=== PATIENT | female | born 1980 | race Caucasian/White ===

== ENCOUNTER 2018-09-04 21:30 | Emergency (ER) | payer OTHER ==
[~2018-09-04] VITALS: Ht 180.3 cm; Wt 60.3 kg
[~2018-09-04 21:30] MED LIST: AMOX-97 PO; IBP800T PO; NAPR-243 PO
--- NOTE | 2018-09-04 21:53 | ED Abdominal Pain ---
General Chief Complaint: Abdominal/GI Problems Stated Complaint: 17 WEEKS ,HAVING A LOT OF BOWEL MOVEMENTS Source of Information: Patient Exam Limitations: No Limitations History of Present Illness Date Seen by Provider: Sep 04, 2018 Time Seen by Provider: 21:50 Initial Comments To ER with diarrhea too many episodes to count since this morning, lower abdominal cramping. She is 17 weeks' gestation. Stools are nonbloody. No fevers no vomiting. She denies any vaginal bleeding. She is . She follows with Dr. Anderson. Timing/Duration: 12 Hours Severity/Quality: Moderate, Cramping Location: Generalized Abdomen Activities at Onset: None Associated Symptoms: No Fever/Chills (medical), No Nausea/Vomiting, No Swelling /Mass in Abdomen Allergies and Home Medications Allergies Coded Allergies: No Known Drug Allergies (Unverified , 08/19/11) Home Medications Cephalexin 500 Mg Capsule, 500 MG PO TID Prescribed by: JM HILTON on 09/04/18 9072 Patient Home Medication List Home Medication List Reviewed: Yes Review of Systems Review of Systems Constitutional: see HPI EENTM: No Symptoms Reported Respiratory: No Symptoms Reported Cardiovascular: No Symptoms Reported Gastrointestinal: See HPI, Abdominal Pain (suprapubic cramping especially with bowel movements. ); Denies Constipated; Diarrhea; Denies Nausea, Denies Vomiting Genitourinary: No Symptoms Reported Musculoskeletal: no symptoms reported Skin: no symptoms reported Psychiatric/Neurological: No Symptoms Reported Endocrine: No Symptoms Reported Hematologic/Lymphatic: No Symptoms Reported Past Hplyizg-Rlxbrv-Fastcu Hx Patient Social History Recent Foreign Travel: No Contact w/Someone Who Travel: No Seasonal Allergies Seasonal Allergies: No Physical Exam Vital Signs Vital Signs - First Documented 09/04/18 21:42 Temp 99.5 Pulse 98 Resp 18 B/P (MAP) 112/68 (83) Capillary Refill : Height/Weight/BMI Height: 5'11" Weight: 120lbs. oz. 54.689212fu; BMI Method:Stated General Appearance: WD/WN, no apparent distress HEENT: PERRL/EOMI, normal ENT inspection Neck: non-tender, full range of motion Respiratory: no respiratory distress, no accessory muscle use Cardiovascular: regular rate, rhythm, no murmur Gastrointestinal: normal bowel sounds, soft, tenderness (suprapubic ) Extremities: normal range of motion, non-tender Neurologic/Psychiatric: alert, normal mood/affect, oriented x 3 Skin: normal color, warm/dry Exam Comments heart tones obtained by me at 169 just about 3-4cm inferior to umbilicus. Progress/Results/Core Measures Results/Orders Lab Results Laboratory Tests Test 09/04/18 21:45 09/04/18 21:53 Range/Units White Blood Count 9.3 4.3-11.0 10^3/uL Red Blood Count 3.84 L 4.35-5.85 10^6/uL Hemoglobin 12.5 11.5-16.0 G/DL Hematocrit 36 35-52 % Mean Corpuscular Volume 94 80-99 FL Mean Corpuscular Hemoglobin 33 25-34 PG Mean Corpuscular Hemoglobin Concent 35 32-36 G/DL Red Cell Distribution Width 12.2 10.0-14.5 % Platelet Count 250 130-400 10^3/uL Mean Platelet Volume 9.8 7.4-10.4 FL Neutrophils (%) (Auto) 64 42-75 % Lymphocytes (%) (Auto) 24 12-44 % Monocytes (%) (Auto) 9 0-12 % Eosinophils (%) (Auto) 3 0-10 % Basophils (%) (Auto) 0 0-10 % Neutrophils # (Auto) 5.9 1.8-7.8 X 10^3 Lymphocytes # (Auto) 2.3 1.0-4.0 X 10^3 Monocytes # (Auto) 0.8 0.0-1.0 X 10^3 Eosinophils # (Auto) 0.3 0.0-0.3 10^3/uL Basophils # (Auto) 0.0 0.0-0.1 10^3/uL Sodium Level 139 135-145 MMOL/L Potassium Level 3.5 L 3.6-5.0 MMOL/L Chloride Level 108 H 98-107 MMOL/L Carbon Dioxide Level 22 21-32 MMOL/L Anion Gap 9 5-14 MMOL/L Blood Urea Nitrogen 6 L 7-18 MG/DL Creatinine 0.56 L 0.60-1.30 MG/DL Estimat Glomerular Filtration Rate > 60 BUN/Creatinine Ratio 11 Glucose Level 94 70-105 MG/DL Calcium Level 9.7 8.5-10.1 MG/DL Corrected Calcium 9.8 8.5-10.1 MG/DL Total Bilirubin 0.3 0.1-1.0 MG/DL Aspartate Amino Transf (AST/SGOT) 43 H 5-34 U/L Alanine Aminotransferase (ALT/SGPT) 45 0-55 U/L Alkaline Phosphatase 50 40-136 U/L Total Protein 6.6 6.4-8.2 GM/DL Albumin 3.9 3.2-4.5 GM/DL Urine Color YELLOW Urine Clarity SLIGHTLY CLOUDY Urine pH 6 5-9 Urine Specific Moffett 1.025 H 1.016-1.022 Urine Protein 2+ H NEGATIVE Urine Glucose (UA) NEGATIVE NEGATIVE Urine Ketones 1+ H NEGATIVE Urine Nitrite NEGATIVE NEGATIVE Urine Bilirubin NEGATIVE NEGATIVE Urine Urobilinogen 1 NORMAL MG/DL Urine Leukocyte Esterase 2+ H NEGATIVE Urine RBC (Auto) 2+ H NEGATIVE Urine RBC RARE /HPF Urine WBC 5-10 H /HPF Urine Squamous Epithelial Cells 25-50 H /HPF Urine Crystals PRESENT H /LPF Urine Calcium Oxalate Crystals LARGE H /LPF Urine Bacteria MODERATE H /HPF Urine Casts NONE /LPF Urine Mucus LARGE H /LPF Urine Culture Indicated YES My Orders Orders - JM HILTON APRN Cbc With Automated Diff (09/04/18 21:48) Comprehensive Metabolic Panel (09/04/18 21:48) Ua Culture If Indicated (09/04/18 21:48) Iv Heplock-Insert (Order) (09/04/18 21:48) Ns Iv 1000 Ml (Sodium Chloride 0.9%) (09/04/18 22:00) Diphenhydramine Injection (Benadryl Inje (09/04/18 22:00) Urine Culture (09/04/18 21:53) Medications Given in ED Current Medications Medications Dose Ordered Sig/Leda Route Start Time Stop Time Status Last Admin Dose Admin Diphenhydramine HCl 12.5 mg ONCE ONCE IVP 09/04/18 22:00 09/04/18 22:01 DC 09/04/18 21:55 12.5 MG Vital Signs/I&O 09/04/18 21:42 Temp 99.5 Pulse 98 Resp 18 B/P (MAP) 112/68 (83) Departure Impression Primary Impression: Diarrhea during Additional Impression: Asymptomatic bacteriuria during Disposition: 01 HOME, SELF-CARE Condition: Stable Departure-Patient Inst. Decision time for Depature: 22:10 Referrals: RUBANO ANDERSON DO (PCP/Family) Primary Care Physician Patient Instructions: Diarrhea in Adolescents and Adults Add. Discharge Instructions: 1. Drink plenty of fluids. Pedialyte is a great choice to help stay hydrated or water. Call Dr. Anderson tomorrow and return to ER for any concerns such as fevers or uncontrollable vomiting. Scripts Cephalexin (Keflex) 500 Mg Capsule 500 MG PO TID, #10 CAP . Prov: JM HILTON APRN 09/04/18 Work/School Note: Work Release Form Date Seen in the Emergency Department: Sep 04, 2018 Return to Work: Sep 06, 2018 MJ HILTON APRN Sep 04, 2018 21:53
[2018-09-04 21:54] LABS: BASOPHILS % (AUTO) 0 % (0-10); EOSINOPHILS # (AUTO) 0.3 10^3/uL (0.0-0.3); EOSINOPHILS % (AUTO) 3 % (0-10); HEMATOCRIT 36 % (35-52); HEMOGLOBIN 12.5 G/DL (11.5-16.0); LYMPHOCYTES # (AUTO) 2.3 X 10^3 (1.0-4.0); LYMPHOCYTES % (AUTO) 24 % (12-44); MEAN CORPUSCULAR HEMOGLOBIN 33 PG (25-34); MEAN CORPUSCULAR HGB CONC 35 G/DL (32-36); MEAN CORPUSCULAR VOLUME 94 FL (80-99); MEAN PLATELET VOLUME 9.8 FL (7.4-10.4); MONOCYTES # (AUTO) 0.8 X 10^3 (0.0-1.0); MONOCYTES % (AUTO) 9 % (0-12); NEUTROPHILS # (AUTO) 5.9 X 10^3 (1.8-7.8); NEUTROPHILS % (AUTO) 64 % (42-75); PLATELET COUNT 250 10^3/uL (130-400); RED CELL DISTRIBUTION WIDTH 12.2 % (10.0-14.5); WHITE BLOOD COUNT 9.3 10^3/uL (4.3-11.0)
[2018-09-04] MEDS ORDERED: diphenhydrAMINE 50 MG/ML INJ (BENADRYL) IVP ONE (22:00)
[2018-09-04] MEDS ORDERED: NS IV 1000 ML 1,000 ML IV SCH (22:00)
[2018-09-04 22:03] LABS: BILIRUBIN,URINE NEGATIVE (NEGATIVE); CLARITY,URINE SLIGHTLY CLOUDY; COLOR,URINE YELLOW; GLUCOSE, URINE (UA) NEGATIVE (NEGATIVE); KETONES,URINE 1+ (NEGATIVE); LEUKOCYTE ESTERASE ,URINE 2+ (NEGATIVE); NITRITE,URINE NEGATIVE (NEGATIVE); PH,URINE 6 (5-9); PROTEIN,URINE 2+ (NEGATIVE); UROBILINOGEN,URINE 1 MG/DL (NORMAL)
[2018-09-04 22:12] LABS: BACTERIA,URINE MODERATE /HPF; CALCIUM OXALATE CRYSTALS,UR LARGE /LPF; RBC,URINE RARE /HPF; SQUAMOUS EPITHELIAL CELL,UR 25-50 /HPF
[2018-09-04 22:20] LABS: ALANINE AMINOTRANSFERASE 45 U/L (0-55); ALBUMIN 3.9 GM/DL (3.2-4.5); ALKALINE PHOSPHATASE 50 U/L (40-136); BILIRUBIN,TOTAL 0.3 MG/DL (0.1-1.0); BUN/CREATININE RATIO 11; CALCIUM 9.7 MG/DL (8.5-10.1); CARBON DIOXIDE 22 MMOL/L (21-32); CHLORIDE 108 MMOL/L (98-107); CREATININE SERUM 0.56 MG/DL (0.60-1.30); GFR ESTIMATED > 60; GLUCOSE 94 MG/DL (70-105); POTASSIUM 3.5 MMOL/L (3.6-5.0); SODIUM 139 MMOL/L (135-145); TOTAL PROTEIN 6.6 GM/DL (6.4-8.2)
[2018-09-04] MEDS ORDERED: CEPH-507 PO ×2 (22:39→22:52)
[2018-09-04 22:53] VITALS: BP 110/68
== END 2018-09-04 22:53 | disposition home or self-care (01) ==
LOC: EDUNIT# 21:30 → ER 21:32
DX: O99.89 Other specified diseases and conditions complicating pregnancy, childbirth and the puerperium (principal); R82.71 Bacteriuria; O26.892 Other specified pregnancy related conditions, second trimester; R19.7 Diarrhea, unspecified; Z3A.17 17 weeks gestation of pregnancy
CPT/HCPCS: 36415; 80053; 81000; 85025; 87088

== ENCOUNTER → 2018-10-03 | Outpatient (CLI) | payer MEDICAID ==
[~2018-10-03] MED LIST changes: +CEPH-507 PO
--- NOTE | 2018-10-03 15:56 | Diagnostic Imaging Report ---
INDICATION: survey. TECHNIQUE: Multiple real-time grayscale images were obtained over the gravid uterus. COMPARISON: None. FINDINGS: There is a single live fetus in a cephalic presentation. heart rate was recorded at 133 beats per minute. Placenta is fundal. Amniotic fluid volume is normal. Cervical length is 5 cm. survey demonstrates kidneys, bladder and stomach to be unremarkable. brain is unremarkable. There is a four-chamber heart. There is a three-vessel cord with normal insertion. spine is unremarkable. Biometrical measurements are as follows: Biparietal 5.14 cm, age 21 weeks 5 days. Head circumference 19.16 cm, age 21 weeks 3 days. Abdominal circumference 15.92 cm, age 21 weeks 1 days. Femur length 3.50 cm, age 21 weeks 1 days. Sonographic estimate age: 21 weeks 3 days. Sonographic estimated date of delivery: 02/10/2019. Estimated Weight: 399 gm (+/- 58 gm). LMP percentile: 17%. heart rate: 133 beats per minute. number: 1 of 1. IMPRESSION: Single live IUP approximately 21 weeks 3 days gestational age with an estimated date of confinement sonographically of 02/10/2019. Dictated by: Dictated on workstation # [id number]
== END ==
LOC: RAD 14:27
PROVIDERS: ATTEND Obstetrics & Gynecology
DX: Z36.89 Encounter for other specified antenatal screening (principal); Z3A.21 21 weeks gestation of pregnancy
CPT/HCPCS: 76805

== ENCOUNTER 2018-10-11 11:23 | Emergency (ER) | payer MEDICAID ==
[~2018-10-11] VITALS: Ht 177.8 cm; Wt 63.5 kg
--- OUTSIDE RECORDS SUMMARY | 2018-10-11 11:29 | XMS REPORT ---
Author Author Migration, Doctor Organization [facility] Address Unknown Phone Unavailable Care Team Providers Care Fire Marshal Name Role Phone Migration, Doctor Unavailable Unavailable PROBLEMS Type Condition ICD9-CM Code EWO62-NZ Code Onset Dates Condition Status SNOMED Code Problem Screening for malignant neoplasm of the cervix V76.2 Active 854097691 Problem Screening examination for venereal disease V74.5 Active 246205537 Problem Unspecified breast screening V76.10 Active 447434032 Problem Routine gynecological examination V72.31 Active 510829208774266 Problem Special screening examination, human papillomavirus [HPV] V73.81 Active 284769348 Problem Loss of weight 783.21 Active 444934957 Problem Headache 784.0 Active 17627584 Problem Postcoital bleeding 626.7 Active 72455024 Problem Irregular menstrual cycle 626.4 Active 54026227 Problem Lump or mass in breast 611.72 Active 06181650 Problem 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 Active 026408507 Problem Dizziness and giddiness 780.4 Active 971038925 Problem Streptococcal sore throat 034.0 Active 34832832 Problem Fever, unspecified 780.60 Active 850107625 Problem Acute sinusitis, unspecified 461.9 Active 16143912 Problem Other specified visual disturbances 368.8 Active 18240118 Problem Unspecified subjective visual disturbance 368.10 Active 58671544 Problem Candidiasis of vulva and vagina 112.1 Active 06788240 ALLERGIES No Information ENCOUNTERS Encounter Location Date Diagnosis [facility] [address] [facility] [id number] [address] May, [facility] [address] [id number] [address] Apr, [facility] [address] [id number] [address] Apr, Palpitations R00.2 [facility] [address] [id number] [address] Nov, Gastroenteritis and colitis, viral A08.4 [facility] [address] [id number] Jan, Dental examination Z01.20 [facility] [id number] [place] [id number] Dec, Dental examination Z01.20 [facility] [id number] [place] [address] Aug, Unspecified lump in breast N63 [facility] [id number] [place] [address] Jan, Lump or mass in breast 611.72 [facility] [id number] [place] [address] Oct, [facility] [id number] [place] [address]- [address] Oct, Vision disturbance 368.9 and Sinusitis 473.9 [facility] [id number] [place] [address] September, [facility] [id number] [place] [address] [phone]- [address] Aug, [facility] [id number] [place] [address] 315720- 49[address] Aug, [facility] [id number] [place] [address]358- 0[address] Jul, [facility] [id number] [place] [address]- [address]856 Jul, [facility] [id number] [place] [address]151- 7826 Jul, [facility] [id number] [place] [address]269- 3636 Jul, [facility] [id number] [place] [address]48- 8670 Apr, [facility] [place] [facility] [address] [id number] [place] [address] Apr, [facility] [place] [facility] [address] [id number] [place] [address] 17 Mar, 2014 [facility] [place] [facility] [address] [id number] [place] [address] Mar, [facility] [place] [facility] [address] [id number] [place] [address] Mar, [facility] [place] [facility] [address] [id number] [place] [address] Mar, [facility] [place] [facility] [address] [id number] [place] [address] 17[address] Mar, [facility] [place] [facility] [address] [id number] [place] [address] Mar, [facility] [place] [facility] [address] [id number], [place] [address] Mar, [facility] [place] [facility] [address] [id number] [place] [address] Mar, [facility] [place] [facility] [address] [id number] [place] [address] Mar, [facility] [place] [facility] [address] [id number], [place] [address] Mar, [facility] [place] [facility] [address] [id number], [place] [address] 10 Mar, 2014 [facility] [place] [facility] [address] [id number] [place] [address] Mar, [facility] [place] [facility] [address] [id number], [place] [address] 07 Mar, 2014 [facility] [place] [facility] [address] [id number], [place] [address] Feb, [facility] [place] [facility] [address] [id number] [place] [address] Feb, [facility] [place] [facility] [address] [id number] [place] [address]258 Feb, [facility] [place] [facility] [address] [id number] [place] [address] Feb, [facility] [place] [facility] [address] [id number] [place] [address] Feb, [facility] [place] [facility] [address] [id number] [place] [address] Feb, [facility] [place] [facility] [address] [id number] [place] [address] Feb, [facility] [place] [facility] [address] [id number] [place] [address] Feb, [facility] [place] [facility] [address] [id number] [place] [address] 16[address] Feb, [facility] [place] [facility] [address] [id number] [place] [address] Feb, [facility] [place] [facility] [address] [id number] [place] [address] 18[address] Dec, [facility] [place] [facility] [address] [id number] [place] [address] Dec, [facility] [place] [facility] [address] [id number] [place] [address] 8873 Oct, [facility] [place] [facility] [address] [id number] [place] [address]93 Oct, [facility] [place] [facility] [address] [id number] [place] [address] 8547 Oct, [facility] [place] [facility] [address] [id number] [place] [address] 9481 Oct, [facility] [place] [facility] [address] [id number] [place] [address] 91[address] Oct, [facility] [place] [facility] [address] [id number] [place] [address] 7[address] Oct, [facility] [place] [facility] [address] [id number] [place] [address] September, [facility] [place] [facility] [address] [id number] [place] [address] 67[address] September, [facility] [place] [facility] [address] [id number] [place] [address] Aug, [facility] [place] [facility] [address] [id number] [place] [address] 4245 Aug, [facility] [place] [facility] [address] [id number] [place] [address] 0867 Jul, [facility] [place] [facility] [address] [id number] [place] [address]- 7178 Jul, [facility] [place] [facility] [address] [id number] [place] [address]- 2354 Jul, [facility] [place] [facility] [address] [id number] [place] [address]- 45[address] Jul, [facility] [place] [facility] [address] [id number] [place] [address]- 9154 Apr, [facility] [place] [facility] [address] [id number] [place] [address]- 8537 Apr, [facility] [place] [facility] [address] [id number], [place] [address] Apr, [facility] [place] [facility] [address] [id number] [place] [address]- [address]45 Mar, [facility] [place] [facility] [address] [id number] [place] [address]- 5229 Mar, [facility] [place] [facility] [address] [id number] [place] [address]- 4044 Mar, [facility] [place] [facility] [address] [id number] [place] [address]- 6118 Mar, [facility] [address] [id number] [place] [address] 8931 Mar, [facility] [place] [facility] [address] [id number] [place] [address]- 6193 Jan, [facility] [place] [facility] [address] [id number] [place] [address]- 7910 Dec, [facility] [place] [facility] [address] [id number] [place] [address]- 1358 Dec, [facility] [address] [id number] [place] [address] Dec, [facility] [place] [facility] [address] [id number] [place] [address]- 6746 Aug, [facility] [address] [id number] [place] [address]- [address]201 Jul, [facility] [place] [facility] [address] [id number] [place] [address] May, [facility] [address] [id number] [place] [address]- [address]305 May, [facility] [address] [facility] [id number] [place] [address]- 6[address] Apr, [facility] [place] [facility] [address] [id number] [place] [address]- 3808 Apr, [facility] [place] [facility] [address] [id number] [place] [address]- 0306 Mar, [facility] [place] [facility] [address] [id number] [place] [address]- 7763 Mar, [facility] [place] [facility] [address] [id number] [place] [address]- 8510 Mar, [facility] [place] [facility] [address] [facility] [id number] [place] [address]- [address] 16 Mar, 2012 [facility] [place] [facility] [address] [id number] [place] [address]- 0910 16 Mar, 2012 [facility] [address] [id number] [place] [address]- 5883 Jul, [facility] [place] [facility] [address] [id number] [place] [address] 2546 Jul, [facility] [place] [facility] [address] [id number] [place] [address] 2546 Jul, [facility] [place] [facility] [address] [id number] [place] [address]- 7888 May, [facility] [place] [facility] [address] [id number] [place] [address]- 0419 May, [facility] [place] [facility] [address] [id number] [place] [address]- 6618 May, [facility] [place] [facility] [address] [id number] [place] [address]- 3621 Apr, [facility] [place] [facility] [address] [id number] [place] [address]- 1758 Apr, [facility] [place] [facility] [address] [id number] [place] [address]- 4637 Apr, [facility] [place] [facility] [address] [id number] [place] [address]- 4153 Apr, [facility] [place] [facility] [address] [id number] [place] [address]- 3146 Apr, [facility] [place] [facility] [address] [id number] [place] [address]- 7878 Apr, [facility] [place] [facility] [address] [id number] [place] [address]- 3416 Mar, [facility] [place] [facility] [address] [id number] [place] [address]- 2546 17 Mar, 2011 [facility] [place] [facility] [address] [id number] [place] [address]- 9489 Mar, [facility] [address] [facility] [id number] [place] [address]- [address] Dec, [facility] [address] [facility] [id number] [place] [address]- [address] Jul, IMMUNIZATIONS No Known Immunizations SOCIAL HISTORY Never Assessed REASON FOR VISIT EMR-[facility] [place] PLAN OF CARE VITAL SIGNS MEDICATIONS Unknown Medications RESULTS No Results PROCEDURES No Known procedures INSTRUCTIONS MEDICATIONS ADMINISTERED No Known Medications MEDICAL (GENERAL) HISTORY Type Description Date Surgical History No Surgical history information
--- OUTSIDE RECORDS SUMMARY | 2018-10-11 11:30 | XMS REPORT ---
Author Author Migration, Doctor Organization [facility] Address Unknown Phone Unavailable Care Team Providers Care Rn Urology Name Role Phone Migration, Doctor Unavailable Unavailable PROBLEMS Type Condition ICD9-CM Code FNO30-ZG Code Onset Dates Condition Status SNOMED Code Problem Screening for malignant neoplasm of the cervix V76.2 Active 109739538 Problem Screening examination for venereal disease V74.5 Active 876547524 Problem Unspecified breast screening V76.10 Active 883454384 Problem Routine gynecological examination V72.31 Active 342458868247512 Problem Special screening examination, human papillomavirus [HPV] V73.81 Active 300199730 Problem Loss of weight 783.21 Active 331635626 Problem Headache 784.0 Active 06809388 Problem Postcoital bleeding 626.7 Active 58390953 Problem Irregular menstrual cycle 626.4 Active 32886803 Problem Lump or mass in breast 611.72 Active 76079346 Problem 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 Active 651305938 Problem Dizziness and giddiness 780.4 Active 043939349 Problem Streptococcal sore throat 034.0 Active 30940257 Problem Fever, unspecified 780.60 Active 013883568 Problem Acute sinusitis, unspecified 461.9 Active 41174159 Problem Other specified visual disturbances 368.8 Active 31891688 Problem Unspecified subjective visual disturbance 368.10 Active 40083459 Problem Candidiasis of vulva and vagina 112.1 Active 03157059 ALLERGIES No Information ENCOUNTERS Encounter Location Date Diagnosis [facility] [place] [address] [facility] [id number] [address] May, [facility] [place] [address] [id number] [address] Apr, [facility] [place] [address] [id number] [address] 9[address] Apr, Palpitations R00.2 [facility] [address] [id number] [address] Nov, Gastroenteritis and colitis, viral A08.4 [facility] [address] [id number] Jan, Dental examination Z01.20 [facility] [id number] [place] [id number] Dec, Dental examination Z01.20 [facility] [place] [id number] [place] [address]- 1046 Aug, Unspecified lump in breast N63 [facility] [place] [id number] [place] [address]45- 5676 Jan, Lump or mass in breast 611.72 [facility] [place] [id number] [place] [address]33- 6336 Oct, [facility] [place] [id number] [place] [address]20- 7886 Oct, Vision disturbance 368.9 and Sinusitis 473.9 [facility] [place] [id number] [place] [address] 40936- 0976 September, [facility] [place] [id number] [place] [address] 120979- 7706 Aug, [facility] [place] [id number] [place] [address] 497321- 3576 Aug, [facility] [place] [id number] [place] [address] 28105- 2266 Jul, [facility] [place] [id number] [place] [address] 68063- 9956 Jul, [facility] [place] [id number] [place] [address] 02431- 6656 Jul, [facility] [place] [id number] [place] [address] 82272- 1696 Jul, [facility] [place] [id number] [place] [address] 98707- 6158 Apr, [facility] [place] [facility] [address] [id number] [place] [address]- 8871 Apr, [facility] [place] [facility] [address] [id number] [place] [address]- 7237 17 Mar, 2014 [facility] [place] [facility] [address] [id number] [place] [address]- 0909 Mar, [facility] [place] [facility] [address] [id number] [place] [address]- 0549 Mar, [facility] [place] [facility] [address] [id number] [place] [address]- 2816 Mar, [facility] [place] [facility] [address] [id number] [place] [address]- 9514 Mar, [facility] [place] [facility] [address] [id number] [place] [address]- 7549 Mar, [facility] [place] [facility] [address] [id number] [address] 72[address] Mar, [facility] [place] [facility] [address] [id number] [place] [address]- 9824 Mar, [facility] [place] [facility] [address] [id number] [place] [address]- 9723 Mar, [facility] [place] [facility] [address] [id number] [address] 1045 Mar, [facility] [place] [facility] [address] [id number], [place] [address]- 2922 10 Mar, 2014 [facility] [place] [facility] [address] [id number] [place] [address]- 0843 Mar, [facility] [place] [facility] [address] [id number] [address]- 1336 07 Mar, 2014 [facility] [place] [facility] [address] [id number] [address]- 5892 Feb, [facility] [place] [facility] [address] [id number] [place] [address]- 6347 Feb, [facility] [place] [facility] [address] [id number] [place] [address]- 6050 Feb, [facility] [place] [facility] [address] [id number] [place] [address]- 4953 Feb, [facility] [place] [facility] [address] [id number] [place] [address]- 6498 Feb, [facility] [place] [facility] [address] [id number] [place] [address]- 2060 Feb, [facility] [place] [facility] [address] [id number] [place] [address]- 7463 Feb, [facility] [place] [facility] [address] [id number] [place] [address]- 7638 Feb, [facility] [place] [facility] [address] [id number] [place] [address]- 9540 Feb, [facility] [place] [facility] [address] [id number] [place] [address]- 7581 Feb, [facility] [place] [facility] [address] [id number] [place] [address]- 2504 Dec, [facility] [place] [facility] [address] [id number] [place] [address]- 2138 Dec, [facility] [place] [facility] [address] [id number] [place] [address]- 9428 Oct, [facility] [place] [facility] [address] [id number] [place] [address]- 8784 Oct, [facility] [place] [facility] [address] [id number] [place] [address]- 7991 Oct, [facility] [place] [facility] [address] [id number] [place] [address]- 9242 Oct, [facility] [place] [facility] [address] [id number] [place] [address]- 9925 Oct, [facility] [place] [facility] [address] [id number] [place] [address]- 2098 Oct, [facility] [place] [facility] [address] [id number] [place] [address]- 2384 September, [facility] [place] [facility] [address] [id number] [place] [address]- 6344 September, [facility] [place] [facility] [address] [id number] [place] [address]- 2429 Aug, [facility] [place] [facility] [address] [id number] [place] [address]- 9981 Aug, [facility] [place] [facility] [address] [id number] [place] [address]- 4704 Jul, [facility] [place] [facility] [address] [id number] [place] [address]- 8931 Jul, [facility] [place] [facility] [address] [id number] [place] [address]- 8470 Jul, [facility] [place] [facility] [address] [id number] [place] [address]- 6940 Jul, [facility] [place] [facility] [address] [id number] [place] [address]- 2121 Apr, [facility] [place] [facility] [address] [id number] [place] [address]- 3767 Apr, [facility] [place] [facility] [address] [id number], [place] [address]- 5827 Apr, [facility] [place] [facility] [address] [id number] [place] [address]- 8809 Mar, [facility] [place] [facility] [address] [id number] [place] [address]- 7761 Mar, [facility] [place] [facility] [address] [id number] [place] [address]- 1999 Mar, [facility] [place] [facility] [address] [id number] [place] [address]- 3492 Mar, [facility] [address] [id number] [place] [address]- 2144 Mar, [facility] [place] [facility] [address] [id number] [place] [address]- 9976 Jan, [facility] [place] [facility] [address] [id number] [place] [address]- 4564 Dec, [facility] [place] [facility] [address] [id number] [place] [address]- 4575 Dec, [facility] [address] [id number] [place] [address]- 5505 Dec, [facility] [place] [facility] [address] [id number] [place] [address]- 4001 Aug, [facility] [address] [id number] [place] [address]- 3517 Jul, [facility] [place] [facility] [address] [id number] [place] [address]- 6417 May, [facility] [address] [id number] [place] [address]- 6019 May, [facility] [address] [facility] [id number] [place] [address]- 0618 Apr, [facility] [place] [facility] [address] [id number] [place] [address]- 3204 Apr, [facility] [place] [facility] [address] [id number] [place] [address]- 5086 Mar, [facility] [place] [facility] [address] [id number] [place] [address]- 7060 Mar, [facility] [place] [facility] [address] [id number] [place] [address]- 0864 Mar, [facility] [place] [facility] [address] [facility] [id number] [place] [address]- 6375 16 Mar, 2012 [facility] [place] [facility] [address] [id number] [place] [address]- 1817 16 Mar, 2012 [facility] [address] [id number] [place] [address]- 8068 Jul, [facility] [place] [facility] [address] [id number] [place] [address] 2546 Jul, [facility] [place] [facility] [address] [id number] [place] [address] 2546 Jul, [facility] [place] [facility] [address] [id number] [place] [address]- 9982 May, [facility] [place] [facility] [address] [id number] [place] [address]- 5359 May, [facility] [place] [facility] [address] [id number] [place] [address]- 3537 May, [facility] [place] [facility] [address] [id number] [place] [address]- 6211 Apr, [facility] [place] [facility] [address] [id number] [place] [address]- 6712 Apr, [facility] [place] [facility] [address] [id number] [place] [address]- 6661 Apr, [facility] [place] [facility] [address] [id number] [place] [address]- 8942 Apr, [facility] [place] [facility] [address] [id number] [place] [address]- 4116 Apr, [facility] [place] [facility] [address] [id number] [place] [address]- 8224 Apr, [facility] [place] [facility] [address] [id number] [place] [address]- 1846 Mar, [facility] [place] [facility] [address] [id number] [place] [address]- 2546 17 Mar, 2011 [facility] [place] [facility] [address] [id number] [place] [address]- 0869 Mar, [facility] [place] [address] [facility] [id number] [place] [address]- 1299 Dec, [facility] [place] [address] [facility] [id number] [place] [address]- 8011 Jul, IMMUNIZATIONS No Known Immunizations SOCIAL HISTORY Never Assessed REASON FOR VISIT EMR[place] [place] VITAL SIGNS MEDICATIONS Unknown Medications RESULTS No Results PROCEDURES No Known procedures INSTRUCTIONS MEDICATIONS ADMINISTERED No Known Medications MEDICAL (GENERAL) HISTORY Type Description Date Surgical History No Surgical history information
--- OUTSIDE RECORDS SUMMARY | 2018-10-11 11:30 | XMS REPORT ---
Author Author Migration, Doctor Organization [facility] Address Unknown Phone Unavailable Care Team Providers Care Water/Wastewater Project Manager Name Role Phone Migration, Doctor Unavailable Unavailable PROBLEMS Type Condition ICD9-CM Code TVC12-ZM Code Onset Dates Condition Status SNOMED Code Problem Screening for malignant neoplasm of the cervix V76.2 Active 338770717 Problem Screening examination for venereal disease V74.5 Active 976426330 Problem Unspecified breast screening V76.10 Active 101056883 Problem Routine gynecological examination V72.31 Active 611438507405649 Problem Special screening examination, human papillomavirus [HPV] V73.81 Active 753843070 Problem Loss of weight 783.21 Active 608924491 Problem Headache 784.0 Active 17713562 Problem Postcoital bleeding 626.7 Active 43366582 Problem Irregular menstrual cycle 626.4 Active 36444542 Problem Lump or mass in breast 611.72 Active 20713035 Problem 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 Active 827669826 Problem Dizziness and giddiness 780.4 Active 376771543 Problem Streptococcal sore throat 034.0 Active 08285936 Problem Fever, unspecified 780.60 Active 021874279 Problem Acute sinusitis, unspecified 461.9 Active 89431582 Problem Other specified visual disturbances 368.8 Active 28755323 Problem Unspecified subjective visual disturbance 368.10 Active 54482376 Problem Candidiasis of vulva and vagina 112.1 Active 95033213 ALLERGIES No Information ENCOUNTERS Encounter Location Date Diagnosis [facility] [address] [facility] [id number] [address]342 May, [facility] [address] [id number] [address]- 0635 Apr, [facility] [address] [id number] [address]- 0666 Apr, Palpitations R00.2 [facility] [address] [id number] [address] Nov, Gastroenteritis and colitis, viral A08.4 [facility] [id number] [id number] Jan, Dental examination Z01.20 [facility] [id number] [place] [address] [id number] Dec, Dental examination Z01.20 [facility] [id number] [place] [address] 46269- 0066 Aug, Unspecified lump in breast N63 [facility] [id number] [place] [address] 43517- 0356 Jan, Lump or mass in breast 611.72 [facility] [id number] [place] [address] 82833- 9676 Oct, [facility] [id number] [place] [address] 28074- 2236 Oct, Vision disturbance 368.9 and Sinusitis 473.9 [facility] [id number] [place] [address] 89655- 1376 September, [facility] [id number] [place] [address] 913267- 0996 Aug, [facility] [id number] [place] [address] 759393- 1426 Aug, [facility] [id number] [place] [address] 35044- 3556 Jul, [facility] [id number] [place] [address] 92029- 1526 Jul, [facility] [id number] [place] [address] 07988- 9516 Jul, [facility] [id number] [place] [address] 20448- 4786 Jul, [facility] [id number] [place] [address] 65313- 4242 Apr, [facility] [place] [facility] [address] [id number] [place] [address]- 8790 Apr, [facility] [place] [facility] [address] [id number] [place] [address]- 9171 17 Mar, 2014 [facility] [place] [facility] [address] [id number] [place] [address]- 7367 Mar, [facility] [place] [facility] [address] [id number] [place] [address]- 7497 Mar, [facility] [place] [facility] [address] [id number] [place] [address]- 5921 Mar, [facility] [place] [facility] [address] [id number] [place] [address]- 1701 Mar, [facility] [place] [facility] [address] [id number] [place] [address]- 8993 Mar, [facility] [place] [facility] [address] [id number] [address]- 1712 Mar, [facility] [place] [facility] [address] [id number] [place] [address]- 8086 Mar, [facility] [place] [facility] [address] [id number] [place] [address]- 1887 Mar, [facility] [place] [facility] [address] [id number] [address]- 0005 Mar, [facility] [place] [facility] [address] [id number], [place] [address]- 5087 10 Mar, 2014 [facility] [place] [facility] [address] [id number] [place] [address]- 3924 Mar, [facility] [place] [facility] [address] [id number] [address]- 0999 07 Mar, 2014 [facility] [place] [facility] [address] [id number] [address]- 5212 Feb, [facility] [place] [facility] [address] [id number] [place] [address]- 6686 Feb, [facility] [place] [facility] [address] [id number] [place] [address]- 0388 Feb, [facility] [place] [facility] [address] [id number] [place] [address]- 3306 Feb, [facility] [place] [facility] [address] [id number] [place] [address]- 1554 Feb, [facility] [place] [facility] [address] [id number] [place] [address]- 5727 Feb, [facility] [place] [facility] [address] [id number] [place] [address]- 4641 Feb, [facility] [place] [facility] [address] [id number] [place] [address]- 3118 Feb, [facility] [place] [facility] [address] [id number] [place] [address]- 5602 Feb, [facility] [place] [facility] [address] [id number] [place] [address]- 0448 Feb, [facility] [place] [facility] [address] [id number] [place] [address]- 3538 Dec, [facility] [place] [facility] [address] [id number] [place] [address]- 2060 Dec, [facility] [place] [facility] [address] [id number] [place] [address]- 9958 Oct, [facility] [place] [facility] [address] [id number] [place] [address]- 3617 Oct, [facility] [place] [facility] [address] [id number] [place] [address]- 2001 Oct, [facility] [place] [facility] [address] [id number] [place] [address]- 2063 Oct, [facility] [place] [facility] [address] [id number] [place] [address]- 3901 Oct, [facility] [place] [facility] [address] [id number] [place] [address]- 9747 Oct, [facility] [place] [facility] [address] [id number] [place] [address]- 5267 September, [facility] [place] [facility] [address] [id number] [place] [address]- 9415 September, [facility] [place] [facility] [address] [id number] [place] [address]- 7891 Aug, [facility] [place] [facility] [address] [id number] [place] [address]- 1196 Aug, [facility] [place] [facility] [address] [id number] [place] [address]- 9802 Jul, [facility] [place] [facility] [address] [id number] [place] [address]- 3405 Jul, [facility] [place] [facility] [address] [id number] [place] [address]- 0843 Jul, [facility] [place] [facility] [address] [id number] [place] [address]- 0025 Jul, [facility] [place] [facility] [address] [id number] [place] [address]- 3245 Apr, [facility] [place] [facility] [address] [id number] [place] [address]- 2513 Apr, [facility] [place] [facility] [address] [id number] [address]- 1417 Apr, [facility] [place] [facility] [address] [id number] [place] [address] Mar, [facility] [place] [facility] [address] [id number] [place] [address] Mar, [facility] [place] [facility] [address] [id number] [place] [address] Mar, [facility] [place] [facility] [address] [id number] [place] [address] Mar, [facility] [address] [id number] [place] [address] Mar, [facility] [place] [facility] [address] [id number] [place] [address] Jan, [facility] [place] [facility] [address] [id number] [place] [address] Dec, [facility] [place] [facility] [address] [id number] [place] [address] Dec, [facility] [address] [id number] [place] [address] Dec, [facility] [place] [facility] [address] [id number] [place] [address] Aug, [facility] [address] [id number] [place] [address] Jul, [facility] [place] [facility] [address] [id number] [place] [address] May, [facility] [address] [id number] [place] [address] May, [facility] [address] [facility] [id number] [place] [address] Apr, [facility] [place] [facility] [address] [id number] [place] [address] Apr, [facility] [place] [facility] [address] [id number] [place] [address] Mar, [facility] [place] [facility] [address] [id number] [place] [address] Mar, [facility] [place] [facility] [address] [id number] [place] [address] Mar, [facility] [place] [facility] [address] [facility] [id number] [place] [address] 16 Mar, 2012 [facility] [place] [facility] [address] [id number] [place] [address] 16 Mar, 2012 [facility] [address] [id number] [place] [address] Jul, [facility] [place] [facility] [address] [id number] [place] [address] Jul, [facility] [place] [facility] [address] [id number] [place] [address] Jul, [facility] [place] [facility] [address] [id number] [place] [address] May, [facility] [place] [facility] [address] [id number] [place] [address] May, [facility] [place] [facility] [address] [id number] [place] [address] May, [facility] [place] [facility] [address] [id number] [place] [address] Apr, [facility] [place] [facility] [address] [id number] [place] [address] Apr, [facility] [place] [facility] [address] [id number] [place] [address] Apr, [facility] [place] [facility] [address] [id number] [place] [address] Apr, [facility] [place] [facility] [address] [id number] [place] [address] Apr, [facility] [place] [facility] [address] [id number] [place] [address] Apr, [facility] [place] [facility] [address] [id number] [place] [address] Mar, [facility] [place] [facility] [address] [id number] [place] [address] 17 Mar, 2011 [facility] [place] [facility] [address] [id number] [place] [address] Mar, [facility] [address] [facility] [id number] [place] [address] Dec, [facility] [address] [facility] [id number] [place] [address] Jul, IMMUNIZATIONS No Known Immunizations SOCIAL HISTORY Never Assessed REASON FOR VISIT EMR-[facility] [place] PLAN OF CARE VITAL SIGNS MEDICATIONS Unknown Medications RESULTS No Results PROCEDURES No Known procedures INSTRUCTIONS MEDICATIONS ADMINISTERED No Known Medications MEDICAL (GENERAL) HISTORY Type Description Date Surgical History No Surgical history information
--- OUTSIDE RECORDS SUMMARY | 2018-10-11 11:30 | XMS REPORT ---
Author Author Migration, Doctor Organization [facility] Address Unknown Phone Unavailable Care Team Providers Care Lead Database Developer Name Role Phone Migration, Doctor Unavailable Unavailable PROBLEMS Type Condition ICD9-CM Code AHH68-OJ Code Onset Dates Condition Status SNOMED Code Problem Screening for malignant neoplasm of the cervix V76.2 Active 662902473 Problem Screening examination for venereal disease V74.5 Active 690907229 Problem Unspecified breast screening V76.10 Active 942637997 Problem Routine gynecological examination V72.31 Active 762670707513535 Problem Special screening examination, human papillomavirus [HPV] V73.81 Active 967039401 Problem Loss of weight 783.21 Active 285006062 Problem Headache 784.0 Active 45041095 Problem Postcoital bleeding 626.7 Active 97280215 Problem Irregular menstrual cycle 626.4 Active 81509073 Problem Lump or mass in breast 611.72 Active 05942305 Problem 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 Active 681000577 Problem Dizziness and giddiness 780.4 Active 642263977 Problem Streptococcal sore throat 034.0 Active 18304482 Problem Fever, unspecified 780.60 Active 039633051 Problem Acute sinusitis, unspecified 461.9 Active 37961118 Problem Other specified visual disturbances 368.8 Active 55858668 Problem Unspecified subjective visual disturbance 368.10 Active 16444897 Problem Candidiasis of vulva and vagina 112.1 Active 33271623 ALLERGIES No Information ENCOUNTERS Encounter Location Date Diagnosis [facility] [address] [facility] [id number] [address] May, [facility] [address] [id number] [address] 1370 Apr, [facility] [address] [id number] [address] 0[address] Apr, Palpitations R00.2 [facility] [address] [id number] [address] Nov, Gastroenteritis and colitis, viral A08.4 [facility] [address] [id number] Jan, Dental examination Z01.20 [facility] [id number] [place] [id number] Dec, Dental examination Z01.20 [facility] [id number] [place] [address]19- 3136 Aug, Unspecified lump in breast N63 [facility] [id number] [place] [address]- 1316 Jan, Lump or mass in breast 611.72 [facility] [id number] [place] [address] 83146- 5756 Oct, [facility] [id number] [place] [address] 21179- 0566 Oct, Vision disturbance 368.9 and Sinusitis 473.9 [facility] [id number] [place] [address] 59280- 4166 September, [facility] [id number] [place] [address] 918906- 0286 Aug, [facility] [id number] [place] [address] 917660- 2876 Aug, [facility] [id number] [place] [address] 74836- 3456 Jul, [facility] [id number] [place] [address] 36818- 5076 Jul, [facility] [id number] [place] [address] 35220- 8316 Jul, [facility] [id number] [place] [address] 73578- 0416 Jul, [facility] [id number] [place] [address] 03041- 2212 Apr, [facility] [place] [facility] [address] [id number] [place] [address]- 7339 Apr, [facility] [place] [facility] [address] [id number] [place] [address]- 6593 17 Mar, 2014 [facility] [place] [facility] [address] [id number] [place] [address]- 9238 Mar, [facility] [place] [facility] [address] [id number] [place] [address]- 5507 Mar, [facility] [place] [facility] [address] [id number] [place] [address]- 3594 Mar, [facility] [place] [facility] [address] [id number] [place] [address]- 3390 Mar, [facility] [place] [facility] [address] [id number] [place] [address]- 3608 Mar, [facility] [place] [facility] [address] [id number] [place] [address]- 3625 Mar, [facility] [place] [facility] [address] [id number] [place] [address]- 8785 Mar, [facility] [place] [facility] [address] [id number] [place] [address]- 2035 Mar, [facility] [place] [facility] [address] [id number] [place] [address]- 4288 Mar, [facility] [place] [facility] [address] [id number] [place] [address]- 8207 10 Mar, 2014 [facility] [place] [facility] [address] [id number] [place] [address]- 0075 Mar, [facility] [place] [facility] [address] [id number] [place] [address]- 7596 07 Mar, 2014 [facility] [place] [facility] [address] [id number] [place] [address]- 7447 Feb, [facility] [place] [facility] [address] [id number] [place] [address]- 2239 Feb, [facility] [place] [facility] [address] [id number] [place] [address]- 9950 Feb, [facility] [place] [facility] [address] [id number] [place] [address]- 2682 Feb, [facility] [place] [facility] [address] [id number] [place] [address]- 3530 Feb, [facility] [place] [facility] [address] [id number] [place] [address]- 1359 Feb, [facility] [place] [facility] [address] [id number] [place] [address]- 3584 Feb, [facility] [place] [facility] [address] [id number] [place] [address]- 0366 Feb, [facility] [place] [facility] [address] [id number] [place] [address]- 4256 Feb, [facility] [place] [facility] [address] [id number] [place] [address]- 9039 Feb, [facility] [place] [facility] [address] [id number] [place] [address]- 5620 Dec, [facility] [place] [facility] [address] [id number] [place] [address]- 6847 Dec, [facility] [place] [facility] [address] [id number] [place] [address]- 2511 Oct, [facility] [place] [facility] [address] [id number] [place] [address]- 7632 Oct, [facility] [place] [facility] [address] [id number] [place] [address]- 1087 Oct, [facility] [place] [facility] [address] [id number] [place] [address]- 8427 Oct, [facility] [place] [facility] [address] [id number] [place] [address]- 0195 Oct, [facility] [place] [facility] [address] [id number] [place] [address]- 0948 Oct, [facility] [place] [facility] [address] [id number] [place] [address]- 2627 September, [facility] [place] [facility] [address] [id number] [place] [address]- 5297 September, [facility] [place] [facility] [address] [id number] [place] [address]- 3996 Aug, [facility] [place] [facility] [address] [id number] [place] [address]- 3708 Aug, [facility] [place] [facility] [address] [id number] [place] [address]- 8665 Jul, [facility] [place] [facility] [address] [id number] [place] [address]- 1963 Jul, [facility] [place] [facility] [address] [id number] [place] [address]- 5541 Jul, [facility] [place] [facility] [address] [id number] [place] [address]- 2754 Jul, [facility] [place] [facility] [address] [id number] [place] [address]- 7804 Apr, [facility] [place] [facility] [address] [id number] [place] [address]- 4362 Apr, [facility] [place] [facility] [address] [id number] [place] [address]- 0266 Apr, [facility] [place] [facility] [address] [id number] [place] [address]- 3458 Mar, [facility] [place] [facility] [address] [id number] [place] [address]- 0821 Mar, [facility] [place] [facility] [address] [id number] [place] [address]- 9113 Mar, [facility] [place] [facility] [address] [id number] [place] [address]- 8694 Mar, [facility] [address] [id number] [place] [address]- 1527 Mar, [facility] [place] [facility] [address] [id number] [place] [address]- 6436 Jan, [facility] [place] [facility] [address] [id number] [place] [address]- 3796 Dec, [facility] [place] [facility] [address] [id number] [place] [address]- 7928 Dec, [facility] [address] [id number] [place] [address]- 0492 Dec, [facility] [place] [facility] [address] [id number] [place] [address]- 0430 Aug, [facility] [address] [id number] [place] [address]- 0219 Jul, [facility] [place] [facility] [address] [id number] [place] [address]- 8260 May, [facility] [address] [id number] [place] [address]- 7403 May, [facility] [address] [facility] [id number] [place] [address]- 8995 Apr, [facility] [place] [facility] [address] [id number] [place] [address]- 6386 Apr, [facility] [place] [facility] [address] [id number] [place] [address]- 4301 Mar, [facility] [place] [facility] [address] [id number] [place] [address]- 5595 Mar, [facility] [place] [facility] [address] [id number] [place] [address]- 1158 Mar, [facility] [place] [facility] [address] [facility] [id number] [place] [address]- 5817 16 Mar, 2012 [facility] [place] [facility] [address] [id number] [place] [address]- 9490 16 Mar, 2012 [facility] [address] [id number] [place] [address]- 8216 Jul, [facility] [place] [facility] [address] [id number] [place] [address] 2546 Jul, [facility] [place] [facility] [address] [id number] [place] [address] 2546 Jul, [facility] [place] [facility] [address] [id number] [place] [address]- 2464 May, [facility] [place] [facility] [address] [id number] [place] [address]- 2368 May, [facility] [place] [facility] [address] [id number] [place] [address]- 0169 May, [facility] [place] [facility] [address] [id number] [place] [address]- 0713 Apr, [facility] [place] [facility] [address] [id number] [place] [address]- 0276 Apr, [facility] [place] [facility] [address] [id number] [place] [address]- 2336 Apr, [facility] [place] [facility] [address] [id number] [place] [address]- 8705 Apr, [facility] [place] [facility] [address] [id number] [place] [address]- 1936 Apr, [facility] [place] [facility] [address] [id number] [place] [address]- 5240 Apr, [facility] [place] [facility] [address] [id number] [place] [address]- 1746 Mar, [facility] [place] [facility] [address] [id number] [place] [address]- 2546 17 Mar, 2011 [facility] [place] [facility] [address] [id number] [place] [address]- 4440 Mar, [facility] [address] [facility] [id number] [place] [address]- 1759 Dec, [facility] [address] [facility] [id number] [place] [address]- 4103 Jul, IMMUNIZATIONS No Known Immunizations SOCIAL HISTORY Never Assessed REASON FOR VISIT EMR-[facility] PLAN OF CARE VITAL SIGNS MEDICATIONS Unknown Medications RESULTS No Results PROCEDURES No Known procedures INSTRUCTIONS MEDICATIONS ADMINISTERED No Known Medications MEDICAL (GENERAL) HISTORY Type Description Date Surgical History No Surgical history information
--- OUTSIDE RECORDS SUMMARY | 2018-10-11 11:30 | XMS REPORT ---
Author Author Migration, Doctor Organization [facility] Address Unknown Phone Unavailable Care Team Providers Care Director Of Digital Platforms Name Role Phone Migration, Doctor Unavailable Unavailable PROBLEMS Type Condition ICD9-CM Code CEY65-KB Code Onset Dates Condition Status SNOMED Code Problem Screening for malignant neoplasm of the cervix V76.2 Active 486770856 Problem Screening examination for venereal disease V74.5 Active 152916817 Problem Unspecified breast screening V76.10 Active 537248407 Problem Routine gynecological examination V72.31 Active 450682026701630 Problem Special screening examination, human papillomavirus [HPV] V73.81 Active 441838195 Problem Loss of weight 783.21 Active 263520747 Problem Headache 784.0 Active 72613824 Problem Postcoital bleeding 626.7 Active 38804592 Problem Irregular menstrual cycle 626.4 Active 74031999 Problem Lump or mass in breast 611.72 Active 10600632 Problem 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 Active 751457024 Problem Dizziness and giddiness 780.4 Active 303486294 Problem Streptococcal sore throat 034.0 Active 33960416 Problem Fever, unspecified 780.60 Active 063179368 Problem Acute sinusitis, unspecified 461.9 Active 06020441 Problem Other specified visual disturbances 368.8 Active 68902193 Problem Unspecified subjective visual disturbance 368.10 Active 62791321 Problem Candidiasis of vulva and vagina 112.1 Active 51789115 ALLERGIES No Information ENCOUNTERS Encounter Location Date Diagnosis [facility] [address] [facility] [id number] [address]- 8676 May, [facility] [address] [id number], [place] [address]- 3127 Apr, [facility] [address] [id number], [place] [address]- 1050 Apr, Palpitations R00.2 [facility] [address] [id number], [place] [address] Nov, Gastroenteritis and colitis, viral A08.4 [facility] [address] [id number] Jan, Dental examination Z01.20 [facility] [id number] [place] [address] [id number] Dec, Dental examination Z01.20 [facility] [id number] [place] [address] 21147- 5746 Aug, Unspecified lump in breast N63 [facility] [id number] [place] [address] 38851- 9056 Jan, Lump or mass in breast 611.72 [facility] [id number] [place] [address] 88299- 3496 Oct, [facility] [id number] [place] [address] 02751- 0116 Oct, Vision disturbance 368.9 and Sinusitis 473.9 [facility] [id number] [place] [address] 55482- 5816 September, [facility] [id number] [place] [address] 210883- 3736 Aug, [facility] [address] [place] [address] 484303- 6366 Aug, [facility] [id number] [place] [address] 14527- 7646 Jul, [facility] [id number] [place] [address] 96405- 9496 Jul, [facility] [id number] [place] [address] 44258- 0276 Jul, [facility] [id number] [place] [address] 89867- 8736 Jul, [facility] [id number] [place] [address] 35751- 5944 Apr, [facility] [place] [facility] [address] [id number] [place] [address]- 6537 Apr, [facility] [place] [facility] [address] [id number] [place] [address]- 8342 17 Mar, 2014 [facility] [place] [facility] [address] [id number] [place] [address]- 4948 Mar, [facility] [place] [facility] [address] [id number] [place] [address]- 6513 Mar, [facility] [place] [facility] [address] [id number] [place] [address]- 7106 Mar, [facility] [place] [facility] [address] [id number] [place] [address]- 3819 Mar, [facility] [place] [facility] [address] [id number] [place] [address]- 0893 Mar, [facility] [place] [facility] [address] [id number], [place] [address]- 8482 Mar, [facility] [place] [facility] [address] [id number] [place] [address]- 0104 Mar, [facility] [place] [facility] [address] [id number] [place] [address]- 6753 Mar, [facility] [place] [facility] [address] [id number], [place] [address]- 5238 Mar, [facility] [place] [facility] [address] [id number], [place] [address]- 6120 10 Mar, 2014 [facility] [place] [facility] [address] [id number] [place] [address]- 8375 Mar, [facility] [place] [facility] [address] [id number], [place] [address]- 2836 07 Mar, 2014 [facility] [place] [facility] [address] [id number], [place] [address]- 8204 Feb, [facility] [place] [facility] [address] [id number] [place] [address]- 1040 Feb, [facility] [place] [facility] [address] [id number] [place] [address]- 6135 Feb, [facility] [place] [facility] [address] [id number] [place] [address]- 2458 Feb, [facility] [place] [facility] [address] [id number] [place] [address]- 0617 Feb, [facility] [place] [facility] [address] [id number] [place] [address]- 1380 Feb, [facility] [place] [facility] [address] [id number] [place] [address]- 3736 Feb, [facility] [place] [facility] [address] [id number] [place] [address]- 1165 Feb, [facility] [place] [facility] [address] [id number] [place] [address]- 9308 Feb, [facility] [place] [facility] [address] [id number] [place] [address]- 9418 Feb, [facility] [place] [facility] [address] [id number] [place] [address]- 5345 Dec, [facility] [place] [facility] [address] [id number] [place] [address]- 1765 Dec, [facility] [place] [facility] [address] [id number] [place] [address]- 8412 Oct, [facility] [place] [facility] [address] [id number] [place] [address]- 3350 Oct, [facility] [place] [facility] [address] [id number] [place] [address]- 7629 Oct, [facility] [place] [facility] [address] [id number] [place] [address]- 3497 Oct, [facility] [place] [facility] [address] [id number] [place] [address]- 7530 Oct, [facility] [place] [facility] [address] [id number] [place] [address]- 0124 Oct, [facility] [place] [facility] [address] [id number] [place] [address]- 2403 September, [facility] [place] [facility] [address] [id number] [place] [address]- 3061 September, [facility] [place] [facility] [address] [id number] [place] [address]- 0948 Aug, [facility] [place] [facility] [address] [id number] [place] [address]- 3765 Aug, [facility] [place] [facility] [address] [id number] [place] [address]- 8507 Jul, [facility] [place] [facility] [address] [id number] [place] [address]- 4126 Jul, [facility] [place] [facility] [address] [id number] [place] [address]- 2524 Jul, [facility] [place] [facility] [address] [id number] [place] [address]- 2938 Jul, [facility] [place] [facility] [address] [id number] [place] [address]- 1644 Apr, [facility] [place] [facility] [address] [id number] [place] [address]- 2224 Apr, [facility] [place] [facility] [address] [id number], [place] [address]- 1140 Apr, [facility] [place] [facility] [address] [id number] [place] [address]- 5042 Mar, [facility] [place] [facility] [address] [id number] [place] [address]- 0748 Mar, [facility] [place] [facility] [address] [id number] [place] [address]- 5770 Mar, [facility] [place] [facility] [address] [id number] [place] [address]- 6499 Mar, [facility] [address] [id number] [place] [address]- 7793 Mar, [facility] [place] [facility] [address] [id number] [place] [address] Jan, [facility] [place] [facility] [address] [id number] [place] [address] Dec, [facility] [place] [facility] [address] [id number] [place] [address] Dec, [facility] [address] [id number] [place] [address] Dec, [facility] [place] [facility] [address] [id number] [place] [address] Aug, [facility] [address] [id number] [place] [address] Jul, [facility] [place] [facility] [address] [id number] [place] [address] May, [facility] [address] [id number] [place] [address] May, [facility] [address] [facility] [id number] [place] [address] Apr, [facility] [place] [facility] [address] [id number] [place] [address] Apr, [facility] [place] [facility] [address] [id number] [place] [address] Mar, [facility] [place] [facility] [address] [id number] [place] [address] Mar, [facility] [place] [facility] [address] [id number] [place] [address] Mar, [facility] [place] [facility] [address] [facility] [id number] [place] [address] 16 Mar, 2012 [facility] [place] [facility] [address] [id number] [place] [address] 16 Mar, 2012 [facility] [address] [id number] [place] [address] Jul, [facility] [place] [facility] [address] [id number] [place] [address] Jul, [facility] [place] [facility] [address] [id number] [place] [address] Jul, [facility] [place] [facility] [address] [id number] [place] [address] May, [facility] [place] [facility] [address] [id number] [place] [address] May, [facility] [place] [facility] [address] [id number] [place] [address] May, [facility] [place] [facility] [address] [id number] [place] [address] Apr, [facility] [facility] [address] [id number] [place] [address] Apr, [facility] [facility] [address] [id number] [place] [address] Apr, [facility] [address] [id number] [place] [address] Apr, [facility] [place] [facility] [address] [id number] [place] [address] Apr, [facility] [place] [facility] [address] [id number] [place] [address] Apr, [facility] [place] [facility] [address] [id number] [place] [address] Mar, [facility] [place] [facility] [address] [id number] [place] [address] 17 Mar, 2011 [facility] [place] [facility] [address] [id number] [place] [address] Mar, [facility] [address] [facility] [id number] [place] [address] Dec, [facility] [address] [facility] [id number] [place] [address] Jul, IMMUNIZATIONS No Known Immunizations SOCIAL HISTORY Never Assessed REASON FOR VISIT EMR-[facility] PLAN OF CARE VITAL SIGNS MEDICATIONS Medication Instructions Dosage Frequency Start Date End Date Duration Status Amoxicillin 500 mg 2 capsule by Oral route 2 times per day for 10 day(s) Jul, Active Augmentin 875-125 mg 1 tablet by Oral route 2 times per day for 10 day(s) May, Active RESULTS No Results PROCEDURES No Known procedures INSTRUCTIONS MEDICATIONS ADMINISTERED No Known Medications MEDICAL (GENERAL) HISTORY Type Description Date Surgical History No Surgical history information
--- OUTSIDE RECORDS SUMMARY | 2018-10-11 11:31 | XMS REPORT ---
Author Author ESPINOZA MERCEDES Organization [employer] Address Unknown Phone Unavailable Care Team Providers Care Tool Engineer Name Role Phone ESPINOZA MERCEDES CP Unavailable Allergies No Known Allergies Problems Problem Type Condition ICD-9 Code Onset Dates Condition Status Problem Acute sinusitis, unspecified 461.9 Active Problem Dizziness and giddiness 780.4 Active Problem Irregular menstrual cycle 626.4 Active Problem Screening examination for venereal disease V74.5 Active Problem Routine gynecological examination V72.31 Active Problem Special screening examination, human papillomavirus [HPV] V73.81 Active Problem Headache 784.0 Active Problem Other specified visual disturbances 368.8 Active Problem Unspecified breast screening V76.10 Active Problem Postcoital bleeding 626.7 Active Problem Lump or mass in breast 611.72 Active Problem Unspecified subjective visual disturbance 368.10 Active Assessment Lump or mass in breast 611.72 Active Problem Candidiasis of vulva and vagina 112.1 Active Problem Screening for malignant neoplasm of the cervix V76.2 Active Problem Fever, unspecified 780.60 Active Problem Loss of weight 783.21 Active Problem Streptococcal sore throat 034.0 Active Problem 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
--- OUTSIDE RECORDS SUMMARY | 2018-10-11 11:31 | XMS REPORT ---
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 Active 515623201 Problem Other specified visual disturbances 368.8 Active 80557814 Problem Acute sinusitis, unspecified 461.9 Active 08248003 Problem Candidiasis of vulva and vagina 112.1 Active 96198492 Problem Unspecified subjective visual disturbance 368.10 Active 28168946 Problem Unspecified breast screening V76.10 Active 926946104 Problem Screening examination for venereal disease V74.5 Active 610571061 Problem Screening for malignant neoplasm of the cervix V76.2 Active 008661135 Problem Headache 784.0 Active 47470723 Problem Loss of weight 783.21 Active 246317667 Problem Special screening examination, human papillomavirus [HPV] V73.81 Active 120346537 Problem Fever, unspecified 780.60 Active 062451248 Problem Routine gynecological examination V72.31 Active 352460635766298 Problem Dizziness and giddiness 780.4 Active 491797105 ALLERGIES No Known Allergies ENCOUNTERS Encounter Location Date Diagnosis [facility] [address] [facility] [id number], [place] [address] Apr, [facility] [address] [id number], [place] [address] 06 Apr, 2018 Palpitations R00.2 [facility] [address] [facility] [id number], [place] [address] Nov, Gastroenteritis and colitis, viral A08.4 [facility] [id number] [place] [id number] Jan, Dental examination Z01.20 [facility] [id number] [place] [address] [id number] Dec, Dental examination Z01.20 [facility] [id number] [place] [address]01- 9246 Aug, Unspecified lump in breast N63 [facility] [id number] [place] [address]- [address]676 Jan, Lump or mass in breast 611.72 [facility] [id number] [place] [address] 6[address]- 3976 Oct, [facility] [id number] [place] [address]- 9106 Oct, Vision disturbance 368.9 and Sinusitis 473.9 [facility] [id number] [place] [address]- 45[address] September, [facility] [id number] [place] [address] 486941- 1796 Aug, [facility] [id number] [place] [address] [id number]- 8106 Aug, [facility] [id number] [place] [address] 16767- 4716 Jul, [facility] [id number] [place] [address] 785[address]- 3206 Jul, [facility] [id number] [place] [address]91- 3146 Jul, [facility] [id number] [place] [address] 25697- 2246 Jul, [facility] [id number] [place] [address] 691969- 9310 Apr, [facility] [place] [facility] [address] [id number] [place] [address] Apr, [facility] [place] [facility] [address] [id number] [place] [address] 17 Mar, 2014 [facility] [place] [facility] [address] [id number] [place] [address] 14 Mar, 2014 [facility] [place] [facility] [address] [id number] [place] [address] Mar, [facility] [place] [facility] [address] [id number] [place] [address] 8399 Mar, [facility] [place] [facility] [address] [id number] [place] [address] 9187 Mar, [facility] [place] [facility] [address] [id number] [place] [address] 2932 Mar, [facility] [place] [facility] [address] [id number] [place] [address] 3836 Mar, [facility] [place] [facility] [address] [id number] [place] [address] 8895 Mar, [facility] [place] [facility] [address] [id number], [place] [address] Mar, [facility] [place] [facility] [address] [id number], [place] [address] Mar, [facility] [place] [facility] [address] [id number], [place] [address] 10 Mar, 2014 [facility] [place] [facility] [address] [id number] [place] [address] 7666 Mar, [facility] [place] [facility] [address] [id number], [place] [address] 07 Mar, 2014 [facility] [place] [facility] [address] [id number], [place] [address] 20 Feb, 2014 [facility] [place] [facility] [address] [id number], [place] [address] Feb, [facility] [place] [facility] [address] [id number] [place] [address] 8991 Feb, [facility] [place] [facility] [address] [id number] [place] [address]- 2413 Feb, [facility] [place] [facility] [address] [facility] [id number] [place] [address] 3854 Feb, [facility] [place] [facility] [address] [id number] [place] [address]- 3652 Feb, [facility] [place] [facility] [address] [id number] [place] [address] 1604 Feb, [facility] [place] [facility] [address] [id number] [place] [address]- 9521 Feb, [facility] [place] [facility] [address] [facility] [id number] [place] [address]- 4187 Feb, [facility] [place] [facility] [address] [id number] [place] [address]- 9624 Feb, [facility] [place] [facility] [address] [facility] [id number] [place] [address]- 3[address] Dec, [facility] [place] [facility] [address] [facility] [id number] [place] [address]- 2084 Dec, [facility] [place] [facility] [address] [id number] [place] [address]- 7018 Oct, [facility] [place] [facility] [address] [id number], [place] [address]345 Oct, [facility] [place] [facility] [address] [id number] [place] [address]- 3502 Oct, [facility] [place] [facility] [address] [facility] [id number] [place] [address]- 1144 Oct, [facility] [place] [facility] [address] [facility] [id number] [place] [address]- 3782 Oct, [facility] [place] [facility] [address] [id number] [place] [address]- 0993 Oct, [facility] [place] [facility] [address] [id number] [place] [address]- 9556 September, [facility] [place] [facility] [address] [id number] [place] [address]- 8160 September, [facility] [place] [facility] [address] [id number] [place] [address]- 4454 Aug, [facility] [place] [facility] [address] [id number] [place] [address]- 8868 Aug, [facility] [place] [facility] [address] [id number] [place] [address]- 7537 Jul, [facility] [place] [facility] [address] [id number] [place] [address]- 1197 Jul, [facility] [place] [facility] [address] [id number] [place] [address]- 8675 Jul, [facility] [place] [facility] [address] [id number] [place] [address]- 1774 Jul, [facility] [place] [facility] [address] [id number] [place] [address]- 0887 Apr, [facility] [place] [facility] [address] [id number] [place] [address]- 2241 Apr, [facility] [place] [facility] [address] [id number] [place] [address]- 3192 Apr, [facility] [place] [facility] [address] [id number] [place] [address]- 4387 Mar, [facility] [place] [facility] [address] [id number] [place] [address]- 5408 Mar, [facility] [place] [facility] [address] [id number] [place] [address]- 0070 Mar, [facility] [place] [facility] [address] [id number] [place] [address]- 6032 Mar, [facility] [place] [facility] [address] [id number] [place] [address]- 5396 Mar, [facility] [place] [facility] [address] [id number] [place] [address]- 4550 Jan, [facility] [place] [facility] [address] [id number] [place] [address]- 9326 Dec, [facility] [place] [facility] [address] [id number] [place] [address]- 2510 Dec, [facility] [place] [facility] [address] [id number] [place] [address]- 1224 Dec, [facility] [place] [facility] [address] [id number] [place] [address]- 2228 Aug, [facility] [place] [facility] [address] [id number] [place] [address]- 1618 Jul, [facility] [place] [facility] [address] [id number] [place] [address]- 4725 May, [facility] [place] [facility] [address] [id number] [place] [address]- 6873 May, [facility] [place] [facility] [address] [id number] [place] [address]- 4731 Apr, [facility] [place] [facility] [address] [id number], [place] [address]- 6901 Apr, [facility] [place] [facility] [address] [id number], [place] [address]- 7735 Mar, [facility] [place] [facility] [address] [id number] [place] [address]- 6625 Mar, [facility] [place] [facility] [address] [id number] [place] [address]- 6453 Mar, [facility] [place] [facility] [address] [id number] [place] [address]- 5018 16 Mar, 2012 [facility] [place] [facility] [address] [id number] [place] [address]- 4347 16 Mar, 2012 [facility] [address] [id number] [place] [address]- 4879 Jul, [facility] [address] [id number] [place] [address] 2546 Jul, [facility] [address] [id number] [place] [address]- 9516 Jul, [facility] [address] [id number] [place] [address]- 1344 May, [facility] [address] [id number] [place] [address]- 1187 May, [facility] [address] [id number] [place] [address]- 3129 May, [facility] [address] [id number] [place] [address]- 3619 Apr, [facility] [address] [id number] [place] [address]- 9344 Apr, [facility] [address] [id number] [place] [address]- 9642 Apr, [facility] [address] [id number] [place] [address]- 5873 Apr, [facility] [address] [id number] [place] [address] 2548 Apr, [facility] [address] [id number] [place] [address]- 7470 Apr, [facility] [place] [facility] [address] [id number] [place] [address]- 3754 Mar, [facility] [place] [facility] [address] [id number] [place] [address]- 2546 Mar, [facility] [address] [id number] [place] [address]- 4766 Mar, [facility] [address] [facility] [id number] [place] [address]- 3954 Dec, [facility] [address] [facility] [id number] [place] [address]- 4006 Jul, IMMUNIZATIONS No Known Immunizations SOCIAL HISTORY Never Assessed REASON FOR VISIT New provider visit - kpaedmundo ma, feels like something is wrong with heart- feels like it beats strangely kPage ma , gets dizzy/ lightheadedness / feels it is skipping a beat / - kpage ma , has shortness of breath/ mild chest pains at time KPage ma PLAN OF CARE Activity Details Follow Up Will call after lab Reason: Pending Test CMP VITAL SIGNS Height 70 in 2018-05-05 Weight 121.4 lbs 2018-05-05 Temperature 98.0 degrees Fahrenheit 2018-05-05 Heart Rate 85 bpm 2018-05-05 Respiratory Rate 16 2018-05-05 BMI 17.42 kg/m2 2018-05-05 Blood pressure systolic 98 mmHg 2018-05-05 Blood pressure diastolic 70 mmHg 2018-05-05 MEDICATIONS Medication Instructions Dosage Frequency Start Date End Date Duration Status Tylenol Not-Taking [place] Not-Taking Ibuprofen Not-Taking RESULTS No Results PROCEDURES Procedure Date Ordered Result Body Site ASSAY THYROID STIM HORMONE May 05, 2018 COMPREHEN METABOLIC PANEL May 05, 2018 VENIPUNCT, ROUTINE* May 05, 2018 INSTRUCTIONS MEDICATIONS ADMINISTERED No Known Medications MEDICAL (GENERAL) HISTORY Type Description Date Surgical History No Surgical history information
--- OUTSIDE RECORDS SUMMARY | 2018-10-11 11:31 | XMS REPORT ---
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 Active 766189925 Problem Other specified visual disturbances 368.8 Active 49390304 Problem Acute sinusitis, unspecified 461.9 Active 34336130 Problem Candidiasis of vulva and vagina 112.1 Active 11968290 Problem Unspecified subjective visual disturbance 368.10 Active 56539688 Problem Unspecified breast screening V76.10 Active 661050553 Problem Screening examination for venereal disease V74.5 Active 424320149 Problem Screening for malignant neoplasm of the cervix V76.2 Active 657157377 Problem Headache 784.0 Active 12353886 Problem Loss of weight 783.21 Active 034555218 Problem Special screening examination, human papillomavirus [HPV] V73.81 Active 246334206 Problem Fever, unspecified 780.60 Active 303854392 Problem Routine gynecological examination V72.31 Active 192393045930944 Problem Dizziness and giddiness 780.4 Active 094090286 ALLERGIES No Information ENCOUNTERS Encounter Location Date Diagnosis [facility] [address] [facility] [id number] [address] Apr, [facility] [address] [id number] [address] Apr, Palpitations R00.2 [facility] [address] [facility] [id number] [address] Nov, Gastroenteritis and colitis, viral A08.4 [facility] [id number] [id number] Jan, Dental examination Z01.20 [facility] [id number] [place] [id number] Dec, Dental examination Z01.20 [facility] [id number] [place] [address] 08169- 6896 Aug, Unspecified lump in breast N63 [facility] [id number] [place] [address] 08267- 6166 Jan, Lump or mass in breast 611.72 [facility] [id number] [place] [address] 28151- 5876 Oct, [facility] [id number] [place] [address] 88306- 7386 Oct, Vision disturbance 368.9 and Sinusitis 473.9 [facility] [id number] [place] [address] 32610- 5786 September, [facility] [id number] [place] [address] 07419- 9794 Aug, [facility] [id number] [place] [address] 766682- 1196 Aug, [facility] [id number] [place] [address] 52743- 0266 Jul, [facility] [id number] [place] [address] 63401- 9146 Jul, [facility] [id number] [place] [address] 73887- 8866 Jul, [facility] [id number] [place] [address] 78973- 2406 Jul, [facility] [id number] [place] [address] 94013- 2676 Apr, [facility] [place] [facility] [address] [id number] [place] [address]- 2838 Apr, [facility] [place] [facility] [address] [id number] [place] [address]- 6989 17 Mar, 2014 [facility] [place] [facility] [address] [id number] [place] [address]- 8207 14 Mar, 2014 [facility] [place] [facility] [address] [id number] [place] [address]- 7808 Mar, [facility] [place] [facility] [address] [id number] [place] [address]- 9181 Mar, [facility] [place] [facility] [address] [id number] [place] [address]- 7276 Mar, [facility] [place] [facility] [address] [id number] [place] [address]- 0538 Mar, [facility] [place] [facility] [address] [id number] [place] [address]- 0399 Mar, [facility] [place] [facility] [address] [id number] [place] [address]- 8515 Mar, [facility] [place] [facility] [address] [id number] [place] [address]- 5214 Mar, [facility] [place] [facility] [address] [id number] [place] [address]- 2584 Mar, [facility] [place] [facility] [address] [id number] [place] [address]- 8226 10 Mar, 2014 [facility] [place] [facility] [address] [id number] [place] [address]- 6085 10 Mar, 2014 [facility] [place] [facility] [address] [id number] [place] [address]- 8588 07 Mar, 2014 [facility] [place] [facility] [address] [id number] [place] [address]- 6916 20 Feb, 2014 [facility] [place] [facility] [address] [id number] [address] 0[address] Feb, [facility] [place] [facility] [address] [id number] [place] [address]- 0795 Feb, [facility] [place] [facility] [address] [id number] [place] [address] Feb, [facility] [place] [facility] [address] [id number] [place] [address]- 3287 Feb, [facility] [place] [facility] [address] [id number] [place] [address]- 7000 Feb, [facility] [place] [facility] [address] [id number] [place] [address]- 9871 Feb, [facility] [place] [facility] [address] [id number] [place] [address]- 3176 Feb, [facility] [place] [facility] [address] [id number] [place] [address]- 2307 Feb, [facility] [place] [facility] [address] [id number] [place] [address]- 2961 Feb, [facility] [place] [facility] [address] [id number] [place] [address]- 1805 Dec, [facility] [place] [facility] [address] [id number] [place] [address]- 9202 Dec, [facility] [place] [facility] [address] [id number] [place] [address] 0373 Oct, [facility] [place] [facility] [address] [id number] [place] [address]- 2388 Oct, [facility] [place] [facility] [address] [id number] [place] [address]- 3012 Oct, [facility] [place] [facility] [address] [id number] [place] [address]- 0208 Oct, [facility] [place] [facility] [address] [id number] [place] [address]- 8191 Oct, [facility] [place] [facility] [address] [id number] [place] [address]- 0723 Oct, [facility] [address] [id number] [place] [address]- 9287 September, [facility] [place] [facility] [address] [id number] [place] [address] September, [facility] [address] [id number] [place] [address]- 6324 Aug, [facility] [place] [facility] [address] [id number] [place] [address]- 2505 Aug, [facility] [address] [id number] [place] [address]- 1028 Jul, [facility] [place] [facility] [address] [id number] [place] [address]- 0087 Jul, [facility] [address] [id number] [place] [address]- 8725 Jul, [facility] [address] [id number] [place] [address]- 4287 Jul, [facility] [address] [id number] [place] [address]- 1458 Apr, [facility] [address] [id number] [place] [address]- 7793 Apr, [facility] [place] [facility] [address] [id number] [place] [address]- 8094 Apr, [facility] [place] [facility] [address] [id number] [place] [address]- 1258 Mar, [facility] [place] [facility] [address] [id number] [place] [address]- 2513 Mar, [facility] [place] [facility] [address] [id number] [place] [address]- 5116 Mar, [facility] [place] [facility] [address] [id number] [place] [address]- 2123 Mar, [facility] [place] [facility] [address] [id number] [place] [address]- 3184 Mar, [facility] [place] [facility] [address] [id number] [place] [address]- 6161 Jan, [facility] [place] [facility] [address] [id number] [place] [address]- 9834 Dec, [facility] [place] [facility] [address] [id number] [place] [address]- 1032 Dec, [facility] [place] [facility] [address] [id number] [place] [address]- 5133 Dec, [facility] [place] [facility] [address] [id number] [place] [address]- 8248 Aug, [facility] [place] [facility] [address] [id number] [place] [address]- 5804 Jul, [facility] [place] [facility] [address] [id number] [place] [address]- 6269 May, [facility] [place] [facility] [address] [id number] [place] [address]- 9262 May, [facility] [place] [facility] [address] [id number] [place] [address]- 6574 Apr, [facility] [place] [facility] [address] [id number] [place] [address]- 1125 Apr, [facility] [place] [facility] [address] [id number] [place] [address]- 3621 Mar, [facility] [place] [facility] [address] [id number] [place] [address]- 3848 Mar, [facility] [place] [facility] [address] [id number] [place] [address]- 5759 Mar, [facility] [place] [facility] [address] [id number] [place] [address]- 1785 16 Mar, 2012 [facility] [place] [facility] [address] [id number] [place] [address]- 3017 16 Mar, 2012 [facility] [address] [id number] [place] [address]- 9606 Jul, [facility] [place] [facility] [address] [id number] [place] [address]- 8316 Jul, [facility] [place] [facility] [address] [id number] [place] [address]- 1996 Jul, [facility] [place] [facility] [address] [id number] [place] [address]- 7606 May, [facility] [address] [id number] [place] [address]- 0916 May, [facility] [place] [facility] [address] [id number] [place] [address]- 6646 May, [facility] [address] [id number] [place] [address]- 3666 Apr, [facility] [place] [facility] [address] [id number] [place] [address]- 5356 Apr, [facility] [place] [facility] [address] [id number] [place] [address]- 8399 Apr, [facility] [place] [facility] [address] [id number] [place] [address]- 0604 Apr, [facility] [place] [facility] [address] [id number] [place] [address]- 6643 Apr, [facility] [place] [facility] [address] [id number] [place] [address]- 0052 Apr, [facility] [place] [facility] [address] [id number] [place] [address]- 2543 Mar, [facility] [place] [facility] [address] [id number] [place] [address]- 3651 Mar, [facility] [place] [facility] [address] [id number] [place] [address]- 8750 Mar, [facility] [address] [facility] [id number] [place] [id number] Dec, [facility] [address] [facility] [id number] [place] [address] [address]390 Jul, IMMUNIZATIONS No Known Immunizations SOCIAL HISTORY Never Assessed REASON FOR VISIT Lab results PLAN OF CARE VITAL SIGNS MEDICATIONS Unknown Medications RESULTS No Results PROCEDURES No Known procedures INSTRUCTIONS MEDICATIONS ADMINISTERED No Known Medications MEDICAL (GENERAL) HISTORY Type Description Date Surgical History No Surgical history information
--- OUTSIDE RECORDS SUMMARY | 2018-10-11 11:31 | XMS REPORT ---
Author Author Migration, Doctor Organization [facility] Address Unknown Phone Unavailable Care Team Providers Care Nursing Associate Name Role Phone Migration, Doctor Unavailable Unavailable PROBLEMS Type Condition ICD9-CM Code [id number] Code Onset Dates Condition Status SNOMED Code Problem Screening for malignant neoplasm of the cervix V76.2 Active 386860833 Problem Screening examination for venereal disease V74.5 Active 926083367 Problem Unspecified breast screening V76.10 Active 401470276 Problem Routine gynecological examination V72.31 Active 474212971122933 Problem Special screening examination, human papillomavirus [HPV] V73.81 Active 421587569 Problem Loss of weight 783.21 Active 633862984 Problem Headache 784.0 Active 87154299 Problem Postcoital bleeding 626.7 Active 15916885 Problem Irregular menstrual cycle 626.4 Active 21779912 Problem Lump or mass in breast 611.72 Active 39062657 Problem 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 Active 514301688 Problem Dizziness and giddiness 780.4 Active 940400547 Problem Streptococcal sore throat 034.0 Active 64266647 Problem Fever, unspecified 780.60 Active 755968007 Problem Acute sinusitis, unspecified 461.9 Active 04416821 Problem Other specified visual disturbances 368.8 Active 23429513 Problem Unspecified subjective visual disturbance 368.10 Active 87711984 Problem Candidiasis of vulva and vagina 112.1 Active 46132460 ALLERGIES No Information ENCOUNTERS Encounter Location Date Diagnosis [facility] [address] [facility] [id number], [place] [address] May, [facility] [address] [id number], [place] [address] Apr, [facility] [address] [id number], [place] [address]- 7063 Apr, Palpitations R00.2 [facility] [address] [id number] [address] Nov, Gastroenteritis and colitis, viral A08.4 [facility] [id number] [id number] Jan, Dental examination Z01.20 [facility] [id number] [place] [address] [id number] Dec, Dental examination Z01.20 [facility] [id number] [place] [address] 76781- 2616 Aug, Unspecified lump in breast N63 [facility] [id number] [place] [address] 11145- 8226 Jan, Lump or mass in breast 611.72 [facility] [id number] [place] [address] 48711- 2536 Oct, [facility] [id number] [place] [address] 049396 Oct, Vision disturbance 368.9 and Sinusitis 473.9 [facility] [id number] [place] [address] 16706- 7496 September, [facility] [id number] [place] [address] 528666- 5536 Aug, [facility] [address] [place] [address] 809604- 0546 Aug, [facility] [id number] [place] [address] 68428- 3496 Jul, [facility] [id number] [place] [address] 38635- 2466 Jul, [facility] [id number] [place] [address] 01165- 0846 Jul, [facility] [id number] [place] [address] 97251- 1496 Jul, [facility] [id number] [place] [address] 36110- 9113 Apr, [facility] [place] [facility] [address] [id number] [place] [address]- 6203 Apr, [facility] [place] [facility] [address] [id number] [place] [address]- 1631 17 Mar, 2014 [facility] [place] [facility] [address] [id number] [place] [address]- 9776 Mar, [facility] [place] [facility] [address] [id number] [place] [address]- 7706 Mar, [facility] [place] [facility] [address] [id number] [place] [address]- 0010 Mar, [facility] [place] [facility] [address] [id number] [place] [address]- 1416 Mar, [facility] [place] [facility] [address] [id number] [place] [address]- 2980 Mar, [facility] [place] [facility] [address] [id number], [place] [address]- 8285 Mar, [facility] [place] [facility] [address] [id number] [place] [address]- 9857 Mar, [facility] [place] [facility] [address] [id number] [place] [address]- 6864 Mar, [facility] [place] [facility] [address] [id number], [place] [address]- 0035 Mar, [facility] [place] [facility] [address] [id number], [place] [address]- 7311 10 Mar, 2014 [facility] [place] [facility] [address] [id number] [place] [address]- 0100 Mar, [facility] [place] [facility] [address] [id number], [place] [address]- 5406 07 Mar, 2014 [facility] [place] [facility] [address] [id number], [place] [address]- 4000 Feb, [facility] [place] [facility] [address] [id number] [place] [address]- 0699 Feb, [facility] [place] [facility] [address] [id number] [place] [address]- 2793 Feb, [facility] [place] [facility] [address] [id number] [place] [address]- 2805 Feb, [facility] [place] [facility] [address] [id number] [place] [address]- 7110 Feb, [facility] [place] [facility] [address] [id number] [place] [address]- 3426 Feb, [facility] [place] [facility] [address] [id number] [place] [address]- 6842 Feb, [facility] [place] [facility] [address] [id number] [place] [address]- 8870 Feb, [facility] [place] [facility] [address] [id number] [place] [address]- 5104 Feb, [facility] [place] [facility] [address] [id number] [place] [address]- 2906 Feb, [facility] [place] [facility] [address] [id number] [place] [address]- 9478 Dec, [facility] [place] [facility] [address] [id number] [place] [address]- 1299 Dec, [facility] [place] [facility] [address] [id number] [place] [address]- 6698 Oct, [facility] [place] [facility] [address] [id number] [place] [address]- 4529 Oct, [facility] [place] [facility] [address] [id number] [place] [address]- 9761 Oct, [facility] [place] [facility] [address] [id number] [place] [address]- 5956 Oct, [facility] [place] [facility] [address] [id number] [place] [address]- 2606 Oct, [facility] [place] [facility] [address] [id number] [place] [address]- 8522 Oct, [facility] [place] [facility] [address] [id number] [place] [address]- 7818 September, [facility] [place] [facility] [address] [id number] [place] [address]- 5179 September, [facility] [place] [facility] [address] [id number] [place] [address]- 8676 Aug, [facility] [place] [facility] [address] [id number] [place] [address]- 8996 Aug, [facility] [place] [facility] [address] [id number] [place] [address]- 3722 Jul, [facility] [place] [facility] [address] [id number] [place] [address]- 2571 Jul, [facility] [place] [facility] [address] [id number] [place] [address]- 2149 Jul, [facility] [place] [facility] [address] [id number] [place] [address]- 4282 Jul, [facility] [place] [facility] [address] [id number] [place] [address]- 8776 Apr, [facility] [place] [facility] [address] [id number] [place] [address]- 9018 Apr, [facility] [place] [facility] [address] [id number], [place] [address]- 6190 Apr, [facility] [place] [facility] [address] [id number] [place] [address]- 2357 Mar, [facility] [place] [facility] [address] [id number] [place] [address]- 2884 Mar, [facility] [place] [facility] [address] [id number] [place] [address] Mar, [facility] [place] [facility] [address] [id number] [place] [address] Mar, [facility] [address] [id number] [place] [address] Mar, [facility] [place] [facility] [address] [id number] [place] [address] Jan, [facility] [place] [facility] [address] [id number] [place] [address] Dec, [facility] [place] [facility] [address] [id number] [place] [address] Dec, [facility] [address] [id number] [place] [address] Dec, [facility] [place] [facility] [address] [id number] [place] [address] Aug, [facility] [address] [id number] [place] [address] Jul, [facility] [place] [facility] [address] [id number] [place] [address] May, [facility] [address] [id number] [place] [address] May, [facility] [address] [facility] [place] [id number] [place] [address] Apr, [facility] [place] [facility] [address] [id number] [place] [address] Apr, [facility] [place] [facility] [address] [id number] [place] [address] Mar, [facility] [place] [facility] [address] [id number] [place] [address] Mar, [facility] [place] [facility] [address] [id number] [place] [address] Mar, [facility] [place] [facility] [address] [facility] [place] [id number] [place] [address] 16 Mar, 2012 [facility] [place] [facility] [address] [id number] [place] [address] 16 Mar, 2012 [facility] [address] [id number] [place] [address] Jul, [facility] [place] [facility] [address] [id number] [place] [address] Jul, [facility] [place] [facility] [address] [id number] [place] [address] Jul, [facility] [place] [facility] [address] [id number] [place] [address] May, [facility] [place] [facility] [address] [id number] [place] [address] May, [facility] [place] [facility] [address] [id number] [place] [address] May, [facility] [place] [facility] [address] [id number] [place] [address] Apr, [facility] [place] [facility] [address] [id number] [place] [address] Apr, [facility] [place] [facility] [address] [id number] [place] [address] Apr, [facility] [place] [facility] [address] [id number] [place] [address] Apr, [facility] [place] [facility] [address] [id number] [place] [address] Apr, [facility] [place] [facility] [address] [id number] [place] [address] Apr, [facility] [place] [facility] [address] [id number] [place] [address] Mar, [facility] [place] [facility] [address] [id number] [place] [address] 17 Mar, 2011 [facility] [place] [facility] [address] [id number] [place] [address] Mar, [facility] [address] [facility] [place] [id number] [place] [address] Dec, [facility] [address] [facility] [place] [id number] [place] [address] Jul, IMMUNIZATIONS No Known Immunizations SOCIAL HISTORY Never Assessed REASON FOR VISIT EMR-[facility] PLAN OF CARE VITAL SIGNS MEDICATIONS Unknown Medications RESULTS No Results PROCEDURES No Known procedures INSTRUCTIONS MEDICATIONS ADMINISTERED No Known Medications MEDICAL (GENERAL) HISTORY Type Description Date Surgical History No Surgical history information
--- OUTSIDE RECORDS SUMMARY | 2018-10-11 11:31 | XMS REPORT ---
Author Author Migration, Doctor Organization [facility] Address Unknown Phone Unavailable Care Team Providers Care All Around Patternmaker Name Role Phone Migration, Doctor Unavailable Unavailable PROBLEMS Type Condition ICD9-CM Code SQA44-FY Code Onset Dates Condition Status SNOMED Code Problem Screening for malignant neoplasm of the cervix V76.2 Active 029448967 Problem Screening examination for venereal disease V74.5 Active 004265277 Problem Unspecified breast screening V76.10 Active 362319217 Problem Routine gynecological examination V72.31 Active 864804124683891 Problem Special screening examination, human papillomavirus [HPV] V73.81 Active 358238034 Problem Loss of weight 783.21 Active 448910369 Problem Headache 784.0 Active 14696272 Problem Postcoital bleeding 626.7 Active 82036249 Problem Irregular menstrual cycle 626.4 Active 68489798 Problem Lump or mass in breast 611.72 Active 73645310 Problem 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 Active 719226250 Problem Dizziness and giddiness 780.4 Active 547642649 Problem Streptococcal sore throat 034.0 Active 89645809 Problem Fever, unspecified 780.60 Active 891874252 Problem Acute sinusitis, unspecified 461.9 Active 60350399 Problem Other specified visual disturbances 368.8 Active 45580525 Problem Unspecified subjective visual disturbance 368.10 Active 10752992 Problem Candidiasis of vulva and vagina 112.1 Active 52783882 ALLERGIES No Information ENCOUNTERS Encounter Location Date Diagnosis [facility] [address] [facility] [id number] [address] May, [facility] [address] [id number] [address] Apr, [facility] [address] [id number] [address] Apr, Palpitations R00.2 [facility] [address] [id number] [address] Nov, Gastroenteritis and colitis, viral A08.4 [facility] [id number] [id number] Jan, Dental examination Z01.20 [facility] [id number] [place] [id number] Dec, Dental examination Z01.20 [facility] [id number] [place] [address] Aug, Unspecified lump in breast N63 [facility] [id number] [place] [address]- [address] Jan, Lump or mass in breast 611.72 [facility] [id number] [place] [address] Oct, [facility] [id number] [place] [address] Oct, Vision disturbance 368.9 and Sinusitis 473.9 [facility] [id number] [place] [address]- [address]166 September, [facility] [id number] [place] [address] 631247- 6816 Aug, [facility] [id number] [place] [address] 588789- 1166 Aug, [facility] [id number] [place] [address] 84773- 1196 Jul, [facility] [id number] [place] [address]87- 5276 Jul, [facility] [id number] [place] [address] 19948- 2666 Jul, [facility] [id number] [place] [address] 11137- 8696 Jul, [facility] [id number] [place] [address] 13255- 6493 Apr, [facility] [place] [facility] [address] [id number] [place] [address] Apr, [facility] [place] [facility] [address] [id number] [place] [address] 17 Mar, 2014 [facility] [place] [facility] [address] [id number] [place] [address] Mar, [facility] [place] [facility] [address] [id number] [place] [address] 7217 Mar, [facility] [place] [facility] [address] [id number] [place] [address] 9383 Mar, [facility] [place] [facility] [address] [id number] [place] [address]- 0351 Mar, [facility] [place] [facility] [address] [id number] [place] [address] 8552 Mar, [facility] [place] [facility] [address] [id number], [place] [address] Mar, [facility] [place] [facility] [address] [id number] [place] [address] 6862 Mar, [facility] [place] [facility] [address] [id number] [place] [address] 7598 Mar, [facility] [place] [facility] [address] [id number], [place] [address] Mar, [facility] [place] [facility] [address] [id number], [place] [address] 10 Mar, 2014 [facility] [place] [facility] [address] [id number] [place] [address] 0886 Mar, [facility] [place] [facility] [address] [id number], [place] [address] 07 Mar, 2014 [facility] [place] [facility] [address] [id number], [place] [address] Feb, [facility] [place] [facility] [address] [id number] [place] [address] 8568 Feb, [facility] [place] [facility] [address] [id number] [place] [address] 6947 Feb, [facility] [place] [facility] [address] [id number] [place] [address]- 6616 Feb, [facility] [place] [facility] [address] [id number] [place] [address]- 1187 Feb, [facility] [place] [facility] [address] [id number] [place] [address] 4[address] Feb, [facility] [place] [facility] [address] [id number] [place] [address] 6372 Feb, [facility] [place] [facility] [address] [id number] [place] [address] 2293 Feb, [facility] [place] [facility] [address] [id number] [place] [address]- 5718 Feb, [facility] [place] [facility] [address] [id number] [place] [address]- 3345 Feb, [facility] [place] [facility] [address] [id number] [place] [address]- 6814 Dec, [facility] [place] [facility] [address] [id number] [place] [address] 3563 Dec, [facility] [place] [facility] [address] [id number] [place] [address]- 4630 Oct, [facility] [place] [facility] [address] [id number] [place] [address]- 0309 Oct, [facility] [place] [facility] [address] [id number] [place] [address]- 7181 Oct, [facility] [place] [facility] [address] [id number] [place] [address]- 5021 Oct, [facility] [place] [facility] [address] [id number] [place] [address]- 0350 Oct, [facility] [place] [facility] [address] [id number] [place] [address]- 5437 Oct, [facility] [place] [facility] [address] [id number] [place] [address]- 3250 September, [facility] [place] [facility] [address] [id number] [place] [address]- 8541 September, [facility] [place] [facility] [address] [id number] [place] [address]- 8063 Aug, [facility] [place] [facility] [address] [id number] [place] [address]- 9993 Aug, [facility] [place] [facility] [address] [id number] [place] [address]- 5322 Jul, [facility] [place] [facility] [address] [id number] [place] [address]- 7947 Jul, [facility] [place] [facility] [address] [id number] [place] [address]- 6257 Jul, [facility] [place] [facility] [address] [id number] [place] [address]- 3707 Jul, [facility] [place] [facility] [address] [id number] [place] [address]- 1228 Apr, [facility] [place] [facility] [address] [id number] [place] [address]- 2535 Apr, [facility] [place] [facility] [address] [id number], [place] [address]- 3017 Apr, [facility] [place] [facility] [address] [id number] [place] [address]- 1265 Mar, [facility] [place] [facility] [address] [id number] [place] [address]- 8231 Mar, [facility] [place] [facility] [address] [id number] [place] [address]- 6815 Mar, [facility] [place] [facility] [address] [id number] [place] [address]- 8229 Mar, [facility] [address] [id number] [place] [address]- 2140 Mar, [facility] [place] [facility] [address] [id number] [place] [address]- 3838 Jan, [facility] [place] [facility] [address] [id number] [place] [address]- 0702 Dec, [facility] [place] [facility] [address] [id number] [place] [address]- 5213 Dec, [facility] [address] [id number] [place] [address]- 0694 Dec, [facility] [place] [facility] [address] [id number] [place] [address]- 7735 Aug, [facility] [address] [id number] [place] [address]- 4083 Jul, [facility] [place] [facility] [address] [id number] [place] [address]- 2465 May, [facility] [address] [id number] [place] [address]- 3623 May, [facility] [address] [facility] [id number] [place] [address]- 2732 Apr, [facility] [place] [facility] [address] [id number] [place] [address]- 2033 Apr, [facility] [place] [facility] [address] [id number] [place] [address]- 0447 Mar, [facility] [place] [facility] [address] [id number] [place] [address]- 9654 Mar, [facility] [place] [facility] [address] [id number] [place] [address]- 3486 Mar, [facility] [place] [facility] [address] [facility] [id number] [place] [address]- 7786 16 Mar, 2012 [facility] [place] [facility] [address] [id number] [place] [address]- 5679 16 Mar, 2012 [facility] [address] [id number] [place] [address]- 4732 Jul, [facility] [place] [facility] [address] [id number] [place] [address] 2546 Jul, [facility] [place] [facility] [address] [id number] [place] [address] 2546 Jul, [facility] [place] [facility] [address] [id number] [place] [address]- 2563 May, [facility] [place] [facility] [address] [id number] [place] [address]- 6169 May, [facility] [place] [facility] [address] [id number] [place] [address]- 9182 May, [facility] [place] [facility] [address] [id number] [place] [address]- 0299 Apr, [facility] [place] [facility] [address] [id number] [place] [address]- 1658 Apr, [facility] [place] [facility] [address] [id number] [place] [address]- 2332 Apr, [facility] [place] [facility] [address] [id number] [place] [address]- 6849 Apr, [facility] [place] [facility] [address] [id number] [place] [address]- 6596 Apr, [facility] [place] [facility] [address] [id number] [place] [address]- 2232 Apr, [facility] [place] [facility] [address] [id number] [place] [address]- 3686 Mar, [facility] [place] [facility] [address] [id number] [place] [address]- 2546 17 Mar, 2011 [facility] [place] [facility] [address] [id number] [place] [address]- 8463 Mar, [facility] [address] [facility] [id number] [place] [address]- 8271 Dec, [facility] [address] [facility] [id number] [place] [address] Jul, IMMUNIZATIONS No Known Immunizations SOCIAL HISTORY Never Assessed REASON FOR VISIT EMR-[facility] PLAN OF CARE VITAL SIGNS MEDICATIONS Unknown Medications RESULTS Name Result Date Reference Range PAP SMEAR (result) 2011-06-23 [facility] REPORT FOOTNOTE PROCEDURES No Known procedures INSTRUCTIONS MEDICATIONS ADMINISTERED No Known Medications MEDICAL (GENERAL) HISTORY Type Description Date Surgical History No Surgical history information
--- OUTSIDE RECORDS SUMMARY | 2018-10-11 11:32 | XMS REPORT ---
Author Author JHONNY PATEL [employer] Address Unknown Phone Unavailable Care Team Providers Care Wiener Packer Name Role Phone JHONNY PATEL CP Unavailable Allergies, Adverse Reactions, Alerts Substance Reaction Event Type N.K.D.A. 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
--- OUTSIDE RECORDS SUMMARY | 2018-10-11 11:32 | XMS REPORT ---
Author Author MARCIA LO [facility] [employer] Address Unknown Phone Unavailable Care Team Providers Care Boom Man Name Role Phone MARCIA LO Unavailable Allergies, Adverse Reactions, Alerts Substance Reaction [...] Instructions Start Date End Date Status Dosage [place] [facility] [address]-58 5-325 MG Orally every 6 hrs Dec 30, 2015 Jan 03, 2016 1 tablet as needed Amoxicillin [facility] [address]-04 500 MG Orally 4 times a day Dec 30, 2015 Jan 06, 2016 1 capsule Procedures Procedure Coding System Code Date INTRAORL-PERIAPICAL 1 FILM 09273 CPT-4 D0220 Dec 30, 2015 PANORAMIC FILM SEE ALSO CODE 94762 CPT-4 D0330 Dec 30, 2015 LTD ORAL EVALUATION - PROBLEM FOCUS CPT-4 D0140 Dec 30, 2015 Vital Signs Date/Time: Dec 30, 2015 Blood Pressure Diastolic 76 mmHg Blood Pressure Systolic 110 mmHg Height 70 in Results No Known Results Summary Purpose eClinicalWorks Submission
--- OUTSIDE RECORDS SUMMARY | 2018-10-11 11:32 | XMS REPORT ---
Author Author ESPINOZA MERCEDES Organization [employer] Address Unknown Phone Unavailable Care Team Providers Care Duco Polisher Name Role Phone ESPINOZA MERCEDES CP Unavailable Allergies No Known Allergies Problems Problem Type Condition Code Onset Dates [...] Unspecified subjective visual disturbance 368.10 Active Assessment Unspecified lump in breast N63 Active Problem Candidiasis of vulva and vagina [...]
--- OUTSIDE RECORDS SUMMARY | 2018-10-11 11:32 | XMS REPORT ---
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 Active 907522511 Problem Other specified visual disturbances 368.8 Active 68946723 Problem Acute sinusitis, unspecified 461.9 Active 50551826 Problem Candidiasis of vulva and vagina 112.1 Active 73032452 Problem Unspecified subjective visual disturbance 368.10 Active 76152187 Problem Unspecified breast screening V76.10 Active 864069780 Problem Screening examination for venereal disease V74.5 Active 991786283 Problem Screening for malignant neoplasm of the cervix V76.2 Active 822717099 Problem Headache 784.0 Active 80395006 Problem Loss of weight 783.21 Active 940883703 Problem Special screening examination, human papillomavirus [HPV] V73.81 Active 342632631 Problem Fever, unspecified 780.60 Active 534097111 Problem Routine gynecological examination V72.31 Active [id number] Problem Dizziness and giddiness 780.4 Active 282315704 ALLERGIES No Known Allergies ENCOUNTERS Encounter Location Date Diagnosis [facility] [id number] [place] [id number] Nov, Gastroenteritis and colitis, viral A08.4 [facility] [address] [facility] [id number] [id number] Jan, Dental examination Z01.20 [facility] [id number] [id number] Dec, Dental examination Z01.20 [facility] [id number] [place] [address] Aug, Unspecified lump in breast N63 [facility] [id number], [place] [address] Jan, Lump or mass in breast 611.72 [facility] [id number] [place] [address] Oct, [facility] [id number] [place] [address] Oct, Vision disturbance 368.9 and Sinusitis 473.9 [facility] [id number] [place] [address] September, [facility] [id number] [place] [address] Aug, [facility] [id number] [address] Aug, [facility] [id number] [place] [address] Jul, [facility] [id number] [address] [address] Jul, [facility] [id number] [place] [address] Jul, [facility] [id number], [place] [address] Jul, [facility] [id number] [place] [address] Apr, [facility] [id number] [address] Apr, [facility] [id number] [place] [id number] Mar, [facility] [place] [facility] [address] [id number] [place] [address] 14 Mar, 2014 [facility] [place] [facility] [address] [id number] [place] [address] 14 Mar, 2014 [facility] [place] [facility] [address] [id number] [place] [address] 37[address] 14 Mar, 2014 [facility] [place] [facility] [address] [id number] [place] [address] 14 Mar, 2014 [facility] [place] [facility] [address] [id number] [place] [address] 64[address] Mar, [facility] [place] [facility] [address] [id number] [place] [address] Mar, [facility] [place] [facility] [address] [id number] [place] [address] 7026 Mar, [facility] [place] [facility] [address] [id number] [place] [address] 10 Mar, 2014 [facility] [place] [facility] [address] [id number] [place] [address] 74[address] 10 Mar, 2014 [facility] [place] [facility] [address] [id number] [place] [address]59 10 Mar, 2014 [facility] [place] [facility] [address] [id number] [place] [address] 79[address] Mar, [facility] [place] [facility] [address] [id number] [place] [address] 1819 07 Mar, 2014 [facility] [place] [facility] [address] [id number] [place] [address] 20 Feb, 2014 [facility] [place] [facility] [address] [id number] [place] [address] 20 Feb, 2014 [facility] [place] [facility] [address] [id number] [place] [address] 1515 15 Feb, 2014 [facility] [place] [facility] [address] [id number] [place] [address]- 5175 Feb, [facility] [place] [facility] [address] [id number] [place] [address] Feb, [facility] [place] [facility] [address] [id number] [place] [address] 2963 Feb, [facility] [place] [facility] [address] [id number] [place] [address] 0862 Feb, [facility] [place] [facility] [address] [id number] [place] [address] 4180 Feb, [facility] [place] [facility] [address] [id number] [place] [address]- 245[address] Feb, [facility] [place] [facility] [address] [id number] [place] [address]- 8542 Feb, [facility] [place] [facility] [address] [id number] [place] [address]68 Dec, [facility] [place] [facility] [address] [id number] [place] [address]- 1847 Dec, [facility] [place] [facility] [address] [id number] [place] [address] 3336 Oct, [facility] [place] [facility] [address] [id number] [place] [address] 6533 Oct, [facility] [place] [facility] [address] [id number] [place] [address] 9323 Oct, [facility] [place] [facility] [address] [id number], [place] [address] 9186 Oct, [facility] [place] [facility] [address] [id number] [place] [address]- 8032 Oct, [facility] [place] [facility] [address] [id number] [place] [address]- 1669 Oct, [facility] [place] [facility] [address] [id number] [place] [address]- 1138 September, [facility] [place] [facility] [address] [id number] [place] [address]- [address] September, [facility] [place] [facility] [address] [id number] [place] [address]- 8[address] Aug, [facility] [place] [facility] [address] [id number] [place] [address] Aug, [facility] [place] [facility] [address] [id number] [place] [address]- 5630 Jul, [facility] [place] [facility] [address] [id number] [place] [address]- 5629 Jul, [facility] [place] [facility] [address] [id number] [place] [address]- 7470 Jul, [facility] [place] [facility] [address] [id number] [place] [address]- 2309 Jul, [facility] [place] [facility] [address] [id number] [place] [address]- 0033 Apr, [facility] [place] [facility] [address] [id number] [place] [address]- 8842 Apr, [facility] [place] [facility] [address] [id number] [place] [address]- 7432 Apr, [facility] [place] [facility] [address] [id number] [place] [address]- 3112 Mar, [facility] [place] [facility] [address] [id number] [place] [address]- 1604 Mar, [facility] [place] [facility] [address] [id number] [place] [address]- 1376 Mar, [facility] [place] [facility] [address] [id number] [place] [address]- 9810 Mar, [facility] [place] [facility] [address] [id number] [place] [address]- 4770 Mar, [facility] [place] [facility] [address] [id number] [place] [address]- 3086 Jan, [facility] [place] [facility] [address] [id number] [place] [address]- 2092 Dec, [facility] [place] [facility] [address] [id number] [place] [address]- 0807 Dec, [facility] [place] [facility] [address] [id number] [place] [address]- 0922 Dec, [facility] [place] [facility] [address] [id number] [place] [address]- 0473 Aug, [facility] [place] [facility] [address] [id number] [place] [address]- 0302 Jul, [facility] [place] [facility] [address] [id number] [place] [address]- 5[address] May, [facility] [place] [facility] [address] [id number] [place] [address]- 4145 May, [facility] [place] [facility] [address] [id number] [place] [address]- 2192 Apr, [facility] [place] [facility] [address] [id number] [place] [address]- 2622 Apr, [facility] [place] [facility] [address] [id number] [place] [address]- 0979 Mar, [facility] [place] [facility] [address] [id number] [place] [address]- 5235 30 Mar, 2012 [facility] [place] [facility] [address] [id number] [place] [address]- 5910 Mar, [facility] [place] [facility] [address] [id number] [place] [address] Mar, [facility] [place] [facility] [address] [id number] [place] [address] Mar, [facility] [place] [facility] [address] [id number] [place] [address]- 0535 Jul, [facility] [place] [facility] [address] [id number] [place] [address]- 2546 Jul, [facility] [address] [id number] [place] [address]- 4106 Jul, [facility] [address] [id number] [place] [address] 2546 May, [facility] [address] [id number] [place] [address]- 1626 May, [facility] [address] [id number] [place] [address]- 7376 May, [facility] [address] [id number] [place] [address]- 9756 Apr, [facility] [address] [id number] [place] [address]- 0636 Apr, [facility] [address] [id number] [place] [address]- 5208 Apr, [facility] [address] [id number] [place] [address]- 7945 Apr, [facility] [address] [id number] [place] [address]- 0803 Apr, [facility] [address] [id number] [place] [address]- 0167 Apr, [facility] [address] [id number] [place] [address]- 2546 Mar, [facility] [address] [id number] [place] [address]- 8066 Mar, [facility] [place] [facility] [address] [id number] [place] [address]- 2546 Mar, [facility] [address] [id number] [place] [address]- 2546 Dec, [facility] [address] [id number] [place] [address]- 2866 Jul, IMMUNIZATIONS No Known Immunizations SOCIAL HISTORY Never Assessed REASON FOR VISIT Diarrhea off and on for 4 days. reports everything she eats...comes right back out. albertina PLAN OF CARE Activity Details Follow Up prn Reason: VITAL SIGNS Height 70 in 2016-12-06 Weight 121.6 lbs 2016-12-06 Temperature 98.4 degrees Fahrenheit 2016-12-06 Heart Rate 68 bpm 2016-12-06 Respiratory Rate 20 2016-12-06 BMI 17.45 kg/m2 2016-12-06 Blood pressure systolic 104 mmHg 2016-12-06 Blood pressure diastolic 62 mmHg 2016-12-06 MEDICATIONS No Known Medications RESULTS No Results PROCEDURES No Known procedures INSTRUCTIONS MEDICATIONS ADMINISTERED No Known Medications
--- OUTSIDE RECORDS SUMMARY | 2018-10-11 11:33 | XMS REPORT | Continuity of Care Document ---
Author Organization Unknown Address Unknown Allergies Active Description Code Type Severity Reaction Onset Reported/Identified Relationship to Patient Clinical Status Yes No Known Drug Allergies [id number] Drug Allergy Unknown N/A 08/19/2011 Medications There is no data. Problems Date Dx Coded Attending Type Code Diagnosis Diagnosed By 05/15/2008 CARMELA TO DO 780.79 Malaise And Fatigue 05/15/2008 CARMELA TO DO K 780.79 Malaise And Fatigue 05/15/2008 780.79 Malaise And Fatigue 05/15/2008 ERMIAS GRIFFIN APRN 780.79 Malaise And Fatigue 05/15/2008 780.79 Malaise And Fatigue 05/15/2008 SANDIP JOLLY, AMY 780.79 Malaise And Fatigue 05/15/2008 RHONA TO DOA K 780.79 Malaise And Fatigue 05/15/2008 TO RHONA FELDMANA K 780.79 Malaise And Fatigue 05/15/2008 TO RHONA FELDMANA K 780.79 Malaise And Fatigue 05/15/2008 TO RHONA FELDMANA K 780.79 Malaise And Fatigue 05/15/2008 ERMIAS GRIFFIN APRN A 780.79 Malaise And Fatigue 05/15/2008 RHONA TO DOA K 780.79 Malaise And Fatigue 05/18/2008 CARMELA TO DO K 305.1 TOBACCO ABUSE 05/18/2008 RHONA TO DOA K 461.9 Sinusitis Acute 05/18/2008 RHONA TO DOA K 462 Pharyngitis Acute 05/18/2008 RHONA TO DOA K 305.1 TOBACCO ABUSE 05/18/2008 RHONA TO DOA K 461.9 Sinusitis Acute 05/18/2008 RHONA TO DOA K 462 Pharyngitis Acute 05/18/2008 305.1 TOBACCO ABUSE 05/18/2008 461.9 Sinusitis Acute 05/18/2008 462 Pharyngitis Acute 05/18/2008 GABY LEADITE WORKER, ERMIAS A 305.1 TOBACCO ABUSE 05/18/2008 GABY SALINAS, ERMIAS A 461.9 Sinusitis Acute 05/18/2008 GABY SALINAS, ERMIAS A 462 Pharyngitis Acute 05/18/2008 305.1 TOBACCO ABUSE 05/18/2008 461.9 Sinusitis Acute 05/18/2008 462 Pharyngitis Acute 05/18/2008 AMY OROPEZA MD 305.1 TOBACCO ABUSE 05/18/2008 AMY OROPEZA MD 461.9 Sinusitis Acute 05/18/2008 AMY OROPEZA MD 462 Pharyngitis Acute 05/18/2008 TO DO, CARMELA K 305.1 TOBACCO ABUSE 05/18/2008 TO DO, CARMELA K 461.9 Sinusitis Acute 05/18/2008 TO DO, CARMELA K 462 Pharyngitis Acute 05/18/2008 TO DO, CARMELA K 305.1 TOBACCO ABUSE 05/18/2008 TO DO, CARMELA K 461.9 Sinusitis Acute 05/18/2008 TO DO, CARMELA K 462 Pharyngitis Acute 05/18/2008 TO DO, CARMELA K 305.1 TOBACCO ABUSE 05/18/2008 TO DO, CARMELA K 461.9 Sinusitis Acute 05/18/2008 TO DO, CARMELA K 462 Pharyngitis Acute 05/18/2008 TO DO, CARMELA K 305.1 TOBACCO ABUSE 05/18/2008 TO DO, CARMELA K 461.9 Sinusitis Acute 05/18/2008 TO DO, CARMELA K 462 Pharyngitis Acute 05/18/2008 GABY SALINAS, ERMIAS A 305.1 TOBACCO ABUSE 05/18/2008 GABY SALINAS, ERMIAS A 461.9 Sinusitis Acute 05/18/2008 GABY LEADITE WORKER, ERMIAS A 462 Pharyngitis Acute 05/18/2008 TO DO, CARMELA K 305.1 TOBACCO ABUSE 05/18/2008 TO DO, CARMELA K 461.9 Sinusitis Acute 05/18/2008 TO DO, CARMELA K 462 Pharyngitis Acute 07/16/2008 TO DO, CARMELA K 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 07/16/2008 TO DO, CARMELA K 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 07/16/2008 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 07/16/2008 GABY SALINAS ERMIAS A 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 07/16/2008 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 07/16/2008 AMY OROPEZA MD 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 07/16/2008 TO DO CARMELA K 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 07/16/2008 TO DO CARMELA K 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 07/16/2008 TO DO CARMELA K 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 07/16/2008 TO DO, CARMELA K 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 07/16/2008 KATT GRIFFIN APRNIDI A 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 07/16/2008 TO DO CARMELA K 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 12/04/2008 TO DO CARMELA K V69.2 HIGH-RISK SEXUAL BEHAVIOR 12/04/2008 TO DO CARMELA K V72.31 Industrial Garage Servicer Exam, Routine 12/04/2008 TO DO CARMELA K V69.2 HIGH-RISK SEXUAL BEHAVIOR 12/04/2008 TO DO CARMELA K V72.31 Industrial Garage Servicer Exam, Routine 12/04/2008 V69.2 HIGH-RISK SEXUAL BEHAVIOR 12/04/2008 V72.31 Industrial Garage Servicer Exam, Routine 12/04/2008 ERMIAS GRIFFIN APRN A V69.2 HIGH-RISK SEXUAL BEHAVIOR 12/04/2008 ERMIAS GRIFFIN APRN A V72.31 Industrial Garage Servicer Exam, Routine 12/04/2008 V69.2 HIGH-RISK SEXUAL BEHAVIOR 12/04/2008 V72.31 Industrial Garage Servicer Exam, Routine 12/04/2008 AMY OROPEZA MD V69.2 HIGH-RISK SEXUAL BEHAVIOR 12/04/2008 AMY OROPEZA MD V72.31 Industrial Garage Servicer Exam, Routine 12/04/2008 TO DO CARMELA K V69.2 HIGH-RISK SEXUAL BEHAVIOR 12/04/2008 TO DO CARMELA K V72.31 Industrial Garage Servicer Exam, Routine 12/04/2008 TO DO CARMELA K V69.2 HIGH-RISK SEXUAL BEHAVIOR 12/04/2008 TO DO CARMELA K V72.31 Industrial Garage Servicer Exam, Routine 12/04/2008 TO DO CARMELA K V69.2 HIGH-RISK SEXUAL BEHAVIOR 12/04/2008 TO DO, CARMELA K V72.31 Industrial Garage Servicer Exam, Routine 12/04/2008 TO DO, CARMELA K V69.2 HIGH-RISK SEXUAL BEHAVIOR 12/04/2008 TO DO, CARMELA K V72.31 Industrial Garage Servicer Exam, Routine 12/04/2008 ERMIAS GRIFFIN APRN A V69.2 HIGH-RISK SEXUAL BEHAVIOR 12/04/2008 KATT GRIFFIN APRNIDI A V72.31 Industrial Garage Servicer Exam, Routine 12/04/2008 TO DO CARMELA K V69.2 HIGH-RISK SEXUAL BEHAVIOR 12/04/2008 TO DO, CARMELA K V72.31 Industrial Garage Servicer Exam, Routine 01/01/2009 TO DO, CARMELA K 535.00 Acute Gastritis (without Hemorrhage) 01/01/2009 TO DO, CARMELA K 535.00 Acute Gastritis (without Hemorrhage) 01/01/2009 535.00 Acute Gastritis (without Hemorrhage) 01/01/2009 ERMIAS GRIFFIN APRN A 535.00 Acute Gastritis (without Hemorrhage) 01/01/2009 535.00 Acute Gastritis (without Hemorrhage) 01/01/2009 AMY OROPEZA MD 535.00 Acute Gastritis (without Hemorrhage) 01/01/2009 TO DO CARMELA K 535.00 Acute Gastritis (without Hemorrhage) 01/01/2009 TO DO, CARMELA K 535.00 Acute Gastritis (without Hemorrhage) 01/01/2009 TO DO, CARMELA K 535.00 Acute Gastritis (without Hemorrhage) 01/01/2009 TO DO, CARMELA K 535.00 Acute Gastritis (without Hemorrhage) 01/01/2009 ERMIAS GRIFFIN APRN A 535.00 Acute Gastritis (without Hemorrhage) 01/01/2009 YOUSUF FELDMAN CARMELA K 535.00 Acute Gastritis (without Hemorrhage) 01/01/2010 TO DO CARMELA K 610.1 DIFFUSE CYSTIC MASTOPATHY 01/01/2010 TO DO CARMELA K 610.1 DIFFUSE CYSTIC MASTOPATHY 01/01/2010 610.1 DIFFUSE CYSTIC MASTOPATHY 01/01/2010 ERMIAS GRIFFIN APRN A 610.1 DIFFUSE CYSTIC MASTOPATHY 01/01/2010 610.1 DIFFUSE CYSTIC MASTOPATHY 01/01/2010 AMY OROPEZA MD 610.1 DIFFUSE CYSTIC MASTOPATHY 01/01/2010 YOUSUF FELDMAN CARMELA K 610.1 DIFFUSE CYSTIC MASTOPATHY 01/01/2010 YOUSUF FELDMAN CARMELA K 610.1 DIFFUSE CYSTIC MASTOPATHY 01/01/2010 TO DO, CARMELA K 610.1 DIFFUSE CYSTIC MASTOPATHY 01/01/2010 TO DO, CARMELA K 610.1 DIFFUSE CYSTIC MASTOPATHY 01/01/2010 ERMIAS GRIFFIN APRN 610.1 DIFFUSE CYSTIC MASTOPATHY 01/01/2010 TO DO, CARMELA K 610.1 DIFFUSE CYSTIC MASTOPATHY 01/13/2010 TO DO, CARMELA K 550.90 Inguinal Hernia, Without Mention Of Obstruction Or Gangrene, Unilateral Or Unspecified (not Specified As Recurrent) 01/13/2010 TO DO, CARMELA K 564.00 Constipation, Unspecified 01/13/2010 TO DO, CARMELA K 709.8 Fissures Skin 01/13/2010 TO DO, CARMELA K 550.90 Inguinal Hernia, Without Mention Of Obstruction Or Gangrene, Unilateral Or Unspecified (not Specified As Recurrent) 01/13/2010 TO DO, CARMELA K 564.00 Constipation, Unspecified 01/13/2010 TO DO, CARMELA K 709.8 Fissures Skin 01/13/2010 550.90 Inguinal Hernia, Without Mention Of Obstruction Or Gangrene, Unilateral Or Unspecified ( not Specified As Recurrent) 01/13/2010 564.00 Constipation , Unspecified 01/13/2010 709.8 Fissures Skin 01/13/2010 ERMIAS GRIFFIN APRN 550.90 Inguinal Hernia, Without Mention Of Obstruction Or Gangrene, Unilateral Or Unspecified (not Specified As Recurrent) 01/13/2010 ERMIAS GRIFFIN APRN A 564.00 Constipation, Unspecified 01/13/2010 ERMIAS GRIFFIN APRN A 709.8 Fissures Skin 01/13/2010 550.90 Inguinal Hernia, Without Mention Of Obstruction Or Gangrene, Unilateral Or Unspecified ( not Specified As Recurrent) 01/13/2010 564.00 Constipation , Unspecified 01/13/2010 709.8 Fissures Skin 01/13/2010 AMY OROPEZA MD 550.90 Inguinal Hernia, Without Mention Of Obstruction Or Gangrene, Unilateral Or Unspecified (not Specified As Recurrent) 01/13/2010 AMY OROPEZA MD 564.00 Constipation, Unspecified 01/13/2010 AMY OROPEZA MD 709.8 Fissures Skin 01/13/2010 TO DO, CARMELA K 550.90 Inguinal Hernia, Without Mention Of Obstruction Or Gangrene, Unilateral Or Unspecified (not Specified As Recurrent) 01/13/2010 TO DO, CARMELA K 564.00 Constipation, Unspecified 01/13/2010 TO DO, CARMELA K 709.8 Fissures Skin 01/13/2010 TO DO, CARMELA K 550.90 Inguinal Hernia, Without Mention Of Obstruction Or Gangrene, Unilateral Or Unspecified (not Specified As Recurrent) 01/13/2010 TO DO, CARMELA K 564.00 Constipation, Unspecified 01/13/2010 TO DO, CARMELA K 709.8 Fissures Skin 01/13/2010 TO DO, CARMELA K 550.90 Inguinal Hernia, Without Mention Of Obstruction Or Gangrene, Unilateral Or Unspecified (not Specified As Recurrent) 01/13/2010 TO DO, CARMELA K 564.00 Constipation, Unspecified 01/13/2010 TO DO, CARMELA K 709.8 Fissures Skin 01/13/2010 TO DO, CARMELA K 550.90 Inguinal Hernia, Without Mention Of Obstruction Or Gangrene, Unilateral Or Unspecified (not Specified As Recurrent) 01/13/2010 TO DO, CARMELA K 564.00 Constipation, Unspecified 01/13/2010 TO DO, CARMELA K 709.8 Fissures Skin 01/13/2010 GABY LEADITE WORKER, ERMIAS A 550.90 Inguinal Hernia, Without Mention Of Obstruction Or Gangrene, Unilateral Or Unspecified (not Specified As Recurrent) 01/13/2010 GABY LEADITE WORKER, ERMIAS A 564.00 Constipation, Unspecified 01/13/2010 GABY LEADITE WORKER, ERMIAS A 709.8 Fissures Skin 01/13/2010 TO DO, CARMELA K 550.90 Inguinal Hernia, Without Mention Of Obstruction Or Gangrene, Unilateral Or Unspecified (not Specified As Recurrent) 01/13/2010 TO DO, CARMELA K 564.00 Constipation, Unspecified 01/13/2010 TO DO, CARMELA K 709.8 Fissures Skin 07/03/2010 TO DO, CARMELA K 465.9 Acute Upper Respiratory Infections Of Unspecified Site 07/03/2010 TO DO, CARMELA K 465.9 Acute Upper Respiratory Infections Of Unspecified Site 07/03/2010 465.9 Acute Upper Respiratory Infections Of Unspecified Site 07/03/2010 ERMIAS GRIFFIN APRN A 465.9 Acute Upper Respiratory Infections Of Unspecified Site 07/03/2010 465.9 Acute Upper Respiratory Infections Of Unspecified Site 07/03/2010 AMY OROPEZA MD 465.9 Acute Upper Respiratory Infections Of Unspecified Site 07/03/2010 TO DO, CARMELA K 465.9 Acute Upper Respiratory Infections Of Unspecified Site 07/03/2010 TO DO, CARMELA K 465.9 Acute Upper Respiratory Infections Of Unspecified Site 07/03/2010 TO DO, CARMELA K 465.9 Acute Upper Respiratory Infections Of Unspecified Site 07/03/2010 TO DO, CARMELA K 465.9 Acute Upper Respiratory Infections Of Unspecified Site 07/03/2010 ERMIAS GRIFFIN APRN A 465.9 Acute Upper Respiratory Infections Of Unspecified Site 07/03/2010 TO DO, CARMELA K 465.9 Acute Upper Respiratory Infections Of Unspecified Site 07/04/2010 TO DO, CARMELA K 786.52 Painful Respiration 07/04/2010 TO DO, CARMELA K 786.52 Painful Respiration 07/04/2010 786.52 Painful Respiration 07/04/2010 ERMIAS GRIFFIN APRN A 786.52 Painful Respiration 07/04/2010 786.52 Painful Respiration 07/04/2010 AMY OROPEZA MD 786.52 Painful Respiration 07/04/2010 TO DO, CARMELA K 786.52 Painful Respiration 07/04/2010 TO DO, CARMELA K 786.52 Painful Respiration 07/04/2010 TO DO, CARMELA K 786.52 Painful Respiration 07/04/2010 TO DO, CARMELA K 786.52 Painful Respiration 07/04/2010 KATT GRIFFIN APRNIDI A 786.52 Painful Respiration 07/04/2010 TO DO, CARMELA K 786.52 Painful Respiration 07/29/2010 TO DO, CARMELA K 622.10 Dysplasia Of Cervix Unspecified 07/29/2010 TO DO, CARMELA K 626.0 Absence Of Menstruation 07/29/2010 TO DO, CARMELA K 622.10 Dysplasia Of Cervix Unspecified 07/29/2010 TO DO, CARMELA K 626.0 Absence Of Menstruation 07/29/2010 622.10 Dysplasia Of Cervix Unspecified 07/29/2010 626.0 Absence Of Menstruation 07/29/2010 GABYKATT Saucedo APRNIDI A 622.10 Dysplasia Of Cervix Unspecified 07/29/2010 GABY LEADITE WORKER ERMIAS A 626.0 Absence Of Menstruation 07/29/2010 622.10 Dysplasia Of Cervix Unspecified 07/29/2010 626.0 Absence Of Menstruation 07/29/2010 AMY OROPEZA MD 622.10 Dysplasia Of Cervix Unspecified 07/29/2010 AMY OROPEZA MD 626.0 Absence Of Menstruation 07/29/2010 TO DO, CARMELA K 622.10 Dysplasia Of Cervix Unspecified 07/29/2010 TO DO, CARMELA K 626.0 Absence Of Menstruation 07/29/2010 TO DO, CARMELA K 622.10 Dysplasia Of Cervix Unspecified 07/29/2010 TO DO, CARMELA K 626.0 Absence Of Menstruation 07/29/2010 TO DO, CARMELA K 622.10 Dysplasia Of Cervix Unspecified 07/29/2010 TO DO, CARMELA K 626.0 Absence Of Menstruation 07/29/2010 TO DO, CARMELA K 622.10 Dysplasia Of Cervix Unspecified 07/29/2010 OT DO, CARMELA K 626.0 Absence Of Menstruation 07/29/2010 GABYSheryl SALINAS ERMIAS A 622.10 Dysplasia Of Cervix Unspecified 07/29/2010 GABYKATT Saucedo APRNIDI A 626.0 Absence Of Menstruation 07/29/2010 TO DO, CARMELA K 622.10 Dysplasia Of Cervix Unspecified 07/29/2010 TO DO, CARMELA K 626.0 Absence Of Menstruation 04/16/2011 TO DO, CARMELA K 789.09 Abdominal Pain Other Specified Site 04/16/2011 TO DO, CARMELA K 789.09 Abdominal Pain Other Specified Site 04/16/2011 789.09 Abdominal Pain Other Specified Site 04/16/2011 GABY SALINAS ERMIAS A 789.09 Abdominal Pain Other Specified Site 04/16/2011 789.09 Abdominal Pain Other Specified Site 04/16/2011 AMY OROPEZA MD 789.09 Abdominal Pain Other Specified Site 04/16/2011 TO DO, CARMELA K 789.09 Abdominal Pain Other Specified Site 04/16/2011 TO DO, CARMELA K 789.09 Abdominal Pain Other Specified Site 04/16/2011 TO DO, CARMELA K 789.09 Abdominal Pain Other Specified Site 04/16/2011 TO DO, CARMELA K 789.09 Abdominal Pain Other Specified Site 04/16/2011 KATT GRIFFIN APRNIDI A 789.09 Abdominal Pain Other Specified Site 04/16/2011 TO DO, CARMELA K 789.09 Abdominal Pain Other Specified Site 05/18/2011 TO DO, CARMELA K 216.9 BENIGN NEOPLASM OF SKIN SITE UNSPECIFIED 05/18/2011 TO DO, CARMELA K 616.10 Vaginitis And Vulvovaginitis Unspecified 05/18/2011 TO DO, CARMELA K 216.9 BENIGN NEOPLASM OF SKIN SITE UNSPECIFIED 05/18/2011 TO DO, CARMELA K 616.10 Vaginitis And Vulvovaginitis Unspecified 05/18/2011 216.9 BENIGN NEOPLASM OF SKIN SITE UNSPECIFIED 05/18/2011 616.10 Vaginitis And Vulvovaginitis Unspecified 05/18/2011 KATT GRIFFIN APRNIDI A 216.9 BENIGN NEOPLASM OF SKIN SITE UNSPECIFIED 05/18/2011 KATT GRIFFIN APRNIDI A 616.10 Vaginitis And Vulvovaginitis Unspecified 05/18/2011 216.9 BENIGN NEOPLASM OF SKIN SITE UNSPECIFIED 05/18/2011 616.10 Vaginitis And Vulvovaginitis Unspecified 05/18/2011 AMY OROPEZA MD 216.9 BENIGN NEOPLASM OF SKIN SITE UNSPECIFIED 05/18/2011 AMY OROPEZA MD 616.10 Vaginitis And Vulvovaginitis Unspecified 05/18/2011 TO DO CARMELA K 216.9 BENIGN NEOPLASM OF SKIN SITE UNSPECIFIED 05/18/2011 TO DO, CARMELA K 616.10 Vaginitis And Vulvovaginitis Unspecified 05/18/2011 TO DO, CARMELA K 216.9 BENIGN NEOPLASM OF SKIN SITE UNSPECIFIED 05/18/2011 TO DO, CARMELA K 616.10 Vaginitis And Vulvovaginitis Unspecified 05/18/2011 TO DO, CARMELA K 216.9 BENIGN NEOPLASM OF SKIN SITE UNSPECIFIED 05/18/2011 TO DO, CARMELA K 616.10 Vaginitis And Vulvovaginitis Unspecified 05/18/2011 TO DO, CARMELA K 216.9 BENIGN NEOPLASM OF SKIN SITE UNSPECIFIED 05/18/2011 RHONA TO DOA K 616.10 Vaginitis And Vulvovaginitis Unspecified 05/18/2011 GABY LEADITE WORKER ERMIAS A 216.9 BENIGN NEOPLASM OF SKIN SITE UNSPECIFIED 05/18/2011 GABY LEADITE WORKER, ERMIAS A 616.10 Vaginitis And Vulvovaginitis Unspecified 05/18/2011 TO RHONA FELDMANA K 216.9 BENIGN NEOPLASM OF SKIN SITE UNSPECIFIED 05/18/2011 YOUSUF FELDMAN CARMELA K 616.10 Vaginitis And Vulvovaginitis Unspecified 06/18/2011 YOUSUF FELDMAN CARMELA K 112.1 Candidiasis Vaginal 06/18/2011 RHONA TO DOA K V76.2 CERVICAL CANCER SCREENING (PAP SMEAR) 06/18/2011 RHONA TO DOA K 112.1 Candidiasis Vaginal 06/18/2011 RHONA TO DOA K V76.2 CERVICAL CANCER SCREENING (PAP SMEAR) 06/18/2011 112.1 Candidiasis Vaginal 06/18/2011 V76.2 CERVICAL CANCER SCREENING (PAP SMEAR) 06/18/2011 GABY LEADITE WORKER, ERMIAS A 112.1 Candidiasis Vaginal 06/18/2011 GABYSheryl SALINAS ERMIAS A V76.2 CERVICAL CANCER SCREENING (PAP SMEAR) 06/18/2011 112.1 Candidiasis Vaginal 06/18/2011 V76.2 CERVICAL CANCER SCREENING (PAP SMEAR) 06/18/2011 AMY OROPEZA MD 112.1 Candidiasis Vaginal 06/18/2011 AMY OROPEZA MD V76.2 CERVICAL CANCER SCREENING (PAP SMEAR) 06/18/2011 CARMELA TO DO K 112.1 Candidiasis Vaginal 06/18/2011 YOUSUF FELDMAN CARMELA K V76.2 CERVICAL CANCER SCREENING (PAP SMEAR) 06/18/2011 RHONA TO DOA K 112.1 Candidiasis Vaginal 06/18/2011 RHONA TO DOA K V76.2 CERVICAL CANCER SCREENING (PAP SMEAR) 06/18/2011 RHONA TO DOA K 112.1 Candidiasis Vaginal 06/18/2011 YOUSUF FELDMAN CARMELA K V76.2 CERVICAL CANCER SCREENING (PAP SMEAR) 06/18/2011 RHONA OT DOA K 112.1 Candidiasis Vaginal 06/18/2011 RHONA TO DOA K V76.2 CERVICAL CANCER SCREENING (PAP SMEAR) 06/18/2011 ERMIAS GRIFFIN APRN A 112.1 Candidiasis Vaginal 06/18/2011 ERMIAS GRIFFIN APRN A V76.2 CERVICAL CANCER SCREENING (PAP SMEAR) 06/18/2011 TO RHONA FELDMANA K 112.1 Candidiasis Vaginal 06/18/2011 TO DO, CARMELA K V76.2 CERVICAL CANCER SCREENING (PAP SMEAR) 08/18/2011 TO DO, CARMELA K 034.0 Strep Throat 08/18/2011 TO DO, CARMELA K 034.0 Strep Throat 08/18/2011 034.0 Strep Throat 08/18/2011 ERMIAS GRIFFIN APRN A 034.0 Strep Throat 08/18/2011 034.0 Strep Throat 08/18/2011 AMY OROPEZA MD 034.0 Strep Throat 08/18/2011 TO DO, CARMELA K 034.0 Strep Throat 08/18/2011 TO DO, CARMELA K 034.0 Strep Throat 08/18/2011 TO DO, CARMELA K 034.0 Strep Throat 08/18/2011 TO DO, CARMELA K 034.0 Strep Throat 08/18/2011 ERMIAS GRIFFIN APRN A 034.0 Strep Throat 08/18/2011 TO DO, CARMELA K 034.0 Strep Throat 08/19/2011 Ot 462 ACUTE PHARYNGITIS 06/20/2012 780.60 FEVER, UNSPECIFIED 06/20/2012 ERMIAS GRIFFIN APRN A 780.60 FEVER, UNSPECIFIED 06/20/2012 780.60 FEVER, UNSPECIFIED 06/20/2012 AMY OROPEZA MD 780.60 FEVER, UNSPECIFIED 06/20/2012 TO DO CARMELA K 780.60 FEVER, UNSPECIFIED 06/20/2012 TO DO, CARMELA K 780.60 FEVER, UNSPECIFIED 06/20/2012 TO DO, CARMELA K 780.60 FEVER, UNSPECIFIED 06/20/2012 TO DO, CARMELA K 780.60 FEVER, UNSPECIFIED 06/20/2012 ERMIAS GRIFFIN APRN A 780.60 FEVER, UNSPECIFIED 06/20/2012 TO DO, CARMELA K 780.60 FEVER, UNSPECIFIED 08/24/2012 ERMIAS GRIFFIN APRN A 611.72 LUMP OR MASS IN BREAST 08/24/2012 611.72 LUMP OR MASS IN BREAST 08/24/2012 AMY OROPEZA MD 611.72 LUMP OR MASS IN BREAST 08/24/2012 TO DO, CARMELA K 611.72 LUMP OR MASS IN BREAST 08/24/2012 TO DO, CARMELA K 611.72 LUMP OR MASS IN BREAST 08/24/2012 TO DO, CARMELA K 611.72 LUMP OR MASS IN BREAST 08/24/2012 TO DO, CARMELA K 611.72 LUMP OR MASS IN BREAST 08/24/2012 ERMIAS GRIFFIN APRN A 611.72 LUMP OR MASS IN BREAST 08/24/2012 TO DO, CARMELA K 611.72 LUMP OR MASS IN BREAST 04/04/2013 TO DO, CARMELA K 368.8 OTHER SPECIFIED VISUAL DISTURBANCES 04/04/2013 TO DO, CARMELA K 780.4 DIZZINESS AND GIDDINESS 04/04/2013 TO DO, CARMELA K 368.8 OTHER SPECIFIED VISUAL DISTURBANCES 04/04/2013 TO DO, CARMELA K 780.4 DIZZINESS AND GIDDINESS 04/04/2013 TO DO, CARMELA K 368.8 OTHER SPECIFIED VISUAL DISTURBANCES 04/04/2013 TO DO, CARMELA K 780.4 DIZZINESS AND GIDDINESS 04/04/2013 TO DO, CARMELA K 368.8 OTHER SPECIFIED VISUAL DISTURBANCES 04/04/2013 TO DO, CARMELA K 780.4 DIZZINESS AND GIDDINESS 04/04/2013 ERMIAS GRIFFIN APRN A 368.8 OTHER SPECIFIED VISUAL DISTURBANCES 04/04/2013 ERMIAS GRIFFIN APRN A 780.4 DIZZINESS AND GIDDINESS 04/04/2013 TO DO, CARMELA K 368.8 OTHER SPECIFIED VISUAL DISTURBANCES 04/04/2013 TO DO, CARMELA K 780.4 DIZZINESS AND GIDDINESS 04/26/2013 SHLOMO JOLLY, JARED [place] Ot 346.00 MIGRAINE W AURA W/O INTRACT MGRN W/O STA 04/26/2013 JARED KEENAN MD Ot 784.0 HEADACHE 05/03/2013 TO DO, CARMELA K 784.0 HEADACHE 05/03/2013 TO DO, CARMELA K 784.0 HEADACHE 05/03/2013 TO DO, CARMELA K 784.0 HEADACHE 05/03/2013 KATT GRIFFIN APRNIDI A 784.0 HEADACHE 05/03/2013 TO DO, CARMELA K 784.0 HEADACHE 10/18/2013 TO DO CARMELA K 368.10 SUBJECTIVE VISUAL DISTURBANCE UNSPECIFIED 10/18/2013 TO DO CARMELA K 368.10 SUBJECTIVE VISUAL DISTURBANCE UNSPECIFIED 10/18/2013 GABYKATT Saucedo APRNIDI A 368.10 SUBJECTIVE VISUAL DISTURBANCE UNSPECIFIED 10/18/2013 TO DO CARMELA K 368.10 SUBJECTIVE VISUAL DISTURBANCE UNSPECIFIED 02/28/2014 RHONA TO DOA K 626.7 POSTCOITAL BLEEDING 02/28/2014 YOUSUF FELDMAN CARMELA K V72.31 INTERVENTION SPECIALIST EXAM, ROUTINE 02/28/2014 TO DO CARMELA K V73.81 HPV SCREENING 02/28/2014 TO DO CARMELA K V74.5 STD SCREEN 02/28/2014 YOUSUF FELDMAN CARMELA K V76.10 BREAST CANCER SCREENING 02/28/2014 GABY SALINAS ERMIAS A 626.7 POSTCOITAL BLEEDING 02/28/2014 GABY SALINAS ERMIAS A V72.31 INTERVENTION SPECIALIST EXAM, ROUTINE 02/28/2014 GABYSheryl SALINAS ERMIAS A V73.81 HPV SCREENING 02/28/2014 GABYSheryl SALINAS ERMIAS A V74.5 STD SCREEN 02/28/2014 GABYSheryl SALINAS ERMIAS A V76.10 BREAST CANCER SCREENING 02/28/2014 TO RHONA FELDMANA K 626.7 POSTCOITAL BLEEDING 02/28/2014 YOUSUF FELDMAN CARMELA K V72.31 INTERVENTION SPECIALIST EXAM, ROUTINE 02/28/2014 YOUSUF FELDMAN CARMELA K V73.81 HPV SCREENING 02/28/2014 RHONA TO DOA K V74.5 STD SCREEN 02/28/2014 RHONA TO DOA K V76.10 BREAST CANCER SCREENING 03/14/2014 GABYSheryl SALINAS ERMIAS A 783.21 LOSS OF WEIGHT 03/14/2014 RHONA TO DOA K 783.21 LOSS OF WEIGHT 04/09/2014 RHONA TO DOA K 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 04/09/2014 RHONA TO DOA K 461.9 SINUSITIS ACUTE 04/09/2014 YOUSUF FELDMAN CARMELA K 626.4 IRREGULAR MENSTRUAL CYCLE 05/12/2014 JM HILTON APRN Ot 786.2 COUGH 05/12/2014 JM HILTON APRN Ot 786.52 PAINFUL RESPIRATION 06/08/2014 Ot 610.1 06/08/2014 Ot V16.3 06/08/2014 Ot 785.6 06/08/2014 Ot 789.09 06/08/2014 Ot 625.9 06/08/2014 Ot 610.1 06/08/2014 Ot 785.6 06/08/2014 Ot 610.0 06/08/2014 ERMIAS GRIFFIN LEADITE WORKER Ot 610.0 06/08/2014 ERMIAS GRIFFIN LEADITE WORKER Ot 789.03 06/08/2014 KOMAL TELLEZ LEADITE WORKER Ot 784.0 06/08/2014 ERMIAS GRIFFIN LEADITE WORKER Ot 610.0 06/08/2014 MADL, ESPINOZA L [employer] ADMINISTRATOR Ot 368.10 06/08/2014 MADL, ESPINOZA L [employer] ADMINISTRATOR Ot 473.9 06/08/2014 MADL, ESPINOZA L [employer] ADMINISTRATOR Ot 368.10 06/08/2014 MADL, ESPINOZA L [employer] ADMINISTRATOR Ot 478.19 06/08/2014 MADL, ESPINOZA L [employer] ADMINISTRATOR Ot 253.9 06/08/2014 MADL, ESPINOZA L [employer] ADMINISTRATOR Ot 368.10 06/08/2014 MADL, ESPINOZA L [employer] ADMINISTRATOR Ot 784.0 06/18/2014 MADL, ESPINOZA L [employer] ADMINISTRATOR Ot 253.9 06/18/2014 MADL, ESPINOZA L [employer] ADMINISTRATOR Ot 368.10 06/18/2014 MADL, ESPINOZA L [employer] ADMINISTRATOR Ot 784.0 08/24/2014 Ot 610.0 08/28/2014 Ot 610.0 10/30/2014 Ot 610.1 10/30/2014 Ot V16.3 10/30/2014 Ot 785.6 10/30/2014 Ot 789.09 10/30/2014 Ot 625.9 10/30/2014 Ot 610.1 10/30/2014 Ot 785.6 10/30/2014 Ot 610.0 10/30/2014 ERMIAS GRIFFIN LEADITE WORKER Ot 610.0 10/30/2014 ERMIAS GRIFFIN LEADITE WORKER Ot 789.03 10/30/2014 KOMAL TELLEZ LEADITE WORKER Ot 784.0 10/30/2014 ERMIAS GRIFFIN LEADITE WORKER Ot 610.0 10/30/2014 MADL, ESPINOZA L [employer] ADMINISTRATOR Ot 368.10 10/30/2014 MADL, ESPINOZA L [employer] ADMINISTRATOR Ot 473.9 10/30/2014 MADL, ESPINOZA L [employer] ADMINISTRATOR Ot 368.10 10/30/2014 MADL, ESPINOZA L [employer] ADMINISTRATOR Ot 478.19 10/30/2014 MADL, ESPINOZA L [employer] ADMINISTRATOR Ot 253.9 10/30/2014 MADL, ESPINOZA L [employer] ADMINISTRATOR Ot 368.10 10/30/2014 MADL, ESPINOZA L [employer] ADMINISTRATOR Ot 784.0 10/30/2014 Ot 610.0 12/06/2014 MADL, ESPINOZA L [employer] ADMINISTRATOR Ot 368.9 12/06/2014 MADL, ESPINOZA L [employer] ADMINISTRATOR Ot 473.9 12/20/2014 MADL, ESPINOZA L [employer] ADMINISTRATOR Ot 253.9 12/20/2014 MADL, ESPINOZA L [employer] ADMINISTRATOR Ot 368.10 12/20/2014 MADL, ESPINOZA L [employer] ADMINISTRATOR Ot 784.0 12/20/2014 MADL, ESPINOZA L [employer] ADMINISTRATOR Ot 368.9 12/20/2014 MADL, ESPINOZA L [employer] ADMINISTRATOR Ot 473.9 03/18/2015 MADL, ESPINOZA L [employer] ADMINISTRATOR Ot N63 05/09/2015 Ot 610.1 05/09/2015 Ot V16.3 05/09/2015 Ot 785.6 05/09/2015 Ot 789.09 05/09/2015 Ot 625.9 05/09/2015 Ot 610.1 05/09/2015 Ot 785.6 05/09/2015 Ot 610.0 05/09/2015 ERMIAS GRIFFIN LEADITE WORKER Ot 610.0 05/09/2015 ERMIAS GRIFFIN LEADITE WORKER Ot 789.03 05/09/2015 KOMAL TELLEZ LEADITE WORKER Ot 784.0 05/09/2015 ERMIAS GRIFFIN LEADITE WORKER Ot 610.0 05/09/2015 MADL, ESPINOZA L [employer] ADMINISTRATOR Ot 368.10 05/09/2015 MADL, ESPINOZA L [employer] ADMINISTRATOR Ot 473.9 05/09/2015 MADL, ESPINOZA L [employer] ADMINISTRATOR Ot 368.10 05/09/2015 MADL, ESPINOZA L [employer] ADMINISTRATOR Ot 478.19 05/09/2015 MADL, ESPINOZA L [employer] ADMINISTRATOR Ot 253.9 05/09/2015 MADL, ESPINOZA L [employer] ADMINISTRATOR Ot 368.10 05/09/2015 MADL, ESPINOZA L [employer] ADMINISTRATOR Ot 784.0 05/09/2015 Ot 610.0 05/09/2015 MADL, ESPINOZA L [employer] ADMINISTRATOR Ot 368.9 05/09/2015 MADL, ESPINOZA L [employer] ADMINISTRATOR Ot 473.9 05/09/2015 MADL, ESPINOZA L [employer] ADMINISTRATOR Ot N63 05/20/2015 MADL, ESPINOZA L [employer] ADMINISTRATOR Ot N63 05/29/2015 MADL, ESPINOZA L [employer] ADMINISTRATOR Ot N63 09/23/2015 MADL, ESPINOZA L [employer] ADMINISTRATOR Ot N63 UNSPECIFIED LUMP IN BREAST 12/20/2015 Ot 785.6 ENLARGEMENT LYMPH NODES 12/20/2015 Ot 789.09 ABDOMINAL PAIN, OTHER SPECIFIED SITE 12/20/2015 Ot 625.9 FEM GENITAL SYMPTOMS NOS 12/20/2015 Ot 610.1 DIFFUS CYSTIC MASTOPATHY 12/20/2015 Ot 785.6 ENLARGEMENT LYMPH NODES 12/20/2015 Ot 610.0 SOLITARY CYST OF BREAST 12/20/2015 ERMIAS GRIFFIN LEADITE WORKER Ot 610.0 SOLITARY CYST OF BREAST 12/20/2015 ERMIAS GRIFFIN LEADITE WORKER Ot 789.03 ABDOMINAL PAIN, RIGHT LOWER QUADRANT 12/20/2015 KOMAL TELLEZ LEADITE WORKER Ot 784.0 HEADACHE 12/20/2015 ERMIAS GRIFFIN LEADITE WORKER Ot 610.0 SOLITARY CYST OF BREAST 12/20/2015 NIIL, ESPINOZA L [employer] ADMINISTRATOR Ot 368.10 SUBJ VISUAL DISTURB NOS 12/20/2015 MADL, ESPINOZA L [employer] ADMINISTRATOR Ot 473.9 CHRONIC SINUSITIS NOS 12/20/2015 MADL, ESPINOZA L [employer] ADMINISTRATOR Ot 368.10 SUBJ VISUAL DISTURB NOS 12/20/2015 MADL, ESPINOZA L [employer] ADMINISTRATOR Ot 478.19 OTHER DISEASE OF NASAL CAVITY AND SINUSE 12/20/2015 MADL, ESPINOZA L [employer] ADMINISTRATOR Ot 253.9 PITUITARY DISORDER NOS 12/20/2015 MADESPINOZA Liu [employer] ADMINISTRATOR Ot 368.10 SUBJ VISUAL DISTURB NOS 12/20/2015 ESPINOZA MERCEDES [employer] ADMINISTRATOR Ot 784.0 HEADACHE 12/20/2015 Ot 610.0 SOLITARY CYST OF BREAST 12/20/2015 ESPINOZA MERCEDES [employer] ADMINISTRATOR Ot 368.9 VISUAL DISTURBANCE NOS 12/20/2015 ESPINOZA MERCEDES [employer] ADMINISTRATOR Ot 473.9 CHRONIC SINUSITIS NOS 12/20/2015 MADESPINOZA Liu [employer] ADMINISTRATOR Ot N63 UNSPECIFIED LUMP IN BREAST 12/20/2015 ESPINOZA MERCEDES [employer] ADMINISTRATOR Ot N63 UNSPECIFIED LUMP IN BREAST 01/01/2016 MADESPINOZA Liu [employer] ADMINISTRATOR Ot N63 UNSPECIFIED LUMP IN BREAST 09/04/2018 JM HILTON APRN Ot O26.892 OTH RELATED CONDITIONS, SECOND 09/04/2018 JM HILTON APRN Ot O99.89 OTH DISEASES AND CONDITIONS COMPL PREG/C 09/04/2018 JM HILTON LEADITE WORKER Ot R19.7 DIARRHEA, UNSPECIFIED 09/04/2018 JM HILTON LEADITE WORKER Ot R82.71 BACTERIURIA 09/04/2018 JM HILTON LEADITE WORKER Ot Z3A.17 17 WEEKS GESTATION OF 09/06/2018 JM HILTON APRN Ot O26.892 OTH RELATED CONDITIONS, SECOND 09/06/2018 JM HILTON LEADITE WORKER Ot O99.89 OTH DISEASES AND CONDITIONS COMPL PREG/C 09/06/2018 JM HILTON APRN Ot R19.7 DIARRHEA, UNSPECIFIED 09/06/2018 JM HILTON LEADITE WORKER Ot R82.71 BACTERIURIA 09/06/2018 JM HILTON LEADITE WORKER Ot Z3A.17 17 WEEKS GESTATION OF 09/06/2018 KOMAL TELLEZ LEADITE WORKER Ot 784.0 HEADACHE 09/06/2018 ERMIAS GRIFFIN LEADITE WORKER Ot 610.0 SOLITARY CYST OF BREAST 09/06/2018 ESPINOZA MERCEDES [employer] ADMINISTRATOR Ot 368.10 SUBJ VISUAL DISTURB NOS 09/06/2018 NIIESPINOZA Liu [employer] ADMINISTRATOR Ot 473.9 CHRONIC SINUSITIS NOS 09/06/2018 MADL, ESPINOZA L [employer] ADMINISTRATOR Ot 368.10 SUBJ VISUAL DISTURB NOS 09/06/2018 MADL, ESPINOZA L [employer] ADMINISTRATOR Ot 478.19 OTHER DISEASE OF NASAL CAVITY AND SINUSE 09/06/2018 MADL, ESPINOZA L [employer] ADMINISTRATOR Ot 253.9 PITUITARY DISORDER NOS 09/06/2018 MADL, ESPINOZA L [employer] ADMINISTRATOR Ot 368.10 SUBJ VISUAL DISTURB NOS 09/06/2018 MADL, ESPINOZA L [employer] ADMINISTRATOR Ot 784.0 HEADACHE 09/06/2018 Ot 610.0 SOLITARY CYST OF BREAST 09/06/2018 MADL, ESPINOZA L [employer] ADMINISTRATOR Ot 368.9 VISUAL DISTURBANCE NOS 09/06/2018 MADL, ESPINOZA L [employer] ADMINISTRATOR Ot 473.9 CHRONIC SINUSITIS NOS 09/06/2018 MADL, ESPINOZA L [employer] ADMINISTRATOR Ot N63 UNSPECIFIED LUMP IN BREAST 09/06/2018 MADL, ESPINOZA L [employer] ADMINISTRATOR Ot N63 UNSPECIFIED LUMP IN BREAST 09/08/2018 KOMAL TELLEZ LEADITE WORKER Ot 784.0 HEADACHE 09/08/2018 ERMIAS GRIFFIN LEADITE WORKER Ot 610.0 SOLITARY CYST OF BREAST 09/08/2018 MADL, ESPINOZA L [employer] ADMINISTRATOR Ot 368.10 SUBJ VISUAL DISTURB NOS 09/08/2018 MADL, ESPINOZA L [employer] ADMINISTRATOR Ot 473.9 CHRONIC SINUSITIS NOS 09/08/2018 MADL, ESPINOZA L [employer] ADMINISTRATOR Ot 368.10 SUBJ VISUAL DISTURB NOS 09/08/2018 MADL, ESPINOZA L [employer] ADMINISTRATOR Ot 478.19 OTHER DISEASE OF NASAL CAVITY AND SINUSE 09/08/2018 MADL, ESPINOZA L [employer] ADMINISTRATOR Ot 253.9 PITUITARY DISORDER NOS 09/08/2018 MADL, ESPINOZA L [employer] ADMINISTRATOR Ot 368.10 SUBJ VISUAL DISTURB NOS 09/08/2018 MADL, ESPINOZA L [employer] ADMINISTRATOR Ot 784.0 HEADACHE 09/08/2018 Ot 610.0 SOLITARY CYST OF BREAST 09/08/2018 MADL, ESPINOZA L [employer] ADMINISTRATOR Ot 368.9 VISUAL DISTURBANCE NOS 09/08/2018 MADL, ESPINOZA L [employer] ADMINISTRATOR Ot 473.9 CHRONIC SINUSITIS NOS 09/08/2018 MADL, ESPINOZA L [employer] ADMINISTRATOR Ot N63 UNSPECIFIED LUMP IN BREAST 09/08/2018 MADL, ESPINOZA L [employer] ADMINISTRATOR Ot N63 UNSPECIFIED LUMP IN BREAST 09/29/2018 KOMAL TELLEZ LEADITE WORKER Ot 784.0 HEADACHE 09/29/2018 ERMIAS GRIFFIN LEADITE WORKER Ot 610.0 SOLITARY CYST OF BREAST 09/29/2018 MADL, ESPINOZA L [employer] ADMINISTRATOR Ot 368.10 SUBJ VISUAL DISTURB NOS 09/29/2018 MADL, ESPINOZA L [employer] ADMINISTRATOR Ot 473.9 CHRONIC SINUSITIS NOS 09/29/2018 MADL, ESPINOZA L [employer] ADMINISTRATOR Ot 368.10 SUBJ VISUAL DISTURB NOS 09/29/2018 MADL, ESPINOZA L [employer] ADMINISTRATOR Ot 478.19 OTHER DISEASE OF NASAL CAVITY AND SINUSE 09/29/2018 MADL, ESPINOZA L [employer] ADMINISTRATOR Ot 253.9 PITUITARY DISORDER NOS 09/29/2018 MADL, ESPINOZA L [employer] ADMINISTRATOR Ot 368.10 SUBJ VISUAL DISTURB NOS 09/29/2018 MADL, ESPINOZA L [employer] ADMINISTRATOR Ot 784.0 HEADACHE 09/29/2018 Ot 610.0 SOLITARY CYST OF BREAST 09/29/2018 MADL, ESPINOZA L [employer] ADMINISTRATOR Ot 368.9 VISUAL DISTURBANCE NOS 09/29/2018 MADL, ESPINOZA L [employer] ADMINISTRATOR Ot 473.9 CHRONIC SINUSITIS NOS 09/29/2018 MADL, ESPINOZA L [employer] ADMINISTRATOR Ot N63 UNSPECIFIED LUMP IN BREAST 09/29/2018 MADL, ESPINOZA L [employer] ADMINISTRATOR Ot N63 UNSPECIFIED LUMP IN BREAST 10/04/2018 URBANO ANDERSON DO Ot Z36.89 ENCOUNTER FOR OTHER SPECIFIED 10/04/2018 URBANO ANDERSON DO Ot Z3A.21 21 WEEKS GESTATION OF Procedures Code [place] [address] US PELVIC COMPL (REFLEX CPT - 63347) 04/15/2012 90575 INFLUENZA A & B (IN-HOUSE) 06/20/2012 31635 US BREAST(S) ULTRASOUND, BOTH 08/25/[address] ABDOMEN & PELVIS W/O CONTRAST 01/12/2013 89601 US BREAST(S) ULTRASOUND, BOTH 01/12/2013 55501 ROUTINE VENIPUNCTURE 04/04/2013 68123 CBC 04/05/2013 8022114 GFR CALC (RESULT ONLY) 04/05/2013 56010 CMP 04/05/2013 71259 LIPID PANEL 04/05/2013 00315 TSH 04/05/[address] ABDOMEN & PELVIS W/O CONTRAST 05/04/2013 36477 US BREAST ULTRASOUND, RIGHT 05/04/[address] HEAD/BRAIN W/O DYE 05/09/2013 49468 MRI BRAIN W/O & W/DYE 10/18/2013 56943 GLUCOSE KISHOR 3 HOUR 10/18/2013 10260 GLUCOSE FINGER STICK 10/18/2013 92303 A1C (IN-HOUSE) 10/18/2013 09776 TRICHOMONAS (IN-HOUSE) 02/28/2014 41791 GC/CHLAM PROBE ([facility]) 03/02/2014 Q0091 PAP SMEAR OBTAIN SMEAR 03/02/2014 95969 CULTURE UROGENITAL 03/04/2014 19266 PAP SMEAR 03/05/2014 40659 ROUTINE VENIPUNCTURE 03/14/2014 55650 TSH 03/14/2014 81186 HIV ANTIBODIES ([facility]) 03/14/2014 48589 ROUTINE VENIPUNCTURE 04/09/2014 70624 TEST, URINE (IN- HOUSE) 04/09/2014 98600 CMP 04/09/2014 [id number] GFR CALC (RESULT ONLY) 04/09/2014 32297 MRI BRAIN W/O & W/DYE 04/09/2014 01723 PTH (intact) (ORDER ONLY) 04/09/2014 THYANA THYROID ANALYZER 04/09/2014 Results Test Result Range [facility] - 05/05/18 16:55 GLUCOSE 75 mg/dL 65-99 UREA NITROGEN (BUN) 12 mg/dL 7-25 CREATININE 0.57 mg/dL 0.50-1.10 eGFR NON-AFR. [place] 120 mL/min/1.73m2 > OR=60 eGFR 139 mL/min/1.73m2 > OR=60 BUN/CREATININE RATIO NOT APPLICABLE (calc) 6-22 SODIUM 140 mmol/L 135-146 POTASSIUM 4.0 mmol/L 3.5-5.3 CHLORIDE 108 mmol/L 98-110 CARBON DIOXIDE 27 mmol/L 20-32 CALCIUM 9.3 mg/dL 8.6-10.2 PROTEIN, TOTAL 6.7 g/dL 6.1-8.1 ALBUMIN 4.3 g/dL 3.6-5.1 GLOBULIN 2.4 g/dL (calc) 1.9-3.7 ALBUMIN/GLOBULIN RATIO 1.8 (calc) 1.0-2.5 BILIRUBIN, TOTAL 0.3 mg/dL 0.2-1.2 ALKALINE PHOSPHATASE 37 U/L 33-115 AST 14 U/L 10-30 ALT 11 U/L 6-29 Complete blood count (CBC) with automated white blood cell (WBC) differential - 09/04/18 21:45 Blood leukocytes automated count (number/volume) 9.3 10*3/uL 4.3-11.0 Blood erythrocytes automated count (number/volume) 3.84 10*6/uL 4.35-5.85 Venous blood hemoglobin measurement (mass/volume) 12.5 g/dL 11.5-16.0 Blood hematocrit (volume fraction) 36 % 35-52 Automated erythrocyte mean corpuscular volume 94 [foz_us] 80-99 Automated erythrocyte mean corpuscular hemoglobin (mass per erythrocyte) 33 pg 25-34 Automated erythrocyte mean corpuscular hemoglobin concentration measurement ( mass/volume) 35 g/dL 32-36 Automated erythrocyte distribution width ratio 12.2 % 10.0-14.5 Automated blood platelet count (count/volume) 250 10*3/uL 130-400 Automated blood platelet mean volume measurement 9.8 [foz_us] 7.4-10.4 Automated blood neutrophils/100 leukocytes 64 % 42-75 Automated blood lymphocytes/100 leukocytes 24 % 12-44 Blood monocytes/100 leukocytes 9 % 0-12 Automated blood eosinophils/100 leukocytes 3 % 0-10 Automated blood basophils/100 leukocytes 0 % 0-10 Blood neutrophils automated count (number/volume) 5.9 10*3 1.8-7.8 Blood lymphocytes automated count (number/volume) 2.3 10*3 1.0-4.0 Blood monocytes automated count (number/volume) 0.8 10*3 0.0-1.0 Automated eosinophil count 0.3 10*3/uL 0.0-0.3 Automated blood basophil count (count/volume) 0.0 10*3/uL 0.0-0.1 Comprehensive metabolic panel - 09/04/18 21:45 Serum or plasma sodium measurement (moles/volume) 139 mmol/L 135-145 Serum or plasma potassium measurement (moles/volume) 3.5 mmol/L 3.6-5.0 Serum or plasma chloride measurement (moles/volume) 108 mmol/L 98-107 Carbon dioxide 22 mmol/L 21-32 Serum or plasma anion gap determination (moles/volume) 9 mmol/L 5-14 Serum or plasma urea nitrogen measurement (mass/volume) 6 mg/dL 7-18 Serum or plasma creatinine measurement (mass/volume) 0.56 mg/dL 0.60-1.30 Serum or plasma urea nitrogen/creatinine mass ratio 11 NRG Serum or plasma creatinine measurement with calculation of estimated glomerular filtration rate > NRG Serum or plasma glucose measurement (mass/volume) 94 mg/dL 70-105 Serum or plasma calcium measurement (mass/volume) 9.7 mg/dL 8.5-10.1 Serum or plasma total bilirubin measurement (mass/volume) 0.3 mg/dL 0.1-1.0 Serum or plasma alkaline phosphatase measurement (enzymatic activity/volume) 50 U/L 40-136 Serum or plasma aspartate aminotransferase measurement (enzymatic activity/ volume) 43 U/L 5-34 Serum or plasma alanine aminotransferase measurement (enzymatic activity/volume ) 45 U/L 0-55 Serum or plasma protein measurement (mass/volume) 6.6 g/dL 6.4-8.2 Serum or plasma albumin measurement (mass/volume) 3.9 g/dL 3.2-4.5 CALCIUM CORRECTED 9.8 mg/dL 8.5-10.1 Complete urinalysis with reflex to culture - 09/04/18 21:53 Urine color determination YELLOW NRG Urine clarity determination SLIGHTLY CLOUDY NRG Urine pH measurement by test strip 6 5-9 Specific gravity of urine by test strip 1.025 1.016- 1.022 Urine protein assay by test strip, semi-quantitative 2+ NEGATIVE Urine glucose detection by automated test strip NEGATIVE NEGATIVE Erythrocytes detection in urine sediment by light microscopy 2+ NEGATIVE Urine ketones detection by automated test strip 1+ NEGATIVE Urine nitrite detection by test strip NEGATIVE NEGATIVE Urine total bilirubin detection by test strip NEGATIVE NEGATIVE Urine urobilinogen measurement by automated test strip (mass/volume) 1 mg/dL NORMAL Urine leukocyte esterase detection by dipstick 2+ NEGATIVE Automated urine sediment erythrocyte count by microscopy (number/high power field) RARE NRG Automated urine sediment leukocyte count by microscopy (number/high power field ) [HPF] NRG Bacteria detection in urine sediment by light microscopy MODERATE NRG Squamous epithelial cells detection in urine sediment by light microscopy 25-50 NRG Crystals detection in urine sediment by light microscopy PRESENT NRG Casts detection in urine sediment by light microscopy NONE NRG Mucus detection in urine sediment by light microscopy LARGE NRG Complete urinalysis with reflex to culture YES NRG Calcium oxalate crystals detection in urine sediment by light microscopy LARGE NRG Bacterial urine culture - 09/04/18 21:53 Bacterial urine culture NG NRG Encounters ACCT No. Visit Date/Time Discharge Status Pt. Type Provider Facility Loc./Unit Complaint [id number] 04/09/2014 13:44:00 04/09/2014 23:59:59 CLS Outpatient CARMELA TO DO [id number] 03/14/2014 15:53:00 03/14/2014 23:59:59 CLS Outpatient ERMIAS GRIFFIN APRN [id number] 02/28/2014 16:51:00 02/28/2014 23:59:59 CLS Outpatient CARMELA TO DO [id number] 10/18/2013 09:08:00 10/18/2013 23:59:59 CLS Outpatient CARMELA TO DO [id number] 05/03/2013 16:01:00 05/03/2013 23:59:59 CLS Outpatient CARMELA TO DO [id number] 04/04/2013 16:05:00 04/04/2013 23:59:59 CLS Outpatient CARMELA TO DO [id number] 02/09/2013 17:11:00 02/09/2013 23:59:59 CLS Outpatient AMY OROPEZA MD [id number] 08/24/2012 16:27:00 08/24/2012 23:59:59 CLS Outpatient ERMIAS GRIFFIN APRN [id number] 06/20/2012 18:04:00 06/20/2012 23:59:59 CLS Outpatient [id number] 04/15/2012 16:03:00 04/15/2012 23:59:59 CLS Outpatient CARMELA TO DO [id number] 04/15/2012 16:03:00 04/15/2012 23:59:59 CLS Outpatient CARMELA TO DO [id number] 01/10/2013 16:01:00 Document Registration [id number] 02/28/2015 12:56:54 ACT Document Registration [id number] 06/22/2018 14:00:00 06/22/2018 23:59:59 CLS Outpatient ALISA LEADITE WORKERKEZIA Saucedo [facility] [id number] 05/05/2018 16:20:00 Document Registration [id number] 10/03/2018 14:27:00 10/03/2018 23:59:59 CLS Outpatient URBANO ANDERSON DO [facility] RAD FETUS PRESENT, SECOND TRIMESTER [id number] 09/04/2018 21:32:00 09/04/2018 22:53:00 DIS Emergency JM HILTON APRN [facility] ER 17 WEEKS ,HAVING A LOT OF BOWEL MOVEMENTS [id number] 09/19/2015 14:12:00 09/19/2015 23:59:59 CLS Outpatient MADL, ESPINOZA L [employer] ADMINISTRATOR [facility] RAD UNSCPECIFIED LUMP IN BREAST [id number] 02/28/2015 08:53:00 02/28/2015 23:59:59 CLS Outpatient MADL, ESPINOZA L [employer] ADMINISTRATOR [facility] RAD LEFT BREAST LUMP FOLLOW UP [id number] 11/05/2014 16:13:00 11/05/2014 23:59:59 CLS Outpatient MADL, ESPINOZA L [employer] ADMINISTRATOR [facility] RAD VISUAL DISTURBANCE SINUSITIS [id number] 05/12/2014 17:23:00 05/12/2014 18:55:00 DIS Emergency JM HILTON APRN [facility] ER BACK PAIN [id number] 04/11/2014 13:14:00 04/11/2014 23:59:59 CLS Outpatient MADL, ESPINOZA L [employer] ADMINISTRATOR [facility] RAD HEADACHES,VISUAL CHANGES [id number] 11/06/2013 13:22:00 11/06/2013 23:59:59 CLS Outpatient MADL, ESPINOZA L [employer] ADMINISTRATOR [facility] RAD VISUALIZATION OF SELLA/ PITUTARY GLANDS [id number] 10/26/2013 11:25:00 10/26/2013 23:59:59 CLS Outpatient MADL, EPSINOZA L [employer] ADMINISTRATOR [facility] RAD VISUAL DISTURBANCES [id number] 08/01/2013 10:44:00 08/01/2013 23:59:59 CLS Outpatient ERMIAS GRIFFIN APRN [facility] RAD SIX MONTH F/U [id number] 05/08/2013 16:51:00 05/08/2013 23:59:59 CLS Outpatient KOMAL TELLEZ APRN [facility] RAD HEADACHE [id number] 04/26/2013 09:55:00 04/26/2013 11:01:00 DIS Emergency JARED KEENAN MD [facility] ER HEADACHE/BLURRY VISION [id number] 01/18/2013 10:11:00 01/18/2013 23:59:59 CLS Outpatient GABYERMISA Saucedo APRN [facility] RAD [id number] 08/24/2014 14:07:00 Document Registration [id number] 08/30/2012 10:38:00 Document Registration [id number] 05/04/2012 16:07:00 Document Registration [id number] 04/20/2012 14:00:00 Document Registration [id number] 08/19/2011 15:06:00 Document Registration [id number] 04/20/2011 11:22:00 Document Registration [id number] 01/15/2010 14:55:00 Document Registration
--- NOTE | 2018-10-11 11:44 | ED General ---
General Stated Complaint: ABOUT FAINTED;DIZZINESS;SWEATING Source of Information: Patient Exam Limitations: No Limitations History of Present Illness Date Seen by Provider: October 11, 2018 Time Seen by Provider: 11:41 Initial Comments To ER per EMS with reports of near syncope. This began while at work with initially sensation of palpitations, then dizziness and diaphoresis. The palpitations abated after only a minute or 2, the diaphoresis and dizziness persisted. Now she feels weak but otherwise back to normal. She is 23 weeks gestation. No vaginal bleeding or abdominal cramping. Timing/Duration: 1-2 Days Severity: Moderate Associated Systoms: Weakness Allergies and Home Medications Allergies Coded Allergies: No Known Drug Allergies (Unverified , 08/19/11) Home Medications Cephalexin 500 Mg Capsule, 500 MG PO TID . Prescribed by: JM HILTON on 09/04/18 2722 Patient Home Medication List Home Medication List Reviewed: Yes Review of Systems Review of Systems Constitutional: see HPI, diaphoresis EENTM: see HPI Respiratory: no symptoms reported Cardiovascular: see HPI; No chest pain; palpitations Genitourinary: no symptoms reported Musculoskeletal: no symptoms reported Skin: see HPI Psychiatric/Neurological: No Symptoms Reported Hematologic/Lymphatic: No Symptoms Reported Immunological/Allergic: no symptoms reported Past [id number]-Snydqm Hx Patient Social History Type Used: Cigarettes Recent Hopitalizations: No Seasonal Allergies Seasonal Allergies: No Past Medical History Surgeries: No Respiratory: No Cardiac: No Neurological: No Genitourinary: No Gastrointestinal: No Musculoskeletal: No Endocrine: No Cancer: No Psychosocial: No Integumentary: No Blood Disorders: No Physical Exam Vital Signs Vital Signs - First Documented 10/11/18 11:32 Temp 98.3 Pulse 77 Resp 20 B/P (MAP) 108/72 (84) Pulse Ox 100 O2 Delivery Room Air Capillary Refill : Height, Weight, BMI Height: 5'11" Weight: 133lbs. oz. 60.108471sp; 16.73 BMI Method:Stated General Appearance: No Apparent Distress, WD/WN Eyes: Bilateral Eye Normal Inspection, Bilateral Eye PERRL, Bilateral Eye EOMI HEENT: PERRL/EOMI, TMs Normal Neck: Full Range of Motion, Normal Inspection Respiratory: No Accessory Muscle Use, No Respiratory Distress Cardiovascular: Regular Rate, Rhythm, Normal Peripheral Pulses Gastrointestinal: Non Tender, Soft Extremity: Normal Capillary Refill, Normal Inspection Neurologic/Psychiatric: Alert, Oriented x3 Skin: Normal Color, Warm/Dry Comments Normal sinus rhythm on compliance monitor without ectopy. Progress/Results/Core Measures Suspected Sepsis SIRS Temperature: Pulse: Respiratory Rate: Laboratory Tests 10/11/18 11:42: White Blood Count 11.8H Blood Pressure / Mean: Laboratory Tests 10/11/18 11:42: Creatinine 0.53L, Platelet Count 242, Total Bilirubin 0.2 Results/Orders Lab Results Laboratory Tests Test 10/11/18 11:42 10/11/18 12:00 Range/Units White Blood Count 11.8 H 4.3-11.0 10^3/uL Red Blood Count 3.60 L 4.35-5.85 10^6/uL Hemoglobin 11.7 11.5-16.0 G/DL Hematocrit 35 35-52 % Mean Corpuscular Volume 97 80-99 FL Mean Corpuscular Hemoglobin 33 25-34 PG Mean Corpuscular Hemoglobin Concent 33 32-36 G/DL Red Cell Distribution Width 12.7 10.0-14.5 % Platelet Count 242 130-400 10^3/uL Mean Platelet Volume 10.1 7.4-10.4 FL Neutrophils (%) (Auto) 78 H 42-75 % Lymphocytes (%) (Auto) 16 12-44 % Monocytes (%) (Auto) 6 0-12 % Eosinophils (%) (Auto) 1 0-10 % Basophils (%) (Auto) 0 0-10 % Neutrophils # (Auto) 9.2 H 1.8-7.8 X 10^3 Lymphocytes # (Auto) 1.8 1.0-4.0 X 10^3 Monocytes # (Auto) 0.7 0.0-1.0 X 10^3 Eosinophils # (Auto) 0.1 0.0-0.3 10^3/uL Basophils # (Auto) 0.0 0.0-0.1 10^3/uL Sodium Level 136 135-145 MMOL/L Potassium Level 3.9 3.6-5.0 MMOL/L Chloride Level 107 98-107 MMOL/L Carbon Dioxide Level 21 21-32 MMOL/L Anion Gap 8 5-14 MMOL/L Blood Urea Nitrogen 4 L 7-18 MG/DL Creatinine 0.53 L 0.60-1.30 MG/DL Estimat Glomerular Filtration Rate > 60 BUN/Creatinine Ratio 8 Glucose Level 89 70-105 MG/DL Calcium Level 8.8 8.5-10.1 MG/DL Corrected Calcium 9.1 8.5-10.1 MG/DL Total Bilirubin 0.2 0.1-1.0 MG/DL Aspartate Amino Transf (AST/SGOT) 39 H 5-34 U/L Alanine Aminotransferase (ALT/SGPT) 56 H 0-55 U/L Alkaline Phosphatase 47 40-136 U/L Total Protein 6.1 L 6.4-8.2 GM/DL Albumin 3.6 3.2-4.5 GM/DL Urine Color YELLOW Urine Clarity SLIGHTLY CLOUDY Urine pH 8 5-9 Urine Specific Mcneil 1.010 L 1.016-1.022 Urine Protein NEGATIVE NEGATIVE Urine Glucose (UA) NEGATIVE NEGATIVE Urine Ketones NEGATIVE NEGATIVE Urine Nitrite NEGATIVE NEGATIVE Urine Bilirubin NEGATIVE NEGATIVE Urine Urobilinogen NORMAL NORMAL MG/DL Urine Leukocyte Esterase 3+ H NEGATIVE Urine RBC (Auto) NEGATIVE NEGATIVE Urine RBC NONE /HPF Urine WBC 10-25 H /HPF Urine Squamous Epithelial Cells 5-10 /HPF Urine Crystals NONE /LPF Urine Bacteria TRACE /HPF Urine Casts NONE /LPF Urine Mucus NEGATIVE /LPF Urine Culture Indicated YES My Orders Orders - JM HILTON APRN Cbc With Automated Diff (10/11/18 11:51) Comprehensive Metabolic Panel (10/11/18 11:51) Ua Culture If Indicated (10/11/18 11:51) Heart Tones (10/11/18 11:51) Interceptor Operator (10/11/18 11:51) Ns Iv 1000 Ml (Sodium Chloride 0.9%) (10/11/18 13:00) Urine Culture (10/11/18 12:00) Vital Signs/I&O 10/11/18 11:32 Temp 98.3 Pulse 77 Resp 20 B/P (MAP) 108/72 (84) Pulse Ox 100 O2 Delivery Room Air Capillary Refill : Departure Communication (Admissions) Elevated liver function tests may represent cholestasis of however she denies any nausea or pruritis. She'll follow up with Dr. Anderson this . heart tones 150. BP low at 90s to 100 systolic consistently, though she states she typically runs low. We'll give 1 liter fluid bolus. Will set her up with holter monitor upon discharge. Impression Primary Impression: Transient dizziness Additional Impression: Urinary tract infection Qualified Codes: N30.00 - Acute cystitis without hematuria Disposition: HOME, SELF-CARE Condition: Stable Departure-Patient Inst. Decision time for Depature: 12:31 Referrals: URBANO ANDERSON DO (PCP/Family) Primary Care Physician Patient Instructions: NO INSTRUCTIONS GIVEN Add. Discharge Instructions: 1. Keep your appointment with Dr. Anderson. Wear the Holter monitor as directed by [facility] [place]. Scripts Cefdinir (Cefdinir) 300 Mg Capsule 300 MG PO BID, #10 CAP Prov: JM HILTON APRN 10/11/18 Copy Copies To 1: URBANO ANDERSON PETER J APRN October 11, 2018 11:44
[2018-10-11 12:17] LABS: BASOPHILS % (AUTO) 0 % (0-10); EOSINOPHILS # (AUTO) 0.1 10^3/uL (0.0-0.3); EOSINOPHILS % (AUTO) 1 % (0-10); HEMATOCRIT 35 % (35-52); HEMOGLOBIN 11.7 G/DL (11.5-16.0); LYMPHOCYTES # (AUTO) 1.8 X 10^3 (1.0-4.0); LYMPHOCYTES % (AUTO) 16 % (12-44); MEAN CORPUSCULAR HEMOGLOBIN 33 PG (25-34); MEAN CORPUSCULAR HGB CONC 33 G/DL (32-36); MEAN CORPUSCULAR VOLUME 97 FL (80-99); MEAN PLATELET VOLUME 10.1 FL (7.4-10.4); MONOCYTES # (AUTO) 0.7 X 10^3 (0.0-1.0); MONOCYTES % (AUTO) 6 % (0-12); NEUTROPHILS # (AUTO) 9.2 X 10^3 (1.8-7.8); NEUTROPHILS % (AUTO) 78 % (42-75); PLATELET COUNT 242 10^3/uL (130-400); RED CELL DISTRIBUTION WIDTH 12.7 % (10.0-14.5); WHITE BLOOD COUNT 11.8 10^3/uL (4.3-11.0)
[2018-10-11 12:29] LABS: ALANINE AMINOTRANSFERASE 56 U/L (0-55); ALBUMIN 3.6 GM/DL (3.2-4.5); ALKALINE PHOSPHATASE 47 U/L (40-136); BILIRUBIN,TOTAL 0.2 MG/DL (0.1-1.0); BUN/CREATININE RATIO 8; CALCIUM 8.8 MG/DL (8.5-10.1); CARBON DIOXIDE 21 MMOL/L (21-32); CHLORIDE 107 MMOL/L (98-107); CREATININE SERUM 0.53 MG/DL (0.60-1.30); GFR ESTIMATED > 60; GLUCOSE 89 MG/DL (70-105); POTASSIUM 3.9 MMOL/L (3.6-5.0); SODIUM 136 MMOL/L (135-145); TOTAL PROTEIN 6.1 GM/DL (6.4-8.2)
[2018-10-11] MEDS ORDERED: CEFD300C3 PO (12:56)
[2018-10-11] MEDS ORDERED: NS IV 1000 ML 1,000 ML IV SCH (13:00)
[2018-10-11 13:11] LABS: BILIRUBIN,URINE NEGATIVE (NEGATIVE); CLARITY,URINE VERY CLOUDY; COLOR,URINE YELLOW; GLUCOSE, URINE (UA) NEGATIVE (NEGATIVE); KETONES,URINE NEGATIVE (NEGATIVE); LEUKOCYTE ESTERASE ,URINE 2+ (NEGATIVE); NITRITE,URINE NEGATIVE (NEGATIVE); PH,URINE 7 (5-9); PROTEIN,URINE 2+ (NEGATIVE); UROBILINOGEN,URINE NORMAL (NORMAL)
[2018-10-11 13:18] LABS: BACTERIA,URINE MODERATE /HPF; RBC,URINE RARE /HPF
[2018-10-11 13:19] LABS: SQUAMOUS EPITHELIAL CELL,UR 25-50 /HPF; YEAST,URINE FEW /HPF
[2018-10-11 13:50] VITALS: BP 95/55
== END 2018-10-11 13:50 | disposition home or self-care (01) ==
LOC: EDUNIT# 11:23 → ER 11:25
DX: O23.42 Unspecified infection of urinary tract in pregnancy, second trimester (principal); O26.892 Other specified pregnancy related conditions, second trimester; R42 Dizziness and giddiness; Z3A.23 23 weeks gestation of pregnancy
CPT/HCPCS: 36415; 80053; 81000; 85025; 87088; 96360

== ENCOUNTER 2018-10-12 14:55 | Outpatient (RCR) | payer MEDICAID ==
[~2018-10-12 14:55] MED LIST changes: +CEFD300C3 PO
== END 2019-01-10 | disposition home or self-care (01) ==
LOC: CARD 14:55
PROVIDERS: ATTEND Nurse Practitioner Family
DX: O99.89 Other specified diseases and conditions complicating pregnancy, childbirth and the puerperium (principal); R00.2 Palpitations; Z3A.23 23 weeks gestation of pregnancy
CPT/HCPCS: 93225; 93226

== ENCOUNTER 2019-02-03 05:57 | Inpatient (IN) | payer MEDICAID ==
[2019-02-03] VITALS (58 sets, daily range): BP systolic 95–145; BP diastolic 50–93
[~2019-02-03] VITALS: Ht 177.8 cm; Wt 74.4 kg
--- NOTE | 2019-02-03 06:05 | NUR ---
KIM GROSS presented to unit via ambulation from home/ED, accompanied by family, for INDUCTION. KIM GROSS weighed, gowned, voided, and to bed. EFHM and TOCO applied, VS taken. KIM GROSS oriented to bed controls, call light, TV, heat, and A/C controls.
[2019-02-03] MEDS ORDERED: D5 LR IV SOLUTION 1,000 ML IV ONE (06:33)
[2019-02-03] MEDS: D5 LR IV SOLUTION 1,000 ML IV SCH ×2 (06:45→15:00)
[2019-02-03] MEDS ORDERED: OXYTOCIN/NORMAL SALINE 500 ML IV ONE (07:04)
--- NOTE | 2019-02-03 07:15 | NUR ---
this rn introduces self to pt. physical assessment completed, pt hx, and admission questions completed. discuss plan of pt care and answer pt questions. this rn has called dr kilgore for gbs +, wants to give ampicillin for gbs +. no more new orders at this time.
[2019-02-03] MEDS ORDERED: WATER (STERILE) FOR INJECTION 20 ML ONE (07:34)
[2019-02-03] MEDS ORDERED: AMPICILLIN FOR IV USE 2,000 MG VIAL ONE (07:34)
[2019-02-03] MEDS ORDERED: AMPICILLIN FOR IV USE 2,000 MG in WATER (STERILE) FOR INJECTION 14.8 ML IV SCH ×2 (07:38→07:40)
[2019-02-03] MEDS ORDERED: OXYTOCIN/NORMAL SALINE 500 ML IV SCH ×2 (07:41→19:21)
[2019-02-03] MEDS ORDERED: MINERAL OIL CONCENTRATE 99.9% 15 ML UDC TOP PRN (07:45)
[2019-02-03 07:49] LABS: BASOPHILS # (AUTO) 0.1 10^3/uL (0.0-0.1); BASOPHILS % (AUTO) 0 % (0-10); EOSINOPHILS # (AUTO) 0.3 10^3/uL (0.0-0.3); EOSINOPHILS % (AUTO) 2 % (0-10); HEMATOCRIT 33 % (35-52); LYMPHOCYTES % (AUTO) 18 % (12-44); MEAN CORPUSCULAR HEMOGLOBIN 33 PG (25-34); MEAN CORPUSCULAR HGB CONC 34 G/DL (32-36); MEAN CORPUSCULAR VOLUME 99 FL (80-99); MONOCYTES % (AUTO) 9 % (0-12); NEUTROPHILS % (AUTO) 71 % (42-75); PLATELET COUNT 278 10^3/uL (130-400); RED CELL DISTRIBUTION WIDTH 13.2 % (10.0-14.5); WHITE BLOOD COUNT 11.4 10^3/uL (4.3-11.0)
[2019-02-03] MEDS ORDERED: ERYTHROMYCIN OPHTH OINT 1 GM (SINGLE USE) TUBE ONE (08:56)
[2019-02-03] MEDS ORDERED: PHYTONADIONE (VIT. K) NEONATAL 1 MG/0.5 ML AMP ONE (08:56)
[2019-02-03] MEDS ORDERED: SUFENTA 0.6MCG/ML BUPIVA 0.125 100 ML ONE (10:07)
[2019-02-03] MEDS ORDERED: BUPIVACAINE 0.25% 30 ML (SENSORCAINE) VIAL ONE (10:25)
[2019-02-03] MEDS ORDERED: fentaNYL INJECTION 100 MCG/2 ML AMP ONE (10:25)
[2019-02-03] MEDS ORDERED: LACTATED RINGERS 1,000 ML IV ONE (10:36)
[2019-02-03] MEDS ORDERED: EPIDURAL (SUFENTA 0.6MCG/ML BUPIVA 0.125%) 100 ML BAG EPI SCH (10:45)
[2019-02-03] MEDS ORDERED: NALOXONE 0.4 MG/ML 1 ML (NARCAN) VIAL IV PRN (10:45)
[2019-02-03] MEDS ORDERED: ONDANSETRON 4 MG/2 ML (SDV) Z0FRAN IV PRN (10:45)
[2019-02-03] MEDS ORDERED: CATHETER FLUSH 10 ML SYR IV PRN (10:45)
[2019-02-03] MEDS ORDERED: diphenhydrAMINE 50 MG/ML INJ (BENADRYL) IV PRN (10:45)
[2019-02-03] MEDS: AMPICILLIN FOR IV USE 1,000 MG in WATER (STERILE) FOR INJECTION 7.4 ML IV SCH ×2 (11:16→15:39)
[2019-02-03] MEDS ORDERED: AMPICILLIN FOR IV USE 1,000 MG in WATER (STERILE) FOR INJECTION 7.4 ML IV SCH (11:45)
[2019-02-03] MEDS ORDERED: CATHETER FLUSH 10 ML SYR IV SCH ×2 (14:00→22:00)
--- NOTE | 2019-02-03 15:00 | NUR ---
DR ANDERSON AT BEDSIDE FOR ASSESSMENT. SVE BY DR ANDERSON AT THIS TIME. DISCUSSES PLAN OF PT CARE, ANSWERS QUESTIONS. CALL LIGHT WITHIN REACH.
--- NOTE | 2019-02-03 17:10 | NUR ---
dr kilgore called by this rn to discuss pt report and fht strip. sve /-2. fht reoccurring variables with each UC. pt has oxygen on. rn has attempted several different positions with pt to resolve decels without resolution with marked variability. dr kilgore reviews ffht strip at this time in dr lawler. pitocin still on 14, would like to turn pitocin off? dr kilgore does want to turn off pitocin at this time and reevaluate. will continue to monitor. dr kilgore remains on LD floor.
--- NOTE | 2019-02-03 19:26 | OB Labor & Delivery Record ---
Vag Delivery Note Vag Delivery Note Date of Delivery: 02/03/19 Preoperative Diagnosis: Danielle Smith is a 38 /Para 3/2 , Gestational Age 39 2/7 weeks, AMA Postoperative Diagnosis: Same Surgeon: URBANO ANDERSON [employer] Designer: Berta Floyd, MS III Anesthesia: epidural Delivery Type: vaginal Findings: Viable male infant, apgars pending, weight 6#11oz Lacerations: no Intact placenta with 3 vessel cord. No nuchal cord, body cord or shoulder dystocia Estimated Blood Loss: 150 ml Complications: None Condition: Stable Description of Procedure: The patient is a 38 year old female who presented for induction of labor. She was admitted and informed consent was obtained. Her labor course was remarkable for AROM and augmentation for pushing only. She progressed to complete dilatation and began to push. She was then set up for delivery. The 's head was delivered atraumatically in the OA position. The shoulders and remainder of the infant's body were then delivered without difficulty. Upon delivery, the head was held below the level of the perineum and the mouth and nares were bulb suctioned. The cord was doubly clamped and cut and the infant was handed off to the pediatric staff. An intact placenta with 3-vessel cord delivered via Ramírez and there was found to be minimal bleeding.~ Vigorous fundal massage was performed and the fundus was found to be firm. IV oxytocin was given. Examination of the vagina and perineum revealed no laceration repaired in the usual fashion with 3-0 vicryl suture. Following the delivery, sponge, instrument and needle counts were correct. Mom and baby were both in stable condition in the labor suite. Vitals - Labs Vital Signs - I&O Vital Signs Date Time Temp Pulse Resp B/P (MAP) Pulse Ox O2 Delivery O2 Flow Rate FiO2 02/03/19 17:45 80 115/68 (84) Non Rebreather 10.00 02/03/19 17:30 70 117/68 (84) Non Rebreather 10.00 02/03/19 17:15 64 18 118/70 (86) 100 Non Rebreather 10.00 02/03/19 17:00 60 118/62 (80) Non Rebreather 10.00 02/03/19 16:45 82 113/93 (100) Non Rebreather 10.00 02/03/19 16:30 97.9 55 117/64 (81) Room Air 02/03/19 16:15 71 18 126/62 (83) Room Air 02/03/19 16:00 67 118/68 (85) Room Air 02/03/19 15:45 57 104/62 (76) Room Air 02/03/19 15:30 71 124/62 (82) Room Air 02/03/19 15:15 Room Air 02/03/19 15:00 59 105/62 (76) Room Air 02/03/19 14:45 73 122/74 (90) Room Air 02/03/19 14:30 76 120/70 (87) Room Air 02/03/19 14:15 62 111/60 (77) Room Air 02/03/19 14:00 61 108/60 (76) Room Air 02/03/19 13:45 61 18 106/60 (75) Room Air 02/03/19 13:30 97.4 91 105/56 (72) Room Air 02/03/19 13:15 75 109/56 (73) Room Air 02/03/19 13:00 74 110/56 (74) 95 Room Air 02/03/19 12:45 73 95/50 (65) 95 Room Air 02/03/19 12:30 66 105/58 (74) 95 Room Air 02/03/19 12:15 98.9 79 111/59 (76) 97 Room Air 02/03/19 12:00 67 125/58 (80) 96 Room Air 02/03/19 11:45 73 120/71 (87) 97 Room Air 02/03/19 11:40 64 134/67 (89) Room Air 02/03/19 11:35 75 122/71 (88) 98 Room Air 02/03/19 11:30 74 122/69 (86) 97 Room Air 02/03/19 11:25 70 125/75 (92) 94 Room Air 02/03/19 11:20 62 125/61 (82) 96 Room Air 02/03/19 11:15 62 124/60 (81) 96 Room Air 02/03/19 11:12 62 124/60 (81) Room Air 02/03/19 11:09 67 117/64 (81) Room Air 02/03/19 11:06 75 117/62 (80) 95 Room Air 02/03/19 11:00 98.4 74 127/69 (88) 96 Room Air 02/03/19 10:45 68 138/71 (93) Room Air 02/03/19 10:30 72 121/65 (83) Room Air 02/03/19 10:15 67 18 141/74 (96) Room Air 02/03/19 10:00 69 125/75 (92) Room Air 02/03/19 09:45 66 130/75 (93) Room Air 02/03/19 09:30 67 125/75 (92) Room Air 02/03/19 09:15 71 121/77 (92) Room Air 02/03/19 09:00 98.3 65 18 133/73 (93) 96 Room Air 02/03/19 08:45 Room Air 02/03/19 08:30 71 127/67 (87) Room Air 02/03/19 08:15 68 122/77 (92) Room Air 02/03/19 08:00 67 122/73 (89) Room Air 02/03/19 07:45 72 121/75 (90) Room Air 02/03/19 07:30 98.3 78 18 120/72 (88) 95 Room Air Labs Laboratory Tests 02/03/19 06:45: White Blood Count 11.4H, Red Blood Count 3.29L, Hemoglobin 11.0L, Hematocrit 33L , Mean Corpuscular Volume 99, Mean Corpuscular Hemoglobin 33, Mean Corpuscular Hemoglobin Concent 34, Red Cell Distribution Width 13.2, Platelet Count 278, Mean Platelet Volume 11.0H, Neutrophils (%) (Auto) 71, Lymphocytes (%) (Auto) 18, Monocytes (%) (Auto) 9, Eosinophils (%) (Auto) 2, Basophils (%) (Auto) 0, Neutrophils # (Auto) 8.0H, Lymphocytes # (Auto) 2.0, Monocytes # (Auto) 1.0, Eosinophils # (Auto) 0.3, Basophils # (Auto) 0.1 URBANO ANDERSON DO Feb 03, 2019 19:26
[2019-02-03] MEDS ORDERED: TETANUS,DIPTH,PERTUSS P/F (BOOSTRIX) 0.5 ML VIAL IM ONE (19:30)
[2019-02-03] MEDS ORDERED: WITCH HAZEL(TUCKS) 40 EA JAR TOP PRN (19:30)
[2019-02-03] MEDS ORDERED: BENZOCAINE/MENTHOL (DERMOPLAST) 56 ML CAN TP PRN (19:30)
[2019-02-03] MEDS ORDERED: MEASLES,MUMPS,RUBELLA 1 EA INJ SQ ONE (19:30)
[2019-02-03] MEDS ORDERED: DIBUCAINE (NUPERCAINAL) 1% OINT 30 GM TOP PRN (19:30)
[2019-02-03] MEDS: IBUPROFEN 600 MG (MOTRIN) TAB PO SCH (20:53)
--- NOTE | 2019-02-03 21:00 | NUR ---
Pt to room via wheelchair at time with s.o., mother, infant, and this RN at side. Pt assisted out of wheelchair. Requesting to use bathroom at time. Pt ambulating to bathroom with standby assistance from this RN. Pt steady on feet. Pericare discussed. Pt successfully voided large amount of urine. Assisted back to bed. Oriented to room. Pt denies any concerns at time.
[2019-02-03] MEDS: ACETAMINOPHEN 500 MG TAB (TYLENOL) PO SCH (23:20)
[2019-02-04 03:10] VITALS: BP 115/66
[2019-02-04] MEDS: IBUPROFEN 600 MG (MOTRIN) TAB PO SCH ×4 (03:10→20:41)
[2019-02-04 06:35] LABS: BASOPHILS % (AUTO) 0 % (0-10); EOSINOPHILS # (AUTO) 0.3 10^3/uL (0.0-0.3); EOSINOPHILS % (AUTO) 2 % (0-10); HEMATOCRIT 32 % (35-52); HEMOGLOBIN 10.9 G/DL (11.5-16.0); LYMPHOCYTES # (AUTO) 2.5 X 10^3 (1.0-4.0); LYMPHOCYTES % (AUTO) 15 % (12-44); MEAN CORPUSCULAR HEMOGLOBIN 34 PG (25-34); MEAN CORPUSCULAR HGB CONC 34 G/DL (32-36); MEAN CORPUSCULAR VOLUME 99 FL (80-99); MEAN PLATELET VOLUME 10.5 FL (7.4-10.4); MONOCYTES # (AUTO) 1.2 X 10^3 (0.0-1.0); MONOCYTES % (AUTO) 7 % (0-12); NEUTROPHILS % (AUTO) 76 % (42-75); PLATELET COUNT 241 10^3/uL (130-400)
[2019-02-04] MEDS: DOCUSATE SODIUM 100 MG (COLACE) CAP PO SCH ×3 (06:44→20:41)
[2019-02-04] MEDS: ACETAMINOPHEN 500 MG TAB (TYLENOL) PO SCH ×3 (08:00→20:41)
[2019-02-04] MEDS: FERROUS SULF 325 MG (IRON) TAB PO SCH (09:07)
[2019-02-04] MEDS: PRENATAL VITAMIN 1 EA TAB PO SCH (09:08)
[2019-02-04 09:09] VITALS: BP 125/74
--- NOTE | 2019-02-04 10:37 | Postpartum Progress Note ---
Note Note Day # 1 s/p Subjective: Patient is without complaints. Ambulating, voiding. Tolerating a regular diet w ithout nausea or vomiting. Normal lochia. Pain is well controlled with oral pain medications. breast feeding. doing well Objective: 02/04/19 02/04/19 03:10 09:09 Temp 98.0 Pulse 52 70 Resp 18 18 B/P (MAP) 115/66 (82) 125/74 (91) Pulse Ox 95 97 O2 Delivery Room Air 02/04/19 00:00 Intake Total 1500 ml Output Total 500 ml Balance 1000 ml Laboratory Tests Test 02/04/19 06:20 Range/Units White Blood Count 17.0 H 4.3-11.0 10^3/uL Red Blood Count 3.25 L 4.35-5.85 10^6/uL Hemoglobin 10.9 L 11.5-16.0 G/DL Hematocrit 32 L 35-52 % Mean Corpuscular Volume 99 80-99 FL Mean Corpuscular Hemoglobin 34 25-34 PG Mean Corpuscular Hemoglobin Concent 34 32-36 G/DL Red Cell Distribution Width 13.0 10.0-14.5 % Platelet Count 241 130-400 10^3/uL Mean Platelet Volume 10.5 H 7.4-10.4 FL Neutrophils (%) (Auto) 76 H 42-75 % Lymphocytes (%) (Auto) 15 12-44 % Monocytes (%) (Auto) 7 0-12 % Eosinophils (%) (Auto) 2 0-10 % Basophils (%) (Auto) 0 0-10 % Neutrophils # (Auto) 13.0 H 1.8-7.8 X 10^3 Lymphocytes # (Auto) 2.5 1.0-4.0 X 10^3 Monocytes # (Auto) 1.2 H 0.0-1.0 X 10^3 Eosinophils # (Auto) 0.3 0.0-0.3 10^3/uL Basophils # (Auto) 0.0 0.0-0.1 10^3/uL Physical Exam: General - Alert and oriented, no apparent distress Abdomen - Soft, appropriately tender to palpation, non-distended, fundus firm at umbilicus Extremities - no edema, negative Kedar's bilaterally Assessment: 1. post- day # 1, status post vaginal delivery. Recovering well, hemodynamically stable Plan: Routine care. Encourage breast feeding. Encourage ambulation. Ferrous sulfate supplementation. Plan for discharge Vitals - Labs Vital Signs - I&O Vital Signs Date Time Temp Pulse Resp B/P (MAP) Pulse Ox O2 Delivery O2 Flow Rate FiO2 02/04/19 09:09 70 18 125/74 (91) 97 Room Air 02/04/19 03:10 98.0 52 18 115/66 (82) 95 02/03/19 20:51 98.9 69 127/83 (98) 02/03/19 20:36 75 132/82 (99) 02/03/19 20:21 99.0 85 121/77 (92) 02/03/19 20:06 80 128/79 (95) 02/03/19 19:51 99.5 64 120/72 (88) 02/03/19 19:36 99.6 72 117/70 (86) 02/03/19 19:22 86 126/73 (90) 02/03/19 19:16 99.0 02/03/19 19:05 99.6 86 125/81 (96) 02/03/19 18:45 Room Air 02/03/19 18:30 Room Air 02/03/19 18:15 98.8 82 18 145/75 (98) 98 Room Air 02/03/19 18:00 81 118/71 (87) Non Rebreather 10.00 02/03/19 17:45 80 115/68 (84) Non Rebreather 10.00 02/03/19 17:30 70 117/68 (84) Non Rebreather 10.00 02/03/19 17:15 64 18 118/70 (86) 100 Non Rebreather 10.00 02/03/19 17:00 60 118/62 (80) Non Rebreather 10.00 02/03/19 16:45 82 113/93 (100) Non Rebreather 10.00 02/03/19 16:30 97.9 55 117/64 (81) Room Air 02/03/19 16:15 71 18 126/62 (83) Room Air 02/03/19 16:00 67 118/68 (85) Room Air 02/03/19 15:45 57 104/62 (76) Room Air 02/03/19 15:30 71 124/62 (82) Room Air 02/03/19 15:15 Room Air 02/03/19 15:00 59 105/62 (76) Room Air 02/03/19 14:45 73 122/74 (90) Room Air 02/03/19 14:30 76 120/70 (87) Room Air 02/03/19 14:15 62 111/60 (77) Room Air 02/03/19 14:00 61 108/60 (76) Room Air 02/03/19 13:45 61 18 106/60 (75) Room Air 02/03/19 13:30 97.4 91 105/56 (72) Room Air 02/03/19 13:15 75 109/56 (73) Room Air 02/03/19 13:00 74 110/56 (74) 95 Room Air 02/03/19 12:45 73 95/50 (65) 95 Room Air 02/03/19 12:30 66 105/58 (74) 95 Room Air 02/03/19 12:15 98.9 79 111/59 (76) 97 Room Air 02/03/19 12:00 67 125/58 (80) 96 Room Air 02/03/19 11:45 73 120/71 (87) 97 Room Air 02/03/19 11:40 64 134/67 (89) Room Air 02/03/19 11:35 75 122/71 (88) 98 Room Air 02/03/19 11:30 74 122/69 (86) 97 Room Air 02/03/19 11:25 70 125/75 (92) 94 Room Air 02/03/19 11:20 62 125/61 (82) 96 Room Air 02/03/19 11:15 62 124/60 (81) 96 Room Air 02/03/19 11:12 62 124/60 (81) Room Air 02/03/19 11:09 67 117/64 (81) Room Air 02/03/19 11:06 75 117/62 (80) 95 Room Air 02/03/19 11:00 98.4 74 127/69 (88) 96 Room Air 02/03/19 10:45 68 138/71 (93) Room Air I & O 02/04/19 07:00 Intake Total 2522 ml Output Total 500 ml Balance 2022 ml Labs Laboratory Tests 9/7/19 06:20: White Blood Count 17.0H, Red Blood Count 3.25L, Hemoglobin 10.9L, Hematocrit 32L , Mean Corpuscular Volume 99, Mean Corpuscular Hemoglobin 34, Mean Corpuscular Hemoglobin Concent 34, Red Cell Distribution Width 13.0, Platelet Count 241, Mean Platelet Volume 10.5H, Neutrophils (%) (Auto) 76H, Lymphocytes (%) (Auto) 15, Monocytes (%) (Auto) 7, Eosinophils (%) (Auto) 2, Basophils (%) (Auto) 0, Neutrophils # (Auto) 13.0H, Lymphocytes # (Auto) 2.5, Monocytes # (Auto) 1.2H, Eosinophils # (Auto) 0.3, Basophils # (Auto) 0.0 URBANO ANDERSON DO Feb 04, 2019 10:37
--- NOTE | 2019-02-04 10:50 | NUR ---
Dr. Barnes to room to see pt.
[2019-02-04 12:15] VITALS: BP 123/75
[2019-02-04 16:00] VITALS: BP 123/75
--- NOTE | 2019-02-04 16:03 | Anesthesia-Regional Post-Op ---
Regional Patient Condition Mental Status: Alert, Oriented x3 Circulation: Same as Pre-Op Headache: Absent Sensation: Full Recovery Motor Block: Absent Post Op Complications Complications None Follow Up Care/Instructions Patient Instructions None needed. Anesthesia/Patient Condition Patient is doing well, no complaints, stable vital signs, no apparent adverse anesthesia problems. No complications reported per nursing. BROOKE CUMMINS CRNA Feb 04, 2019 16:02
--- NOTE | 2019-02-04 20:30 | NUR ---
pt c/o abdominal pain. tylenol and motrin given. warm blanket applied to abdomen. assessment completed. pt requesting more pads. pink pads given. pt denies any further needs at this time.
[2019-02-04 21:24] VITALS: BP 133/72
--- NOTE | 2019-02-04 21:43 | NUR ---
pt states abdomen is feeling better. pt ambulating off the floor.
[2019-02-05 03:40] VITALS: BP 130/66
[2019-02-05 08:34] VITALS: BP 139/72
[2019-02-05] MEDS: FERROUS SULF 325 MG (IRON) TAB PO SCH (08:35)
[2019-02-05] MEDS: DOCUSATE SODIUM 100 MG (COLACE) CAP PO SCH (08:35)
[2019-02-05] MEDS: IBUPROFEN 600 MG (MOTRIN) TAB PO SCH ×2 (08:35→15:03)
[2019-02-05] MEDS: PRENATAL VITAMIN 1 EA TAB PO SCH (08:36)
--- NOTE | 2019-02-05 10:35 | NUR ---
Dr. Barnes here to see pt. Plan to discharge pt today.
[2019-02-05] MEDS ORDERED: ACET-77 PO ×2 (10:54)
[2019-02-05] MEDS ORDERED: PNV1TABL67 PO ×2 (10:54)
[2019-02-05] MEDS ORDERED: IBUP-844 PO ×2 (10:54)
--- NOTE | 2019-02-05 10:57 | Discharge Inst-Women's Service ---
Discharge Inst-Women's Serv Depart Medication/Instructions New, Converted or Re-Newed RX: RX on Chart Final Diagnosis social induction/ Advanced maternal age vaginal delivery epidural Problems Reviewed?: Yes Consults/Follow Up Additional Follow Up: Yes (2 weeks with Ester; 6 weeks post ) Activity Activity: Activity as Tolerated Driving Instructions: You May Drive NO SMOKING: NO SMOKING Nothing Inside Vagina: No Douching, No [place], No Tampons Diet Discharge Diet: No Restrictions Symptoms to Report to : Bleeding Excessive, Pain Increased, Fever Over 101 Degrees F, Vaginal Bleeding Increase, Cramps in Feet or Legs, Vaginal Discharge Foul For Any Problems or Questions: Contact Your Physician URBANO ANDERSON DO Feb 05, 2019 10:57
[2019-02-05] MEDS ORDERED: BISACODYL 10 MG SUPP (DULCOLAX) PR PRN (11:30)
--- NOTE | 2019-02-05 12:30 | NUR ---
Pt notified of prescriptions electronically submitted to [facility] pharmacy per Dr Barnes
[2019-02-05] MEDS: ACETAMINOPHEN 500 MG TAB (TYLENOL) PO SCH (13:10)
--- NOTE | 2019-02-05 13:10 | NUR ---
Tylenol given. Discharge discussed, pt would like to wait until later this evening to be able to have stork meal for dinner.
--- NOTE | 2019-02-05 14:05 | NUR ---
Pt ambulates off unit accompanied by GILSON Lee, and to private vehicle with all personal belongings. No s/s of distress noted. Addendum: 02/05/19 at 1408 by ELLIOTT BECERRA RN Disregard. Wrong patient.
[2019-02-05 15:01] VITALS: BP 134/80
--- NOTE | 2019-02-05 18:15 | NUR ---
Discharge instructions explained to pt with copy provided to pt. Boarder parent status explained. Pt verbalizes understanding of instructions, denies questions or concerns, and signs to verify. Pt denies needs at this time. Pt to remain in room 311 as boarder parent
[2019-02-13] MEDS ORDERED: CEFD300C3 PO ×2 (17:08)
== END 2019-02-05 18:15 | disposition home or self-care (01) | DRG 807 ==
LOC: LDRP 05:57
PROVIDERS: ADMIT Obstetrics & Gynecology; ATTEND Obstetrics & Gynecology
PROC: 10E0XZZ Delivery of Products of Conception, External Approach (ICD-10-PCS; principal; 2019-02-03)
DX: O99.824 Streptococcus B carrier state complicating childbirth (principal); O99.89 Other specified diseases and conditions complicating pregnancy, childbirth and the puerperium; R00.2 Palpitations; O99.334 Smoking (tobacco) complicating childbirth; F17.210 Nicotine dependence, cigarettes, uncomplicated; Z3A.39 39 weeks gestation of pregnancy; Z37.0 Single live birth
CPT/HCPCS: 36415; 85025; 86850; 86900; 86901

== ENCOUNTER 2019-02-06 21:37 | Emergency (ER) | payer MEDICAID ==
[~2019-02-06] VITALS: Ht 177 cm; Wt 73.0 kg
[~2019-02-06 21:37] MED LIST changes: +ACET-77 PO; +IBUP-844 PO; +PNV1TABL67 PO
[2019-02-06 23:22] LABS: BASOPHILS % (AUTO) 0 % (0-10); EOSINOPHILS # (AUTO) 0.3 10^3/uL (0.0-0.3); EOSINOPHILS % (AUTO) 3 % (0-10); HEMATOCRIT 33 % (35-52); HEMOGLOBIN 11.2 G/DL (11.5-16.0); LYMPHOCYTES # (AUTO) 2.6 X 10^3 (1.0-4.0); LYMPHOCYTES % (AUTO) 26 % (12-44); MEAN CORPUSCULAR HEMOGLOBIN 33 PG (25-34); MEAN CORPUSCULAR HGB CONC 34 G/DL (32-36); MEAN CORPUSCULAR VOLUME 99 FL (80-99); MEAN PLATELET VOLUME 10.2 FL (7.4-10.4); MONOCYTES # (AUTO) 0.7 X 10^3 (0.0-1.0); MONOCYTES % (AUTO) 7 % (0-12); NEUTROPHILS # (AUTO) 6.2 X 10^3 (1.8-7.8); NEUTROPHILS % (AUTO) 64 % (42-75); PLATELET COUNT 305 10^3/uL (130-400); WHITE BLOOD COUNT 9.8 10^3/uL (4.3-11.0)
[2019-02-06 23:24] LABS: BILIRUBIN,URINE NEGATIVE (NEGATIVE); CLARITY,URINE VERY CLOUDY; COLOR,URINE YELLOW; GLUCOSE, URINE (UA) NEGATIVE (NEGATIVE); KETONES,URINE NEGATIVE (NEGATIVE); LEUKOCYTE ESTERASE ,URINE 3+ (NEGATIVE); NITRITE,URINE NEGATIVE (NEGATIVE); PH,URINE 7 (5-9); PROTEIN,URINE 2+ (NEGATIVE); UROBILINOGEN,URINE NORMAL (NORMAL)
[2019-02-06 23:35] LABS: AMPHETAMINE SCREEN, URINE NEGATIVE (NEGATIVE); BARBITURATE SCREEN URINE NEGATIVE (NEGATIVE); BENZODIAZEPINES SCREEN URINE NEGATIVE (NEGATIVE); CANNABINOID SCREEN, URINE NEGATIVE (NEGATIVE); COCAINE SCREEN URINE NEGATIVE (NEGATIVE); INR 0.9 (0.8-1.4); METHADONE STAT NEGATIVE (NEGATIVE); METHAMPHETAMINE SCREEN URINE S NEGATIVE (NEGATIVE); OPIATE SCREEN URINE NEGATIVE (NEGATIVE); OXYCODONE STAT NEGATIVE (NEGATIVE); PROPOXYPHENE STAT NEGATIVE (NEGATIVE); PROTHROMBIN TIME PATIENT 12.8 SEC (12.2-14.7); TRICYCLIC ANTIDEPRESSANTS SCRE NEGATIVE (NEGATIVE)
[2019-02-06 23:36] LABS: BACTERIA,URINE FEW /HPF; RBC,URINE TNTC /HPF; WBC,URINE 50-100 /HPF
[2019-02-06 23:40] LABS: ALANINE AMINOTRANSFERASE 27 U/L (0-55); ALBUMIN 3.5 GM/DL (3.2-4.5); ALKALINE PHOSPHATASE 125 U/L (40-136); BILIRUBIN,TOTAL 0.2 MG/DL (0.1-1.0); BUN/CREATININE RATIO 22; CALCIUM 8.9 MG/DL (8.5-10.1); CARBON DIOXIDE 25 MMOL/L (21-32); CHLORIDE 108 MMOL/L (98-107); GFR ESTIMATED > 60; GLUCOSE 83 MG/DL (70-105); MAGNESIUM 1.6 MG/DL (1.6-2.4); POTASSIUM 3.7 MMOL/L (3.6-5.0); SODIUM 142 MMOL/L (135-145); TOTAL PROTEIN 6.2 GM/DL (6.4-8.2)
[2019-02-07] MEDS ORDERED: KETOROLAC 30 MG/ML VIAL IVP ONE
[2019-02-07] MEDS ORDERED: FUROSEMIDE 40 MG/4 ML INJ (LASIX) IVP ONE
[2019-02-07] MEDS ORDERED: cefTRIAXone FOR IV USE 1,000 MG in WATER (STERILE) FOR INJECTION 10 ML IV ONE ×2
[2019-02-07] MEDS ORDERED: hydrALAZINE (APESOLINE) 20 MG/ML VIAL IV ONE (00:45)
[2019-02-07] MEDS ORDERED: KCL 10 MEQ TAB (MICRO K) PO ONE ×3 (00:51→01:00)
[2019-02-07] MEDS ORDERED: POTA10CA43 PO ×2 (00:52→01:06)
[2019-02-07] MEDS ORDERED: FURO-125 PO ×2 (00:52→01:06)
[2019-02-07] MEDS ORDERED: NITR-65 PO ×2 (00:53→01:06)
--- NOTE | 2019-02-07 00:53 | ED General ---
General Chief Complaint: General Problems/Pain Stated Complaint: NECK PAIN Nursing Triage Note: Pt to ER with C/O neck pain and right leg pain that started this am. Pt was in hospital since 02/03/19, for labor and wanted to make sure she wasn't having side effects of epidural. Pt rates pain 7/10 at this time. Nursing Sepsis Screen: No Definite Risk Source of Information: Patient History of Present Illness Date Seen by Provider: Feb 06, 2019 Time Seen by Provider: 23:03 Initial Comments PT CAME DOWN FROM OB DEPT/NURSERY PT DELIVERED Wednesday02/03/19--VIA WITH EPIDURAL. NO PROBLEMS WITH OR DELIVERY, BUT BABY IS STILL IN HOSPITAL DUE TO JAUNDICE. PT WAS DISMISSED YESTERDAY STATES SHE HAS HAD ALOT OF SWELLING IN HER LEGS THROUGHOUT HER AND IS NO DIFFERENT TODAY NO CHEST PAIN OR SHORTNESS OF BREATH NO PALPITATIONS STATES SINCE EARLY THIS AM, SHE HAS HAD PAIN AT THE TOP OF HER SPINE/BASE OF HER SKULL SINCE THIS AM NO VISION CHANGES NO NAUSEA/VOMITING NO COUGH NO FEVER ALSO HAS INTERMITTENT PAIN TO RIGHT GROIN/ANTERIOR THIGH AT TIMES STATES SHE TOOK TYLENOL AND IBUPROFEN EARLIER TODAY WITHOUT IMPROVEMENT SYMPTOMS ARE NO DIFFERENT TONIGHT HAS NOT ATTEMPTED TO CALL DR. ANDERSON REGARDING THIS. 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 ANDERSON Allergies and Home Medications Allergies Coded Allergies: No Known Drug Allergies (Unverified , 08/19/11) Home Medications Acetaminophen 500 Mg Tablet, 1,000 MG PO Q8HR Prescribed by: URBANO ANDERSON on 02/05/19 1054 Furosemide 20 Mg Tablet, 20 MG PO DAILY Prescribed by: NAVEEN DWYER on 02/07/19105 Ibuprofen 600 Mg Tablet, 600 MG PO Q6H Prescribed by: URBANO ANDERSON on 02/05/19 1054 Nitrofurantoin Monohyd/M-Cryst 100 Mg Capsule, 100 MG PO BID Prescribed by: NAVEEN DWYER on 02/07/19 010 Pnv with Ca,No.72/Iron/FA 1 Each Tablet, 1 EA PO DAILY@0700 Prescribed by: URBANO ANDERSON on 02/05/19 1054 Potassium Chloride 10 Meq Capsule.er, 10 MEQ PO DAILY Prescribed by: NAVEEN DWYER on 02/07/19105 Patient Home Medication List Home Medication List Reviewed: Yes Review of Systems Review of Systems Constitutional: no symptoms reported; No chills, No diaphoresis, No dizziness, No fever EENTM: no symptoms reported Respiratory: no symptoms reported; No cough, No dyspnea on exertion, No orthopnea, No short of breath Cardiovascular: No chest pain; edema; No palpitations, No syncope Gastrointestinal: no symptoms reported; No abdominal pain, No diarrhea, No vomiting Genitourinary: see HPI (NORMAL LOCHIA) Musculoskeletal: see HPI, neck pain Skin: no symptoms reported Psychiatric/Neurological: See HPI, Headache; Denies Numbness, Denies Pa resthesia, Denies Seizure, Denies Tingling, Denies Weakness Hematologic/Lymphatic: No Symptoms Reported Immunological/Allergic: no symptoms reported Past Kzflfhj-Ycuyqg-[id number] Hx Patient Social History Alcohol Use: Denies Use Recreational Drug Use: No Smoking Status: Current Everyday Smoker (1-2 PPD) Type Used: Cigarettes Recent Foreign Travel: No Contact w/Someone Who Travel: No Recent Infectious Disease Expo: No Recent Hopitalizations: No Physical Abuse: No Sexual Abuse: No Mistreated: No Fear: No Immunizations Up To Date Tetanus Booster (TDap): Unknown PED Vaccines UTD: Yes Seasonal Allergies Seasonal Allergies: No Past Medical History Surgeries: No Respiratory: No Cardiac: No Neurological: No : No Reproductive Disorders: No Genitourinary: No Gastrointestinal: No Musculoskeletal: No Endocrine: No HEENT: No Cancer: No Psychosocial: No Integumentary: No Blood Disorders: No Adverse Reaction/Blood Tranf: No Family Medical History Patient reports no known family medical history. Physical Exam Vital Signs Vital Signs - First Documented 02/06/19 02/07/19 22:10 01:11 Temp 36.6 Pulse 56 Resp 20 B/P (MAP) 156/86 Pulse Ox 98 O2 Delivery Room Air Capillary Refill : Less Than 3 Seconds Height, Weight, BMI Height: 5'10.00" Weight: 164lbs. 0.0oz. [id number]; 23.00 BMI Method:Stated General Appearance: No Apparent Distress, WD/WN HEENT: PERRL/EOMI Neck: Normal Inspection Respiratory: Normal Breath Sounds, No Accessory Muscle Use, No Respiratory Distress Cardiovascular: Regular Rate, Rhythm, No JVD, No Murmur, Normal Peripheral Pulses Gastrointestinal: Non Tender, Soft, Other (FUNDUS AT UMBILICUS) Back: No CVA Tenderness Extremity: Normal Capillary Refill, Normal Range of Motion, No Calf Tenderness, Pedal Edema (2-3+ EDEMA BILATERALLY.) Neurologic/Psychiatric: Alert, Oriented x3, No Motor/Sensory Deficits, Normal Mood/Affect, social services II-XII Norm as Tested Skin: Warm/Dry, Pallor Progress/Results/Core Measures Suspected Sepsis Recent Fever Within 48 Hours: No Infection Criteria Present: None New/Unexplained Altered Menta: No Sepsis Screen: No Definite Risk SIRS Temperature: Pulse: 56 Respiratory Rate: 20 Laboratory Tests 02/06/19 23:16: White Blood Count 9.8 Blood Pressure 156 /86 Mean: 109 Laboratory Tests 02/06/19 23:16: Creatinine 0.60, INR Comment 0.9, Platelet Count 305, Total Bilirubin 0.2 Results/Orders Lab Results Laboratory Tests Test 02/06/19 23:16 Range/Units White Blood Count 9.8 4.3-11.0 10^3/uL Red Blood Count 3.36 L 4.35-5.85 10^6/uL Hemoglobin 11.2 L 11.5-16.0 G/DL Hematocrit 33 L 35-52 % Mean Corpuscular Volume 99 80-99 FL Mean Corpuscular Hemoglobin 33 25-34 PG Mean Corpuscular Hemoglobin Concent 34 32-36 G/DL Red Cell Distribution Width 13.0 10.0-14.5 % Platelet Count 305 130-400 10^3/uL Mean Platelet Volume 10.2 7.4-10.4 FL Neutrophils (%) (Auto) 64 42-75 % Lymphocytes (%) (Auto) 26 12-44 % Monocytes (%) (Auto) 7 0-12 % Eosinophils (%) (Auto) 3 0-10 % Basophils (%) (Auto) 0 0-10 % Neutrophils # (Auto) 6.2 1.8-7.8 X 10^3 Lymphocytes # (Auto) 2.6 1.0-4.0 X 10^3 Monocytes # (Auto) 0.7 0.0-1.0 X 10^3 Eosinophils # (Auto) 0.3 0.0-0.3 10^3/uL Basophils # (Auto) 0.0 0.0-0.1 10^3/uL Prothrombin Time 12.8 12.2-14.7 SEC INR Comment 0.9 0.8-1.4 Activated Partial Thromboplast Time 31 24-35 SEC Urine Color YELLOW Urine Clarity VERY CLOUDY H Urine pH 7 5-9 Urine Specific [place] 1.010 L 1.016-1.022 Urine Protein 2+ H NEGATIVE Urine Glucose (UA) NEGATIVE NEGATIVE Urine Ketones NEGATIVE NEGATIVE Urine Nitrite NEGATIVE NEGATIVE Urine Bilirubin NEGATIVE NEGATIVE Urine Urobilinogen NORMAL NORMAL MG/DL Urine Leukocyte Esterase 3+ H NEGATIVE Urine RBC (Auto) 5+ H NEGATIVE Urine RBC TNTC H /HPF Urine WBC 50-100 H /HPF Urine Squamous Epithelial Cells 5-10 /HPF Urine Crystals NONE /LPF Urine Bacteria FEW H /HPF Urine Casts NONE /LPF Urine Mucus NEGATIVE /LPF Urine Culture Indicated YES Sodium Level 142 135-145 MMOL/L Potassium Level 3.7 3.6-5.0 MMOL/L Chloride Level 108 H 98-107 MMOL/L Carbon Dioxide Level 25 21-32 MMOL/L Anion Gap 9 5-14 MMOL/L Blood Urea Nitrogen 13 7-18 MG/DL Creatinine 0.60 0.60-1.30 MG/DL Estimat Glomerular Filtration Rate > 60 BUN/Creatinine Ratio 22 Glucose Level 83 70-105 MG/DL Calcium Level 8.9 8.5-10.1 MG/DL Corrected Calcium 9.3 8.5-10.1 MG/DL Magnesium Level 1.6 1.6-2.4 MG/DL Total Bilirubin 0.2 0.1-1.0 MG/DL Aspartate Amino Transf (AST/SGOT) 24 5-34 U/L Alanine Aminotransferase (ALT/SGPT) 27 0-55 U/L Alkaline Phosphatase 125 40-136 U/L B-Type Natriuretic Peptide 741.0 H <100.0 PG/ML Total Protein 6.2 L 6.4-8.2 GM/DL Albumin 3.5 3.2-4.5 GM/DL Urine Opiates Screen NEGATIVE NEGATIVE Urine Oxycodone Screen NEGATIVE NEGATIVE Urine Methadone Screen NEGATIVE NEGATIVE Urine Propoxyphene Screen NEGATIVE NEGATIVE Urine Barbiturates Screen NEGATIVE NEGATIVE Ur Tricyclic Antidepressants Screen NEGATIVE NEGATIVE Urine Phencyclidine Screen NEGATIVE NEGATIVE Urine Amphetamines Screen NEGATIVE NEGATIVE Urine Methamphetamines Screen NEGATIVE NEGATIVE Urine Benzodiazepines Screen NEGATIVE NEGATIVE Urine Cocaine Screen NEGATIVE NEGATIVE Urine Cannabinoids Screen NEGATIVE NEGATIVE My Orders Orders - NAVEEN DWYER DO Ed Iv/Invasive Line Start (02/06/19 23:09) Ekg Tracing (02/06/19 23:09) Monitor-Rhythm Ecg Trace Only (02/06/19 23:09) BNP (02/06/19 23:09) Cbc With Automated Diff (02/06/19 23:09) Comprehensive Metabolic Panel (02/06/19 23:09) Drug Screen Stat (Urine) (02/06/19 23:09) Magnesium (02/06/19 23:09) Protime With Inr (02/06/19:) Partial Thromboplastin Time (02/06/19 23:09) Ua Culture If Indicated (02/06/19 23:09) Chest Pa/Lat (2 View) (02/06/19 23:09) Urine Culture (02/06/19 23:16) Ketorolac Injection (Toradol Injection) (02/07/19 00:00) Furosemide Injection (Lasix Injection) (02/07/19 00:00) Ceftriaxone For Iv Use (Rocephin For I (02/07/19 00:00) Hydralazine Injection (Apresoline Inject (02/07/19 00:45) Potassium Chloride (Tablet) (Klor Con Ta (02/07/19 01:00) Potassium Chloride (Tablet) (Klor Con Ta (02/07/19 00:51) Potassium Chloride (Tablet) (Klor Con Ta (02/07/19 00:51) Medications Given in ED Current Medications Medications Dose Ordered Sig/Leda Route Start Time Stop Time Status Last Admin Dose Admin Ceftriaxone Sodium 1000 mg/ Sterile Water 10 ml @ 200 mls/hr ONCE ONCE IV 02/07/19 00:00 02/07/19 00:02 DC 02/07/19 00:04 200 MLS/HR Furosemide 40 mg ONCE ONCE IVP 02/07/19 00:00 02/07/19 00:01 DC 02/07/19 00:04 40 MG Hydralazine HCl 10 mg ONCE ONCE IV 02/07/19 00:45 02/07/19 00:46 DC 02/07/19 00:47 10 MG Ketorolac Tromethamine 30 mg ONCE ONCE IVP 02/07/19 00:00 02/07/19 00:01 DC 02/07/19 00:04 30 MG Potassium Chloride 20 meq ONCE ONCE PO 02/07/19 01:00 02/07/19 01:31 DC 02/07/19 01:06 20 MEQ Vital Signs/I&O 02/06/19 02/07/19 22:10 01:11 Temp 36.6 37.4 Pulse 56 69 Resp 20 18 B/P (MAP) 156/86 130/88 Pulse Ox 98 98 O2 Delivery Room Air Capillary Refill : Less Than 3 Seconds Blood Pressure Mean: 109 Progress Note : Progress Note GIVEN LASIX WITH GOOD RESULTS--VOIDED > 800 ML ( ALSO VOIDED AT LEAST TWICE BEFORE SHE REPORTED IT TO STAFF, SO MEASUREMENT COULD NOT BE OBTAINED FROM THOSE VOIDS) GIVEN TORADOL FOR HEADACHE/NECK PAIN -PAIN FREE AT DISMISSAL GIVEN HYDRALAZINE FOR BLOOD PRESSURE--BP DOWN TO 120'S/80'S AT DISMISSAL PT FEELING BETTER AT DISMISSAL, PT VERY ANXIOUS TO LEAVE AND GO BACK UPSTAIRS. PT ADVISED OF NEED TO FOLLOW UP WITH DR. ANDERSON IN THE MORNING FOR FURTHER CARE. ECG Initial ECG Impression Date: Feb 06, 2019 Initial ECG Impression Time: 23:26 Initial ECG Rate: 48 Initial ECG Rhythm: S.Jan (RATE 48) Diagnostic Imaging Comments CXR--NO ACUTE PROCESS, PENDING RADIOLOGIST REVIEW Reviewed: Reviewed by Me Departure Impression Primary Impression: Preeclampsia in period Additional Impression: Urinary tract infection Disposition: 01 HOME, SELF-CARE Condition: Improved Departure-Patient Inst. Referrals: URBANO ANDERSON DO (PCP/Family) Primary Care Physician Patient Instructions: Preeclampsia (DC), Urinary Tract Infection, Adult (DC) Add. Discharge Instructions: ELEVATE LEGS MUCH POSSIBLE FOLLOW UP WITH DR. ANDERSON /[facility] FOR FURTHER CARE, RETURN TO ER IF WORSE All discharge instructions reviewed with patient and/or family. Voiced understanding. Scripts Nitrofurantoin Monohyd/M-Cryst (Macrobid 100 mg Capsule) 100 Mg Capsule 100 MG PO BID, #20 CAP Prov: NAVEEN DWYER K 02/07/19 Potassium Chloride (Potassium Chloride) 10 Meq Capsule.er 10 MEQ PO DAILY, #10 CAP Prov: YULIYA,NAVEEN K 02/07/19 Furosemide (Lasix) 20 Mg Tablet 20 MG PO DAILY, #10 TAB Prov: TAMMY DWYERA K 02/07/19 TAMMY DWYERA K Feb 07, 2019 00:53
[2019-02-07 01:11] VITALS: BP 130/88
--- NOTE | 2019-02-07 07:01 | Diagnostic Imaging Report ---
Examination: Chest 2 view. History: Chest pain. Findings: Comparison is 05/12/2014. The lungs are clear. No edema. No pneumonia. No pleural effusion. No pneumothorax. Heart is normal in size. IMPRESSION: 1. Clear lungs. Dictated by: Dictated on workstation # [id number]
== END 2019-02-07 01:11 | disposition home or self-care (01) ==
LOC: EDUNIT# 21:37 → ER 21:38
DX: O14.95 Unspecified pre-eclampsia, complicating the puerperium (principal); O86.20 Urinary tract infection following delivery, unspecified; O99.335 Smoking (tobacco) complicating the puerperium; F17.210 Nicotine dependence, cigarettes, uncomplicated
CPT/HCPCS: 36415; 71046; 80053; 80306; 81000; 83735; 83880; 85025; 85610; 85730; 87088; 93005; 93041; 96374; 96375

== ENCOUNTER 2019-02-13 14:47 | Emergency (ER) | payer MEDICAID ==
[~2019-02-13] VITALS: Ht 172.2 cm; Wt 65.9 kg
[~2019-02-13 14:47] MED LIST changes: +FURO-125 PO; +NITR-65 PO; +POTA10CA43 PO
--- NOTE | 2019-02-13 15:30 | ED General ---
General Chief Complaint: Cardiac/General Problems Stated Complaint: BP ISSUES;CRAMPING Nursing Triage Note: PT AMB TO [facility] 5 WITH COMPLAINT OF HTN AAND CRAMPS. STATES SHE WAS SEEN IN ER LAST WEEK AND DIAGNOSED WITH POST PREECLAMPSIA. STATES SHE HAS BEEN HAVING BLURRED VISION. IS CURRENTLY TAKING AMLODIPINE AND FUROSEMIDE. Nursing Sepsis Screen: No Definite Risk Source of Information: Patient History of Present Illness Date Seen by Provider: Feb 13, 2019 Time Seen by Provider: 15:05 Initial Comments PT ARRIVES VIA POV FROM HOME PT DELIVERED 02/03/19 AND WAS DISMISSED 02/05/19 PT HAD ALOT OF SWELLING THROUGHOUT , BUT DID NOT HAVE ANY ISSUES WITH BLOOD PRESSURE PT CAME TO ER 02/06/19 WITH C/O HEADACHE AND WAS FOUND TO HAVE ELEVATED BP, GIVEN MEDICATIONS IN ER AND RX'S FOR LASIX AND KCL. PT WAS STARTED ON AMLODIPINE 5 MG DAILY, LASIX [address] ANDERSON LAST WEEK ( HAS NOT ACTUALLY SEEN IN OFFICE YET, SINCE DELIVERY ) PT STATES BP HAS CONSISTENTLY BEEN 160'S/100'S SINCE SHE WAS SEEN IN ER LAST WEEK, AND TAKES HER MEDICATION AT [id number] EACH DAY PT STATES LAST PM, SHE HAD AN EPISODE OF BLURRY VISION THAT LASTED APPROXIMATELY 30 MINUTES, AND HAD ANOTHER EPISODE JUST PRIOR TO ARRIVAL THAT ONLY LASTED 15 MINUTES. SHE STATES THE SWELLING HAS SIGNIFICANTLY IMPROVED, AND IS NOT HAVING HEADACHES NO CHEST PAIN NO SHORTNESS OF BREATH NO PALPITATIONS NO DIZZINESS PT WAS ALSO DX WITH UTI AND PLACED ON MACROBID, IS NOT HAVING ANY URINARY SYMPTOMS PT IS HAVING NORMAL LOCHIA, BUT HAS BEEN HAVING SOME LOWER ABDOMINAL CRAMPING PT IS NOT . CALLED DR. ANDERSON'S OFFICE TODAY, BUT SHE IS OUT. PT DOES HAVE HER POST APPOINTMENT WITH HER THIS WEDNESDAY. Allergies and Home Medications Allergies Coded Allergies: No Known Drug Allergies (Unverified , 08/19/11) Home Medications Acetaminophen 500 Mg Tablet, 1,000 MG PO Q8HR Prescribed by: URBANO ANDERSON on 02/05/19 1054 Cefdinir 300 Mg Capsule, 300 MG PO BID Prescribed by: NAVEEN DWYER on 02/13/19 1708 Furosemide 20 Mg Tablet, 20 MG PO DAILY Prescribed by: NAVEEN DWYER on 02/07/19 0106 Ibuprofen 600 Mg Tablet, 600 MG PO Q6H Prescribed by: URBANO ANDERSON on 02/05/19 1054 Nitrofurantoin Monohyd/M-Cryst 100 Mg Capsule, 100 MG PO BID Prescribed by: NAVEEN DWYER on 02/07/19 010 Pnv with Ca,No.72/Iron/FA 1 Each Tablet, 1 EA PO DAILY@0700 Prescribed by: URBANO ANDERSON on 02/05/19 1054 Potassium Chloride 10 Meq Capsule.er, 10 MEQ PO DAILY Prescribed by: NAVEEN DWYER on 02/07/19105 Patient Home Medication List Home Medication List Reviewed: Yes Review of Systems Review of Systems Constitutional: no symptoms reported; No dizziness EENTM: see HPI, blurred vision; No nose congestion Respiratory: no symptoms reported; No short of breath Cardiovascular: see HPI; No chest pain, No palpitations, No syncope, No vascular heart diseas Gastrointestinal: see HPI, abdominal pain; No vomiting Genitourinary: see HPI Musculoskeletal: no symptoms reported Skin: no symptoms reported Psychiatric/Neurological: No Symptoms Reported; Denies Headache, Denies Numbness, Denies Paresthesia, Denies Seizure, Denies Tingling, Denies Tremors, Denies Weakness; Other (LATER REPORTS THAT SHE HAND GENERALIZED BILATERAL HAND TINGLING THROUGHOUT HER , BUT IS GETTING BETTER SINCE DELIVERY.) Hematologic/Lymphatic: No Symptoms Reported Immunological/Allergic: no symptoms reported Past Lotykag-Pbspzl-Xhxsko Hx Patient Social History Alcohol Use: Denies Use Recreational Drug Use: No Smoking Status: Current Everyday Smoker (1-2 PPD) Type Used: Cigarettes Recent Foreign Travel: No Contact w/Someone Who Travel: No Recent Infectious Disease Expo: No Recent Hopitalizations: No Physical Abuse: No Sexual Abuse: No Mistreated: No Fear: No Immunizations Up To Date Tetanus Booster (TDap): Unknown PED Vaccines UTD: Yes Seasonal Allergies Seasonal Allergies: No Past Medical History Surgeries: No Respiratory: No Cardiac: Yes (post preeclampsia) Hypertension Neurological: No : No Reproductive Disorders: No Genitourinary: No Gastrointestinal: No Musculoskeletal: No Endocrine: No HEENT: No Cancer: No Psychosocial: No Integumentary: No Blood Disorders: No Adverse Reaction/Blood Tranf: No Family Medical History Patient reports no known family medical history. Physical Exam Vital Signs Vital Signs - First Documented 02/13/19 14:52 Temp 37.3 Pulse 88 Resp 20 B/P (MAP) 157/120 (132) Pulse Ox 96 O2 Delivery Room Air Capillary Refill : Less Than 3 Seconds Height, Weight, BMI Height: 5'10.00" Weight: 164lbs. 0.0oz. 74.253650bb; 22.00 BMI Method:Stated General Appearance: No Apparent Distress, WD/WN HEENT: PERRL/EOMI Neck: Full Range of Motion, Normal Inspection, Non Tender, Supple Respiratory: Normal Breath Sounds, No Accessory Muscle Use, No Respiratory Distress Cardiovascular: Regular Rate, Rhythm, No JVD, No Murmur, Normal Peripheral Pulses Gastrointestinal: Non Tender, Soft Back: No CVA Tenderness Extremity: Normal Capillary Refill, Normal Range of Motion, Non Tender, No Calf Tenderness, Pedal Edema (TRACE TO 1+ BILATERALLY) Neurologic/Psychiatric: Alert, Oriented x3, No Motor/Sensory Deficits, Normal Mood/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, 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 Norm as Tested Skin: Normal Color, Warm/Dry; No Rash Progress/Results/Core Measures Suspected Sepsis Recent Fever Within 48 Hours: No Infection Criteria Present: None New/Unexplained Altered Menta: No Sepsis Screen: No Definite Risk SIRS Temperature: Pulse: 88 Respiratory Rate: 20 Laboratory Tests 02/13/19 16:02: White Blood Count 8.9 Blood Pressure 157 /120 Mean: 132 Laboratory Tests 02/13/19 16:02: Creatinine 0.64, Platelet Count 482H, Total Bilirubin 0.5 Results/Orders Lab Results Laboratory Tests Test 02/13/19 15:33 02/13/19 16:02 Range/Units Urine Color YELLOW Urine Clarity SLIGHTLY CLOUDY Urine pH 6.5 5-9 Urine Specific [place] 1.010 L 1.016-1.022 Urine Protein 2+ H NEGATIVE Urine Glucose (UA) NEGATIVE NEGATIVE Urine Ketones NEGATIVE NEGATIVE Urine Nitrite NEGATIVE NEGATIVE Urine Bilirubin NEGATIVE NEGATIVE Urine Urobilinogen NORMAL NORMAL MG/DL Urine Leukocyte Esterase 3+ H NEGATIVE Urine RBC (Auto) 5+ H NEGATIVE Urine RBC 10-25 H /HPF Urine WBC 5-10 H /HPF Urine Squamous Epithelial Cells 5-10 /HPF Urine Crystals NONE /LPF Urine Bacteria FEW H /HPF Urine Casts NONE /LPF Urine Mucus SMALL H /LPF Urine Culture Indicated YES White Blood Count 8.9 4.3-11.0 10^3/uL Red Blood Count 4.51 4.35-5.85 10^6/uL Hemoglobin 15.0 # 11.5-16.0 G/DL Hematocrit 44 35-52 % Mean Corpuscular Volume 97 80-99 FL Mean Corpuscular Hemoglobin 33 25-34 PG Mean Corpuscular Hemoglobin Concent 34 32-36 G/DL Red Cell Distribution Width 12.3 10.0-14.5 % Platelet Count 482 H 130-400 10^3/uL Mean Platelet Volume 9.0 7.4-10.4 FL Neutrophils (%) (Auto) 59 42-75 % Lymphocytes (%) (Auto) 30 12-44 % Monocytes (%) (Auto) 7 0-12 % Eosinophils (%) (Auto) 2 0-10 % Basophils (%) (Auto) 2 0-10 % Neutrophils # (Auto) 5.3 1.8-7.8 X 10^3 Lymphocytes # (Auto) 2.7 1.0-4.0 X 10^3 Monocytes # (Auto) 0.6 0.0-1.0 X 10^3 Eosinophils # (Auto) 0.2 0.0-0.3 10^3/uL Basophils # (Auto) 0.1 0.0-0.1 10^3/uL Sodium Level 140 135-145 MMOL/L Potassium Level 4.3 3.6-5.0 MMOL/L Chloride Level 106 98-107 MMOL/L Carbon Dioxide Level 26 21-32 MMOL/L Anion Gap 8 5-14 MMOL/L Blood Urea Nitrogen 13 7-18 MG/DL Creatinine 0.64 0.60-1.30 MG/DL Estimat Glomerular Filtration Rate > 60 BUN/Creatinine Ratio 20 Glucose Level 72 70-105 MG/DL Calcium Level 9.8 8.5-10.1 MG/DL Corrected Calcium 9.5 8.5-10.1 MG/DL Magnesium Level 2.1 1.6-2.4 MG/DL Total Bilirubin 0.5 0.1-1.0 MG/DL Aspartate Amino Transf (AST/SGOT) 17 5-34 U/L Alanine Aminotransferase (ALT/SGPT) 16 0-55 U/L Alkaline Phosphatase 106 40-136 U/L Total Protein 7.9 6.4-8.2 GM/DL Albumin 4.4 3.2-4.5 GM/DL My Orders Orders - NAVEEN DWYER DO Ed Iv/Invasive Line Start (02/13/19 15:24) Monitor-Rhythm Ecg Trace Only (02/13/19 15:24) Cbc With Automated Diff (02/13/19 15:24) Comprehensive Metabolic Panel (02/13/19 15:24) Magnesium (02/13/19 15:24) Ua Culture If Indicated (02/13/19 15:24) Hydralazine Injection (Apresoline Inject (02/13/19 15:45) Urine Culture (02/13/19 15:33) Medications Given in ED Current Medications Medications Dose Ordered Sig/Leda Route Start Time Stop Time Status Last Admin Dose Admin Hydralazine HCl 10 mg ONCE ONCE IV 02/13/19 15:45 02/13/19 15:46 DC 02/13/19 16:09 10 MG Vital Signs/I&O 02/13/19 14:52 Temp 37.3 Pulse 88 Resp 20 B/P (MAP) 157/120 (132) Pulse Ox 96 O2 Delivery Room Air Capillary Refill : Less Than 3 Seconds Blood Pressure Mean: 132 Progress Note : Progress Note PT WITH INCREASING ANXIETY, AGITATION, SOMEWHAT HOSTILE, EXTREMELY IMPATIENT--BP INITIALLY WAS DOWN TO 140'S/70'S, THEN STARTED GOING BACK UP HER AGITATION INCREASED. 1700--PT DEMANDING TO LEAVE, ADVISED HER THAT HER BP HAD GONE UP SIGNIFICANTLY AND STRONGLY ADVISED THAT SHE NEEDED MORE MEDICATION, AND PT VERY ADAMANTLY STATES THAT SHE DOES NOT WANT ANYMORE MEDICATION AND THAT SHE WAS LEAVING, AND DIDN'T CARE THAT HER BP WAS HIGHER THAN IT WAS WHEN SHE ARRIVED. Departure Impression Primary Impression: Preeclampsia in period Additional Impression: UTI (urinary tract infection) Disposition: 01 HOME, SELF-CARE Condition: Stable Departure-Patient Inst. Referrals: URBANO ANDERSON DO (PCP/Family) Primary Care Physician Patient Instructions: Urinary Tract Infection, Adult (DC), Preeclampsia (DC) Add. Discharge Instructions: STOP MACROBID, START CEFDINIR FOR UTI INCREASE YOUR AMLODIPINE TO 2 PILLS A DAY CONTINUE YOUR LASIX PRESCRIBED FOLLOW UP WITH DR. ANDERSON THIS WEEK SCHEDULED, OR SOONER IF WORSE All discharge instructions reviewed with patient and/or family. Voiced understanding. Scripts Cefdinir (Cefdinir) 300 Mg Capsule 300 MG PO BID for FOR INFECTION, #20 CAP Prov: NAVEEN DWYER DO 02/13/19 NAVEEN DWYER DO Feb 13, 2019 15:30
[2019-02-13 15:40] LABS: BILIRUBIN,URINE NEGATIVE (NEGATIVE); CLARITY,URINE SLIGHTLY CLOUDY; COLOR,URINE YELLOW; GLUCOSE, URINE (UA) NEGATIVE (NEGATIVE); KETONES,URINE NEGATIVE (NEGATIVE); LEUKOCYTE ESTERASE ,URINE 3+ (NEGATIVE); NITRITE,URINE NEGATIVE (NEGATIVE); PH,URINE 6.5 (5-9); PROTEIN,URINE 2+ (NEGATIVE); UROBILINOGEN,URINE NORMAL (NORMAL)
[2019-02-13] MEDS ORDERED: hydrALAZINE (APESOLINE) 20 MG/ML VIAL IV ONE (15:45)
[2019-02-13 15:50] LABS: BACTERIA,URINE FEW /HPF
[2019-02-13 16:08] LABS: BASOPHILS # (AUTO) 0.1 10^3/uL (0.0-0.1); BASOPHILS % (AUTO) 2 % (0-10); EOSINOPHILS # (AUTO) 0.2 10^3/uL (0.0-0.3); EOSINOPHILS % (AUTO) 2 % (0-10); HEMATOCRIT 44 % (35-52); LYMPHOCYTES # (AUTO) 2.7 X 10^3 (1.0-4.0); LYMPHOCYTES % (AUTO) 30 % (12-44); MEAN CORPUSCULAR HEMOGLOBIN 33 PG (25-34); MEAN CORPUSCULAR HGB CONC 34 G/DL (32-36); MEAN CORPUSCULAR VOLUME 97 FL (80-99); MONOCYTES # (AUTO) 0.6 X 10^3 (0.0-1.0); MONOCYTES % (AUTO) 7 % (0-12); NEUTROPHILS # (AUTO) 5.3 X 10^3 (1.8-7.8); NEUTROPHILS % (AUTO) 59 % (42-75); PLATELET COUNT 482 10^3/uL (130-400); RED CELL DISTRIBUTION WIDTH 12.3 % (10.0-14.5); WHITE BLOOD COUNT 8.9 10^3/uL (4.3-11.0)
[2019-02-13 16:37] LABS: ALANINE AMINOTRANSFERASE 16 U/L (0-55); ALBUMIN 4.4 GM/DL (3.2-4.5); ALKALINE PHOSPHATASE 106 U/L (40-136); BILIRUBIN,TOTAL 0.5 MG/DL (0.1-1.0); BUN/CREATININE RATIO 20; CALCIUM 9.8 MG/DL (8.5-10.1); CARBON DIOXIDE 26 MMOL/L (21-32); CHLORIDE 106 MMOL/L (98-107); CREATININE SERUM 0.64 MG/DL (0.60-1.30); GFR ESTIMATED > 60; GLUCOSE 72 MG/DL (70-105); MAGNESIUM 2.1 MG/DL (1.6-2.4); POTASSIUM 4.3 MMOL/L (3.6-5.0); SODIUM 140 MMOL/L (135-145); TOTAL PROTEIN 7.9 GM/DL (6.4-8.2)
[2019-02-13] MEDS ORDERED: CEFD300C3 PO (17:08)
[2019-02-13 17:18] VITALS: BP 169/110
== END 2019-02-13 17:18 | disposition home or self-care (01) ==
LOC: EDUNIT# 14:47 → ER 14:48
DX: O14.95 Unspecified pre-eclampsia, complicating the puerperium (principal); O86.20 Urinary tract infection following delivery, unspecified; O99.335 Smoking (tobacco) complicating the puerperium; F17.210 Nicotine dependence, cigarettes, uncomplicated; O11.5 Pre-existing hypertension with pre-eclampsia, complicating the puerperium
CPT/HCPCS: 36415; 80053; 81000; 83735; 85025; 87088; 93041; 96374

== ENCOUNTER 2019-02-16 03:12 | Emergency (ER) | payer MEDICAID ==
[~2019-02-16] VITALS: Ht 175 cm; Wt 61.0 kg
[2019-02-16 03:52] LABS: BASOPHILS # (AUTO) 0.1 10^3/uL (0.0-0.1); BASOPHILS % (AUTO) 1 % (0-10); EOSINOPHILS # (AUTO) 0.4 10^3/uL (0.0-0.3); EOSINOPHILS % (AUTO) 4 % (0-10); HEMATOCRIT 41 % (35-52); HEMOGLOBIN 14.1 G/DL (11.5-16.0); LYMPHOCYTES # (AUTO) 3.5 X 10^3 (1.0-4.0); LYMPHOCYTES % (AUTO) 29 % (12-44); MEAN CORPUSCULAR HEMOGLOBIN 33 PG (25-34); MEAN CORPUSCULAR HGB CONC 35 G/DL (32-36); MEAN CORPUSCULAR VOLUME 96 FL (80-99); MEAN PLATELET VOLUME 9.4 FL (7.4-10.4); MONOCYTES # (AUTO) 0.7 X 10^3 (0.0-1.0); MONOCYTES % (AUTO) 6 % (0-12); NEUTROPHILS # (AUTO) 7.2 X 10^3 (1.8-7.8); NEUTROPHILS % (AUTO) 61 % (42-75); PLATELET COUNT 459 10^3/uL (130-400); WHITE BLOOD COUNT 11.9 10^3/uL (4.3-11.0)
[2019-02-16] MEDS ORDERED: cefTRIAXone FOR IV USE 1,000 MG in WATER (STERILE) FOR INJECTION 10 ML IV ONE (04:00)
[2019-02-16 04:08] LABS: ALANINE AMINOTRANSFERASE 17 U/L (0-55); ALBUMIN 4.4 GM/DL (3.2-4.5); ALKALINE PHOSPHATASE 84 U/L (40-136); BILIRUBIN,TOTAL 0.5 MG/DL (0.1-1.0); BUN/CREATININE RATIO 21; CALCIUM 9.6 MG/DL (8.5-10.1); CARBON DIOXIDE 21 MMOL/L (21-32); CHLORIDE 108 MMOL/L (98-107); CREATININE SERUM 0.67 MG/DL (0.60-1.30); GFR ESTIMATED > 60; GLUCOSE 90 MG/DL (70-105); POTASSIUM 3.8 MMOL/L (3.6-5.0); SODIUM 141 MMOL/L (135-145); TOTAL PROTEIN 7.5 GM/DL (6.4-8.2)
--- NOTE | 2019-02-16 04:42 | ED GU-Female ---
General Chief Complaint: CLINICAL NURSE Stated Complaint: VAGINAL GUSHING BLOOD Nursing Triage Note: PT STATES SHE HAS BEEN SHOWING BRIGHT RED BLOOD SINCE THE OF HER SECOND CHILD ON . PT REPORTS HER FLOW BEGAN TO DRASTICALLY INCREASED TONIGHT AROUND 2230, PT STATES SHE IS ON ANTIBIOTICS FOR A UTI CURRENTLY Nursing Sepsis Screen: No Definite Risk Source: patient Exam Limitations: no limitations History of Present Illness Date Seen by Provider: Feb 16, 2019 Time Seen by Provider: 06:35 Initial Comments This 38-year-old woman presents to the emergency room on day 13 from a vaginal delivery complaining of passing significant amounts of blood and clots . She shows a picture of a clot that is probably 20-30 mL in size. She has no fever or pain. She has been seen a couple of times in the emergency room since her delivery, primarily for hypertension and possible preeclampsia. She also was diagnosed with urinary tract infection. On her last visit she was instructed to change from Macrobid to Cefdinir which she has not done yet. Dr. 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 Patient denies any secondary symptoms of anemia such as fatigue, lightheadedness, or shortness of breath. During assessment female staff assisted her to the bathroom and noted only a light bleeding on her current pad. They stated this bleeding was normal period bleeding or less. Allergies and Home Medications Allergies Coded Allergies: No Known Drug Allergies (Unverified , 08/19/11) Home Medications Acetaminophen 500 Mg Tablet, 1,000 MG PO Q8HR Prescribed by: URBANO ANDERSON on 02/05/19 105 Cefdinir 300 Mg Capsule, 300 MG PO BID Prescribed by: NAVEEN DWYER on 02/13/19 1708 Furosemide 20 Mg Tablet, 20 MG PO DAILY Prescribed by: NAVEEN DWYER on 02/07/19105 Ibuprofen 600 Mg Tablet, 600 MG PO Q6H Prescribed by: URBANO ANDERSON on 02/05/19 105 Nitrofurantoin Monohyd/M-Cryst 100 Mg Capsule, 100 MG PO BID Prescribed by: NAEVEN DWYER on 02/07/19 010 Pnv with Ca,No.72/Iron/FA 1 Each Tablet, 1 EA PO DAILY@0700 Prescribed by: URBANO ANDERSON on 02/05/19 105 Potassium Chloride 10 Meq Capsule.er, 10 MEQ PO DAILY Prescribed by: NAVEEN DWYER on 02/07/19 0106 Patient Home Medication List Home Medication List Reviewed: Yes Review of Systems Review of Systems Constitutional: no symptoms reported EENTM: no symptoms reported Respiratory: no symptoms reported Cardiovascular: no symptoms reported Gastrointestinal: no symptoms reported Genitourinary: see HPI : No Musculoskeletal: no symptoms reported Skin: no symptoms reported Psychiatric/Neurological: No Symptoms Reported Endocrine: No Symptoms Reported Past Dcuocrh-Gzecwp-Asihcx Hx Past Med/Social Hx: Reviewed Nursing Past Med/Soc Hx Patient Social History Type Used: Cigarettes Recent Foreign Travel: No Contact w/Someone Who Travel: No Recent Infectious Disease Expo: No Recent Hopitalizations: No Immunizations Up To Date Tetanus Booster (TDap): Unknown PED Vaccines UTD: Yes Seasonal Allergies Seasonal Allergies: No Past Medical History Surgeries: No Respiratory: No Cardiac: Yes (post preeclampsia) Hypertension 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 Physical Exam Vital Signs Vital Signs - First Documented 02/16/19 03:35 Temp 37.4 Pulse 103 Resp 20 B/P (MAP) 155/112 (126) Pulse Ox 97 O2 Delivery Room Air Capillary Refill : Less Than 3 Seconds Height, Weight, BMI Height: 5'10.00" Weight: 164lbs. 0.0oz. 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, no motor/sensory deficits, alert, normal mood/affect, oriented x 3 Skin: normal color, warm/dry Progress/Results/Core Measures Suspected Sepsis Recent Fever Within 48 Hours: No Infection Criteria Present: Documented Infection New/Unexplained Altered Menta: No Sepsis Screen: No Definite Risk SIRS Temperature: Pulse: 103 Respiratory Rate: 20 Laboratory Tests 02/16/19 03:35: White Blood Count 11.9H Blood Pressure 155 /112 Mean: 126 Laboratory Tests 02/16/19 03:35: Creatinine 0.67, Platelet Count 459H, Total Bilirubin 0.5 Results/Orders Lab Results Laboratory Tests Test 02/16/19 03:35 Range/Units White Blood Count 11.9 H 4.3-11.0 10^3/uL Red Blood Count 4.26 L 4.35-5.85 10^6/uL Hemoglobin 14.1 11.5-16.0 G/DL Hematocrit 41 35-52 % Mean Corpuscular Volume 96 80-99 FL Mean Corpuscular Hemoglobin 33 25-34 PG Mean Corpuscular Hemoglobin Concent 35 32-36 G/DL Red Cell Distribution Width 12.0 10.0-14.5 % Platelet Count 459 H 130-400 10^3/uL Mean Platelet Volume 9.4 7.4-10.4 FL Neutrophils (%) (Auto) 61 42-75 % Lymphocytes (%) (Auto) 29 12-44 % Monocytes (%) (Auto) 6 0-12 % Eosinophils (%) (Auto) 4 0-10 % Basophils (%) (Auto) 1 0-10 % Neutrophils # (Auto) 7.2 1.8-7.8 X 10^3 Lymphocytes # (Auto) 3.5 1.0-4.0 X 10^3 Monocytes # (Auto) 0.7 0.0-1.0 X 10^3 Eosinophils # (Auto) 0.4 H 0.0-0.3 10^3/uL Basophils # (Auto) 0.1 0.0-0.1 10^3/uL Sodium Level 141 135-145 MMOL/L Potassium Level 3.8 3.6-5.0 MMOL/L Chloride Level 108 H 98-107 MMOL/L Carbon Dioxide Level 21 21-32 MMOL/L Anion Gap 12 5-14 MMOL/L Blood Urea Nitrogen 14 7-18 MG/DL Creatinine 0.67 0.60-1.30 MG/DL Estimat Glomerular Filtration Rate > 60 BUN/Creatinine Ratio 21 Glucose Level 90 70-105 MG/DL Calcium Level 9.6 8.5-10.1 MG/DL Corrected Calcium 9.3 8.5-10.1 MG/DL Total Bilirubin 0.5 0.1-1.0 MG/DL Aspartate Amino Transf (AST/SGOT) 21 5-34 U/L Alanine Aminotransferase (ALT/SGPT) 17 0-55 U/L Alkaline Phosphatase 84 40-136 U/L C-Reactive Protein High Sensitivity 0.15 0.00-0.50 MG/DL Total Protein 7.5 6.4-8.2 GM/DL Albumin 4.4 3.2-4.5 GM/DL My Orders Orders - JARED KEENAN MD Cbc With Automated Diff (02/16/19 03:24) Comprehensive Metabolic Panel (02/16/19 03:24) Hs C Reactive Protein (02/16/19 03:24) Ed Iv/Invasive Line Start (02/16/19 03:24) Ceftriaxone For Iv Use (Rocephin For I (02/16/19 04:00) Vital Signs/I&O 02/16/19 02/16/19 03:35 04:53 Temp 37.4 37.4 Pulse 103 100 Resp 20 20 B/P (MAP) 155/112 (126) 142/111 (126) Pulse Ox 97 97 O2 Delivery Room Air Room Air Capillary Refill : Less Than 3 Seconds Blood Pressure Mean: 126 Progress Note : Progress Note Patient was seen and examined. Vital signs remained stable. Blood work was unremarkable. Plan is to obtain an ultrasound when available as your 7:30. Patient already has an appointment with Dr. Anderson at 10:00. She can follow-up with Dr. Anderson after her ultrasound. There was no hemorrhage observed while she was in the emergency room. Departure Impression Primary Impression: bleeding Qualified Codes: O72.1 - Other immediate hemorrhage Disposition: 01 HOME, SELF-CARE Condition: Stable Departure-Patient Inst. Decision time for Depature: 04:40 Referrals: URBANO ANDERSON DO (PCP/Family) Primary Care Physician Patient Instructions: Hemorrhage Add. Discharge Instructions: Return to care if you have worsening bleeding or if you develop secondary signs of anemia such as shortness of breath, lightheadedness, significant weakness, etc. If you continue to bleed, presented to the hospital at 07:304 and ultrasound. Keep your appointment with Dr. Anderson this morning. Start the Cefdinir this morning as previously prescribed. All discharge instructions reviewed with patient and/or family. Voiced understanding. JARED KEENAN MD Feb 16, 2019 04:42
[2019-02-16 04:53] VITALS: BP 142/111
== END 2019-02-16 04:53 | disposition home or self-care (01) ==
LOC: EDUNIT# 03:12 → ER 03:14
DX: O72.2 Delayed and secondary postpartum hemorrhage (principal); O11.5 Pre-existing hypertension with pre-eclampsia, complicating the puerperium
CPT/HCPCS: 36415; 80053; 85025; 86141

== ENCOUNTER 2019-02-16 06:19 | Observation (INO) | payer MEDICAID ==
[~2019-02-16] VITALS: Ht 175 cm; Wt 60.4 kg
--- NOTE | 2019-02-16 06:41 | ED GU-Female ---
General Stated Complaint: HEAVY VAGINAL BLEEDING Source: patient Exam Limitations: no limitations History of Present Illness Date Seen by Provider: Feb 16, 2019 Time Seen by Provider: 06:27 Initial Comments Here with report of persistent vaginal bleeding. Seen earlier this morning and is set up for ultrasound evaluation at 7:30. Patient states that she had markedly increased bleeding and clots she is very concerned. Discharged from here and a half ago. States that she's had heavy bleeding since then. She apparently called the OB floor who told her to get right back to the emergency department for evaluation for the heavy bleeding. She presents again with pictures. She is 13 days . This is her third . Timing/Duration: yesterday, getting worse Severity/Quality: moderate, other (vaginal bleeding without pain) Location: vaginal Radiation: none Activities at Onset: none Sexual [place] History: not active Associated Symptoms: No fever/chills, No nausea/vomiting Allergies and Home Medications Allergies Coded Allergies: No Known Drug Allergies (Unverified , 08/19/11) Home Medications Acetaminophen 500 Mg Tablet, 1,000 MG PO Q8HR Prescribed by: URBANO ANDERSON on 02/05/19 105 Cefdinir 300 Mg Capsule, 300 MG PO BID Prescribed by: NAVEEN DWYER on 02/13/19 1708 Furosemide 20 Mg Tablet, 20 MG PO DAILY Prescribed by: NAVEEN DWYER on 02/07/19 010 Ibuprofen 600 Mg Tablet, 600 MG PO Q6H Prescribed by: URBANO ANDERSON on 02/05/19 105 Nitrofurantoin Monohyd/M-Cryst 100 Mg Capsule, 100 MG PO BID Prescribed by: NAVEEN DWYER on 02/07/19105 Pnv with Ca,No.72/Iron/FA 1 Each Tablet, 1 EA PO DAILY@0700 Prescribed by: URBANO ANDERSON on 02/05/19 105 Potassium Chloride 10 Meq Capsule.er, 10 MEQ PO DAILY Prescribed by: NAVEEN DWYER on 02/07/19105 Patient Home Medication List Home Medication List Reviewed: Yes Review of Systems Review of Systems Constitutional: see HPI; No chills, No fever EENTM: no symptoms reported Respiratory: no symptoms reported Cardiovascular: no symptoms reported Gastrointestinal: no symptoms reported Genitourinary: see HPI : No Skin: No change in color, No lesions Past Eoftlws-Hntjlz-Eeljfz Hx Past Med/Social Hx: Reviewed Nursing Past Med/Soc Hx Patient Social History Alcohol Use: Denies Use Recreational Drug Use: No Smoking Status: Current Everyday Smoker Type Used: Cigarettes Recent Foreign Travel: No Contact w/Someone Who Travel: No Recent Hopitalizations: No Immunizations Up To Date Tetanus Booster (TDap): Unknown PED Vaccines UTD: Yes Seasonal Allergies Seasonal Allergies: No Past Medical History Surgeries: No Respiratory: No Cardiac: Yes (post preeclampsia) Hypertension Neurological: No Reproductive Disorders: No Genitourinary: No Gastrointestinal: No Musculoskeletal: No Endocrine: No HEENT: No Cancer: No Psychosocial: No Integumentary: No Blood Disorders: No Adverse Reaction/Blood Tranf: No Family Medical History Reviewed Nursing Family Hx Patient reports no known family medical history. Physical Exam Vital Signs Vital Signs - First Documented 02/16/19 06:30 Temp 36.7 Pulse 112 Resp 22 B/P (MAP) 142/101 (115) Pulse Ox 96 O2 Delivery Room Air Capillary Refill : Height, Weight, BMI Height: 5'10.00" Weight: 164lbs. 0.0oz. [id number]; 19.00 BMI Method:Stated General Appearance: WD/WN, no apparent distress HEENT: PERRL/EOMI, pharynx normal Neck: full range of motion, supple Cardiovascular: no murmur, tachycardia Respiratory: lungs clear, normal breath sounds Gastrointestinal: non tender, soft Pelvic: vaginal bleeding, other (few clots in the vaginal vault. There does appear to be debris at the cervical os. There is mild oozing of blood at the cervix.) Back: normal inspection, no CVA tenderness, no vertebral tenderness Neurologic/Psychiatric: alert, oriented x 3 Skin: normal color, warm/dry Progress/Results/Core Measures Suspected Sepsis SIRS Temperature: Pulse: Respiratory Rate: Laboratory Tests 02/16/19 06:42: White Blood Count 15.7H Blood Pressure / Mean: Laboratory Tests 02/16/19 06:42: Platelet Count 424H Results/Orders Lab Results Laboratory Tests Test 02/16/19 06:42 Range/Units White Blood Count 15.7 H 4.3-11.0 10^3/uL Red Blood Count 3.95 L 4.35-5.85 10^6/uL Hemoglobin 13.0 11.5-16.0 G/DL Hematocrit 38 35-52 % Mean Corpuscular Volume 96 80-99 FL Mean Corpuscular Hemoglobin 33 25-34 PG Mean Corpuscular Hemoglobin Concent 34 32-36 G/DL Red Cell Distribution Width 11.9 10.0-14.5 % Platelet Count 424 H 130-400 10^3/uL Mean Platelet Volume 9.3 7.4-10.4 FL Neutrophils (%) (Auto) 79 H 42-75 % Lymphocytes (%) (Auto) 15 12-44 % Monocytes (%) (Auto) 4 0-12 % Eosinophils (%) (Auto) 1 0-10 % Basophils (%) (Auto) 1 0-10 % Neutrophils # (Auto) 12.3 H 1.8-7.8 X 10^3 Lymphocytes # (Auto) 2.4 1.0-4.0 X 10^3 Monocytes # (Auto) 0.7 0.0-1.0 X 10^3 Eosinophils # (Auto) 0.2 0.0-0.3 10^3/uL Basophils # (Auto) 0.1 0.0-0.1 10^3/uL Neutrophils % (Manual) 82 % Lymphocytes % (Manual) 16 % Monocytes % (Manual) 2 % Blood Morphology Comment NORMAL My Orders Orders - JOHN KUMARI MD Cbc With Automated Diff (02/16/19 06:31) Monitor-Rhythm Ecg Trace Only (02/16/19 06:31) Ed Iv/Invasive Line Start (02/16/19 06:31) Manual Differential (02/16/19 06:42) Us Pelvic (Non Ob)99662 (02/16/19 06:31) Misoprostol Tablet (Cytotec Tablet) (02/16/19 08:30) Vital Signs/I&O 02/16/19 06:30 Temp 36.7 Pulse 112 Resp 22 B/P (MAP) 142/101 (115) Pulse Ox 96 O2 Delivery Room Air Capillary Refill : Progress Note : Progress Note Seen and evaluated. IV, labs, pelvic exam and ultrasound ordered. She is not hypotensive. Initially tachycardic 120 but that came down to 104 after just a few seconds of rest. Monitor patient. 0815: I completed pelvic exam. Ultrasound complete and shows thickened endometrium with moderate amount of fluid within the cervix. No active bleeding noted. I did discuss the case with Dr. Anderson. She believes this is likely uterine involution which would be normal at this time . Given patient's blood pressure and bleeding though, she is recommending admission. I did discuss this with the patient who agrees and is appreciative. Dr. Anderson is recommending Cytotec 400 mg by mouth now and every 6 hours times 8 total doses. Cytotec 4 mg by mouth times one now ordered. Patient did take her amlodipine 10 mg at 4 PM yesterday and states that she takes it daily at 4 PM. We will continue this inpatient at 4 PM. Admit, inpatient status. Patient and family agree with plan. Diagnostic Imaging Diagonstic Imaging: Ultrasound Plain Films/CT/US/NM/MRI: pelvis Comments [facility], [place] NAME: KIM GROSS [facility] REC#: [id number] PT STATUS: REG ER : 1980 PHYSICIAN: JOHN KUMARI MD ADMIT DATE: 02/16/19/ER Draft Date of Exam:02/16/19 US PELVIC (NON OB)[id number] PROCEDURE: US PELVIC (NON OB) TECHNIQUE: Multiple real-time grayscale images were obtained over the pelvis in various projections transabdominally. INDICATION: 13 days from vaginal delivery. Patient has heavy bleeding. Uterus is post gravid measuring 16.3 x 13.4 x 9.5 cm. Endometrium is significantly thickened up to 7.2 cm with diffuse heterogeneity. No definite vascularity within the endometrium is seen. No myometrial mass is identified. The ovaries cannot be visualized. No adnexal mass or free fluid is seen. IMPRESSION: Significantly thickened and heterogeneous endometrium without vascularity. This most likely represents blood products. No definite vascularized retained products of conception are identified. Dictated on workstation # [id number] Dict: 02/16/19818 Trans: 02/16/19 08 AUREA [id number] Interpreted by: AMADO DON MD Electronically signed by: Departure Communication (Admissions) Time/Spoke to Admitting Phy: 08:15 Impression Primary Impression: bleeding Qualified Codes: O72.2 - Delayed and secondary hemorrhage Additional Impression: hypertension Disposition: ADMITTED INPATIENT Condition: Stable Admissions Decision to Admit Reason: Admit from ER (General) Decision to Admit/Date: Feb 16, 2019 Time/Decision to Admit Time: 08:15 Departure-Patient Inst. Referrals: URBANO ANDERSON DO (PCP/Family) Primary Care Physician JOHN KUMARI MD Feb 16, 2019 06:41
[2019-02-16 06:53] LABS: BASOPHILS # (AUTO) 0.1 10^3/uL (0.0-0.1); BASOPHILS % (AUTO) 1 % (0-10); EOSINOPHILS # (AUTO) 0.2 10^3/uL (0.0-0.3); EOSINOPHILS % (AUTO) 1 % (0-10); HEMATOCRIT 38 % (35-52); LYMPHOCYTES # (AUTO) 2.4 X 10^3 (1.0-4.0); LYMPHOCYTES % (AUTO) 15 % (12-44); MEAN CORPUSCULAR HEMOGLOBIN 33 PG (25-34); MEAN CORPUSCULAR HGB CONC 34 G/DL (32-36); MEAN CORPUSCULAR VOLUME 96 FL (80-99); MEAN PLATELET VOLUME 9.3 FL (7.4-10.4); MONOCYTES # (AUTO) 0.7 X 10^3 (0.0-1.0); MONOCYTES % (AUTO) 4 % (0-12); NEUTROPHILS # (AUTO) 12.3 X 10^3 (1.8-7.8); NEUTROPHILS % (AUTO) 79 % (42-75); PLATELET COUNT 424 10^3/uL (130-400); RED CELL DISTRIBUTION WIDTH 11.9 % (10.0-14.5); WHITE BLOOD COUNT 15.7 10^3/uL (4.3-11.0)
[2019-02-16 07:37] LABS: LYMPHOCYTES % (MANUAL) 16 %; MONOCYTES % (MANUAL) 2 %; NEUTROPHILS % (MANUAL) 82 %; RBC MORPH NORMAL
--- NOTE | 2019-02-16 08:27 | Diagnostic Imaging Report ---
PROCEDURE: US PELVIC (NON OB) TECHNIQUE: Multiple real-time grayscale images were obtained over the pelvis in various projections transabdominally. INDICATION: 13 days from vaginal delivery. Patient has heavy bleeding. Uterus is post gravid measuring 16.3 x 13.4 x 9.5 cm. Endometrium is significantly thickened up to 7.2 cm with diffuse heterogeneity. No definite vascularity within the endometrium is seen. No myometrial mass is identified. The ovaries cannot be visualized. No adnexal mass or free fluid is seen. IMPRESSION: Significantly thickened and heterogeneous endometrium without vascularity. This most likely represents blood products. No definite vascularized retained products of conception are identified. Dictated by: Dictated on workstation # [id number]
[2019-02-16] MEDS ORDERED: MISOPROSTOL 200 MCG (CYTOTEC) TABLET PO ONE ×2 (08:30→12:00)
--- NOTE | 2019-02-16 08:45 | NUR ---
KIM GROSS presented to unit via wheelchair from ED, accompanied by significant other, with c/o BLEEDING; HTN. KIM GROSS weighed, gowned, voided, and to bed. VS taken. KIM GROSS oriented to bed controls, call light, TV, heat, and A/C controls. Pt is a G 3 P 3 that delivered on 02/03 a spontaneous vaginal delivery without episiotomy or repair. Stated heavy bleeding began at approximately midnight. Stated was gushing blood and resented to ER then transferred to [facility].
[2019-02-16 08:55] VITALS: BP 147/84
--- NOTE | 2019-02-16 09:12 | History & Physical-OB ---
OB - Chief Complaint & HPI Date/Time Date of Admission: Date of Admission: Feb 16, 2019 at 08:34 Time Seen by a Provider: 08:45 Chief Complaint/History OB-Reason for Admission/Chief: Allergies and Home Medications Allergies Coded Allergies: No Known Drug Allergies (Unverified , 08/19/11) Home Medications Acetaminophen 500 Mg Tablet, 1,000 MG PO Q8HR Prescribed by: URBANO ANDERSON on 02/05/19 1054 Cefdinir 300 Mg Capsule, 300 MG PO BID Prescribed by: NAVEEN DWYER on 02/13/19 1708 Furosemide 20 Mg Tablet, 20 MG PO DAILY Prescribed by: NAVEEN DWYER on 02/07/19 010 Ibuprofen 600 Mg Tablet, 600 MG PO Q6H Prescribed by: URBANO ANDERSON on 02/05/19 105 Nitrofurantoin Monohyd/M-Cryst 100 Mg Capsule, 100 MG PO BID Prescribed by: NAVEEN DWYER on 02/07/19 010 Pnv with Ca,No.72/Iron/FA 1 Each Tablet, 1 EA PO DAILY@0700 Prescribed by: URBANO ANDERSON on 02/05/19 1054 Potassium Chloride 10 Meq Capsule.er, 10 MEQ PO DAILY Prescribed by: NAVEEN DWYER on 02/07/19 010 OB - History Delivery History Hx Blood Disorders: No Adverse Rxn to Tranfusion: No Social History/Family History Recent Infectious Disease Expo: No Alcohol Use: Denies Use Recreational Drug Use: No Immunizations Tetanus Booster (TDap): Unknown OB - Admission Exam Physical Exam Vitals: Vital Signs 02/16/19 02/16/19 06:30 08:38 Temp 36.7 Pulse 64 Resp 20 B/P (MAP) 129/92 Pulse Ox 99 O2 Delivery Room Air Labs Laboratory Tests Test 02/16/19 06:42 Range/Units White Blood Count 15.7 H 4.3-11.0 10^3/uL Red Blood Count 3.95 L 4.35-5.85 10^6/uL Hemoglobin 13.0 11.5-16.0 G/DL Hematocrit 38 35-52 % Mean Corpuscular Volume 96 80-99 FL Mean Corpuscular Hemoglobin 33 25-34 PG Mean Corpuscular Hemoglobin Concent 34 32-36 G/DL Red Cell Distribution Width 11.9 10.0-14.5 % Platelet Count 424 H 130-400 10^3/uL Mean Platelet Volume 9.3 7.4-10.4 FL Neutrophils (%) (Auto) 79 H 42-75 % Lymphocytes (%) (Auto) 15 12-44 % Monocytes (%) (Auto) 4 0-12 % Eosinophils (%) (Auto) 1 0-10 % Basophils (%) (Auto) 1 0-10 % Neutrophils # (Auto) 12.3 H 1.8-7.8 X 10^3 Lymphocytes # (Auto) 2.4 1.0-4.0 X 10^3 Monocytes # (Auto) 0.7 0.0-1.0 X 10^3 Eosinophils # (Auto) 0.2 0.0-0.3 10^3/uL Basophils # (Auto) 0.1 0.0-0.1 10^3/uL Neutrophils % (Manual) 82 % Lymphocytes % (Manual) 16 % Monocytes % (Manual) 2 % Blood Morphology Comment NORMAL URBANO ANDERSON DO Feb 16, 2019 09:12
[2019-02-16] MEDS ORDERED: KETOROLAC 30 MG/ML VIAL IVP PRN (09:15)
[2019-02-16] MEDS ORDERED: ACETAMINOPHEN 500 MG TAB (TYLENOL) PO PRN (09:15)
[2019-02-16 12:12] VITALS: BP 120/80
[2019-02-16 12:50] VITALS: BP 137/94
[2019-02-16 13:07] LABS: BASOPHILS # (AUTO) 0.1 10^3/uL (0.0-0.1); BASOPHILS % (AUTO) 0 % (0-10); EOSINOPHILS # (AUTO) 0.1 10^3/uL (0.0-0.3); EOSINOPHILS % (AUTO) 1 % (0-10); HEMATOCRIT 34 % (35-52); HEMOGLOBIN 11.7 G/DL (11.5-16.0); LYMPHOCYTES # (AUTO) 1.8 X 10^3 (1.0-4.0); LYMPHOCYTES % (AUTO) 10 % (12-44); MEAN CORPUSCULAR HEMOGLOBIN 33 PG (25-34); MEAN CORPUSCULAR HGB CONC 34 G/DL (32-36); MEAN CORPUSCULAR VOLUME 97 FL (80-99); MEAN PLATELET VOLUME 9.3 FL (7.4-10.4); MONOCYTES # (AUTO) 0.7 X 10^3 (0.0-1.0); MONOCYTES % (AUTO) 4 % (0-12); NEUTROPHILS % (AUTO) 85 % (42-75); PLATELET COUNT 367 10^3/uL (130-400); RED CELL DISTRIBUTION WIDTH 11.9 % (10.0-14.5); WHITE BLOOD COUNT 17.7 10^3/uL (4.3-11.0)
[2019-02-16 13:28] LABS: ALANINE AMINOTRANSFERASE 14 U/L (0-55); ALKALINE PHOSPHATASE 70 U/L (40-136); BILIRUBIN,TOTAL 0.5 MG/DL (0.1-1.0); BUN/CREATININE RATIO 20; CALCIUM 8.9 MG/DL (8.5-10.1); CARBON DIOXIDE 23 MMOL/L (21-32); CHLORIDE 107 MMOL/L (98-107); CREATININE SERUM 0.59 MG/DL (0.60-1.30); GFR ESTIMATED > 60; GLUCOSE 104 MG/DL (70-105); MAGNESIUM 1.9 MG/DL (1.6-2.4); SODIUM 137 MMOL/L (135-145); TOTAL PROTEIN 6.6 GM/DL (6.4-8.2)
[2019-02-16] MEDS: amLODIPine 10 MG (NORVASC) TAB PO SCH (15:32)
--- NOTE | 2019-02-16 16:17 | NUR ---
Pad changed: 0845 - 1/2 of peach pad saturated with bright red blood, no clots, FF @ u/2 and tender to massage 1045 1 saturated pad with many small clots - less than 3 cms. Panties required change and draw sheet 1230 1/2 saturated pad 1435 3/4 saturated pad/ panties changed 1545 1/2 saturated pad. Slightly dizzy on occasion. Pts mother at bedside - taking care of . FF 2 u/2 Addendum: 02/16/19 at 1815 by CHARANJIT ROBLERO RN pad changed: 1700 1/2 pad saturated. 4 loose stools today. States feeling slightly more dizzy when up this void.
--- NOTE | 2019-02-16 16:45 | NUR ---
Dr Barnes called to inquire about pt status - informed of pad count x 5 with 1/2 to 1 saturated pad approximately q 2 hrs. Pt stated she was prescribed antibiotics for UTI but did not start medication yet (yesterday). Culture results contamination per Dr Barnes. Pt desires to stay overnight. Dr Barnes agreed - to continue Cytotec q 6 hrs with repeat CBC in am.
[2019-02-16] MEDS: MISOPROSTOL 200 MCG (CYTOTEC) TABLET PO SCH (18:06)
--- NOTE | 2019-02-16 19:20 | NUR ---
report given to GILSON Patten.
--- NOTE | 2019-02-16 20:00 | NUR ---
pt eating at this time.
[2019-02-16 21:30] VITALS: BP 142/80
--- NOTE | 2019-02-16 21:30 | NUR ---
Pt sleeping in bed, vs taken, pt asking questions about plan of care, plan of care and medications reviewed. vpad checked with pt last void, scant to light rubra noted. family at bedside, fresh ice water given. multiple blankets taken off pt due to increase in temp.
--- NOTE | 2019-02-16 22:50 | NUR ---
PT LAYING IN BED AWAKE, DENIES NEEDS AT THIS TIME.
[2019-02-17] VITALS: BP 114/75
[2019-02-17] MEDS: MISOPROSTOL 200 MCG (CYTOTEC) TABLET PO SCH ×2 (00:08→06:33)
--- NOTE | 2019-02-17 02:00 | NUR ---
pt sleeping in bed, no s/s of distress noted, mother at bedside.
[2019-02-17 04:15] VITALS: BP 120/76
--- NOTE | 2019-02-17 04:15 | NUR ---
Rn to room, aroused pt. VS taken. Pt denies pain or bleeding at this time. last void pt had scant bleeding noted on pad.
[2019-02-17 07:01] LABS: BASOPHILS # (AUTO) 0.1 10^3/uL (0.0-0.1); BASOPHILS % (AUTO) 1 % (0-10); EOSINOPHILS # (AUTO) 0.4 10^3/uL (0.0-0.3); EOSINOPHILS % (AUTO) 4 % (0-10); HEMATOCRIT 30 % (35-52); HEMOGLOBIN 10.1 G/DL (11.5-16.0); LYMPHOCYTES # (AUTO) 3.5 X 10^3 (1.0-4.0); LYMPHOCYTES % (AUTO) 40 % (12-44); MEAN CORPUSCULAR HEMOGLOBIN 33 PG (25-34); MEAN CORPUSCULAR HGB CONC 34 G/DL (32-36); MEAN CORPUSCULAR VOLUME 97 FL (80-99); MEAN PLATELET VOLUME 9.3 FL (7.4-10.4); MONOCYTES # (AUTO) 0.7 X 10^3 (0.0-1.0); MONOCYTES % (AUTO) 8 % (0-12); NEUTROPHILS # (AUTO) 4.2 X 10^3 (1.8-7.8); NEUTROPHILS % (AUTO) 48 % (42-75); PLATELET COUNT 386 10^3/uL (130-400); WHITE BLOOD COUNT 8.8 10^3/uL (4.3-11.0)
[2019-02-17 07:48] VITALS: BP 114/75
--- NOTE | 2019-02-17 08:55 | NUR ---
Dr Barnes here to see pt. Discussed discharge.
--- NOTE | 2019-02-17 09:00 | NUR ---
VINAYAK soliman. Pt eating breakfast.
[2019-02-17] MEDS: amLODIPine 10 MG (NORVASC) TAB PO SCH (09:03)
--- NOTE | 2019-02-17 09:04 | NUR ---
Pt refused am norvasc. Pt states she takes it 4:00 pm every day.
--- NOTE | 2019-02-17 09:45 | NUR ---
Pt requested repeat ultrasound to make sure uterus was emptied out before going home and wanted me to notified Dr Barnes. [id number] Barnes of pt request.
--- NOTE | 2019-02-17 10:07 | Short Stay Summary ---
Discharge Summary Hospital Course Was the Problem List Reviewed?: Yes Final Diagnosis: 1. post hemorrhage/ placental invoution 2. Hospital Course Date of Admission: Feb 16, 2019 at 08:34 Admission Diagnosis : Family Physician/Provider: Urbano Anderson DO Date of Discharge: 02/17/19 Discharge Diagnosis: [ ] Hospital Course: [ ] Labs and Pending Lab Test: Laboratory Tests 02/16/19 12:55: White Blood Count 17.7H, Red Blood Count 3.55L, Hemoglobin 11.7, Hematocrit 34L, Mean Corpuscular Volume 97, Mean Corpuscular Hemoglobin 33, Mean Corpuscular Hemoglobin Concent 34, Red Cell Distribution Width 11.9, Platelet Count 367, Mean Platelet Volume 9.3, Neutrophils (%) (Auto) 85H, Lymphocytes (%) (Auto) 10L , Monocytes (%) (Auto) 4, Eosinophils (%) (Auto) 1, Basophils (%) (Auto) 0, Neutrophils # (Auto) 15.0H, Lymphocytes # (Auto) 1.8, Monocytes # (Auto) 0.7, Eosinophils # (Auto) 0.1, Basophils # (Auto) 0.1, Sodium Level 137, Potassium Level 4.0, Chloride Level 107, Carbon Dioxide Level 23, Anion Gap 7, Blood Urea Nitrogen 12, Creatinine 0.59L, Estimat Glomerular Filtration Rate > 60, BUN/Creatinine Ratio 20, Glucose Level 104, Uric Acid 4.0, Calcium Level 8.9, Corrected Calcium 8.9, Magnesium Level 1.9, Total Bilirubin 0.5, Aspartate Amino Transf (AST/SGOT) 14, Alanine Aminotransferase (ALT/SGPT) 14, Alkaline Phosphatase 70, Lactate Dehydrogenase 203, Total Protein 6.6, Albumin 4.0 02/17/19 06:30: White Blood Count 8.8, Red Blood Count 3.06L, Hemoglobin 10.1L, Hematocrit 30L, Mean Corpuscular Volume 97, Mean Corpuscular Hemoglobin 33, Mean Corpuscular Hemoglobin Concent 34, Red Cell Distribution Width 12.0, Platelet Count 386, Mean Platelet Volume 9.3, Neutrophils (%) (Auto) 48, Lymphocytes (%) (Auto) 40, Monocytes (%) (Auto) 8, Eosinophils (%) (Auto) 4, Basophils (%) (Auto) 1, Neutrophils # (Auto) 4.2, Lymphocytes # (Auto) 3.5, Monocytes # (Auto) 0.7, Eosinophils # (Auto) 0.4H, Basophils # (Auto) 0.1 Home Meds Active Cefdinir 300 Mg Capsule 300 Mg PO BID Macrobid 100 mg Capsule (Nitrofurantoin Monohyd/M-Cryst) 100 Mg Capsule 100 Mg PO BID Potassium Chloride 10 Meq Capsule.er 10 Meq PO DAILY Lasix (Furosemide) 20 Mg Tablet 20 Mg PO DAILY Pnv Plus Multivit Tab (Pnv with Ca,No.72/Iron/FA) 1 Each Tablet 1 Ea PO DAILY@0700 Acetaminophen 500 Mg Tablet 1,000 Mg PO Q8HR Ibu (Ibuprofen) 600 Mg Tablet 600 Mg PO Q6H Assessment/Pt Instructions 1. post hemorrhage, delayed/ placental involution 2. post preeclampsia/hypertension, stable 3. anxiety 4. Advanced maternal age Discharge Instructions Discharge Diet: Low Sodium Diet Activity as Tolerated: Yes Discharge Physical Examination General Appearance: Alert, Oriented X3 Respiratory: Clear to Auscultation, Normal Air Movement Cardiovascular: Regular Rate, Normal S1, Normal S2 Abdominal: Normal Bowel Sounds Allergies: Coded Allergies: No Known Drug Allergies (Unverified , 08/19/11) Discharge Summary Date of Admission Feb 16, 2019 at 08:34 Date of Discharge Discharge Date: Feb 17, 2019 Discharge Time: 10:00 Admission Diagnosis 1. post hemorrhage, delayed/ placental involution 2. post hypertension 3. anxiety Discharge Diagnosis (1) bleeding Status: Resolved Qualifiers: Qualified Codes: O72.2 - Delayed and secondary hemorrhage (2) hypertension Status: Acute (3) hemorrhage of vagina Status: Resolved URBANO ANDERSON DO Feb 17, 2019 10:07
--- NOTE | 2019-02-17 11:15 | NUR ---
Dr Barnes called back. Will repeat Ultrasound in 2 weeks at f/u appointment. This nurse explained to pt and answered questions to pt's satisfaction. Pt agreeable to discharge.
--- NOTE | 2019-02-17 11:50 | NUR ---
KIM GROSS demonstrates understanding of discharge instructions and accurately returns instructions upon questioning. Copy of Post-Discharge Instructions and Medication Discharge Instructions given to pt. KIM GROSS is able to manage continuing needs after discharge. Patients belongings returned to pt. Skin dry and intact; no breakdown noted. Patient discharged from [facility] on 02/17/19 at 1200 . KIM GROSS left floor via wheel chair, accompanied by mom and women services staff. To personal vehicle.
== END 2019-02-17 09:26 | disposition home or self-care (01) ==
LOC: EDUNIT# 06:19 → ER 06:21 → WS 08:34 → UNDOADMIN 08:34 → WS 08:45 → UNDODISIN 02-17 12:00
PROVIDERS: ADMIT Obstetrics & Gynecology; ATTEND Obstetrics & Gynecology
DX: O72.1 Other immediate postpartum hemorrhage (principal); O14.95 Unspecified pre-eclampsia, complicating the puerperium; F32.9 Major depressive disorder, single episode, unspecified; Z79.2 Long term (current) use of antibiotics; Z79.899 Other long term (current) drug therapy
CPT/HCPCS: 36415; 76856; 80053; 81000; 83615; 83735; 84550; 85007; 85025; 85027; 86141; 87088; 93041; 96374; G0378

== ENCOUNTER 2019-02-21 21:44 | Observation (INO) | payer MEDICAID ==
[~2019-02-21] VITALS: Ht 68 cm; Wt 60.9 kg
--- NOTE | 2019-02-21 22:21 | ED GU-Female ---
General Chief Complaint: CONCERT PIANIST Stated Complaint: GAVE 02/03, HEAVY VAGINAL BLEEDING Source: patient Exam Limitations: no limitations History of Present Illness Date Seen by Provider: Feb 21, 2019 Time Seen by Provider: 22:07 Initial Comments Patient resents to ER by private conveyance with chief complaint of heavy vaginal bleeding. She started passing some small stringy clots yesterday and today. She has some heavy she's describes as carrot size clots on her pads. She's not sure how long the pad lasts. He said this happened a couple weeks ago when she had hemorrhage and her OB Dr. Anderson gave her some pills which seemed to cause it to stop and let her go home. She has not had a D&C. She is from 02/03/19. She's not having any abdominal pain dysuria fever chills cough shortness of breath. She is having some anxiety related to this. She was diagnosed with preeclampsia and put on some blood pressure medicines. She followed up with [facility] for a second opinion and at that time her blood pressure was low so based told her to stop taking the blood pressure medicines and she's been off for about 2 days. She does not take aspirin or blood thinners. No history of personal or familial bleeding disorders. Allergies and Home Medications Allergies Coded Allergies: No Known Drug Allergies (Unverified , 08/19/11) Home Medications Acetaminophen 500 Mg Tablet, 1,000 MG PO Q8HR Prescribed by: URBANO ANDERSON on 02/05/19 1054 Cefdinir 300 Mg Capsule, 300 MG PO BID Prescribed by: NAVEEN DWYER on 02/13/19 1708 Ibuprofen 600 Mg Tablet, 600 MG PO Q6H Prescribed by: URBANO ANDERSON on 02/05/19 1054 Pnv with Ca,No.72/Iron/FA 1 Each Tablet, 1 EA PO DAILY@0700 Prescribed by: URBANO ANDERSON on 02/05/19 1054 Patient Home Medication List Home Medication List Reviewed: Yes Review of Systems Review of Systems Constitutional: No chills, No diaphoresis EENTM: No ear discharge, No ear pain Respiratory: No cough, No short of breath Cardiovascular: No chest pain, No edema Gastrointestinal: No abdominal pain, No constipation, No diarrhea, No nausea Genitourinary: see HPI; denies dysuria Past Sfgexbl-Awwslb-Eoayas Hx Patient Social History Smoking Status: Current Everyday Smoker Type Used: Cigarettes Recent Foreign Travel: No Contact w/Someone Who Travel: No Recent Hopitalizations: No Immunizations Up To Date Tetanus Booster (TDap): Unknown PED Vaccines UTD: Yes Seasonal Allergies Seasonal Allergies: No Past Medical History Surgeries: No Respiratory: No Cardiac: Yes (post preeclampsia) Hypertension Neurological: No Reproductive Disorders: No Genitourinary: No Gastrointestinal: No Musculoskeletal: No Endocrine: No HEENT: No Cancer: No Psychosocial: No Integumentary: No Blood Disorders: No Adverse Reaction/Blood Tranf: No Family Medical History Patient reports no known family medical history. Physical Exam Vital Signs Vital Signs - First Documented 02/21/19 22:07 Temp 37.9 Pulse 112 Resp 18 B/P (MAP) 132/91 (105) O2 Delivery Room Air Capillary Refill : Height, Weight, BMI Height: 5'10.00" Weight: 164lbs. 0.0oz. [id number]; 19.72 BMI Method:Stated General Appearance: WD/WN, no apparent distress HEENT: PERRL/EOMI, normal ENT inspection, pharynx normal Cardiovascular: normal peripheral pulses, regular rate, rhythm; No tachycardia Respiratory: no respiratory distress, no accessory muscle use Gastrointestinal: non tender, soft Progress/Results/Core Measures Suspected Sepsis SIRS Temperature: Pulse: Respiratory Rate: Laboratory Tests 02/21/19 22:30: White Blood Count 8.2 Blood Pressure / Mean: Laboratory Tests 02/21/19 22:30: Creatinine 0.63, Platelet Count 586H, Total Bilirubin 0.2 Results/Orders Lab Results Laboratory Tests Test 02/21/19 22:30 02/21/19 22:45 Range/Units White Blood Count 8.2 4.3-11.0 10^3/uL Red Blood Count 3.08 L 4.35-5.85 10^6/uL Hemoglobin 10.1 L 11.5-16.0 G/DL Hematocrit 30 L 35-52 % Mean Corpuscular Volume 97 80-99 FL Mean Corpuscular Hemoglobin 33 25-34 PG Mean Corpuscular Hemoglobin Concent 34 32-36 G/DL Red Cell Distribution Width 12.0 10.0-14.5 % Platelet Count 586 H 130-400 10^3/uL Mean Platelet Volume 9.3 7.4-10.4 FL Neutrophils (%) (Auto) 54 42-75 % Lymphocytes (%) (Auto) 33 12-44 % Monocytes (%) (Auto) 7 0-12 % Eosinophils (%) (Auto) 4 0-10 % Basophils (%) (Auto) 2 0-10 % Neutrophils # (Auto) 4.5 1.8-7.8 X 10^3 Lymphocytes # (Auto) 2.7 1.0-4.0 X 10^3 Monocytes # (Auto) 0.5 0.0-1.0 X 10^3 Eosinophils # (Auto) 0.4 H 0.0-0.3 10^3/uL Basophils # (Auto) 0.1 0.0-0.1 10^3/uL Sodium Level 142 135-145 MMOL/L Potassium Level 3.9 3.6-5.0 MMOL/L Chloride Level 108 H 98-107 MMOL/L Carbon Dioxide Level 23 21-32 MMOL/L Anion Gap 11 5-14 MMOL/L Blood Urea Nitrogen 11 7-18 MG/DL Creatinine 0.63 0.60-1.30 MG/DL Estimat Glomerular Filtration Rate > 60 BUN/Creatinine Ratio 17 Glucose Level 96 70-105 MG/DL Calcium Level 9.3 8.5-10.1 MG/DL Corrected Calcium 9.1 8.5-10.1 MG/DL Total Bilirubin 0.2 0.1-1.0 MG/DL Aspartate Amino Transf (AST/SGOT) 21 5-34 U/L Alanine Aminotransferase (ALT/SGPT) 22 0-55 U/L Alkaline Phosphatase 73 40-136 U/L Total Protein 7.2 6.4-8.2 GM/DL Albumin 4.3 3.2-4.5 GM/DL Urine Color RED H Urine Clarity BLOODY H Urine pH 7 5-9 Urine Specific [place] 1.005 L 1.016-1.022 Urine Protein 3+ H NEGATIVE Urine Glucose (UA) NEGATIVE NEGATIVE Urine Ketones NEGATIVE NEGATIVE Urine Nitrite NEGATIVE NEGATIVE Urine Bilirubin NEGATIVE NEGATIVE Urine Urobilinogen NORMAL NORMAL MG/DL Urine Leukocyte Esterase 3+ H NEGATIVE Urine RBC (Auto) 5+ H NEGATIVE Urine RBC TNTC H /HPF Urine WBC 25-50 H /HPF Urine Squamous Epithelial Cells 5-10 /HPF Urine Crystals NONE /LPF Urine Bacteria MODERATE H /HPF Urine Casts NONE /LPF Urine Mucus NEGATIVE /LPF Urine Culture Indicated YES My Orders Orders - JOSÉ MIGUEL LASSITER Cbc With Automated Diff (02/21/19 22:20) Comprehensive Metabolic Panel (02/21/19 22:20) Ua Culture If Indicated (02/21/19 22:20) Urine Culture (02/21/19 22:45) Vital Signs/I&O 02/21/19 22:07 Temp 37.9 Pulse 112 Resp 18 B/P (MAP) 132/91 (105) O2 Delivery Room Air Capillary Refill : Progress Note : Time: 22:34 Progress Note Plan speculum vaginal exam to observe the cervical os. We will obtain basic labs to rule out need for transfusion and then pass her to OB care. Departure Communication (Admissions) Time/Spoke to Admitting Phy: 23:10 Discussed case lab and findings of cervical exam and he recommends 600 mg by mouth Cytotec and a CBC in the morning. Observed him. Impression Primary Impression: hemorrhage of vagina Disposition: ADMITTED INPATIENT Condition: Stable Admissions Decision to Admit Reason: Admit from ER (General) Decision to Admit/Date: Feb 21, 2019 Time/Decision to Admit Time: 23:10 Departure-Patient Inst. Referrals: URBANO ANDERSON DO (PCP/Family) Primary Care Physician JOSÉ MIGUEL LASSITER Feb 21, 2019 22:21
[2019-02-21 22:42] LABS: BASOPHILS # (AUTO) 0.1 10^3/uL (0.0-0.1); BASOPHILS % (AUTO) 2 % (0-10); EOSINOPHILS # (AUTO) 0.4 10^3/uL (0.0-0.3); EOSINOPHILS % (AUTO) 4 % (0-10); HEMATOCRIT 30 % (35-52); HEMOGLOBIN 10.1 G/DL (11.5-16.0); LYMPHOCYTES # (AUTO) 2.7 X 10^3 (1.0-4.0); LYMPHOCYTES % (AUTO) 33 % (12-44); MEAN CORPUSCULAR HEMOGLOBIN 33 PG (25-34); MEAN CORPUSCULAR HGB CONC 34 G/DL (32-36); MEAN CORPUSCULAR VOLUME 97 FL (80-99); MEAN PLATELET VOLUME 9.3 FL (7.4-10.4); MONOCYTES # (AUTO) 0.5 X 10^3 (0.0-1.0); MONOCYTES % (AUTO) 7 % (0-12); NEUTROPHILS # (AUTO) 4.5 X 10^3 (1.8-7.8); NEUTROPHILS % (AUTO) 54 % (42-75); PLATELET COUNT 586 10^3/uL (130-400); WHITE BLOOD COUNT 8.2 10^3/uL (4.3-11.0)
[2019-02-21 22:53] LABS: BILIRUBIN,URINE NEGATIVE (NEGATIVE); CLARITY,URINE BLOODY; COLOR,URINE RED; GLUCOSE, URINE (UA) NEGATIVE (NEGATIVE); KETONES,URINE NEGATIVE (NEGATIVE); LEUKOCYTE ESTERASE ,URINE 3+ (NEGATIVE); NITRITE,URINE NEGATIVE (NEGATIVE); PH,URINE 7 (5-9); PROTEIN,URINE 3+ (NEGATIVE); UROBILINOGEN,URINE NORMAL (NORMAL)
[2019-02-21 23:01] LABS: ALANINE AMINOTRANSFERASE 22 U/L (0-55); ALBUMIN 4.3 GM/DL (3.2-4.5); ALKALINE PHOSPHATASE 73 U/L (40-136); BILIRUBIN,TOTAL 0.2 MG/DL (0.1-1.0); BUN/CREATININE RATIO 17; CALCIUM 9.3 MG/DL (8.5-10.1); CARBON DIOXIDE 23 MMOL/L (21-32); CHLORIDE 108 MMOL/L (98-107); CREATININE SERUM 0.63 MG/DL (0.60-1.30); GFR ESTIMATED > 60; GLUCOSE 96 MG/DL (70-105); POTASSIUM 3.9 MMOL/L (3.6-5.0); SODIUM 142 MMOL/L (135-145); TOTAL PROTEIN 7.2 GM/DL (6.4-8.2)
[2019-02-21 23:02] LABS: BACTERIA,URINE MODERATE /HPF; RBC,URINE TNTC /HPF; WBC,URINE 25-50 /HPF
[2019-02-21] MEDS ORDERED: MISOPROSTOL 100 MCG (CYTOTEC) TAB PO ONE (23:15)
[2019-02-21 23:48] VITALS: BP 151/94
--- NOTE | 2019-02-21 23:48 | NUR ---
KIM GROSS presented to unit via from ED unit, accompanied by sonia isbell , with c/o VAG HEMORRHAGE. KIM GROSS to bed. KIM GROSS oriented to bed controls, call light, TV, heat, and A/C controls. assessments to follow per this rn.
[2019-02-22] MEDS ORDERED: ONDANSETRON 4 MG/2 ML (SDV) Z0FRAN IVP PRN (00:45)
[2019-02-22] MEDS ORDERED: ACETAMINOPHEN 500 MG TAB (TYLENOL) PO PRN (00:45)
[2019-02-22] MEDS ORDERED: LORazepam INJ 2 MG/ML (ATIVAN) VIAL IVP PRN (00:45)
[2019-02-22 04:13] VITALS: BP 113/68
--- NOTE | 2019-02-22 04:13 | NUR ---
RN to room to vs assessment, pt reported going to bathroom once, rn retrieved pad from bathroom trash, small bleeding noted, no concerns at this time with blood loss. RN reassured pt that the amt of blood noted was wnl. Pt reports having "A lot of blood in toilet". VSS, no ss distress at this time, will cont to monitor.
[2019-02-22 05:20] VITALS: BP 113/72
--- NOTE | 2019-02-22 05:27 | NUR ---
Pt has reports of chest pain per lab staff notifying rn. RN to room, pt up to bathroom voiding, scant amt blood noted in toilet, pericare pads changed independently per pt who ambulates independently back to bed, upon questioning, pain is sharp upper left chest, no radiation noted, no sob upon questioning, RN sits at bedside discussing lab work, hgb levels, reassuring pt on bleeding levels at this time, while rn also reassures pt that rn believes her reports of home bleeding. Pt thankful, after brief talking with pt, rn questions current chest pain, pt reports subsided, and that she thinks it is related to her anxiety with her issues with bleeding. Pt reassured this rn to return with am lab work results. Pt reassured and thankful. Pt resting with mother at bedside. Addendum: 02/22/19 at 0538 by PATTI DOBBS RN Pt denies cough and openly states without RN inquiry that she has increased her smoking habbits.
[2019-02-22 05:40] LABS: BASOPHILS # (AUTO) 0.1 10^3/uL (0.0-0.1); BASOPHILS % (AUTO) 1 % (0-10); EOSINOPHILS # (AUTO) 0.4 10^3/uL (0.0-0.3); EOSINOPHILS % (AUTO) 5 % (0-10); HEMATOCRIT 27 % (35-52); LYMPHOCYTES # (AUTO) 3.5 X 10^3 (1.0-4.0); LYMPHOCYTES % (AUTO) 45 % (12-44); MEAN CORPUSCULAR HEMOGLOBIN 33 PG (25-34); MEAN CORPUSCULAR HGB CONC 34 G/DL (32-36); MEAN CORPUSCULAR VOLUME 98 FL (80-99); MEAN PLATELET VOLUME 9.5 FL (7.4-10.4); MONOCYTES # (AUTO) 0.6 X 10^3 (0.0-1.0); MONOCYTES % (AUTO) 8 % (0-12); NEUTROPHILS # (AUTO) 3.2 X 10^3 (1.8-7.8); NEUTROPHILS % (AUTO) 41 % (42-75); PLATELET COUNT 533 10^3/uL (130-400); WHITE BLOOD COUNT 7.8 10^3/uL (4.3-11.0)
--- NOTE | 2019-02-22 05:50 | NUR ---
called unit, update given on bleeding tendencies, chest pain reports, arrival hgb and platelet, current hgb and platelet, orders for us this am when staff on campus.
[2019-02-22] MEDS ORDERED: OXYTOCIN/NORMAL SALINE 500 ML IV SCH (08:00)
--- NOTE | 2019-02-22 08:00 | NUR ---
A.M. ASSESSMENT COMPLETED. VSS. SMALL AMOUNT OF BLEEDING ON V-PAD.
[2019-02-22] MEDS ORDERED: OXYTOCIN/NORMAL SALINE 500 ML IV ONE (08:14)
--- NOTE | 2019-02-22 08:15 | NUR ---
DR. MAYFIELD HERE TO SEE PT. ORDERS RECEIVED.
[2019-02-22 08:30] VITALS: BP 108/57
--- NOTE | 2019-02-22 08:31 | NUR ---
500CC NS WITH 30UNITS OXYTOCIN STARTED TRA 999ML/HR/PUMP. SITE CLEAR.
--- NOTE | 2019-02-22 08:33 | History & Physical-OB/GYN ---
History of Present Illness History of Present Illness Reason for visit/HPI Heavy bleeding passing blood clots 18 days pp NVD. Reports feeling lightheaded a few days ago and stopped taking BP meds for severe GHTN she had difficulty with managing PP, but now BP appears WNL. Denies lightheadedness dizziness this AM. No concerns voiced overall this AM except she is getting frustrated with the amount of bleeding she is having. Overnight she was given 600 mcg of cyt otec in the ER, and bleeding according to overnight RN has been like a moderate period. Date of Admission Feb 21, 2019 at 22:15 Date Seen by a Provider: Feb 22, 2019 Time Seen by a Provider: 08:05 I consulted on this patient on 02/22/19 08:27 Attending Physician Jairo Mendes DO Admitting Physician Clementina Anderson DO Consult Allergies and Home Medications Allergies Coded Allergies: No Known Drug Allergies (Unverified , 08/19/11) Home Medications Acetaminophen 500 Mg Tablet, 1,000 MG PO Q8HR Prescribed by: CLEMENTINA ANDERSON on 02/05/19 1054 Cefdinir 300 Mg Capsule, 300 MG PO BID Prescribed by: NAVEEN DWYER on 02/13/19 1708 Ibuprofen 600 Mg Tablet, 600 MG PO Q6H Prescribed by: CLEMENTINA ANDERSON on 02/05/19 1054 Pnv with Ca,No.72/Iron/FA 1 Each Tablet, 1 EA PO DAILY@0700 Prescribed by: CLEMENTINA ANDERSON on 02/05/19 1054 Patient Home Medication List Home Medication List Reviewed: Yes Past Wheiggt-Vtdlqu-Vdyedn Hx Patient Social History Alcohol Use: Denies Use Recreational Drug Use: No Smoking Status: Current Everyday Smoker Type Used: Cigarettes Physical Abuse Screen: No Sexual Abuse: No Recent Foreign Travel: No Contact w/other who traveled: No Recent Hopitalizations: No Recent Infectious Disease Expo: No Immunizations Up To Date Tetanus Booster (TDap): Unknown Pediatric: Yes Seasonal Allergies Seasonal Allergies: No Surgeries No Respiratory No Cardiovascular Yes (post preeclampsia) Hypertension Neurological No Reproductive System : No Hx Reproductive Disorders: No Genitourinary No Gastrointestinal No Musculoskeletal No Endocrine History of Endocrine Disorders: No HEENT History of HEENT Disorders: No Cancer No Psychosocial History of Psychiatric Problem: No Integumentary History of Skin or Integumenta: No Blood Transfusions History of Blood Disorders: No Adverse Reaction to a Blood Tr: No Family Medical History Family Hx: Patient reports no known family medical history. Review of Systems Constitutional: no symptoms reported EENTM: see HPI Respiratory: see HPI Cardiovascular: see HPI Gastrointestinal: see HPI Genitourinary: see HPI : No Musculoskeletal: see HPI Psychiatric/Neurological: See HPI All Other Systems Reviewed Negative Unless Noted: Yes Physical Exam Physical Exam Vital Signs Vital Signs Date Time Temp Pulse Resp B/P (MAP) Pulse Ox O2 Delivery O2 Flow Rate FiO2 02/22/19 05:20 80 18 113/72 (86) 98 02/22/19 04:13 37.2 88 18 113/68 (83) 97 02/21/19 23:48 37.9 90 18 151/94 (113) 98 02/21/19 23:42 37.9 99 18 128/90 (105) 100 02/21/19 22:07 37.9 112 18 132/91 (105) Room Air Capillary Refill : Less Than 3 Seconds Labs Laboratory Tests 02/21/19 22:30: White Blood Count 8.2, Red Blood Count 3.08L, Hemoglobin 10.1L, Hematocrit 30L, Mean Corpuscular Volume 97, Mean Corpuscular Hemoglobin 33, Mean Corpuscular Hemoglobin Concent 34, Red Cell Distribution Width 12.0, Platelet Count 586H, Mean Platelet Volume 9.3, Neutrophils (%) (Auto) 54, Lymphocytes (%) (Auto) 33, Monocytes (%) (Auto) 7, Eosinophils (%) (Auto) 4, Basophils (%) (Auto) 2, Neutrophils # (Auto) 4.5, Lymphocytes # (Auto) 2.7, Monocytes # (Auto) 0.5, Eosinophils # (Auto) 0.4H, Basophils # (Auto) 0.1, Sodium Level 142, Potassium Level 3.9, Chloride Level 108H, Carbon Dioxide Level 23, Anion Gap 11, Blood Urea Nitrogen 11, Creatinine 0.63, Estimat Glomerular Filtration Rate > 60, BUN/Creatinine Ratio 17, Glucose Level 96, Calcium Level 9.3, Corrected Calcium 9.1, Total Bilirubin 0.2, Aspartate Amino Transf (AST/SGOT) 21, Alanine Ami notransferase (ALT/SGPT) 22, Alkaline Phosphatase 73, Total Protein 7.2, Albumin 4.3 02/21/19 22:45: Urine Color REDH, Urine Clarity BLOODYH, Urine pH 7, Urine Specific [place] 1.005L, Urine Protein 3+H, Urine Glucose (UA) NEGATIVE, Urine Ketones NEGATIVE, Urine Nitrite NEGATIVE, Urine Bilirubin NEGATIVE, Urine Urobilinogen NORMAL, Urine Leukocyte Esterase 3+H, Urine RBC (Auto) 5+H, Urine RBC TNTCH, Urine WBC 25-50H, Urine Squamous Epithelial Cells 5-10, Urine Crystals NONE, Urine Bacteria MODERATEH, Urine Casts NONE, Urine Mucus NEGATIVE, Urine Culture Indicated YES 02/22/19 05:05: White Blood Count 7.8, Red Blood Count 2.74L, Hemoglobin 9.0L, Hematocrit 27L, Mean Corpuscular Volume 98, Mean Corpuscular Hemoglobin 33, Mean Corpuscular Hemoglobin Concent 34, Red Cell Distribution Width 12.0, Platelet Count 533H, Mean Platelet Volume 9.5, Neutrophils (%) (Auto) 41L, Lymphocytes (%) (Auto) 45H , Monocytes (%) (Auto) 8, Eosinophils (%) (Auto) 5, Basophils (%) (Auto) 1, Neutrophils # (Auto) 3.2, Lymphocytes # (Auto) 3.5, Monocytes # (Auto) 0.6, Eosinophils # (Auto) 0.4H, Basophils # (Auto) 0.1 General Appearance: WD/WN, Anxious Respiratory: No Accessory Muscle Use, No Respiratory Distress Cardiovascular: Regular Rate, Rhythm Abdominal: non tender, soft Pelvic Exam: deferred Extremity: Normal Capillary Refill, Normal Inspection Assessment/Plan Assessment and Plan Diagnosis: 38 yo PP 19 days from NVD Late PP hemorrhage- now seems to be stable Acute blood loss anemia Peripartum HTN P: IV pitocin 30 u given this AM wide open with NS Pelvic US pending Will consider dc if US WNL and improved bleeding, otherwise discussed with pat ient proceeding with D and C, keeping NPO until US results noted Admission Diagnosis 38 yo PP 19 days from NVD Late PP hemorrhage- now seems to be stable Acute blood loss anemia Peripartum HTN Admission Status: Observation Clinical Quality Measures DVT/VTE Risk/Contraindication: Risk Factor Score Per Nursin RFS Level Per Nursing on Admit: 1=Low/No VTE PPX JAIRO MENDES DO Feb 22, 2019 08:33
--- NOTE | 2019-02-22 09:00 | NUR ---
PITOCIN FINISHED. SALINE LOCK FLUSHED.
--- NOTE | 2019-02-22 10:30 | NUR ---
PT SLEEPING. MOTHER AT BEDSIDE. U/S HAS NOT BEEN DONE YET.
--- NOTE | 2019-02-22 10:40 | NUR ---
[facility] CALLED TO CHECK ON WHEN U/S WILL BE DONE. STATES THEY WILL BE HERE IN 10 MIN.
--- NOTE | 2019-02-22 10:55 | NUR ---
DR. MAYFIELD CALLED TO CHECK ON U/S.
--- NOTE | 2019-02-22 11:05 | NUR ---
PELVIC U/S IN PROGRESS.
--- NOTE | 2019-02-22 12:18 | NUR ---
CALLED [facility] TO SEE IF RESULTS READY. NO REPORT YET.
--- NOTE | 2019-02-22 12:27 | Diagnostic Imaging Report ---
INDICATION: bleeding. TECHNIQUE: Multiple Real-time grayscale sonographic images were obtained of the pelvis transabdominally. CORRELATION STUDY: 02/16/2019. FINDINGS: UTERUS: 11.0 x 10.4 x 7.3 cm. The uterus does remain enlarged and heterogeneous but is smaller from the prior study. ENDOMETRIUM: Thickened at 19 mm. The endometrium does remain thickened but is thinner and much less pronounced compared to the prior study. No abnormal vascularity within the endometrium. RIGHT OVARY: 3.5 x 1.7 x 2.0 cm. The right ovary has an unremarkable appearance. No concerning mass. Normal blood flow. LEFT OVARY: 4.3 x 2.6 x 2.4 cm. The left ovary has an unremarkable appearance. No concerning mass. Normal blood flow. No significant free pelvic fluid. IMPRESSION: The uterus remains enlarged and the endometrium remains thickened; however, the findings do appear improved from the prior study. No definitive abnormal vascularity about the endometrium. Dictated by: Dictated on workstation # [id number]
--- NOTE | 2019-02-22 12:40 | NUR ---
DR. MAYFIELD ON FLOOR. RESULTS OF PELVIC U/S JUST POPPED UP. RESULTS REVIEWED BY DR. CARDONA TO DISMISS.
[2019-02-22 13:00] VITALS: BP 116/67
--- NOTE | 2019-02-22 13:00 | NUR ---
SALINE LOCK D/C'ED WITH TIP INTACT. SITE CLEAR. REQUESTS TO EAT BEFORE SHE LEAVES.
--- NOTE | 2019-02-22 13:45 | NUR ---
EATING REGULAR DIET. PREPARING FOR DISCHARGE. VAGINAL BLEEDING SCANT TO SMALL RUBRA THROUGHOUT THIS SHIFT. NO CLOTS.
--- NOTE | 2019-02-22 14:00 | NUR ---
DISCHARGE INSTRUCTIONS REVIEWED WITH COPY TO PT. STATES UNDERSTANDING OF ALL INSTRUCTIONS AND NEED TO F/U SCHEDULED AND NEEDED.
[2019-02-22 14:10] VITALS: BP 116/67
--- NOTE | 2019-02-22 14:10 | NUR ---
DISMISSED VIA W/C FROM WS IN STABLE CONDITION TO FAMILY CAR ACC BY MOTHER AND SHADI RIGGINS.
== END 2019-02-22 12:46 | disposition home or self-care (01) ==
LOC: EDUNIT# 21:44 → ER 21:45 → WS 22:15 → UNDOADMOB 22:15 → WS 23:48 → UNDODISOB 02-22 14:10
PROVIDERS: ADMIT Obstetrics & Gynecology; ATTEND Obstetrics & Gynecology
DX: O72.1 Other immediate postpartum hemorrhage (principal); I10 Essential (primary) hypertension; D64.9 Anemia, unspecified; F17.210 Nicotine dependence, cigarettes, uncomplicated; Z79.899 Other long term (current) drug therapy
CPT/HCPCS: 36415; 76856; 80053; 81000; 85025; 87088; 96374; G0378

== ENCOUNTER → 2019-06-02 | Outpatient (CLI) | payer MEDICAID ==
--- NOTE | 2019-06-02 16:14 | Diagnostic Imaging Report ---
INDICATION: Palpable lumps in bilateral breasts. COMPARISON: No prior studies are available for comparison. TECHNIQUE: 2-D and 3-D bilateral diagnostic mammography was performed. The current study was also evaluated with a Computer Aided Detection (CAD) system. 3-D tomosynthesis was also performed and reviewed. FINDINGS: BB markers are placed at the areas of palpable abnormality in both breasts. On the right, this corresponds to the inferior retroareolar region. On the left, this is medial and inferior. There is severe parenchymal density and heterogeneity, limiting evaluation. There is a large rounded density in the retroareolar right breast, likely accounting for the palpable abnormality. No definite abnormality in the lower-inner left breast is seen to account for the palpable abnormality. There is a circumscribed density in the upper-inner left breast, approximately 5-6 cm from the nipple. This too likely represents a cyst. No malignant-appearing microcalcifications are seen. Axillae are unremarkable. IMPRESSION: 1. Large rounded density in the retroareolar right breast at the area of palpable abnormality. Evaluation of this area with ultrasound is recommended. 2. No definite abnormality at the area of palpable abnormality in the inferomedial left breast is seen. Even so, sonographic interrogation of this area is recommended. 3. Circumscribed density in the upper-inner left breast, 5-6 cm from the nipple, likely a cyst. This will be evaluated with ultrasound. ACR BI-RADS Category 0: Incomplete. (Needs additional imaging evaluation). Result letter will be mailed to the patient. Note: At least 10% of breast cancer is not imaged by mammography. Dictated by: Dictated on workstation # [id number]
--- NOTE | 2019-06-02 16:25 | Diagnostic Imaging Report ---
INDICATION: Bilateral palpable lumps. CORRELATION is made with diagnostic mammogram earlier the same day. RIGHT BREAST: There is a large cyst at the 8 o'clock location of the right breast, 3 cm from the nipple, accounting for the palpable abnormality. This measures 3.1 x 1.7 x 2.2 cm. There is some internal debris. A second smaller cyst is identified at 10 o'clock location 5 cm from the nipple measuring 1.7 x 1.2 x 1.2 cm. This does show some internal septations. No internal vascularity is seen. LEFT BREAST: At the 10 o'clock location of the left breast 5 cm from the nipple, there is a 1.5 x 0.9 x 1.1 cm solid appearing mass. This is well-circumscribed and shows posterior acoustic enhancement and is most suggestive of a fibroadenoma. Complex cyst at the 8 o'clock location is seen, 7 cm from the nipple measuring 1.4 x 0.6 x 1.0 cm. This demonstrates internal echoes but no internal vascularity. There is posterior acoustic enhancement and this is consistent with a complex cyst. This is palpable by the patient. IMPRESSION: BI-RADS Category 3 Numerous bilateral breast cysts which appear to be slightly complex and account for the palpable abnormalities. There is also a probable fibroadenoma at the 10 o'clock location of the left breast, 5 cm from the nipple. Follow-up bilateral breast ultrasound in 6 months could be performed to confirm stability. Dictated by: Dictated on workstation # [id number]
== END ==
LOC: RAD 14:13
PROVIDERS: ATTEND Nurse Practitioner Primary Care
DX: N63.10 Unspecified lump in the right breast, unspecified quadrant (principal); N63.20 Unspecified lump in the left breast, unspecified quadrant
CPT/HCPCS: 76642; 77066

== ENCOUNTER 2019-06-30 05:37 | Outpatient (CLI) | payer MEDICAID ==
[~2019-06-30] VITALS: Ht 177 cm; Wt 58.6 kg
[~2019-06-30 05:37] MED LIST changes: -ACET-77 PO; +ACET-78 PO
== END 2019-06-30 10:20 | disposition home or self-care (01) ==
LOC: PREOP 05:37
PROVIDERS: ATTEND Surgery
DX: Z01.818 Encounter for other preprocedural examination (principal)

== ENCOUNTER 2019-07-07 07:49 | Day surgery (SDC) | payer MEDICAID ==
[2019-07-07] VITALS (11 sets, daily range): BP systolic 98–118; BP diastolic 61–74
[~2019-07-07] VITALS: Ht 175.3 cm; Wt 56.6 kg
[2019-07-07] MEDS ORDERED: ceFAZolin 2 GM/50 ML NS 50 ML IV ONE (08:15)
[2019-07-07] MEDS: LACTATED RINGERS 1,000 ML IV PRN ×2 (08:28→10:23)
[2019-07-07] MEDS ORDERED: CATHETER FLUSH 10 ML SYR IV PRN (08:30)
[2019-07-07] MEDS ORDERED: BUP/EPI 0.5% 1:200,000 (SENSORCAINE) 30 ML VIAL ONE (09:15)
[2019-07-07] MEDS ORDERED: DEXAMETHASONE 10 MG/ML (DECADRON) 1 ML VIAL ONE (09:23)
[2019-07-07] MEDS ORDERED: ONDANSETRON 4 MG/2 ML (SDV) Z0FRAN ONE (09:23)
[2019-07-07] MEDS ORDERED: proPOfol 200 MG/20 ML (DIPRIVAN) VIAL IV ONE (09:23)
[2019-07-07] MEDS ORDERED: LIDOCAINE PF 2% 5 ML (XYLOCAINE) VIAL ONE (09:23)
[2019-07-07] MEDS ORDERED: fentaNYL INJECTION 100 MCG/2 ML AMP ONE (09:24)
[2019-07-07] MEDS ORDERED: MIDAZOLAM 2 MG/2 ML (VERSED) VIAL ONE (09:24)
[2019-07-07] MEDS ORDERED: SEVOFLURANE (ULTANE) 15 ML INHAL SOLN ONE (09:30)
--- NOTE | 2019-07-07 09:48 | Progress Note-Pre Operative ---
Pre-Operative Progress Note H&P Reviewed The H&P was reviewed, patient examined and no changes noted. Time Seen by Provider: 09:37 Date H&P Reviewed: Jul 07, 2019 Time H&P Reviewed: 09:38 Pre-Operative Diagnosis: right inguinal hernia NICHOLE LOZANO DO Jul 07, 2019 09:48
--- NOTE | 2019-07-07 10:47 | Progress Note-Post Operative ---
Post-Operative Progess Note Surgeon (s)/Sales Product Specialist (s) Surgeon NICHOLE LOZANO DO Sales Product Specialist: YOUSIF [place] MSIII Pre-Operative Diagnosis right inguinal hernia Post-Operative Diagnosis Indirect RIH Procedure & Operative Findings Date of Procedure 07/07/19 Procedure Performed/Findings RIH with mesh Anesthesia Type GET Estimated Blood Loss Estimated blood loss (mL): scant Specimens/Packing Specimens Removed hernia sac round ligament NICHOLE LOZANO DO Jul 07, 2019 10:47
[2019-07-07] MEDS ORDERED: ACHD5005 PO (10:48)
--- NOTE | 2019-07-07 10:48 | Discharge Inst-Surgical ---
Discharge Inst-Surgical Depart Medication/Instructions New, Converted or Re-Newed RX: RX Given to Pt/Family Patient Instructions Follow up Appt: Make appointment for 1 week. [phone] Instructions: No lifting greater than 20 pounds. No strenuous activity. May shower in 24 hours, no tub bath or soaking. Use incentive spirometer at home as directed. No Smoking Skin/Wound Care: May remove bandages in am. You need to leave the Dermabond on incision it will fall off on it's own. Symptoms to Report: Appetite Changes, Extremity Discoloration, Numbness/Tingling, Swelling Increased, Bleeding Excessive, Eyesight Changes, Pain Increased, Urine Color Change, Constipation(Persistent), Fever over 101 degree F, Pain/Pressure in chest, Urinating Difficulty, Cough Up/Vomit Blood, Heart Beat Irreg/Pounding, Pain/Pressure in jaw, Cramps in feet or legs, Lightheadedness, Pain/Pressure in shoulder, Diarrhea(Persistent), Memory Changes Suddenly, Questions/Concerns, Weight gain consecutive days, Dizziness/Fainting, Nausea/Vomiting, Shortness of Breath, Weight gain over 2 pounds If questions or concerns contact your physician Or seek help at emergency department. Activity Activity as Tolerated: Yes Activity Instructions: Avoid Stress to Incision Driving Instructions: No Driving/Refer to Avoid ALL Tobacco Products: Smoking of Any Kind Diet Discharge Diet: No Restrictions Diet After 24 Hours: Clear Liquid if Nauseous If Any Problems/Questions/Issu: Contact Your Physician, Go to Emergency Room Skin/Wound Care Infection Signs and Symptoms: Increased Redness, Foul Odor of Wound, Increased Drainage, Skin Itchy or Has a Rash, Increased Swelling, Temperature Above 101 F Bathing Instructions: Shower Stitches/[place]/Dermabond Dis: Dermabond Ice Pack: Ice On and Off Site NICHOLE LOZANO DO Jul 07, 2019 10:48
[2019-07-07] MEDS ORDERED: morphine INJ 10 MG/ML 1ML (SYR OR VIAL) IVP ONE (11:00)
[2019-07-07] MEDS ORDERED: HYDROmorphone 2 MG/ML VIAL (DILAUDID) IV ONE (11:00)
[2019-07-07] MEDS ORDERED: ONDANSETRON 4 MG/2 ML (SDV) Z0FRAN IVP PRN (11:00)
[2019-07-07] MEDS ORDERED: HYDROcodone/APAP 5 MG/325 MG (LORTAB) TAB ONE (11:55)
[2019-07-07] MEDS ORDERED: HYDROcodone/APAP 5 MG/325 MG (LORTAB) TAB PO ONE (12:00)
--- NOTE | 2019-07-07 12:48 | OPERATIVE REPORT ---
DATE OF SERVICE: PREOPERATIVE DIAGNOSIS: Right inguinal hernia. POSTOPERATIVE DIAGNOSIS: Indirect right inguinal hernia. PROCEDURE: Right inguinal herniorrhaphy with mesh placement. SURGEON: Lazarus Ortega DO. CHANGE LEAD: Jazlyn Sanchez MS3 and Stone Bello MS3. ANESTHESIA: General endotracheal tube. SPECIMEN: 1. Hernia sac. 2. Round ligament. BLOOD LOSS: Scant. FLUIDS: Per anesthesia. POSTOPERATIVE CONDITION: Stable. INDICATION FOR PROCEDURE: The patient is a 38-year-old female, who has been having pain in the right inguinal region, a little bit of bulging and diagnosed with a right inguinal hernia. FINDINGS: The patient had an indirect right inguinal hernia. PROCEDURE NOTE: After informed consent was obtained, the patient was brought to the operating room and placed on the operating table in supine position. She was sterilely prepped and draped in a normal fashion. Local lidocaine was used to perform ilioinguinal nerve block as well as pubic tubercle block. I then infiltrated the right inguinal region with local. I then made an incision with #15 blade, carried down through the skin and subcutaneous tissue, deepened down to subcutaneous tissue with Bovie electrocautery down to the external oblique fascia. The external oblique fascia was then infiltrated with local and incised to the external inguinal ring with Bovie electrocautery, grasped the two sides with hemostats and then got under the external oblique fascia and bluntly created a space here. I then found the round ligament, grasped this and brought this up and got under it bluntly and placed a [place] drain, pulled it in an inferolateral direction. Looked superiorly and medially and found the hernia sac. Hernia sac was carefully taken off the round ligament and then right at the base of the hernia sac, suture ligated with 2-0 Vicryl and then tied with 2-0 Vicryl and then cut the hernia sac off with Bovie electrocautery. I then ligated the round ligament with 0 Vicryl in either end and then cut the round ligament off and passed this off table. I then elected to place a polypropylene Bard mesh, cut to fit into the inguinal canal, sutured once to the pubic tubercle, once at the shelving portion of Poupart's ligament, once at the transverse abdominis muscle, the aponeurosis of transverse abdominis, placed rest of it up under the external oblique fascia, laid in very nicely, fully filled the floor of the inguinal canal. There was a slight weakness, but no fold. At this point, I then closed the external oblique fascia with 3-0 Vicryl running suture, thereby recreating an external inguinal ring. Copiously irrigated with normal saline. Closed the Luis's fascia with 3-0 Vicryl and closed the skin with 4-0 undyed Monocryl in a running subcuticular fashion. I palpated, feeling for femoral hernia and did not feel a femoral hernia. The patient tolerated the procedure. Sponge, instrument and needle count correct at the end of the case. Skin Affix and Band-Aid placed at the end of the case. Job ID: [id number] DocumentID: [id number] Dictated Date: 07/07/2019 10:45:33 Estimate Clerk Date: 07/07/2019 12:43:54 Dictated By: DO ALDA LOCKE
--- NOTE | 2019-07-07 14:27 | Anesthesia-General Post-Op ---
General Patient Condition Mental Status/LOC: Same as Preop Cardiovascular: Satisfactory Nausea/Vomiting: Absent Respiratory: Satisfactory Pain: Controlled Complications: Absent Post Op Complications Complications None Follow Up Care/Instructions Patient Instructions None needed. Anesthesia/Patient Condition Patient Condition Patient was seen after the procedure and she was doing well, no complaints, stable vital signs, no apparent adverse anesthesia problems. JOHN BENITO DO Jul 07, 2019 14:27
--- NOTE | 2019-07-11 07:14 | Progress Note ---
Standard Progress Note Progress Notes/Assess & Plan Date Seen by a Provider: Jul 07, 2019 Time Seen by a Provider: 09:48 Progress/Assessment & Plan Addendum to Anesthesia Record: Midazolam 2 mg IV given at 0948 by me on patient arrival to the OR for anxiolysis. JOHN BENITO DO Jul 11, 2019 07:14
== END 2019-07-07 13:00 | disposition home or self-care (01) ==
LOC: SDC 07:49
PROVIDERS: ATTEND Surgery
DX: K40.90 Unilateral inguinal hernia, without obstruction or gangrene, not specified as recurrent (principal); I10 Essential (primary) hypertension; F17.210 Nicotine dependence, cigarettes, uncomplicated; F41.9 Anxiety disorder, unspecified; Z79.899 Other long term (current) drug therapy; Z80.3 Family history of malignant neoplasm of breast; Z82.49 Family history of ischemic heart disease and other diseases of the circulatory system; Z82.3 Family history of stroke
CPT/HCPCS: 84703; 87081; 94664

== ENCOUNTER 2020-01-27 14:00 | Emergency (ER) | payer MEDICAID ==
[~2020-01-27] VITALS: Ht 177.8 cm; Wt 61.0 kg
[~2020-01-27 14:00] MED LIST changes: +ACHD5005 PO
--- NOTE | 2020-01-27 16:11 | NUR ---
BEDSIDE ULTRA SOUND BY DR KUMARI
[2020-01-27 16:21] LABS: BILIRUBIN,URINE NEGATIVE (NEGATIVE); CLARITY,URINE CLEAR; COLOR,URINE YELLOW; GLUCOSE, URINE (UA) NEGATIVE (NEGATIVE); KETONES,URINE TRACE (NEGATIVE); LEUKOCYTE ESTERASE ,URINE NEGATIVE (NEGATIVE); NITRITE,URINE NEGATIVE (NEGATIVE); PROTEIN,URINE NEGATIVE (NEGATIVE)
[2020-01-27 16:32] LABS: BACTERIA,URINE TRACE /HPF; WBC,URINE 0-2 /HPF
[2020-01-27 17:04] VITALS: BP 114/66
--- NOTE | 2020-01-27 17:07 | ED Abdominal Pain ---
General Chief Complaint: Female Reproductive Stated Complaint: ABD PAIN,19 WEEKS PREG Nursing Triage Note: pt is 20 plus weeks and is having cramping (contractions) non stop since 10 am this morning. Sepsis Screen: No Definite Risk Source of Information: Patient Exam Limitations: No Limitations History of Present Illness Date Seen by Provider: Jan 27, 2020 Time Seen by Provider: 16:00 Initial Comments Here with report of lower abdominal pain and cramping and feeling like she has contractions. She is approximately 19 weeks with her fourth child. Last was one year ago and this is her fourth overall. Denies dysuria, vaginal bleeding or vaginal leakage. She does have her typical discharge but unchanged throughout . No recent trauma or other concerns . Follows with Dr. Anderson. Did state that she has occasional constipation and she has been dealing with that recently. She noted that her umbilical hernia was more prominent for a while and that has subsequently resolved as well as her pain. Timing/Duration: 4-6 Hours Severity/Quality: Moderate (.) Location: Other (lower bilaterally) Radiation: No Radiation Activities at Onset: None Modifying Factors: Improves With Resting Associated Symptoms: No Back Pain, No Chest Pain, No Fever/Chills, No Nausea/Vomiting, No Shortness of Air, No Weakness Allergies and Home Medications Allergies Coded Allergies: No Known Drug Allergies (Unverified , 06/30/19) Home Medications Hydrocodone Bit/Acetaminophen 1 Tab Tab, 1 TAB PO Q6H PRN for PAIN-MODERATE Prescribed by: NICHOLE LOZANO on 07/07/19 1048 Patient Home Medication List Home Medication List Reviewed: Yes Review of Systems Review of Systems Constitutional: see HPI; No chills, No fever EENTM: No Symptoms Reported Respiratory: No Symptoms Reported Cardiovascular: No Symptoms Reported Gastrointestinal: See HPI Genitourinary: Denies Burning, Denies Frequency, Denies Pain Musculoskeletal: no symptoms reported Past Btemotm-Hvfetn-Ncqykw Hx Past Med/Social Hx: Reviewed Nursing Past Med/Soc Hx Patient Social History Alcohol Use: Denies Use Recreational Drug Use: No Smoking Status: Current Everyday Smoker Type Used: Cigarettes 2nd Hand Smoke Exposure: Yes Recent Foreign Travel: No Contact w/Someone Who Travel: No Recent Infectious Disease Expo: No Recent Hopitalizations: No Immunizations Up To Date Tetanus Booster (TDap): Unknown PED Vaccines UTD: Yes Seasonal Allergies Seasonal Allergies: No Past Medical History Surgeries: No Section Respiratory: No Cardiac: Yes (post preeclampsia ) Hypertension Neurological: No : Yes Expected Date of Delivery: Jun 20, 2020 Last Menstrual Period: Sep 13, 2019 Hx : 3 Hx Para: 3 Hx Total # of Abortions (Sp): 0 Reproductive Disorders: No Sexually Transmitted Disease: No HIV/AIDS: No Genitourinary: No Gastrointestinal: No Musculoskeletal: No Endocrine: No HEENT: Yes (GLASSES) Loss of Vision: Denies Hearing Impairment: Denies Cancer: No Psychosocial: Yes Anxiety Integumentary: No Blood Disorders: No Adverse Reaction/Blood Tranf: No (N/A) Family Medical History Reviewed Nursing Family Hx Patient reports no known family medical history. Physical Exam Vital Signs Vital Signs - First Documented 01/27/20 01/27/20 14:47 17:04 Temp 36.0 Pulse 80 Resp 22 B/P (MAP) 102/59 (73) Pulse Ox 100 O2 Delivery Room Air Capillary Refill : Less Than 3 Seconds Height/Weight/BMI Height: 5'10.00" Weight: 164lbs. 0.0oz. 74.644308wm; 19.00 BMI Method:Stated General Appearance: WD/WN, no apparent distress Respiratory: lungs clear, normal breath sounds Cardiovascular: regular rate, rhythm, no murmur Gastrointestinal: non tender, soft, other (gravid uterus at approximately the umbilicus) Extremities: non-tender, normal inspection Neurologic/Psychiatric: alert, oriented x 3 Skin: normal color, warm/dry Progress/Results/Core Measures Results/Orders Lab Results Laboratory Tests Test 01/27/20 16:11 Range/Units Urine Color YELLOW Urine Clarity CLEAR Urine pH 7.0 5-9 Urine Specific [place] 1.010 L 1.016-1.022 Urine Protein NEGATIVE NEGATIVE Urine Glucose (UA) NEGATIVE NEGATIVE Urine Ketones TRACE H NEGATIVE Urine Nitrite NEGATIVE NEGATIVE Urine Bilirubin NEGATIVE NEGATIVE Urine Urobilinogen 0.2 < = 1.0 MG/DL Urine Leukocyte Esterase NEGATIVE NEGATIVE Urine RBC (Auto) NEGATIVE NEGATIVE Urine RBC NONE /HPF Urine WBC 0-2 /HPF Urine Squamous Epithelial Cells 10-25 H /HPF Urine Crystals NONE /LPF Urine Bacteria TRACE /HPF Urine Casts NONE /LPF Urine Mucus NEGATIVE /LPF Urine Culture Indicated NO My Orders Orders - JOHN KUMARI MD Ua Culture If Indicated (01/27/20 16:11) Vital Signs/I&O 01/27/20 01/27/20 14:47 17:04 Temp 36.0 Pulse 80 72 Resp 22 16 B/P (MAP) 102/59 (73) 104/62 (73) Pulse Ox 100 O2 Delivery Room Air Blood Pressure Mean: 73 Progress Progress Note : Progress Note Seen and evaluated. Bedside ultrasound performed that shows positive movement. Unable to obtain heart tones due to persistent movement of the fetus. Appropriate size for dates with femur length measurement correlating to approximately 19-2/7 weeks. UA obtained and was negative. Overall feeling better and feels comfortable going home. She will follow-up with her drug safety specialist this week. Discharged home with return precautions. Patient verbalize understanding instructions and agreement with plan. Departure Impression Primary Impression: Abdominal pain in Qualified Codes: O26.892 - Other specified related conditions, second trimester; R10.9 - Unspecified abdominal pain Disposition: 01 HOME, SELF-CARE Condition: Improved Departure-Patient Inst. Decision time for Depature: 17:05 Referrals: [facility] [place]) Primary Care Physician URBANO ANDERSON DO (Family) Primary Care Physician Patient Instructions: Stomach Pain Later in Add. Discharge Instructions: All discharge instructions reviewed with patient and/or family. Voiced understanding. You may take Tylenol 1000 mg every 6-8 hours as needed for pain. You may try warm baths. Follow-up with your OB doctor this week for recheck and further evaluation. Return for worse pain, vaginal bleeding, gush of fluid, persistent pain, fevers, weakness, breathing problems or other concerns as needed. JOHN KUMARI MD Jan 27, 2020 17:07
== END 2020-01-27 17:14 | disposition home or self-care (01) ==
LOC: EDUNIT# 14:00 → ER 14:01
DX: O26.892 Other specified pregnancy related conditions, second trimester (principal); F17.210 Nicotine dependence, cigarettes, uncomplicated; R10.9 Unspecified abdominal pain; Z3A.19 19 weeks gestation of pregnancy
CPT/HCPCS: 81000; 99282

== ENCOUNTER → 2020-01-31 | Outpatient (CLI) | payer MEDICAID ==
--- NOTE | 2020-01-31 15:44 | Diagnostic Imaging Report ---
INDICATION: patient, survey. TECHNIQUE: Multiple real-time grayscale images were obtained over the gravid uterus. COMPARISON: None during this . FINDINGS: A single live intrauterine fetus is seen measuring 19 weeks 1 day in size by composite measurements. Fetus is in breech presentation at this time. Amniotic fluid was qualitatively normal. Placenta is posterior with no evidence of previa. heart rate is 135 BPM. Normal-appearing kidneys and bladder and stomach were seen. Normal-appearing intracranial ventricles. Normal-appearing four-chamber heart view and three-vessel cord were seen. Normal-appearing spine and cord insertion were seen. Cervical length was 5.1 cm. Maternal adnexa showed no free fluid. Biometrical measurements are as follows: Biparietal 4.24 cm, age 18 weeks 6 days. Head circumference 16.11 cm, age 19 weeks 0 days. Abdominal circumference 14.10 cm, age 19 weeks 4 days. Femur length 2.89 cm, age 19 weeks 0 days. Sonographic estimate age: 19 weeks 1 days. Sonographic estimated date of delivery: 06/25/20. Estimated Weight: 277 gm (+/- 41 gm). LMP percentile: 14%. heart rate: 135 beats per minute. number: 1 of 1. IMPRESSION: Single live intrauterine fetus measuring 19 weeks 1 day in size. There was no detectable abnormality. Dictated by: Dictated on workstation # [id number]
== END ==
LOC: RAD 11:33
PROVIDERS: ATTEND Nurse Practitioner Women's Health
DX: Z34.92 Encounter for supervision of normal pregnancy, unspecified, second trimester (principal); Z3A.19 19 weeks gestation of pregnancy
CPT/HCPCS: 76805

== ENCOUNTER → 2020-05-01 | Outpatient (CLI) | payer MEDICAID ==
--- NOTE | 2020-05-01 15:19 | Diagnostic Imaging Report ---
INDICATION: Evaluate growth. TECHNIQUE: Multiple real-time grayscale images were obtained over the gravid uterus. COMPARISON: 01/31/2020. FINDINGS: There is a single live fetus in a transverse presentation with head to the maternal right. heart rate was recorded at 130 bpm. Placenta is posterior. No previa is detected. Amniotic fluid index is 14.8 cm. Biometrical measurements are as follows: Biparietal 8.05 cm, age 32 weeks 3 days. Head circumference 30.14 cm, age 33 weeks 4 days. Abdominal circumference 28.40 cm, age 32 weeks 4 days. Femur length 6.40 cm, age 33 weeks 1 days. Sonographic estimate age: 33 weeks 0 days. Sonographic estimated date of delivery: 06/19/2020. Estimated Weight: 2033 gm (+/- 297 gm). LMP percentile: 36%. heart rate: 130 beats per minute. number: 1 of 1. IMPRESSION: Single live IUP measuring 33 weeks 0 days gestational age showing normal interval growth when compared with prior exam from 01/31/2020. No complicating features are detected. Dictated by: Dictated on workstation # [id number]
== END ==
LOC: RAD 14:15
PROVIDERS: ATTEND Obstetrics & Gynecology
DX: O09.523 Supervision of elderly multigravida, third trimester (principal); Z3A.33 33 weeks gestation of pregnancy
CPT/HCPCS: 76805

== ENCOUNTER → 2020-06-03 | Outpatient (CLI) | payer MEDICAID ==
--- NOTE | 2020-06-03 10:59 | Diagnostic Imaging Report ---
INDICATION: MATERNAL CARE FOR MALPRESENTATION OF FETUS TECHNIQUE: The fetus was observed by the search marketing specialist for purposes of a nonstress biophysical profile evaluation. Correlation: 05/01/2020 FINDINGS: Intrauterine is currently in a cephalic presentation. The placenta is along the posterior aspect. cardiac activity at 135 beats per minute. Polyhydramnios, amniotic fluid with an index at 24.57 cm. Biophysical Profile Scoring: breathin Body movement: 2 tone: 2 Amniotic fluid: 2 Total BPP Score: 8/8 Sonographic estimated age 35 weeks 3 days for an estimated date of delivery 07/05/2020. Estimated weight 2789 g +/- 407 g. anatomical assessment was not performed on this study. IMPRESSION: 1. Normal biophysical profile score. 2. Fetus currently in a cephalic presentation. 3. Polyhydramnios. 4. Sonographic estimated age 35 weeks 3 days for estimated date delivery 07/05/2020. Slightly delayed from previous dating. Dictated by: Dictated on workstation # [id number]
== END ==
LOC: RAD 08:00
PROVIDERS: ATTEND Obstetrics & Gynecology
DX: O32.9XX9 Maternal care for malpresentation of fetus, unspecified, other fetus (principal); Z3A.00 Weeks of gestation of pregnancy not specified
CPT/HCPCS: 76805; 76819

== ENCOUNTER → 2020-06-10 | Outpatient (CLI) | payer MEDICAID ==
[~2020-06-10] MED LIST changes: +ACET-93 PO; +DCS100C PO; +FERR325T18 PO; +OXC5T PO
== END ==
LOC: LABNPT 12:52
PROVIDERS: ATTEND Obstetrics & Gynecology
DX: Z20.822 Contact with and (suspected) exposure to COVID-19 (principal)
CPT/HCPCS: 87635

== ENCOUNTER 2020-06-11 09:52 | Inpatient (IN) | payer MEDICAID ==
--- NOTE | 2020-06-10 16:56 | History & Physical-OB ---
OB - Chief Complaint & HPI Date/Time Date of Admission: Date of Admission: 06/11/2020 Date seen by a Provider: Jun 11, 2020 Time Seen by a Provider: 10:30 Chief Complaint/History OB-Reason for Admission/Chief: Induction of Labor Hx : 4 Hx Para: 3 Expected Date of Delivery: Jun 20, 2020 Gestational Age in Weeks: 38 Gestational Age in Days: 5 Indication for induction: other (polyhydramnios, malpresentation/complex presentation, advanced maternal age, decreased movement. ) Other reason for admission: has been complicated by AMA > 35. presentation has been variable and there is polyhydramnios (> 30) so concern for cord prolapse and continued malpresentation with SROM. Will admit for controlled AROM and inducti on. Had decreased movement today and NST was initially non reactive, but then became reactive. She was chriss regularly. Admission Nurse Assessment Rev: Yes History of Labs O+/- HIV- HBsAg- Hep C - VDRL NR Rub I GBS - Other Declined flu vaccine and TDaP. Allergies and Home Medications Allergies Coded Allergies: No Known Drug Allergies (Unverified , 06/30/19) Patient Home Medication List Home Medication List Reviewed: Yes OB - History Hx of Present Ultrasounds: Normal mid trimester US Obstetrical Complications: None Medical Complications: None, Other (previous history of post preeclampsia requiring antihypertensives. She was on ASA this until 37 weeks when ASA was discontinued by the BATCH OR CONTINUOUS STILL OPERATOR) Information Induced Hypertension: No Maternal Gestational Diabetes: No Hemorrhage: No Obstetrical History Hx : 4 Hx Para: 3 Hx # Term Pregnancies: 3 Hx # Pregnancies: 0 Number of Living Children: 3 Hx Termination: No Hx Total # of Abortions (Spona: 0 Hx Multiple Gestation: No Hx Ectopic : No Hx Stillbirth: No Hx Complication: No Hx Induced Hypertens: No (post preeclampsia) Hx Maternal Gestational Diabet: No Hx Hemorrhage: No Delivery History Hx Dystocia: No Hx Forceps Assisted Delivery: No Hx Vacuum Extraction Assisted: No Hx Placenta Abnormality: No Hx Distress: No Hx Large For Gestational Age I: Yes (first 18 years ago) Hx Small for Gestational Age I: No Hx Section: No Hx Vaginal Delivery Post C-Sec: No Hx Blood Disorders: No Adverse Rxn to Tranfusion: No (N/A) Patient Past Medical History post preeclampsia Social History/Family History Alcohol Use: Denies Use Recreational Drug Use: No Smoking Cessation: Current some day smoker 2nd Hand Smoke Exposure: Yes Immunizations Hepatitis A: No Hepatitis B: No Tetanus Booster (TDap): Less than 5yrs Rubella: immune RPR/VDRL: Negative GBS Status: Negative HBsAG: Negative OB - Admission Exam Physical Exam Heart: Rhythm Normal Lungs: Clear Abdomen: Gravid Extremities: Normal Reflexes: Normal Cervical Dilatation: 2cm Effacement: 25% Station: -3 Membranes: Intact Heart Rate: 140's Accelerations: Accelerations Present Decelerations: No Decelerations Short Term Variability: Present Half-Way Variability: Average (6-25) Contractions on Admission: 6-10 Minutes Apart OB - Assessment/Plan/Diagnosis Assessment Assessment: induction of labor, other (due to AMA, polyhydramnios, variable presentation (concern for SROM at home) decreased movement and SGA will plan IOL on 06/11/2020. Plan admission with pitocin and then controlled AROM. anticipate . Peds _ [facility]) Admission Dx 1. polyhydramnios 2. Advanced maternal age 3. 38 5/7 weeks 4. Decreased movement 5. SGA Plan admission for AROM and then augmentation Anticipate Peds - [facility] Admission Status: Inpatient Order (span 2 midnights) Reason for Inpatient Admission: labor URBANO ANDERSON DO Jun 10, 2020 16:56
[2020-06-11] VITALS (62 sets, daily range): BP systolic 84–119; BP diastolic 48–88
[~2020-06-11] VITALS: Ht 177.8 cm; Wt 71.4 kg
[~2020-06-11 09:52] MED LIST changes: -ACET-93 PO; -DCS100C PO; -FERR325T18 PO; -OXC5T PO
--- NOTE | 2020-06-11 10:00 | NUR ---
KIM GROSS Jamilah presented to unit via ambulation from ED, accompanied by mother, for INDUCTION. KIM GROSS Jamilah weighed, gowned, voided, and to bed. EFHM and TOCO applied, VS taken. KIM GROSS oriented to bed controls, call light, TV, heat, and A/C controls.
[2020-06-11] MEDS ORDERED: MINERAL OIL CONCENTRATE 99.9% 15 ML UDC TOP PRN (10:15)
[2020-06-11] MEDS ORDERED: OXYTOCIN PRE-MIX DRIP 500 ML IV SCH (10:15)
[2020-06-11 10:27] LABS: BILIRUBIN,URINE NEGATIVE (NEGATIVE); CLARITY,URINE CLEAR; COLOR,URINE YELLOW; GLUCOSE, URINE (UA) NEGATIVE (NEGATIVE); KETONES,URINE NEGATIVE (NEGATIVE); LEUKOCYTE ESTERASE ,URINE TRACE (NEGATIVE); NITRITE,URINE NEGATIVE (NEGATIVE); PH,URINE 7.5 (5-9); PROTEIN,URINE NEGATIVE (NEGATIVE)
[2020-06-11] MEDS: D5 LR IV SOLUTION 1,000 ML IV SCH ×2 (10:42→18:47)
[2020-06-11 10:51] LABS: BASOPHILS # (AUTO) 0.1 10^3/uL (0.0-0.1); BASOPHILS % (AUTO) 1 % (0-10); EOSINOPHILS # (AUTO) 0.4 10^3/uL (0.0-0.3); EOSINOPHILS % (AUTO) 4 % (0-10); HEMATOCRIT 33 % (35-52); HEMOGLOBIN 11.1 g/dL (11.5-16.0); LYMPHOCYTES # (AUTO) 2.5 10^3/uL (1.0-4.0); LYMPHOCYTES % (AUTO) 23 % (12-44); MEAN CORPUSCULAR HEMOGLOBIN 34 pg (25-34); MEAN CORPUSCULAR HGB CONC 34 g/dL (32-36); MEAN CORPUSCULAR VOLUME 100 fL (80-99); MEAN PLATELET VOLUME 10.1 fL (9.0-12.2); MONOCYTES # (AUTO) 0.6 10^3/uL (0.0-1.0); MONOCYTES % (AUTO) 6 % (0-12); NEUTROPHILS # (AUTO) 7.3 10^3/uL (1.8-7.8); NEUTROPHILS % (AUTO) 67 % (42-75); PLATELET COUNT 309 10^3/uL (130-400); WHITE BLOOD COUNT 10.9 10^3/uL (4.3-11.0)
[2020-06-11 10:51] LABS: BACTERIA,URINE TRACE /HPF; WBC,URINE 0-2 /HPF
[2020-06-11] MEDS ORDERED: CATHETER FLUSH 10 ML SYR IV SCH (14:00)
--- NOTE | 2020-06-11 16:20 | NUR ---
Anesthesia notified of epidural request
[2020-06-11] MEDS ORDERED: fentaNYL 2 mcg/ml BUPIVA 0.125 100 ML ONE (16:22)
[2020-06-11] MEDS: EPIDURAL (fentaNYL 2 MCG/ML BUPIVA 0.125%)100 ML BAG EPI SCH (17:04)
[2020-06-11] MEDS ORDERED: diphenhydrAMINE 50 MG/ML INJ (BENADRYL) IV PRN (19:00)
[2020-06-11] MEDS ORDERED: ONDANSETRON 4 MG/2 ML (SDV) Z0FRAN IV PRN (19:00)
[2020-06-11] MEDS ORDERED: METOCLOPRAMIDE INJ 10 MG/2 ML (REGLAN) IV PRN (19:00)
[2020-06-11] MEDS ORDERED: NALOXONE 0.4 MG/ML 1 ML (NARCAN) VIAL IV PRN ×2 (19:00)
[2020-06-11] MEDS ORDERED: LACTATED RINGERS 1,000 ML IV SCH (19:00)
--- NOTE | 2020-06-11 22:30 | NUR ---
Pt. is complaining of pain at a 10 on numeric pain scale. SVE shows no change. Nurse offered to bolus pt epidural to which pt refuses.
[2020-06-12] VITALS (24 sets, daily range): BP systolic 82–130; BP diastolic 39–79
[2020-06-12] MEDS: EPIDURAL (fentaNYL 2 MCG/ML BUPIVA 0.125%)100 ML BAG EPI SCH (00:03)
--- NOTE | 2020-06-12 01:46 | NUR ---
0146: scalp electrode misplaced at this time and not reading. SVE done at bedside. Pt. is complete and 100% with what feels to nurse like an arm presentation. FSE has been pulled out of grounding sticker and is very tight. Grounding sticker moved down and grounding wire plugged back in. Dr. Barnes and Nursery nurse informed right away. 0200: Dr. Barnes to bedside to check presentation. Fresh, thick meconium noted. Upon SVE discovers that baby has turned into breech position. C/S is called at this time. 0203: OR crew called in. 0205: Nurse in room with C/S paperwork to be signed. Anesthesia in room to talk to pt about procedure. 0227: Pt. moved to OR with OR crew.
[2020-06-12] MEDS ORDERED: CITRIC ACID/SOB CIT (BICITRA) 30 ML UDC ONE (02:02)
[2020-06-12] MEDS ORDERED: FAMOTIDINE 20MG/2ML IV (PEPCID) ONE (02:02)
[2020-06-12] MEDS ORDERED: ceFAZolin 2 GM IV Premixed 50 ML ONE (02:02)
[2020-06-12] MEDS ORDERED: OXYTOCIN PRE-MIX DRIP 1,000 ML IV ONE (02:03)
[2020-06-12] MEDS ORDERED: KETOROLAC 30 MG/ML VIAL ONE (02:03)
[2020-06-12] MEDS ORDERED: ONDANSETRON 4 MG/2 ML (SDV) Z0FRAN ONE (02:03)
[2020-06-12] MEDS ORDERED: fentaNYL INJECTION 100 MCG/2 ML AMP ONE (02:03)
[2020-06-12] MEDS ORDERED: METOCLOPRAMIDE INJ 10 MG/2 ML (REGLAN) IV ONE (02:15)
[2020-06-12] MEDS ORDERED: CITRIC ACID/SOB CIT (BICITRA) 30 ML UDC PO ONE (02:15)
[2020-06-12] MEDS ORDERED: AZITHROMYCIN INJECTION 500 MG in NS (IVPB) 250 ML IV ONE (02:15)
[2020-06-12] MEDS ORDERED: ceFAZolin INJECTION 1,000 MG in WATER (STERILE) FOR INJECTION 10 ML IV ONE (02:15)
--- NOTE | 2020-06-12 02:15 | Progress Note ---
Progress Note Assessment/Plan Date Seen by Provider: Jun 12, 2020 Time Seen by Provider: 02:00 Events since last exam Patient was admitted for polyhydramnios, SGA and malpresentation, concern for prolapse of cord. The position was checked with US and pelvic exam prior to AROM and was vertex and well applied to the cervix. AROM was accomplished with FSE and there was abundant fluid. The position was again checked. Throughout labor the presenting part was checked and rechecked with ultrasound. However, the RN stated that the presenting part was knobby at one point suggesting a hand presentation. This was again checked via US and the head was presenting and the arm/hand was not felt again. She was 4 cm for a long time and had placement of the epidural. There was a point where there were deep variable decelerations that eventually improved with position changes and stopping pitocin. The position was again checked prior to restarting the pitocin. Once the patient was approximately 7 cm, I was in the OR for a dilation and curettage, the RN stated that the position had changed greatly and was lower in the pelvis but she was concerned about the presentation, thinking that there was now an arm presenting. After the surgery, she stated that the patient was now complete with very thick meconium. On my exam there is a breech and a foot presenting. She was definitely complete. The scalp electrode had changed position (was very short) as the baby had reverted to breech presentation. The plan at this point is to proceed with primary section. The epidural may not be working as well as she hopes, however, the discomfort is likely because of the active movement. The risks of the procedure, include, but are not limited to, bleeding, infection, injury to bowel, bladder and ureter. The patient understans these risks. She would like to deliver vaginally, but with the presentation of a sin gle footling breech, it is unlikely not going to deliver vaginally and would not be safe for delivery. Will plan primary at this time Assessment/Plan 1. Footling breech in labor Plan - primary section Vitals Last set of Vitals Signs Vital Signs Date Time Temp Pulse Resp B/P (MAP) Pulse Ox O2 Delivery O2 Flow Rate FiO2 06/11/20 22:15 69 18 91/58 (69) 06/11/20 21:30 36.7 06/11/20 18:25 98 06/11/20 10:20 Room Air I&O I&O Intake and Output 06/12/20 00:00 Intake Total 2000 ml Balance 2000 ml Intake IV Total 2000 ml Daily Weight Change No Labs Laboratory Tests 06/11/20 10:10: Urine Color YELLOW, Urine Clarity CLEAR, Urine pH 7.5, Urine Specific [place] 1.015L, Urine Protein NEGATIVE, Urine Glucose (UA) NEGATIVE, Urine Ketones NEGATIVE, Urine Nitrite NEGATIVE, Urine Bilirubin NEGATIVE, Urine Urobilinogen 0.2, Urine Leukocyte Esterase TRACEH, Urine RBC (Auto) NEGATIVE, Urine RBC NONE, Urine WBC 0-2, Urine Squamous Epithelial Cells 10-25H, Urine Crystals NONE, Urine Bacteria TRACE, Urine Casts NONE, Urine Mucus NEGATIVE, Urine Culture Indicated NO 06/11/20 10:35: White Blood Count 10.9, Red Blood Count 3.26L, Hemoglobin 11.1L, Hematocrit 33L, Mean Corpuscular Volume 100H, Mean Corpuscular Hemoglobin 34, Mean Corpuscular Hemoglobin Concent 34, Red Cell Distribution Width 12.6, Platelet Count 309, Mean Platelet Volume 10.1, Immature Granulocyte % (Auto) 1, Neutrophils (%) (Auto) 67, Lymphocytes (%) (Auto) 23, Monocytes (%) (Auto) 6, Eosinophils (%) (Auto) 4, Basophils (%) (Auto) 1, Neutrophils # (Auto) 7.3, Lymphocytes # (Auto) 2.5, Monocytes # (Auto) 0.6, Eosinophils # (Auto) 0.4H, Basophils # (Auto) 0.1, Immature Granulocyte # (Auto) 0.1 URBANO ANDERSON DO Jun 12, 2020 02:15
[2020-06-12] MEDS ORDERED: TERBUTALINE INJ 1 MG/ML (BRETHINE) AMP ONE (02:18)
[2020-06-12] MEDS ORDERED: TERBUTALINE INJ 1 MG/ML (BRETHINE) AMP SC ONE (02:30)
[2020-06-12] MEDS ORDERED: PHENYLEPHRINE 100 MCG/ML 10 ML (ANESTHESIA) SYR ONE (02:57)
[2020-06-12] MEDS ORDERED: MEASLES,MUMPS,RUBELLA 1 EA INJ SC SCH (03:30)
[2020-06-12] MEDS ORDERED: TETANUS,DIPTH,PERTUSS P/F (BOOSTRIX) 0.5 ML VIAL IM SCH (03:30)
[2020-06-12] MEDS ORDERED: morphine INJ 4 MG/ML 1 ML (VIAL/SYRINGE) IVP PRN (03:30)
[2020-06-12] MEDS ORDERED: OXYTOCIN PRE-MIX DRIP 500 ML IV SCH (03:30)
--- NOTE | 2020-06-12 03:34 | Cesarean Section Operative ---
Procedure Procedure Note Pre-operative Diagnosis: Danielle Smith is a 39 /Para 4 / 3, Gestational Age 38 6/7 weeks, breech in labor, polyhydramnios, AMA Post-operative Diagnosis: same double footling breech Procedure: Primary low transverse section Physician: URBANO ANDERSON Estimated blood loss: 200 mL Disposition: stable Findings: Viable fmale infant, Apgars 0/4/10, weight ^311 ounces, intact placenta, 3vc, normal appearing uterus, tubes, and ovaries. Indications:Danielle Smith is a (39 /Para 4 / 3,Gestational Age (wks) 38 presenting for []. Procedure Details: The patient was seen in pre-op and the procedure was discussed with the patient in full, including the risks, benefits, and alternatives. All questions were answered. The patient was taken to the operating room and a time out was perform ed, verifying patient and procedure. After spinal anesthesia was placed by our anesthesia colleagues, the patient was placed in the dorsal supine with leftward tilt for uterine displacement.~ Her abdomen was then prepped and draped in the typical sterile fashion. A Pfannenstiel skin incision was made using a scalpel and carried down through the underlying fascia. The fascia was incised in the midline and tented up using Evelia clamps. On both the inferior and superior fascia side the rectus muscle was dissected off bluntly and sharply using Valle scissors. The peritoneum was identified and entered bluntly in the midline. This was then stretched laterally using manual strength. After entering the abdominal cavity and confirming lack of intraperitoneal adhesions, a large Jeff retractor was placed and the lower uterine segment was visualized. A bladder flap was created with the use of Metzenbaum scissors.~ A scalpel was utilized to make a low transverse uterine incision. Amniotomy was performed with an Allis clamp with return of clear fluid. The 's head was grasped and brought to the level of the incision. Fundal pressure was applied and infant was delivered without difficulty. Mouth and nares were suctioned with bulb suction. After the umbilical cord was clamped and cut, the was handed off to the pediatric staff. A sample of cord blood was then obtained. The placenta was delivered intact via uterine massage. The uterus was exteriorized and cleared of all clots and debris. The uterine incision was cl osed using 0 Vicryl in a running locked fashion. A second imbricated layer was placed using 0 Vicryl in a running fashion as well. The uterus was flexed forward and the posterior rectouterine space was inspected and cleared of all clots and debris. Again the hysterotomy site was examined and hemostasis was observed. The bilateral tubes and ovaries appeared normal. The uterus was placed back into the abdominal cavity and abdominal gutters were cleared of all clots and debris. A final check of the uterine incision showed it to be hemostatic. The peritoneum was closed using 3-0 Vicryl in a running fashion. The fascia was closed with 0 Vicryl in a running fashion. The subcutaneous space was hemostatic, and irrigated. The subcutaneous space was closed with 3-0 Vicryl in several single interrupted stitches. The skin was then closed using 4-0 Monocryl in a running subcuticular fashion. The skin edges were reapproximated together and were hemostatic. A pressure dressing was applied. All sponge, lap and needle counts were correct at the end of the procedure per nursing. Vitals - Labs Vital Signs - I&O Vital Signs Date Time Temp Pulse Resp B/P (MAP) Pulse Ox O2 Delivery O2 Flow Rate FiO2 06/11/20 22:15 69 18 91/58 (69) 06/11/20 22:00 63 18 86/53 (64) 06/11/20 21:30 36.7 68 18 102/58 (73) 06/11/20 21:15 65 18 102/56 (71) 06/11/20 21:00 67 18 100/85 (90) 06/11/20 20:42 67 18 113/62 (79) 06/11/20 20:25 68 18 115/58 (77) 06/11/20 20:10 67 18 105/72 (83) 06/11/20 19:55 69 18 105/61 (76) 06/11/20 19:42 36.6 79 18 106/65 (79) 06/11/20 19:25 82 18 110/66 (81) 06/11/20 19:10 85 18 114/60 (78) 06/11/20 18:55 91 18 100/70 (80) 06/11/20 18:40 84 18 99/69 (79) 06/11/20 18:25 36.6 71 18 105/57 (73) 98 06/11/20 18:10 67 18 103/57 (72) 97 06/11/20 17:55 59 18 112/53 (72) 98 06/11/20 17:50 59 18 107/64 (78) 96 06/11/20 17:45 68 18 118/59 (78) 96 06/11/20 17:40 71 18 105/61 (76) 95 06/11/20 17:35 69 18 102/54 (70) 96 06/11/20 17:27 60 18 118/59 (78) 97 06/11/20 17:24 67 18 112/56 (74) 97 06/11/20 17:20 73 18 103/56 (72) 97 06/11/20 17:17 73 18 104/56 (72) 97 06/11/20 17:14 86 18 109/59 (76) 98 06/11/20 17:11 76 18 105/59 (74) 98 06/11/20 17:08 70 18 92/53 (66) 98 06/11/20 17:05 75 18 106/64 (78) 06/11/20 17:02 79 18 108/69 (82) 99 06/11/20 16:59 77 18 117/70 (86) 99 06/11/20 16:56 74 18 113/69 (84) 99 06/11/20 16:50 76 18 103/64 (77) 06/11/20 16:35 75 18 105/64 (78) 06/11/20 16:20 74 18 103/63 (76) 06/11/20 16:05 37.0 90 18 109/58 (75) 06/11/20 15:50 72 18 89/51 (64) 06/11/20 15:35 79 18 100/53 (69) 06/11/20 15:20 36.9 82 18 94/52 (66) 06/11/20 15:05 83 18 84/48 (60) 06/11/20 14:50 76 18 90/51 (64) 06/11/20 14:35 89 18 89/53 (65) 06/11/20 14:20 71 18 88/51 (63) 06/11/20 14:05 90 18 92/50 (64) 06/11/20 13:50 77 18 106/55 (72) 06/11/20 13:35 75 18 101/51 (68) 06/11/20 13:20 69 18 109/58 (75) 06/11/20 13:05 86 18 108/69 (82) 06/11/20 12:50 36.8 80 18 107/60 (76) 06/11/20 12:35 79 18 109/54 (72) 06/11/20 12:20 81 18 103/55 (71) 06/11/20 12:05 79 18 112/72 (85) 06/11/20 11:50 84 18 106/88 (94) 06/11/20 11:20 93 18 108/61 (77) 06/11/20 11:05 96 18 109/64 (79) 06/11/20 10:20 37.0 98 18 98 Room Air I & O 06/12/20 07:00 Intake Total 2050 ml Balance 2050 ml Labs Laboratory Tests 06/11/20 10:10: Urine Color YELLOW, Urine Clarity CLEAR, Urine pH 7.5, Urine Specific [place] 1.015L, Urine Protein NEGATIVE, Urine Glucose (UA) NEGATIVE, Urine Ketones NEGAT KAYDEN, Urine Nitrite NEGATIVE, Urine Bilirubin NEGATIVE, Urine Urobilinogen 0.2, Urine Leukocyte Esterase TRACEH, Urine RBC (Auto) NEGATIVE, Urine RBC NONE, Urine WBC 0-2, Urine Squamous Epithelial Cells 10-25H, Urine Crystals NONE, Urine Bacteria TRACE, Urine Casts NONE, Urine Mucus NEGATIVE, Urine Culture Indicated NO 06/11/20 10:35: White Blood Count 10.9, Red Blood Count 3.26L, Hemoglobin 11.1L, Hematocrit 33L, Mean Corpuscular Volume 100H, Mean Corpuscular Hemoglobin 34, Mean Corpuscular Hemoglobin Concent 34, Red Cell Distribution Width 12.6, Platelet Count 309, Mean Platelet Volume 10.1, Immature Granulocyte % (Auto) 1, Neutrophils (%) (Auto) 67, Lymphocytes (%) (Auto) 23, Monocytes (%) (Auto) 6, Eosinophils (%) (Auto) 4, Basophils (%) (Auto) 1, Neutrophils # (Auto) 7.3, Lymphocytes # (Auto) 2.5, Monocytes # (Auto) 0.6, Eosinophils # (Auto) 0.4H, Basophils # (Auto) 0.1, Immature Granulocyte # (Auto) 0.1 URBANO ANDERSON DO Jun 12, 2020 03:34
[2020-06-12] MEDS ORDERED: BUPIVACAINE 0.25% 30 ML (SENSORCAINE) VIAL ONE (03:39)
--- NOTE | 2020-06-12 05:30 | NUR ---
0530: Fundus firm and at umbilicus. Minimal bleeding. No clots passed. 0600: Fundus firm and at umbilicus. Minimal bleeding. No clots passed. Pericare provided at this time. Clean chux and v pad placed under pt. Pt. has no complaints of pain at this time.
[2020-06-12] MEDS ORDERED: CATHETER FLUSH 10 ML SYR IV SCH (06:00)
[2020-06-12] MEDS: FERROUS SULF 325 MG (IRON) TAB PO SCH (09:50)
[2020-06-12] MEDS: DOCUSATE SODIUM 100 MG (COLACE) CAP PO SCH ×2 (09:50→21:37)
[2020-06-12] MEDS: KETOROLAC 30 MG/ML VIAL IV SCH ×2 (09:51→18:22)
[2020-06-12] MEDS: ACETAMINOPHEN 500 MG TAB (TYLENOL) PO SCH ×2 (09:51→18:21)
--- NOTE | 2020-06-12 09:55 | NUR ---
THIS RN TO BEDSIDE. VS OBTAINED. MEDS GIVEN; SEE EMAR FOR FURTHER. INITIAL SHIFT ASSESSMENT COMPLETED; SEE INTERVENTION FOR FURTHER. FRESH ICE CHIPS AND COFFEE PROVIDED PER REQUEST. CALL LIGHT WITHIN REACH.
--- NOTE | 2020-06-12 10:30 | NUR ---
PT UP TO THE BATHROOM WITH STAND BY ASSIST. + VOID. + PERICARE, NEW GOWN ON. PT BACK TO BED. PT'S MOTHER @ THE BEDSIDE. CALL LIGHT WITHIN REACH.
--- NOTE | 2020-06-12 14:40 | NUR ---
PT LYING IN BED, THEN SITS UP ON THE SIDE OF THE BED. VS OBTAINED. PAIN MEDICINE GIVEN PO PER REQUEST; SEE EMAR FOR FURTHER. ABD BINDER PROVIDED PER REQUEST. CALL LIGHT WITHIN REACH.
[2020-06-12] MEDS ORDERED: IBUP-844 PO (17:24)
[2020-06-12] MEDS ORDERED: FERR325T18 PO (17:24)
[2020-06-12] MEDS ORDERED: OXC5T PO (17:24)
[2020-06-12] MEDS ORDERED: DCS100C PO (17:24)
[2020-06-12] MEDS ORDERED: ACET-93 PO (17:24)
--- NOTE | 2020-06-12 17:25 | Discharge Inst-Women's Service ---
Discharge Inst-Women's Serv Depart Medication/Instructions New, Converted or Re-Newed RX: RX on Chart Final Diagnosis breech advanced maternal age polyhydramnios acute blood loss anemia Problems Reviewed?: Yes Consults/Follow Up Additional Follow Up: Yes (1 week and 6 weeks) Activity Activity: Activity as Tolerated Driving Instructions: No Driving for 1 Week NO SMOKING: NO SMOKING Nothing Inside Vagina: No Douching, No Serena, No Tampons Diet Discharge Diet: No Restrictions Symptoms to Report to : Swelling Increased, Bleeding Excessive, Pain Increased, Fever Over 101 Degrees F, Vaginal Bleeding Increase, Cramps in Feet or Legs, Vaginal Discharge Foul For Any Problems or Questions: Contact Your Physician Skin/Wound Care Infection Signs and Symptoms: Increased Redness, Foul Odor of Wound, Increased Drainage, Skin Itchy or Has a Rash, Increased Swelling, Temperature Above 101 F Operative Area Clean and Dry: Keep Incision Clean/Dry Stitches/[place]/Dermabond: Dermabond Bathing Instructions: URBANO Diaz DO Jun 12, 2020 5:25 pm
--- NOTE | 2020-06-12 19:30 | NUR ---
Nurse at pt bedside. Assessment complete. Abd dressing is dry and intact. No drainage noted. Pt. states that she is doing well other than some shoulder pain. Medication given at this time for gas pain. Pt. encouraged to walk to help with gas pains. Pt. states that she will get up and walk around the room before she goes to bed for the night. Pt has no other questions or concerns at this time.
[2020-06-12] MEDS: SIMETHICONE 80 MG (MYLICON) CHEW PO PRN (19:34)
[2020-06-13] MEDS: KETOROLAC 30 MG/ML VIAL IV SCH ×2 (00:31→19:53)
[2020-06-13 02:15] VITALS: BP 107/56
[2020-06-13] MEDS: ACETAMINOPHEN 500 MG TAB (TYLENOL) PO SCH ×4 (03:18→20:09)
[2020-06-13 05:35] LABS: BASOPHILS # (AUTO) 0.1 10^3/uL (0.0-0.1); BASOPHILS % (AUTO) 1 % (0-10); EOSINOPHILS # (AUTO) 0.5 10^3/uL (0.0-0.3); EOSINOPHILS % (AUTO) 4 % (0-10); HEMATOCRIT 27 % (35-52); HEMOGLOBIN 9.2 g/dL (11.5-16.0); LYMPHOCYTES # (AUTO) 2.5 10^3/uL (1.0-4.0); LYMPHOCYTES % (AUTO) 20 % (12-44); MEAN CORPUSCULAR HEMOGLOBIN 34 pg (25-34); MEAN CORPUSCULAR HGB CONC 34 g/dL (32-36); MEAN CORPUSCULAR VOLUME 101 fL (80-99); MEAN PLATELET VOLUME 10.6 fL (9.0-12.2); MONOCYTES # (AUTO) 0.9 10^3/uL (0.0-1.0); MONOCYTES % (AUTO) 7 % (0-12); NEUTROPHILS # (AUTO) 8.5 10^3/uL (1.8-7.8); NEUTROPHILS % (AUTO) 68 % (42-75); PLATELET COUNT 238 10^3/uL (130-400); WHITE BLOOD COUNT 12.5 10^3/uL (4.3-11.0)
[2020-06-13] MEDS: IBUPROFEN 600 MG (MOTRIN) TAB PO SCH ×3 (05:42→18:20)
--- NOTE | 2020-06-13 05:45 | NUR ---
Dressing and IV removed at this time per orders. Pt. tolerated well. Incision is dry, approximated, and intact when this nurse left bedside.
[2020-06-13 06:26] VITALS: BP 104/55
--- NOTE | 2020-06-13 06:54 | Postpartum Progress Note ---
Post Op Post-operative Day #1 s/p PLTCS breech in labor (footling ) history of PP preeclampsia. Blood pressures have been stable Would like to have umbilical hernia repaired and BTL/salpingectomy. plan dc tomorrow. Subjective: Patient is without complaints. Ambulating, voiding after espinosa removed. Tolerating a regular diet without nausea or vomiting. Normal lochia. Pain is well controlled with oral pain medications. Passing flatus. bottle feeding. Blood pressures have been stable Objective: 06/12/20 06/13/20 06/13/20 23:00 02:15 06:26 Temp 36.5 36.3 36.0 Pulse 69 69 72 Resp 18 16 18 B/P (MAP) 113/62 (79) 107/56 (73) 104/55 (71) Pulse Ox 98 97 96 O2 Delivery Room Air Room Air Room Air 06/13/20 00:00 Output Total 900 ml Balance -900 ml Laboratory Tests Test 06/13/20 04:50 Range/Units White Blood Count 12.5 H 4.3-11.0 10^3/uL Red Blood Count 2.68 L 3.80-5.11 10^6/uL Hemoglobin 9.2 L 11.5-16.0 g/dL Hematocrit 27 L 35-52 % Mean Corpuscular Volume 101 H 80-99 fL Mean Corpuscular Hemoglobin 34 25-34 pg Mean Corpuscular Hemoglobin Concent 34 32-36 g/dL Red Cell Distribution Width 12.6 10.0-14.5 % Platelet Count 238 130-400 10^3/uL Mean Platelet Volume 10.6 9.0-12.2 fL Immature Granulocyte % (Auto) 1 % Neutrophils (%) (Auto) 68 42-75 % Lymphocytes (%) (Auto) 20 12-44 % Monocytes (%) (Auto) 7 0-12 % Eosinophils (%) (Auto) 4 0-10 % Basophils (%) (Auto) 1 0-10 % Neutrophils # (Auto) 8.5 H 1.8-7.8 10^3/uL Lymphocytes # (Auto) 2.5 1.0-4.0 10^3/uL Monocytes # (Auto) 0.9 0.0-1.0 10^3/uL Eosinophils # (Auto) 0.5 H 0.0-0.3 10^3/uL Basophils # (Auto) 0.1 0.0-0.1 10^3/uL Immature Granulocyte # (Auto) 0.1 0.0-0.1 10^3/uL Physical Exam: General - Alert and oriented, no apparent distress Abdomen - Soft, appropriately tender to palpation, non-distended, fundus firm at umbilicus Incision - clean, dry and intact; no erythema or induration, no drainage Extremities - no edema, negative Kedar's bilaterally Assessment: 1. post-operative day # 1, status post PLTCS. Recovering well, hemodynamically stable Acute blood loss anemia - stable on iron Plan: Routine post-operative care. Encourage breast feeding. Encourage ambulation. VTE prophylaxis: SCDs. Ferrous sulfate supplementation. Plan for discharge tomorrow Vitals - Labs Vital Signs - I&O Vital Signs Date Time Temp Pulse Resp B/P (MAP) Pulse Ox O2 Delivery O2 Flow Rate FiO2 06/13/20 06:26 36.0 72 18 104/55 (71) 96 Room Air 06/13/20 02:15 36.3 69 16 107/56 (73) 97 Room Air 06/12/20 23:00 36.5 69 18 113/62 (79) 98 Room Air 06/12/20 18:26 37.0 74 18 113/72 (86) 100 Room Air 06/12/20 14:38 36.9 78 18 109/68 (82) 98 Room Air 06/12/20 09:47 36.7 70 18 117/55 (75) 95 Room Air I & O 06/13/20 07:00 Intake Total 500 ml Output Total 3400 ml Balance -2900 ml Labs Laboratory Tests 06/13/20 04:50: White Blood Count 12.5H, Red Blood Count 2.68L, Hemoglobin 9.2L, Hematocrit 27L, Mean Corpuscular Volume 101H, Mean Corpuscular Hemoglobin 34, Mean Corpuscular Hemoglobin Concent 34, Red Cell Distribution Width 12.6, Platelet Count 238, Mean Platelet Volume 10.6, Immature Granulocyte % (Auto) 1, Neutrophils (%) (Auto) 68, Lymphocytes (%) (Auto) 20, Monocytes (%) (Auto) 7, Eosinophils (%) (Auto) 4, Basophils (%) (Auto) 1, Neutrophils # (Auto) 8.5H, Lymphocytes # (Auto) 2.5, Monocytes # (Auto) 0.9, Eosinophils # (Auto) 0.5H, Basophils # (Auto) 0.1, Immature Granulocyte # (Auto) 0.1 Microbiology 06/11/20 Urine Culture - Final, Complete NO GROWTH URBANO ANDERSON DO Jun 13, 2020 06:54
--- NOTE | 2020-06-13 07:40 | NUR ---
DR. ANDERSON TO PT'S BEDSIDE.
--- NOTE | 2020-06-13 07:57 | Anesthesia-Regional Post-Op ---
Regional Patient Condition Mental Status: Alert, Oriented x3 Circulation: Same as Pre-Op Headache: Absent Sensation: Full Recovery Motor Block: Absent Post Op Complications Complications None Follow Up Care/Instructions Patient Instructions None needed. Anesthesia/Patient Condition Patient is doing well, no complaints, stable vital signs, no apparent adverse anesthesia problems. No complications reported per nursing. BROOKE CUMMINS CRNA Jun 13, 2020 07:57
[2020-06-13 09:21] VITALS: BP 102/56
[2020-06-13] MEDS: DOCUSATE SODIUM 100 MG (COLACE) CAP PO SCH ×2 (09:23→20:09)
[2020-06-13] MEDS: FERROUS SULF 325 MG (IRON) TAB PO SCH (09:23)
--- NOTE | 2020-06-13 09:30 | NUR ---
THIS RN TO BEDSIDE. VS OBTAINED. MEDS GIVEN PO; SEE EMAR FOR FURTHER. INITIAL SHIFT ASSESSMENT COMPLETED; SEE INTERVENTION FOR FURTHER. SHOWER SET UP. PT'S MOTHER @ BEDSIDE. NO NEEDS VOICED, CALL LIGHT WITHIN REACH.
--- NOTE | 2020-06-13 09:50 | NUR ---
CM/SS received consult for the patient's support system due nursing assessment. CM/SS spoke with the patient's nurse who states that the patient has her mother present with her for support. No consult needed. CM/SS will visit with patient if a needed arises.
[2020-06-13] MEDS: SIMETHICONE 80 MG (MYLICON) CHEW PO PRN ×2 (12:30→20:12)
[2020-06-13 15:32] VITALS: BP 107/52
[2020-06-13 20:09] VITALS: BP 111/55
[2020-06-14 01:13] VITALS: BP 123/71
[2020-06-14] MEDS: IBUPROFEN 600 MG (MOTRIN) TAB PO SCH ×3 (01:13→13:56)
[2020-06-14] MEDS: ACETAMINOPHEN 500 MG TAB (TYLENOL) PO SCH ×2 (03:47→12:15)
[2020-06-14] MEDS: DOCUSATE SODIUM 100 MG (COLACE) CAP PO SCH (08:13)
[2020-06-14] MEDS: FERROUS SULF 325 MG (IRON) TAB PO SCH (08:14)
[2020-06-14 08:15] VITALS: BP 109/69
--- NOTE | 2020-06-14 11:10 | NUR ---
Dr Barnes contacted, september d/c pt without rounding first.
--- NOTE | 2020-06-14 14:05 | NUR ---
Discharge instructions explained to pt with copy provided to pt along with narcotic script. Pt verbalizes understanding of instructions and signs to verify. Pt notified of follow up appts and other scripts available at preferred pharmacy. Pt denies questions or concerns.
--- NOTE | 2020-06-14 14:20 | NUR ---
Pt ambulates off unit to private vehicle with all personal belongings, accompanied by RN. No s/s of distress noted.
== END 2020-06-14 14:20 | disposition home or self-care (01) | DRG 787 ==
LOC: LDRP 09:52 → WS 06-12 16:44 → LDRP 06-12 16:44
PROVIDERS: ADMIT Obstetrics & Gynecology; ATTEND Obstetrics & Gynecology
PROC: 10D00Z1 Extraction of Products of Conception, Low, Open Approach (ICD-10-PCS; principal; 2020-06-12 02:28)
DX: O40.3XX0 Polyhydramnios, third trimester, not applicable or unspecified (principal); D62 Acute posthemorrhagic anemia; O36.8130 Decreased fetal movements, third trimester, not applicable or unspecified; O32.8XX0 Maternal care for other malpresentation of fetus, not applicable or unspecified; O90.81 Anemia of the puerperium; Z3A.38 38 weeks gestation of pregnancy; Z37.0 Single live birth
CPT/HCPCS: 36415; 81000; 85025; 86850; 86900; 86901; 87088

== ENCOUNTER 2020-06-28 20:50 | Emergency (ER) | payer MEDICAID ==
[~2020-06-28] VITALS: Ht 177.8 cm; Wt 65.0 kg
[~2020-06-28 20:50] MED LIST changes: +ACET-93 PO; +DCS100C PO; +FERR325T18 PO; +OXC5T PO
--- NOTE | 2020-06-28 21:12 | ED Abdominal Pain ---
General Chief Complaint: Female Reproductive Stated Complaint: POST C SECTION/STOMACH PAIN Nursing Triage Note: lower abdominal cramping x1hr. reports 2 weeks post . denies injury Sepsis Screen: No Definite Risk Source of Information: Patient History of Present Illness Date Seen by Provider: Jun 28, 2020 Time Seen by Provider: 20:58 Initial Comments PT ARRIVES VIA POV FROM HOME C/O LOWER ABDOMINAL CRAMPING X 1 HOUR TOOK TYLENOL 30 MINUTES AGO WITHOUT RELIEF PT IS 2 WEEKS POST . DELIVERED 06/11/20 FOR BREECH PRESENTATION. NO COMPLICATIONS. PT IS . PT IS NOT NORMAL LOCHIA--STATES SHE HAS USED 4-5 PADS TODAY BUT THEY WERE NOT SATURATED, AND BLEEDING IS VERY LIGHT AND STARTING TO TURN BROWN IN COLOR. NO ODOR. NO URINARY SYMPTOMS NO GI SYMPTOMS NO FEVER HAS FELT FINE ALL DAY PT HAS KNOWN UMBILICAL HERNIA--IT IS NOT PAINFUL, OR RED, OR SWOLLEN AT THIS TIME HAS POST EXAM 07/21 AND EXAM 07/24 WITH SURGEON REGARDING UMBILICAL HERNIA REPAIR. PCP: [facility] UTILITY SERVICE WORKER: DR. ANDERSON Allergies and Home Medications Allergies Coded Allergies: No Known Drug Allergies (Unverified , 06/30/19) Home Medications Acetaminophen 500 Mg Tablet, 1,000 MG PO Q8HR Prescribed by: URBANO ANDERSON on 06/12/20 172 Docusate Sodium 100 Mg Capsule, 100 MG PO BID Prescribed by: URBANO ANDERSON on 06/12/20 172 Ferrous Sulfate 325 Mg Tablet, 325 MG PO DAILY@0700 Prescribed by: URBANO ANDERSON on 06/12/20 172 Ibuprofen 600 Mg Tablet, 600 MG PO Q6HR Prescribed by: URBANO ANDERSON on 06/12/20 172 Ketorolac Tromethamine 10 Mg Tablet, 10 MG PO Q6H Prescribed by: NAVEEN DWYER on 06/28/202228 Nitrofurantoin Monohyd/M-Cryst 100 Mg Capsule, 1 TAB PO BID Prescribed by: NAVEEN DWYER on 06/28/202228 Oxycodone Hcl 5 Mg Tab, 5 MG PO Q4HR Prescribed by: URBANO ANDERSON on 06/12/20 172 Phenazopyridine HCl 200 Mg Tablet, 1 TAB PO TID Prescribed by: NAVEEN DWYER on 1/29/21 2229 Patient Home Medication List Home Medication List Reviewed: Yes Review of Systems Review of Systems Constitutional: no symptoms reported Respiratory: No Symptoms Reported Cardiovascular: No Symptoms Reported Gastrointestinal: See HPI, Abdominal Pain; Denies Constipated, Denies Diarrhea, Denies Nausea, Denies Vomiting Genitourinary: See HPI Musculoskeletal: no symptoms reported; No back pain Skin: no symptoms reported Psychiatric/Neurological: No Symptoms Reported Endocrine: No Symptoms Reported Hematologic/Lymphatic: No Symptoms Reported Past Xrzqvgb-Uwzolw-Cignmu Hx Patient Social History Alcohol Use: Denies Use Smoking Status: Current Everyday Smoker Type Used: Cigarettes 2nd Hand Smoke Exposure: Yes Recent Infectious Disease Expo: No Recent Hopitalizations: No Immunizations Up To Date Tetanus Booster (TDap): Less than 5yrs PED Vaccines UTD: Yes Seasonal Allergies Seasonal Allergies: No Past Medical History Surgeries: Yes (HERNIA REPAIR) Abdominal, Section Respiratory: No Cardiac: Yes Hypertension Neurological: No : No Reproductive Disorders: No Sexually Transmitted Disease: No HIV/AIDS: No Genitourinary: No Gastrointestinal: Yes (HERNIA REPAIR) Abdominal Hernia Musculoskeletal: No Endocrine: No HEENT: Yes Loss of Vision: Denies Hearing Impairment: Denies Cancer: No Psychosocial: Yes Anxiety Integumentary: No Blood Disorders: No Adverse Reaction/Blood Tranf: No (N/A) Family Medical History Patient reports no known family medical history. Physical Exam Vital Signs Vital Signs - First Documented 06/28/20 20:55 Temp 36.9 Pulse 75 Resp 18 B/P (MAP) 134/73 (93) Pulse Ox 99 O2 Delivery Room Air Capillary Refill : Less Than 3 Seconds Height/Weight/BMI Height: 5'10.00" Weight: 164lbs. 0.0oz. 74.339312xl; 20.00 BMI Method:Stated General Appearance: WD/WN, no apparent distress, other (WALKS SLIGHTLY BENT AT WAIST, HOLDING LOWER ABDOMEN) Respiratory: normal breath sounds, no respiratory distress, no accessory muscle use Cardiovascular: regular rate, rhythm, no murmur Gastrointestinal: normal bowel sounds, soft; No distended, No rebound; tenderness (SUPRAPUBIC TENDERNESS), hernia (SMALL UMBILICAL [id number], NON-INFLAMED, SOFT. ); No mass Back: no CVA tenderness Neurologic/Psychiatric: edge molder II-XII nml as tested, no motor/sensory deficits, alert, normal mood/affect, oriented x 3 Skin: normal color, warm/dry Progress/Results/Core Measures Results/Orders Lab Results Laboratory Tests Test 06/28/20 19:10 06/28/20 21:30 Range/Units Urine Color YELLOW Urine Clarity SL CLOUDY Urine pH 6.0 5-9 Urine Specific [place] 1.025 H 1.016-1.022 Urine Protein NEGATIVE NEGATIVE Urine Glucose (UA) NEGATIVE NEGATIVE Urine Ketones NEGATIVE NEGATIVE Urine Nitrite NEGATIVE NEGATIVE Urine Bilirubin NEGATIVE NEGATIVE Urine Urobilinogen 0.2 < = 1.0 MG/DL Urine Leukocyte Esterase 1+ H NEGATIVE Urine RBC (Auto) 3+ H NEGATIVE Urine RBC 10-25 H /HPF Urine WBC 5-10 H /HPF Urine Squamous Epithelial Cells 2-5 /HPF Urine Crystals NONE /LPF Urine Bacteria TRACE /HPF Urine Casts NONE /LPF Urine Mucus MODERATE H /LPF Urine Culture Indicated NO White Blood Count 15.1 H 4.3-11.0 10^3/uL Red Blood Count 4.16 3.80-5.11 10^6/uL Hemoglobin 13.7 11.5-16.0 g/dL Hematocrit 42 35-52 % Mean Corpuscular Volume 100 H 80-99 fL Mean Corpuscular Hemoglobin 33 25-34 pg Mean Corpuscular Hemoglobin Concent 33 32-36 g/dL Red Cell Distribution Width 11.6 10.0-14.5 % Platelet Count 464 H 130-400 10^3/uL Mean Platelet Volume 9.5 9.0-12.2 fL Immature Granulocyte % (Auto) 0 % Neutrophils (%) (Auto) 78 H 42-75 % Lymphocytes (%) (Auto) 15 12-44 % Monocytes (%) (Auto) 3 0-12 % Eosinophils (%) (Auto) 3 0-10 % Basophils (%) (Auto) 1 0-10 % Neutrophils # (Auto) 11.8 H 1.8-7.8 10^3/uL Lymphocytes # (Auto) 2.2 1.0-4.0 10^3/uL Monocytes # (Auto) 0.4 0.0-1.0 10^3/uL Eosinophils # (Auto) 0.5 H 0.0-0.3 10^3/uL Basophils # (Auto) 0.1 0.0-0.1 10^3/uL Immature Granulocyte # (Auto) 0.1 0.0-0.1 10^3/uL Neutrophils % (Manual) 77 % Lymphocytes % (Manual) 12 % Monocytes % (Manual) 3 % Eosinophils % (Manual) 1 % Basophils % (Manual) 0 % Band Neutrophils 3 % Reactive Lymphocytes 4 % Rouleau SLIGHT Prothrombin Time 13.1 12.2-14.7 SEC INR Comment 1.0 0.8-1.4 Activated Partial Thromboplast Time 33 24-35 SEC Sodium Level 142 135-145 MMOL/L Potassium Level 3.8 3.6-5.0 MMOL/L Chloride Level 107 98-107 MMOL/L Carbon Dioxide Level 24 21-32 MMOL/L Anion Gap 11 5-14 MMOL/L Blood Urea Nitrogen 10 7-18 MG/DL Creatinine 0.70 0.60-1.30 MG/DL Estimat Glomerular Filtration Rate > 60 BUN/Creatinine Ratio 14 Glucose Level 94 70-105 MG/DL Calcium Level 9.2 8.5-10.1 MG/DL Corrected Calcium 9.0 8.5-10.1 MG/DL Total Bilirubin 0.2 0.1-1.0 MG/DL Aspartate Amino Transf (AST/SGOT) 11 5-34 U/L Alanine Aminotransferase (ALT/SGPT) 9 0-55 U/L Alkaline Phosphatase 67 40-136 U/L Total Protein 7.1 6.4-8.2 GM/DL Albumin 4.3 3.2-4.5 GM/DL My Orders Orders - NAVEEN DWYER DO Ua Culture If Indicated (06/28/20 21:05) Ed Iv/Invasive Line Start (06/28/20 21:26) Ct Abdomen/Pelvis W (06/28/20 21:26) Cbc With Automated Diff (06/28/20 21:26) Comprehensive Metabolic Panel (06/28/20 21:26) Protime With Inr (06/28/20 21:26) Partial Thromboplastin Time (06/28/20 21:26) Ketorolac Injection (Toradol Injection) (06/28/20 21:26) Iohexol Injection (Omnipaque 350 Mg/Ml 1 (06/28/20 21:30) Received Contrast (Hold Metformin- Contr (06/28/20 21:30) Ns (Ivpb) (Sodium Chloride 0.9% Ivpb Bag (06/28/20 21:30) Manual Differential (06/28/20 21:30) Ceftriaxone For Iv Use (Rocephin For I (06/28/20 22:30) Medications Given in ED Current Medications Medications Dose Ordered Sig/Leda Route Start Time Stop Time Status Last Admin Dose Admin Ceftriaxone Sodium 1000 mg/ Sterile Water 10 ml @ 200 mls/hr ONCE ONCE IV 06/28/20 22:30 06/28/20 22:32 DC 06/28/20 22:26 200 MLS/HR Iohexol 100 ml ONCE ONCE IV 06/28/20 21:30 06/28/20 22:32 DC 06/28/20 21:50 100 ML Sodium Chloride 100 ml ONCE ONCE IV 06/28/20 21:30 06/28/20 22:32 DC 06/28/20 21:51 80 ML Vital Signs/I&O 06/28/20 06/28/20 06/28/20 20:55 21:36 22:30 Temp 36.9 36.9 36.5 Pulse 75 57 Resp 18 18 B/P (MAP) 134/73 (93) 107/64 Pulse Ox 99 97 O2 Delivery Room Air Room Air 06/28/20 23:59 Intake Total 10 ml Balance 10 ml Blood Pressure Mean: 93 Progress Progress Note : Progress Note GIVEN TORADOL WITH SIGNIFICANT IMPROVEMENT IN PAIN Diagnostic Imaging Comments CT ABDOMEN/PELVIS--PER RADIOLOGIST REPORT AT 2212 IMPRESSION: 1. Small periumbilical hernia containing a loop of small bowel. No bowel obstruction is seen at this time; however, given the small neck of the hernia sac this may predispose to small bowel obstruction. Recommend correlation with physical exam and reducibility of the hernia. 2. No evidence of abscess in the abdomen or pelvis. 3. Small amount of physiologic free fluid in the pelvis. Reviewed: Reviewed by Me Departure Communication (Admissions) 2219--SPOKE WITH DR. MAYFIELD, HE ADVISES TO TREAT UTI AT THIS TIME, AND FOLLOW UP WITH DR. ANDERSON NEXT WEEK Impression Primary Impression: UTI Additional Impressions: S/P Pelvic pain Disposition: 01 HOME, SELF-CARE Condition: Improved Departure-Patient Inst. Referrals: URBANO ANDERSON DO (PCP) Primary Care Physician [facility] (Family) Primary Care Physician Patient Instructions: ( Delivery) (DC), Pelvic Pain (DC), Urinary Tract Infection, Adult (DC) Add. Discharge Instructions: LOTS OF CLEAR LIQUIDS TYLENOL NEEDED FOR PAIN FOLLOW UP WITH DR. ANDERSON ON WEDNESDAY, RETURN TO ER IF WORSE All discharge instructions reviewed with patient and/or family. Voiced understanding. Scripts Ketorolac Tromethamine (Ketorolac Tromethamine) 10 Mg Tablet 10 MG PO Q6H for Pain, #15 TAB Prov: NAVEEN DWYER DO 06/28/20 Phenazopyridine HCl (Pyridium) 200 Mg Tablet 1 TAB PO TID, #15 TAB Prov: NAVEEN DWYER DO 06/28/20 Nitrofurantoin Monohyd/M-Cryst (Macrobid 100 mg Capsule) 100 Mg Capsule 1 TAB PO BID, #20 CAP Prov: NAVEEN DWYER DO 06/28/20 NAVEEN DWYER DO Jun 28, 2020 21:12
[2020-06-28 21:16] LABS: BILIRUBIN,URINE NEGATIVE (NEGATIVE); COLOR,URINE YELLOW; GLUCOSE, URINE (UA) NEGATIVE (NEGATIVE); KETONES,URINE NEGATIVE (NEGATIVE); LEUKOCYTE ESTERASE ,URINE 1+ (NEGATIVE); NITRITE,URINE NEGATIVE (NEGATIVE); PROTEIN,URINE NEGATIVE (NEGATIVE)
[2020-06-28 21:22] LABS: CLARITY,URINE SL CLOUDY
[2020-06-28 21:24] LABS: BACTERIA,URINE TRACE /HPF
[2020-06-28] MEDS ORDERED: KETOROLAC 30 MG/ML VIAL IVP STA (21:26)
[2020-06-28] MEDS ORDERED: NS 100 ML (IVPB) BAG IV ONE (21:30)
[2020-06-28] MEDS ORDERED: IOHEXOL 350 MG/ML 100 ML (OMNIPAQUE 350) VIAL IV ONE (21:30)
[2020-06-28] MEDS ORDERED: HOLD METFORMIN - RECEIVED CONTRAST 20 ML VIAL IV SCH (21:30)
[2020-06-28 21:40] LABS: BASOPHILS # (AUTO) 0.1 10^3/uL (0.0-0.1); BASOPHILS % (AUTO) 1 % (0-10); EOSINOPHILS # (AUTO) 0.5 10^3/uL (0.0-0.3); EOSINOPHILS % (AUTO) 3 % (0-10); HEMATOCRIT 42 % (35-52); HEMOGLOBIN 13.7 g/dL (11.5-16.0); LYMPHOCYTES # (AUTO) 2.2 10^3/uL (1.0-4.0); LYMPHOCYTES % (AUTO) 15 % (12-44); MEAN CORPUSCULAR HEMOGLOBIN 33 pg (25-34); MEAN CORPUSCULAR HGB CONC 33 g/dL (32-36); MEAN CORPUSCULAR VOLUME 100 fL (80-99); MEAN PLATELET VOLUME 9.5 fL (9.0-12.2); MONOCYTES # (AUTO) 0.4 10^3/uL (0.0-1.0); MONOCYTES % (AUTO) 3 % (0-12); NEUTROPHILS # (AUTO) 11.8 10^3/uL (1.8-7.8); NEUTROPHILS % (AUTO) 78 % (42-75); PLATELET COUNT 464 10^3/uL (130-400); WHITE BLOOD COUNT 15.1 10^3/uL (4.3-11.0)
[2020-06-28 21:51] LABS: ALBUMIN 4.3 GM/DL (3.2-4.5)
[2020-06-28 21:52] LABS: CHLORIDE 107 MMOL/L (98-107); POTASSIUM 3.8 MMOL/L (3.6-5.0); PROTHROMBIN TIME PATIENT 13.1 SEC (12.2-14.7); SODIUM 142 MMOL/L (135-145)
[2020-06-28 21:53] LABS: CALCIUM 9.2 MG/DL (8.5-10.1)
[2020-06-28 21:54] LABS: GLUCOSE 94 MG/DL (70-105); TOTAL PROTEIN 7.1 GM/DL (6.4-8.2)
[2020-06-28 21:55] LABS: CARBON DIOXIDE 24 MMOL/L (21-32)
[2020-06-28 21:56] LABS: BILIRUBIN,TOTAL 0.2 MG/DL (0.1-1.0)
[2020-06-28 21:57] LABS: ALKALINE PHOSPHATASE 67 U/L (40-136)
[2020-06-28 21:58] LABS: GFR ESTIMATED > 60
[2020-06-28 21:59] LABS: BUN/CREATININE RATIO 14
[2020-06-28 22:00] LABS: ALANINE AMINOTRANSFERASE 9 U/L (0-55)
[2020-06-28 22:02] LABS: BAND NEUTROPHILS 3 %; BASOPHILS % (MANUAL) 0 %; EOSINOPHILS % (MANUAL) 1 %; LYMPHOCYTES % (MANUAL) 12 %; MONOCYTES % (MANUAL) 3 %; NEUTROPHILS % (MANUAL) 77 %; REACTIVE LYMPHOCYTES 4 %
[2020-06-28 22:03] LABS: ROULEAUX SLIGHT
--- NOTE | 2020-06-28 22:06 | Diagnostic Imaging Report ---
EXAMINATION: CT abdomen and pelvis with intravenous contrast. TECHNIQUE: Multiple contiguous axial images were obtained through the abdomen and pelvis after the uneventful administration of intravenous contrast. All CT scans use one or more of the following dose optimizing techniques: automated exposure control, MA and/or KvP adjustment based on patient size and exam type or iterative reconstruction. HISTORY: Lower abdominal pain. two weeks ago. COMPARISON: 05/04/2012. FINDINGS: The heart is unremarkable. The included lung bases are clear. The liver, spleen, pancreas, adrenal glands and kidneys have a normal appearance. There is no pathologically enlarged mesenteric or retroperitoneal adenopathy. The bowel loops are nondilated. Small periumbilical hernia is visualized containing a loop of small bowel. No evidence of obstruction is seen at this time. A small amount of physiologic free fluid is seen in the pelvis. No free air is seen in the abdomen and pelvis. No acute osseous abnormalities. The urinary bladder is decompressed. There is no free air, loculated collection or adenopathy in the pelvis. IMPRESSION: 1. Small periumbilical hernia containing a loop of small bowel. No bowel obstruction is seen at this time; however, given the small neck of the hernia sac this may predispose to small bowel obstruction. Recommend correlation with physical exam and reducibility of the hernia. 2. No evidence of abscess in the abdomen or pelvis. 3. Small amount of physiologic free fluid in the pelvis. Dictated by: Dictated on workstation # [id number]
[2020-06-28] MEDS ORDERED: NITR-65 PO (22:29)
[2020-06-28] MEDS ORDERED: KETO10TA PO (22:29)
[2020-06-28] MEDS ORDERED: PHEN-640 PO (22:29)
[2020-06-28 22:30] VITALS: BP 107/64
[2020-06-28] MEDS ORDERED: cefTRIAXone FOR IV USE 1,000 MG in WATER (STERILE) FOR INJECTION 10 ML IV ONE (22:30)
== END 2020-06-28 22:34 | disposition home or self-care (01) ==
LOC: EDUNIT# 20:50 → ER 20:52
DX: O86.20 Urinary tract infection following delivery, unspecified (principal); R10.2 Pelvic and perineal pain; F17.210 Nicotine dependence, cigarettes, uncomplicated
CPT/HCPCS: 36415; 74177; 80053; 81000; 85007; 85027; 85610; 85730

== ENCOUNTER 2020-08-24 17:05 | Emergency (ER) | payer MEDICAID ==
[~2020-08-24] VITALS: Ht 177 cm; Wt 58.2 kg
[~2020-08-24 17:05] MED LIST changes: +KETO10TA PO; +PHEN-640 PO
[2020-08-24] MEDS ORDERED: fentaNYL INJ 100 MCG/2 ML AMP IVP ONE (17:45)
[2020-08-24] MEDS ORDERED: KETOROLAC 30 MG/ML VIAL IVP STA (17:53)
[2020-08-24 18:00] LABS: BASOPHILS # (AUTO) 0.1 10^3/uL (0.0-0.1); BASOPHILS % (AUTO) 2 % (0-10); EOSINOPHILS # (AUTO) 0.5 10^3/uL (0.0-0.3); EOSINOPHILS % (AUTO) 6 % (0-10); HEMATOCRIT 39 % (35-52); HEMOGLOBIN 12.8 g/dL (11.5-16.0); LYMPHOCYTES # (AUTO) 3.4 10^3/uL (1.0-4.0); LYMPHOCYTES % (AUTO) 42 % (12-44); MEAN CORPUSCULAR HEMOGLOBIN 32 pg (25-34); MEAN CORPUSCULAR HGB CONC 33 g/dL (32-36); MEAN CORPUSCULAR VOLUME 96 fL (80-99); MEAN PLATELET VOLUME 10.6 fL (9.0-12.2); MONOCYTES # (AUTO) 0.4 10^3/uL (0.0-1.0); MONOCYTES % (AUTO) 5 % (0-12); NEUTROPHILS # (AUTO) 3.6 10^3/uL (1.8-7.8); NEUTROPHILS % (AUTO) 45 % (42-75); PLATELET COUNT 336 10^3/uL (130-400)
[2020-08-24 18:00] LABS: BILIRUBIN,URINE NEGATIVE (NEGATIVE); CLARITY,URINE CLEAR; COLOR,URINE YELLOW; GLUCOSE, URINE (UA) NEGATIVE (NEGATIVE); KETONES,URINE NEGATIVE (NEGATIVE); LEUKOCYTE ESTERASE ,URINE NEGATIVE (NEGATIVE); NITRITE,URINE NEGATIVE (NEGATIVE); PROTEIN,URINE NEGATIVE (NEGATIVE)
[2020-08-24] MEDS ORDERED: NS 100 ML (IVPB) BAG IV ONE (18:00)
[2020-08-24] MEDS ORDERED: IOHEXOL 350 MG/ML 100 ML (OMNIPAQUE 350) VIAL IV ONE (18:00)
[2020-08-24] MEDS ORDERED: CATHETER FLUSH 10 ML SYR IV PRN (18:00)
[2020-08-24] MEDS ORDERED: HOLD METFORMIN - RECEIVED CONTRAST 20 ML VIAL IV SCH (18:00)
--- NOTE | 2020-08-24 18:02 | ED Abdominal Pain ---
General Chief Complaint: Abdominal/GI Problems Stated Complaint: CRAMPS Source of Information: Patient Exam Limitations: No Limitations History of Present Illness Date Seen by Provider: Aug 24, 2020 Time Seen by Provider: 17:09 Initial Comments To ER with lower abdominal cramping. She has a right inguinal hernia that seems to have recurred. She had this repaired about a year ago by Dr. Lozano. This recurred after an umbilical hernia repair with on the fifth of this month. The bulge in the right groin began at that time but the pain began about 3 days ago. She continues to pass gas and have bowel movements. She is also having vaginal bleeding. Timing/Duration: 2-3 Days Severity/Quality: Moderate Location: RLQ Radiation: No Radiation Activities at Onset: None Associated Symptoms: Denies Symptoms Allergies and Home Medications Allergies Coded Allergies: No Known Drug Allergies (Unverified , 06/30/19) Home Medications Acetaminophen 500 Mg Tablet, 1,000 MG PO Q8HR Prescribed by: URBANO ANDERSON on 06/12/201723 Docusate Sodium 100 Mg Capsule, 100 MG PO BID Prescribed by: URBANO ANDERSON on 06/12/20 172 Ferrous Sulfate 325 Mg Tablet, 325 MG PO DAILY@0700 Prescribed by: URBANO ANDERSON on 06/12/201723 Hydrocodone/Acetaminophen 1 Each Tablet, 1 TAB PO Q4H PRN for PAIN-MODERATE (5- 7) Prescribed by: JM HILTON on 08/24/202003 Ibuprofen 600 Mg Tablet, 600 MG PO Q6HR Prescribed by: URBANO ANDERSON on 06/12/201723 Ketorolac Tromethamine 10 Mg Tablet, 10 MG PO Q6H Prescribed by: NAVEEN DWYER on 06/28/202228 Nitrofurantoin Monohyd/M-Cryst 100 Mg Capsule, 1 TAB PO BID Prescribed by: NAVEEN DWYER on 06/28/202228 Oxycodone Hcl 5 Mg Tab, 5 MG PO Q4HR Prescribed by: URBANO ANDERSON on 06/12/20 172 Phenazopyridine HCl 200 Mg Tablet, 1 TAB PO TID Prescribed by: NAVEEN DWYER on 06/28/202228 Patient Home Medication List Home Medication List Reviewed: Yes Review of Systems Review of Systems Constitutional: see HPI EENTM: No Symptoms Reported Respiratory: No Symptoms Reported Cardiovascular: No Symptoms Reported Gastrointestinal: See HPI, Abdominal Pain; Denies Diarrhea, Denies Nausea Genitourinary: No Symptoms Reported Musculoskeletal: no symptoms reported Skin: no symptoms reported Psychiatric/Neurological: No Symptoms Reported Endocrine: No Symptoms Reported Hematologic/Lymphatic: No Symptoms Reported Past Ostrrpd-Ktvtll-Jqskfd Hx Patient Social History Type Used: Cigarettes 2nd Hand Smoke Exposure: Yes Recent Hopitalizations: No Immunizations Up To Date Tetanus Booster (TDap): Less than 5yrs PED Vaccines UTD: Yes Seasonal Allergies Seasonal Allergies: No Past Medical History Surgeries: Yes (HERNIA REPAIR) Abdominal, Section Respiratory: No Cardiac: Yes Hypertension Neurological: No Reproductive Disorders: No Sexually Transmitted Disease: No HIV/AIDS: No Genitourinary: No Gastrointestinal: Yes (HERNIA REPAIR) Abdominal Hernia Musculoskeletal: No Endocrine: No HEENT: Yes Loss of Vision: Denies Hearing Impairment: Denies Cancer: No Psychosocial: Yes Anxiety Integumentary: No Blood Disorders: No Adverse Reaction/Blood Tranf: No (N/A) Family Medical History Patient reports no known family medical history. Physical Exam Vital Signs Vital Signs - First Documented 08/24/20 17:10 Temp 35.0 Pulse 69 Resp 20 B/P (MAP) 146/90 (108) Pulse Ox 98 O2 Delivery Room Air Capillary Refill : Height/Weight/BMI Height: 5'10.00" Weight: 164lbs. 0.0oz. 74.338091vi; 20.00 BMI Method:Stated General Appearance: WD/WN, no apparent distress Neck: non-tender, full range of motion Respiratory: normal breath sounds, no respiratory distress, no accessory muscle use Cardiovascular: regular rate, rhythm, no murmur Gastrointestinal: normal bowel sounds, soft, tenderness (There is a palpable tender irreducible golf ball sized firm area to the right inguinal region.) Extremities: normal range of motion, non-tender Neurologic/Psychiatric: alert, normal mood/affect, oriented x 3 Skin: normal color, warm/dry Progress/Results/Core Measures Results/Orders Lab Results Laboratory Tests Test 08/24/20 17:18 08/24/20 17:48 Range/Units White Blood Count 8.0 4.3-11.0 10^3/uL Red Blood Count 4.05 3.80-5.11 10^6/uL Hemoglobin 12.8 11.5-16.0 g/dL Hematocrit 39 35-52 % Mean Corpuscular Volume 96 80-99 fL Mean Corpuscular Hemoglobin 32 25-34 pg Mean Corpuscular Hemoglobin Concent 33 32-36 g/dL Red Cell Distribution Width 11.3 10.0-14.5 % Platelet Count 336 130-400 10^3/uL Mean Platelet Volume 10.6 9.0-12.2 fL Immature Granulocyte % (Auto) 0 % Neutrophils (%) (Auto) 45 42-75 % Lymphocytes (%) (Auto) 42 12-44 % Monocytes (%) (Auto) 5 0-12 % Eosinophils (%) (Auto) 6 0-10 % Basophils (%) (Auto) 2 0-10 % Neutrophils # (Auto) 3.6 1.8-7.8 10^3/uL Lymphocytes # (Auto) 3.4 1.0-4.0 10^3/uL Monocytes # (Auto) 0.4 0.0-1.0 10^3/uL Eosinophils # (Auto) 0.5 H 0.0-0.3 10^3/uL Basophils # (Auto) 0.1 0.0-0.1 10^3/uL Immature Granulocyte # (Auto) 0.0 0.0-0.1 10^3/uL Sodium Level 142 135-145 MMOL/L Potassium Level 3.8 3.6-5.0 MMOL/L Chloride Level 107 98-107 MMOL/L Carbon Dioxide Level 23 21-32 MMOL/L Anion Gap 12 5-14 MMOL/L Blood Urea Nitrogen 6 L 7-18 MG/DL Creatinine 0.65 0.60-1.30 MG/DL Estimat Glomerular Filtration Rate > 60 BUN/Creatinine Ratio 9 Glucose Level 89 70-105 MG/DL Calcium Level 9.0 8.5-10.1 MG/DL Corrected Calcium 8.5-10.1 MG/DL Total Bilirubin 0.2 0.1-1.0 MG/DL Aspartate Amino Transf (AST/SGOT) 21 5-34 U/L Alanine Aminotransferase (ALT/SGPT) 26 0-55 U/L Alkaline Phosphatase 61 40-136 U/L Total Protein 7.4 6.4-8.2 GM/DL Albumin 4.6 H 3.2-4.5 GM/DL Serum Test, Qualitative NEGATIVE NEGATIVE Urine Color YELLOW Urine Clarity CLEAR Urine pH 6.0 5-9 Urine Specific [place] 1.020 1.016-1.022 Urine Protein NEGATIVE NEGATIVE Urine Glucose (UA) NEGATIVE NEGATIVE Urine Ketones NEGATIVE NEGATIVE Urine Nitrite NEGATIVE NEGATIVE Urine Bilirubin NEGATIVE NEGATIVE Urine Urobilinogen 0.2 < = 1.0 MG/DL Urine Leukocyte Esterase NEGATIVE NEGATIVE Urine RBC (Auto) TRACE-I NEGATIVE Urine RBC NONE /HPF Urine WBC NONE /HPF Urine Crystals NONE /LPF Urine Bacteria TRACE /HPF Urine Casts NONE /LPF Urine Mucus NEGATIVE /LPF Urine Culture Indicated NO My Orders Orders - JM HILTON APRN Cbc With Automated Diff (08/24/20 17:15) Comprehensive Metabolic Panel (08/24/20 17:15) Ua Culture If Indicated (08/24/20 17:15) Hcg,Qualitative Serum (08/24/20 17:15) Fentanyl Inj (Sublimaze Injection) (08/24/20 17:45) Ct Abdomen/Pelvis W (08/24/20 17:45) Iohexol Injection (Omnipaque 350 Mg/Ml 1 (08/24/20 18:00) Received Contrast (Hold Metformin- Contr (08/24/20 18:00) Sodium Chloride Flush (Catheter Flush Sy (08/24/20 18:00) Ns (Ivpb) (Sodium Chloride 0.9% Ivpb Bag (08/24/20 18:00) Diphenhydramine Injection (Benadryl Inje (08/24/20 19:15) Diphenhydramine Injection (Benadryl Inje (08/24/20 19:02) Ketorolac Injection (Toradol Injection) (08/24/20 20:15) Rx-Hydrocodone/Apap 5-325 Mg (Rx-Vicodin (08/24/20 20:15) Ketorolac Injection (Toradol Injection) (08/24/20 19:56) Rx-Hydrocodone/Apap 5-325 Mg (Rx-Vicodin (08/24/20 19:57) Medications Given in ED Vital Signs/I&O 08/24/20 08/24/20 17:10 20:13 Temp 35.0 Pulse 69 60 Resp 20 14 B/P (MAP) 146/90 (108) 107/63 Pulse Ox 98 98 O2 Delivery Room Air Room Air Departure Communication (Admissions) I spoke with Dr. Lozano and we offered her admission for surgical repair of this hernia tomorrow versus outpatient scheduling. She preferred to go home and schedule this outpatient Impression Primary Impression: Right inguinal hernia Disposition: HOME, SELF-CARE Condition: Stable Departure-Patient Inst. Decision time for Depature: 20:02 Referrals: [facility] (PCP/Family) Primary Care Physician NICHOLE LOZANO DO Patient Instructions: Abdominal Hernia (DC) Add. Discharge Instructions: 1. Call Dr. Lozano on Wednesday to make an appointment to be seen to schedule surgery for this hernia. Pain medication as directed. Return to ER for any worsening. All discharge instructions reviewed with patient and/or family. Voiced understanding. Scripts Hydrocodone/Acetaminophen (Hydrocodone-Acetamin 5-325 mg) 1 Each Tablet 1 TAB PO Q4H PRN for PAIN-MODERATE (5-7), #10 TAB Prov: JM HILTON APRN 08/24/20 Work/School Note: Work Release Form Date Seen in the Emergency Department: Aug 24, 2020 Return to Work: Aug 26, 2020 JM HILTON APRN Aug 24, 2020 18:01
[2020-08-24 18:07] LABS: BACTERIA,URINE TRACE /HPF
[2020-08-24 18:09] LABS: ALBUMIN 4.6 GM/DL (3.2-4.5); CHLORIDE 107 MMOL/L (98-107); POTASSIUM 3.8 MMOL/L (3.6-5.0); SODIUM 142 MMOL/L (135-145)
[2020-08-24 18:11] LABS: GLUCOSE 89 MG/DL (70-105); TOTAL PROTEIN 7.4 GM/DL (6.4-8.2)
[2020-08-24 18:12] LABS: CARBON DIOXIDE 23 MMOL/L (21-32)
[2020-08-24 18:13] LABS: BILIRUBIN,TOTAL 0.2 MG/DL (0.1-1.0)
[2020-08-24 18:15] LABS: ALKALINE PHOSPHATASE 61 U/L (40-136); CREATININE SERUM 0.65 MG/DL (0.60-1.30); GFR ESTIMATED > 60
[2020-08-24 18:16] LABS: BUN/CREATININE RATIO 9
[2020-08-24 18:18] LABS: ALANINE AMINOTRANSFERASE 26 U/L (0-55)
[2020-08-24] MEDS ORDERED: diphenhydrAMINE 50 MG/ML INJ (BENADRYL) ONE (19:02)
[2020-08-24] MEDS ORDERED: diphenhydrAMINE 50 MG/ML INJ (BENADRYL) IVP ONE (19:15)
--- NOTE | 2020-08-24 19:50 | Diagnostic Imaging Report ---
EXAMINATION: CT abdomen and pelvis with intravenous contrast. TECHNIQUE: Multiple contiguous axial images were obtained through the abdomen and pelvis after the uneventful administration of intravenous contrast. All CT scans use one or more of the following dose optimizing techniques: automated exposure control, MA and/or KvP adjustment based on patient size and exam type or iterative reconstruction. HISTORY: Right lower quadrant pain. COMPARISON: CT abdomen and pelvis 06/28/2020. FINDINGS: Lung bases: The lung bases are clear. Solid organs: The liver is normal without focal lesion. The gallbladder is normal. There is no biliary ductal dilation. Pancreas is normal. Spleen is normal. Adrenal glands are normal. The kidneys are normal without hydronephrosis. Bowel: The stomach and small bowel are normal without obstruction. The colon is normal. No findings of acute appendicitis. Peritoneum: There is mild free fluid in the pelvis. No suspicious lymphadenopathy. Vasculature: Normal without aneurysm. Musculoskeletal: Chronic compression deformity of the T12 vertebral body. No new suspicious osseous lesion or compression fracture. There is a small right inguinal hernia containing fluid. Pelvis: The uterus is unremarkable. There is a 2.7 cm left adnexal cystic lesion. The urinary bladder is normal. IMPRESSION: 1. No acute abnormality in the abdomen or pelvis. 2. Small right inguinal hernia containing fluid. Dictated by: Dictated on workstation # [id number]
[2020-08-24] MEDS ORDERED: KETOROLAC 30 MG/ML VIAL ONE (19:56)
[2020-08-24] MEDS ORDERED: RX-HYDROCODONE/APAP 5/325 MG #4 TAB PK PO ONE (19:57)
[2020-08-24] MEDS ORDERED: ACHD5005 PO (20:03)
[2020-08-24 20:13] VITALS: BP 107/63
[2020-08-24] MEDS ORDERED: RX-HYDROCODONE/APAP 5/325 MG #4 TAB PK PO PRN (20:15)
[2020-08-24] MEDS ORDERED: KETOROLAC 30 MG/ML VIAL IVP ONE (20:15)
== END 2020-08-24 20:13 | disposition home or self-care (01) ==
LOC: EDUNIT# 17:05 → ER 17:08
DX: K40.90 Unilateral inguinal hernia, without obstruction or gangrene, not specified as recurrent (principal); I10 Essential (primary) hypertension; Z77.22 Contact with and (suspected) exposure to environmental tobacco smoke (acute) (chronic)
CPT/HCPCS: 36415; 74177; 80053; 81000; 84703; 85025

== ENCOUNTER 2020-09-19 12:31 | Emergency (ER) | payer MEDICAID ==
[~2020-09-19] VITALS: Ht 177 cm; Wt 55.3 kg
[2020-09-19] MEDS ORDERED: fentaNYL INJ 100 MCG/2 ML AMP IVP ONE (12:45)
--- NOTE | 2020-09-19 12:49 | ED Abdominal Pain ---
General Stated Complaint: ABD PAIN Source of Information: Patient Exam Limitations: No Limitations History of Present Illness Date Seen by Provider: Sep 19, 2020 Time Seen by Provider: 12:47 Initial Comments ER with sudden onset of severe abdominal pain in the right lower abdomen. She was seen here about a month ago by me, diagnosed with a right inguinal hernia. She was offered admission and surgical repair then but preferred to have this scheduled outpatient. She is been doing okay until today while at work she had sudden onset of right lower quadrant abdominal pain at the location of her hernia. She is scheduled for surgery on the . She denies fevers or chills. Timing/Duration: 1-2 Days Severity/Quality: Moderate Location: RLQ Radiation: No Radiation Activities at Onset: None Associated Symptoms: Nausea/Vomiting Allergies and Home Medications Allergies Coded Allergies: No Known Drug Allergies (Unverified , 06/30/19) Home Medications Acetaminophen 500 Mg Tablet, 1,000 MG PO Q8HR Prescribed by: URBANO ANDERSON on 06/12/201723 Docusate Sodium 100 Mg Capsule, 100 MG PO BID Prescribed by: URBANO ANDERSON on 06/12/20 172 Ferrous Sulfate 325 Mg Tablet, 325 MG PO DAILY@0700 Prescribed by: URBANO ANDERSON on 06/12/201723 Hydrocodone/Acetaminophen 1 Each Tablet, 1 TAB PO Q4H PRN for PAIN-MODERATE (5-7 ) Prescribed by: JM HILTON on 08/24/202003 Ibuprofen 600 Mg Tablet, 600 MG PO Q6HR Prescribed by: URBANO ANDERSON on 06/12/201723 Ketorolac Tromethamine 10 Mg Tablet, 10 MG PO Q6H Prescribed by: NAVEEN DWYER on 06/28/202228 Nitrofurantoin Monohyd/M-Cryst 100 Mg Capsule, 1 TAB PO BID Prescribed by: NAVEEN DWYER on 06/28/202228 Oxycodone Hcl 5 Mg Tab, 5 MG PO Q4HR Prescribed by: URBANO ANDERSON on 06/12/201723 Phenazopyridine HCl 200 Mg Tablet, 1 TAB PO TID Prescribed by: NAVEEN DWYER on 06/28/202228 Patient Home Medication List Home Medication List Reviewed: Yes Review of Systems Review of Systems Constitutional: see HPI EENTM: No Symptoms Reported Respiratory: No Symptoms Reported Cardiovascular: No Symptoms Reported Gastrointestinal: See HPI, Abdominal Pain Genitourinary: No Symptoms Reported Musculoskeletal: no symptoms reported Skin: no symptoms reported Psychiatric/Neurological: No Symptoms Reported Endocrine: No Symptoms Reported Hematologic/Lymphatic: No Symptoms Reported Past Litbznl-Wkcssj-Gsujrt Hx Patient Social History Type Used: Cigarettes 2nd Hand Smoke Exposure: Yes Recent Hopitalizations: No Immunizations Up To Date Tetanus Booster (TDap): Less than 5yrs PED Vaccines UTD: Yes Seasonal Allergies Seasonal Allergies: No Past Medical History Surgeries: Yes (HERNIA REPAIR) Abdominal, Section, Tubal Ligation Respiratory: No Cardiac: Yes Hypertension Neurological: No 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 Physical Exam Vital Signs Vital Signs - First Documented 09/19/20 12:48 Temp 36.2 Pulse 78 Resp 18 B/P (MAP) 107/73 (84) Pulse Ox 98 Capillary Refill : Height/Weight/BMI Height: 5'10.00" Weight: 164lbs. 0.0oz. [id number]; 18.00 BMI Method:Stated General Appearance: WD/WN, no apparent distress Respiratory: no respiratory distress, no accessory muscle use Gastrointestinal: normal bowel sounds, soft, other (Curled up in position as a position of comfort. She has an irreducible golf ball sized nodule to the right inguinal region.) Extremities: normal range of motion, non-tender Neurologic/Psychiatric: alert, normal mood/affect, oriented x 3 Skin: normal color, warm/dry Progress/Results/Core Measures Results/Orders Lab Results Laboratory Tests Test 09/19/20 12:48 Range/Units White Blood Count 8.3 4.3-11.0 10^3/uL Red Blood Count 4.33 3.80-5.11 10^6/uL Hemoglobin 13.6 11.5-16.0 g/dL Hematocrit 41 35-52 % Mean Corpuscular Volume 96 80-99 fL Mean Corpuscular Hemoglobin 31 25-34 pg Mean Corpuscular Hemoglobin Concent 33 32-36 g/dL Red Cell Distribution Width 11.8 10.0-14.5 % Platelet Count 379 130-400 10^3/uL Mean Platelet Volume 10.5 9.0-12.2 fL Immature Granulocyte % (Auto) 0 % Neutrophils (%) (Auto) 48 42-75 % Lymphocytes (%) (Auto) 39 12-44 % Monocytes (%) (Auto) 7 0-12 % Eosinophils (%) (Auto) 5 0-10 % Basophils (%) (Auto) 1 0-10 % Neutrophils # (Auto) 3.9 1.8-7.8 10^3/uL Lymphocytes # (Auto) 3.2 1.0-4.0 10^3/uL Monocytes # (Auto) 0.6 0.0-1.0 10^3/uL Eosinophils # (Auto) 0.4 H 0.0-0.3 10^3/uL Basophils # (Auto) 0.1 0.0-0.1 10^3/uL Immature Granulocyte # (Auto) 0.0 0.0-0.1 10^3/uL Sodium Level 136 135-145 MMOL/L Potassium Level 4.0 3.6-5.0 MMOL/L Chloride Level 103 98-107 MMOL/L Carbon Dioxide Level 22 21-32 MMOL/L Anion Gap 11 5-14 MMOL/L Blood Urea Nitrogen 8 7-18 MG/DL Creatinine 0.70 0.60-1.30 MG/DL Estimat Glomerular Filtration Rate > 60 BUN/Creatinine Ratio 11 Glucose Level 98 70-105 MG/DL Calcium Level 9.0 8.5-10.1 MG/DL Corrected Calcium 8.6 8.5-10.1 MG/DL Total Bilirubin 0.6 0.1-1.0 MG/DL Aspartate Amino Transf (AST/SGOT) 20 5-34 U/L Alanine Aminotransferase (ALT/SGPT) 22 0-55 U/L Alkaline Phosphatase 46 40-136 U/L Total Protein 7.4 6.4-8.2 GM/DL Albumin 4.5 3.2-4.5 GM/DL Serum Test, Qualitative NEGATIVE NEGATIVE My Orders Orders - JM HILTON APRN Cbc With Automated Diff (09/19/20 12:40) Comprehensive Metabolic Panel (09/19/20 12:40) Hcg,Qualitative Serum (09/19/20 12:40) Ed Iv/Invasive Line Start (09/19/20 12:40) Fentanyl Inj (Sublimaze Injection) (09/19/20 12:45) Ketorolac Injection (Toradol Injection) (09/19/20 13:00) Promethazine Injection (Phenergan Injec (09/19/20 13:00) Medications Given in ED Current Medications Medications Dose Ordered Sig/Leda Route Start Time Stop Time Status Last Admin Dose Admin Ketorolac Tromethamine 15 mg ONCE ONCE IVP 09/19/20 13:00 09/19/20 13:01 DC 09/19/20 13:07 15 MG Promethazine HCl 12.5 mg ONCE ONCE IVP 09/19/20 13:00 09/19/20 13:01 DC 09/19/20 13:07 12.5 MG Vital Signs/I&O 09/19/20 12:48 Temp 36.2 Pulse 78 Resp 18 B/P (MAP) 107/73 (84) Pulse Ox 98 Departure Communication (Admissions) 1252-patient declined admission during the first visit for this. She again states today that she is scheduled for surgery on the but is not interested in having it done any sooner because she has children to take care of and she cannot "just go have surgery". Offered to control her pain here. She states she does not want any narcotics. She is significantly limiting how much I can help her. 1441-patient states she still has intolerable pain in the right groin. She would like an ultrasound of this bulge. We just did a CT a month ago. I recommended that if we are looking for complications from this hernia we need to consider bowel obstruction and a CT would be the imaging study of choice to assess if there is any strangulation or bowel obstruction. She does not want another CT because of fear of causing cancer. She complains of intolerable pain but refuses opiate pain medication. Advised her we could give her a small dose and then try to reduce the hernia. She also states she does not want me to try to reduce it because that might hurt. She also does not want surgery today. I spoke with Dr. Lozano, he said he could probably operate on Wednesday of next week. Advised the patient there is no magic that I have to cure this problem and there is really nothing more I can do to help her given the limitations that she has placed on me. Impression Primary Impression: Incarcerated inguinal hernia, unilateral Disposition: 01 HOME, SELF-CARE Condition: Stable Departure-Patient Inst. Decision time for Depature: 14:43 Referrals: [facility] (PCP/Family) Primary Care Physician NICHOLE LOZANO DO Patient Instructions: Inguinal and Femoral (Groin) Hernias Add. Discharge Instructions: 1. Dr. Lozano's office will call you tomorrow today or tomorrow to schedule your surgery possibly for Wednesday of next week. Work/School Note: Work Release Form Date Seen in the Emergency Department: Sep 19, 2020 Return to Work: Sep 21, 2020 Copy Copies To 1: NICHOLE LOZANO PETER J APRN Sep 19, 2020 12:49
[2020-09-19 12:58] LABS: BASOPHILS # (AUTO) 0.1 10^3/uL (0.0-0.1); BASOPHILS % (AUTO) 1 % (0-10); EOSINOPHILS # (AUTO) 0.4 10^3/uL (0.0-0.3); EOSINOPHILS % (AUTO) 5 % (0-10); HEMATOCRIT 41 % (35-52); HEMOGLOBIN 13.6 g/dL (11.5-16.0); LYMPHOCYTES # (AUTO) 3.2 10^3/uL (1.0-4.0); LYMPHOCYTES % (AUTO) 39 % (12-44); MEAN CORPUSCULAR HEMOGLOBIN 31 pg (25-34); MEAN CORPUSCULAR HGB CONC 33 g/dL (32-36); MEAN CORPUSCULAR VOLUME 96 fL (80-99); MEAN PLATELET VOLUME 10.5 fL (9.0-12.2); MONOCYTES # (AUTO) 0.6 10^3/uL (0.0-1.0); MONOCYTES % (AUTO) 7 % (0-12); NEUTROPHILS # (AUTO) 3.9 10^3/uL (1.8-7.8); NEUTROPHILS % (AUTO) 48 % (42-75); PLATELET COUNT 379 10^3/uL (130-400); WHITE BLOOD COUNT 8.3 10^3/uL (4.3-11.0)
[2020-09-19] MEDS ORDERED: KETOROLAC 30 MG/ML VIAL IVP ONE (13:00)
[2020-09-19] MEDS ORDERED: PROMETHAZINE INJ 25 MG/ML (PHENERGAN) AMP IVP ONE (13:00)
[2020-09-19 13:15] LABS: ALBUMIN 4.5 GM/DL (3.2-4.5); CHLORIDE 103 MMOL/L (98-107); SODIUM 136 MMOL/L (135-145)
[2020-09-19 13:18] LABS: GLUCOSE 98 MG/DL (70-105); TOTAL PROTEIN 7.4 GM/DL (6.4-8.2)
[2020-09-19 13:19] LABS: CARBON DIOXIDE 22 MMOL/L (21-32)
[2020-09-19 13:20] LABS: BILIRUBIN,TOTAL 0.6 MG/DL (0.1-1.0)
[2020-09-19 13:21] LABS: ALKALINE PHOSPHATASE 46 U/L (40-136); GFR ESTIMATED > 60
[2020-09-19 13:23] LABS: BUN/CREATININE RATIO 11
[2020-09-19 13:24] LABS: ALANINE AMINOTRANSFERASE 22 U/L (0-55)
[2020-09-19] MEDS ORDERED: ACETAMINOPHEN 500 MG TAB (TYLENOL) PO ONE (14:45)
[2020-09-19 14:55] VITALS: BP 113/65
[2020-09-19 14:55] LABS: BILIRUBIN,URINE NEGATIVE (NEGATIVE); CLARITY,URINE CLEAR; COLOR,URINE YELLOW; GLUCOSE, URINE (UA) NEGATIVE (NEGATIVE); KETONES,URINE NEGATIVE (NEGATIVE); LEUKOCYTE ESTERASE ,URINE TRACE (NEGATIVE); NITRITE,URINE NEGATIVE (NEGATIVE); PROTEIN,URINE NEGATIVE (NEGATIVE)
[2020-09-19 15:02] LABS: BACTERIA,URINE TRACE /HPF
== END 2020-09-19 14:55 | disposition home or self-care (01) ==
LOC: EDUNIT# 12:31 → ER 12:32
DX: K40.30 Unilateral inguinal hernia, with obstruction, without gangrene, not specified as recurrent (principal); I10 Essential (primary) hypertension; Z77.22 Contact with and (suspected) exposure to environmental tobacco smoke (acute) (chronic)
CPT/HCPCS: 36415; 80053; 81000; 84703; 85025

== ENCOUNTER 2020-09-24 05:41 | Outpatient (CLI) | payer MEDICAID ==
[~2020-09-24] VITALS: Ht 177 cm; Wt 55.0 kg
== END 2020-09-24 09:34 | disposition home or self-care (01) ==
LOC: PREOP 05:41
PROVIDERS: ATTEND Surgery
DX: Z01.818 Encounter for other preprocedural examination (principal)

== ENCOUNTER 2020-09-27 07:13 | Day surgery (SDC) | payer MEDICAID ==
[2020-09-27] VITALS (11 sets, daily range): BP systolic 97–128; BP diastolic 67–82
[~2020-09-27] VITALS: Ht 177 cm; Wt 55.0 kg
[~2020-09-27 07:13] MED LIST changes: +LIDOCAINE/EPI 1%-1:100,000 (XYLOCAINE) 20ML ONE
[2020-09-27] MEDS ORDERED: ceFAZolin 2 GM IV Premixed 50 ML IV ONE (07:15)
[2020-09-27] MEDS ORDERED: proPOfol 200 MG/20 ML (DIPRIVAN) VIAL IV ONE (07:42)
[2020-09-27] MEDS ORDERED: LIDOCAINE PF 2% 5 ML (XYLOCAINE) VIAL ONE (07:43)
[2020-09-27] MEDS ORDERED: fentaNYL INJ 100 MCG/2 ML AMP ONE (07:43)
[2020-09-27] MEDS ORDERED: ROCURONIUM 10 MG/ML 5 ML SYRINGE IV ONE ×2 (07:44→10:26)
[2020-09-27] MEDS ORDERED: NEOSTIGMINE 3 MG/3 ML VIAL ONE (07:44)
[2020-09-27] MEDS ORDERED: GLYCOPYRROLATE 0.2 MG/ML (ROBINUL) 2 ML VIAL ONE (07:44)
[2020-09-27] MEDS ORDERED: ONDANSETRON 4 MG/2 ML (SDV) Z0FRAN ONE ×2 (07:44→12:23)
[2020-09-27] MEDS ORDERED: MIDAZOLAM 2 MG/2 ML (VERSED) VIAL ONE (07:44)
[2020-09-27] MEDS ORDERED: SEVOFLURANE (ULTANE) 15 ML INHAL SOLN ONE ×6 (07:44→12:00)
[2020-09-27] MEDS ORDERED: CATHETER FLUSH 10 ML SYR IV PRN (08:00)
[2020-09-27] MEDS: LACTATED RINGERS 1,000 ML IV PRN ×2 (08:44→13:09)
[2020-09-27] MEDS ORDERED: MIDAZOLAM 2 MG/2 ML (VERSED) VIAL IV ONE (09:00)
--- NOTE | 2020-09-27 09:20 | Progress Note-Pre Operative ---
Pre-Operative Progress Note H&P Reviewed The H&P was reviewed, patient examined and no changes noted. Time Seen by Provider: 09:04 Date H&P Reviewed: Sep 27, 2020 Time H&P Reviewed: 09:05 Pre-Operative Diagnosis: Recurrent incarcerated NICHOLE SWIFT DO Sep 27, 2020 09:20
[2020-09-27] MEDS ORDERED: HYDROmorphone 2 MG/ML VIAL (DILAUDID) ONE (10:01)
--- NOTE | 2020-09-27 12:17 | Progress Note-Post Operative ---
Post-Operative Progess Note Surgeon (s)/Seismograph Recorder (s) Surgeon NICHOLE LOZANO DO Seismograph Recorder: none Pre-Operative Diagnosis Recurrent incarcerated [facility] Post-Operative Diagnosis same Procedure & Operative Findings Date of Procedure 09/27/20 Procedure Performed/Findings After informed consent was obtained, the patient was brought to the operating room and placed on the operating table in a supine position. He was sterilely prepped and draped in a normal fashion. Local lidocaine was used to infiltrate the skin above the umbilicus. I made an incision with #11 blade, carried down to the skin into subcutaneous tissue and then deepened down the subcutaneous tissue with Bovie electrocautery down to the fascia. Fascia was incised with Bovie electrocautery and bluntly entered the abdomen, swept a finger around, placed 0 Vicryl [id number] suture and placed limited trocar port under direct visualization. Created pneumoperitoneum, able to visualize the hernia and took a picture of this and then placed two 8 mm ports about 10 cm on either side of the midline port using a local lidocaine, 11 blade for stab incision and then advanced the robotic port under direct visualization. Once this was in, I then placed the patient in Trendelenburg and then placed the working instruments, the fenestrated bipolar and the scissors. Looked on the left side and did not see a hernia. I could see an Indirect hernia defect on the right side. Next, I came across the peritoneum approximately 8 cm away from the hernia defect, going across laterally starting lateral about 17cm and cutting toward the median umbilical ligament. I then carefully dissected the visceral peritoneum away and down and then in the midline, went through the parietal side and dissected down to the pubic tubercle, dissecting this down carefully pushing the peritoneum away, I was able to then visualize the pubic tubercle and Jai's ligament. I went 2 cm posterior and at this point, we then had a critical view of the dissection, able to dissect 2 cm across the midline to the right side, 2 cm posterior to the Jai's ligament, able to then start removing hernia sac and contents right at the groove between Jai's and iliac vein and able to dissect and make sure there was no peritoneum between those two, able to see the indirect hernia space, took a picture of this, looked at the femoral space (no hernia seen). Then I carefully teased out the hernia sac and could visualize the indirect hernia space. There was a large lipoma that I was able to reduce as well; in fact I pulled out inflamed necrotic purple and red fat. I could clearely see the inguinal canal and the indirect space. Next I carried the posterior lateral dissection all the way out and then placed a 12 x 17 Bard 3DMax mesh. It laid in nicely, covered the hernia defect and the rest of the area. It was above the peritoneum, sutured it at the pubic tubercle with a 3-0 Vicryl suture and tied this off. I then placed a suture laterally to hold it in place. Again, this appeared to lay in very nicely. I then brought down the pneumoperitoneum to about 8 mm Hg and then started closing the peritoneum. Started laterally and used a 2-0 V-lock barbed suture to start a running stitch to close the peritoneum. This was closed nicely, took a picture of the closure at this point, then removed both needles had switched to a suture driver/guide from the scissors. I had removed some fat from behind the peritoneum and placed an endobag to remove this from the abdomen. The patient was then placed back supine, removed all ports under direct visualization, allowed pneumoperitoneum to escape and then closed the supraumbilical incision, closing the fascia with 0 Vicryl suture previously placed. Copiously irrigated all incisions and then closed the two small 8 mm incisions with two interrupted 4-0 undyed Monocryl subcuticular stitches and closed the supraumbilical incision with three interrupted undyed Monocryl subcuticular stitch. Area was cleaned and dried. Dermabond was placed. The patient tolerated the procedure. The sponge, instrument and needle counts were correct at the end of the case. Anesthesia Type GET Estimated Blood Loss Estimated blood loss (mL): less than 10ml Specimens/Packing Specimens Removed hernia contents ZEESHANKELNICHOLE Harmon DO Sep 27, 2020 12:17
[2020-09-27] MEDS ORDERED: ACHD5005 PO (12:18)
--- NOTE | 2020-09-27 12:18 | Discharge Inst-Surgical ---
Discharge Inst-Surgical Depart Medication/Instructions New, Converted or Re-Newed RX: RX Given to Pt/Family Patient Instructions Follow up Appt: Make appointment for 1 week. [phone] Instructions: No lifting greater than 20 pounds. No strenuous activity. May shower in 24 hours, no tub bath or soaking. Use incentive spirometer at home as directed. No Smoking Skin/Wound Care: May remove bandages in am. You need to leave the Dermabond on incision it will fall off on it's own. Symptoms to Report: Appetite Changes, Extremity Discoloration, Numbness/Tingling, Swelling Increased, Bleeding Excessive, Eyesight Changes, Pain Increased, Urine Color Change, Constipation(Persistent), Fever over 101 degree F, Pain/Pressure in chest, Urinating Difficulty, Cough Up/Vomit Blood, Heart Beat Irreg/Pounding, Pain/Pressure in jaw, Cramps in feet or legs, Lightheadedness, Pain/Pressure in shoulder, Diarrhea(Persistent), Memory Changes Suddenly, Questions/Concerns, Weight gain consecutive days, Dizziness/Fainting, Nausea/Vomiting, Shortness of Breath, Weight gain over 2 pounds If questions or concerns contact your physician Or seek help at emergency department. Activity Activity as Tolerated: Yes Activity Instructions: Avoid Stress to Incision Driving Instructions: No Driving/Refer to If Any Problems/Questions/Issu: Contact Your Physician, Go to Emergency Room Skin/Wound Care Infection Signs and Symptoms: Increased Redness, Foul Odor of Wound, Increased Drainage, Skin Itchy or Has a Rash, Increased Swelling, Temperature Above 101 F Bathing Instructions: Shower Stitches/[place]/Dermabond Dis: NICHOLE Ortiz DO Sep 27, 2020 12:18
[2020-09-27] MEDS ORDERED: morphine INJ 10 MG/ML 1ML (SYR OR VIAL) IVP ONE (12:30)
[2020-09-27] MEDS ORDERED: HYDROmorphone 2 MG/ML VIAL (DILAUDID) IV ONE (12:30)
[2020-09-27] MEDS: ONDANSETRON 4 MG/2 ML (SDV) Z0FRAN IVP PRN ×2 (12:30→13:21)
--- NOTE | 2020-09-27 14:12 | Anesthesia-General Post-Op ---
General Patient Condition Mental Status/LOC: Same as Preop Cardiovascular: Satisfactory Nausea/Vomiting: Absent Respiratory: Satisfactory Pain: Controlled Complications: Absent Post Op Complications Complications None Follow Up Care/Instructions Patient Instructions None needed. Anesthesia/Patient Condition Patient Condition Patient is doing well, no complaints, stable vital signs, no apparent adverse anesthesia problems. JOHN BENITO DO Sep 27, 2020 14:12
[2020-09-27] MEDS ORDERED: HYDROcodone/APAP 5 MG/325 MG (LORTAB) TAB ONE (14:16)
[2020-09-27] MEDS ORDERED: HYDROcodone/APAP 5 MG/325 MG (LORTAB) TAB PO ONE (14:30)
== END 2020-09-27 15:05 | disposition home or self-care (01) ==
LOC: SDC 07:13
PROVIDERS: ATTEND Surgery
DX: K40.31 Unilateral inguinal hernia, with obstruction, without gangrene, recurrent (principal); I10 Essential (primary) hypertension; F17.210 Nicotine dependence, cigarettes, uncomplicated; Z79.899 Other long term (current) drug therapy
CPT/HCPCS: 49651; 84703; 87081; C1781

== ENCOUNTER → 2020-11-21 | Outpatient (CLI) | payer MEDICAID ==
[~2020-11-21] MED LIST changes: -LIDOCAINE/EPI 1%-1:100,000 (XYLOCAINE) 20ML ONE
--- NOTE | 2020-11-21 14:52 | Diagnostic Imaging Report ---
INDICATION: Palpable lump left breast. COMPARISON: 06/02/2019. TECHNIQUE: 2D and 3D bilateral screening mammography was performed with CAD. FINDINGS: Both breasts show marked parenchymal heterogeneity and increased density, limiting the sensitivity of mammography. A BB marker was placed at the area of palpable abnormality in the inner left breast. There is some questionable density at this location but further evaluation of this area with ultrasound is recommended. There are benign calcifications on the left. The axillae are unremarkable. IMPRESSION: Extremely dense breasts. There is some residual density at the area of palpable abnormality in the medial left breast. Further evaluation with ultrasound is recommended and will be performed today. ACR BI-RADS Category 0: Incomplete. (Needs additional imaging evaluation). Result letter will be mailed to the patient. Note: At least 10% of breast cancer is not imaged by mammography. Dictated by: Dictated on workstation # [id number]
--- NOTE | 2020-11-21 15:59 | Diagnostic Imaging Report ---
INDICATION: Left breast lump. COMPARISON: Left breast ultrasound from 06/02/2019. FINDINGS: Sonographic interrogation of the area of lump in the left breast was performed. This corresponds to approximately the 9-10 o'clock location. There is a circumscribed hypoechoic solid mass at this location 5 cm from the nipple measuring 1.2 x 0.9 x 1.1 cm. This compares with 1.5 x 1.0 x 1.1 cm on the prior exam. IMPRESSION: Stable fibroadenoma of the left breast, likely accounting for the palpable abnormality. ACR BI-RADS Category 2: Benign findings. Dictated by: Dictated on workstation # [id number]
== END ==
LOC: RAD 14:15
PROVIDERS: ATTEND Pediatrics
DX: D24.2 Benign neoplasm of left breast (principal)
CPT/HCPCS: 76642; 77066; G0279; 77062

== ENCOUNTER 2022-02-14 13:40 | Emergency (ER) | payer MEDICAID ==
[~2022-02-14] VITALS: Ht 177 cm; Wt 64.8 kg
[~2022-02-14 13:40] MED LIST changes: -DCS100C PO; +DOCU-239 PO
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
[2022-02-14 14:08] LABS: BASOPHILS # (AUTO) 0.1 10^3/uL (0.0-0.1); BASOPHILS % (AUTO) 1 % (0-10); EOSINOPHILS # (AUTO) 0.5 10^3/uL (0.0-0.3); EOSINOPHILS % (AUTO) 5 % (0-10); HEMATOCRIT 37 % (35-52); HEMOGLOBIN 12.4 g/dL (11.5-16.0); LYMPHOCYTES % (AUTO) 29 % (12-44); MEAN CORPUSCULAR HEMOGLOBIN 32 pg (25-34); MEAN CORPUSCULAR HGB CONC 34 g/dL (32-36); MEAN CORPUSCULAR VOLUME 93 fL (80-99); MEAN PLATELET VOLUME 10.5 fL (9.0-12.2); MONOCYTES # (AUTO) 0.6 10^3/uL (0.0-1.0); MONOCYTES % (AUTO) 6 % (0-12); NEUTROPHILS # (AUTO) 6.1 10^3/uL (1.8-7.8); NEUTROPHILS % (AUTO) 59 % (42-75); PLATELET COUNT 296 10^3/uL (130-400); WHITE BLOOD COUNT 10.3 10^3/uL (4.3-11.0)
[2022-02-14 14:10] LABS: ALBUMIN 4.3 GM/DL (3.2-4.5); POTASSIUM 3.7 MMOL/L (3.6-5.0)
[2022-02-14 14:11] LABS: CALCIUM 8.9 MG/DL (8.5-10.1)
[2022-02-14 14:14] LABS: BILIRUBIN,TOTAL 0.3 MG/DL (0.1-1.0)
[2022-02-14] MEDS ORDERED: KETOROLAC 30 MG/ML VIAL IVP ONE (14:15)
[2022-02-14 14:16] LABS: CREATININE SERUM 0.72 MG/DL (0.60-1.30)
[2022-02-14 14:19] LABS: MAGNESIUM 1.7 MG/DL (1.6-2.4)
--- NOTE | 2022-02-14 14:44 | Diagnostic Imaging Report ---
EXAM: CHEST 1 VIEW, AP/PA ONLY INDICATION: Chest pain. COMPARISON: None. FINDINGS: Normal heart size and central pulmonary vascularity. No focal pulmonary opacity. No pleural effusion or pneumothorax. No acute osseous findings. IMPRESSION: No acute cardiopulmonary findings. Dictated by: Dictated on workstation # [id number]
[2022-02-14] MEDS ORDERED: AMOX1TAB12 PO (15:20)
[2022-02-14 15:47] VITALS: BP 110/95
== END 2022-02-14 15:47 | disposition home or self-care (01) ==
LOC: EDUNIT# 13:40 → ER 13:42
DX: J32.9 Chronic sinusitis, unspecified (principal); R07.2 Precordial pain; Z87.891 Personal history of nicotine dependence; Z28.310 Unvaccinated for COVID-19
CPT/HCPCS: 36415; 71045; 80053; 83735; 83874; 84484; 85025; 85610; 85730; 93005; 93041

== ENCOUNTER 2022-08-12 06:18 | Outpatient (CLI) | payer MEDICAID ==
[~2022-08-12] VITALS: Ht 177.8 cm; Wt 67.1 kg
[~2022-08-12 06:18] MED LIST changes: +AMOX1TAB12 PO; -POTA10CA43 PO; +POTA10CA44 PO
[2022-08-12] MEDS ORDERED: MULT-10 PO (10:26)
[2022-08-12] MEDS ORDERED: BIOT1TAB PO (10:26)
[2022-08-12] MEDS ORDERED: LACT1CAP74 PO (10:26)
== END 2022-08-12 10:31 ==
LOC: PREOP 06:18
PROVIDERS: ATTEND Surgery
DX: Z01.818 Encounter for other preprocedural examination (principal)

== ENCOUNTER 2022-08-24 10:22 | Day surgery (SDC) | payer MEDICAID ==
[~2022-08-24] VITALS: Ht 177 cm; Wt 67.1 kg
[~2022-08-24 10:22] MED LIST changes: +BIOT1TAB PO; +LACT1CAP74 PO; +MULT-10 PO
[2022-08-24] MEDS ORDERED: LACTATED RINGERS 1,000 ML IV STA (10:24)
--- NOTE | 2022-08-24 10:53 | Progress Note-Pre Operative ---
Pre-Operative Progress Note Date of Available H&P: Aug 06, 2022 Date H&P Reviewed: Aug 24, 2022 Time H&P Reviewed: 10:52 History & Physical: H&P Reviewed, Patient Examed, No changes noted Pre-Operative Diagnosis: rectal bleed NICHOLE LOZANO DO Aug 24, 2022 10:53
[2022-08-24 10:55] VITALS: BP 93/62
[2022-08-24] MEDS ORDERED: MIDAZOLAM 2 MG/2 ML (VERSED) VIAL ONE (11:09)
[2022-08-24] MEDS ORDERED: PROPOFOL INJECTION 50 ML IV ONE (11:09)
--- NOTE | 2022-08-24 11:40 | Progress Note-Post Operative ---
Post-Operative Progess Note Surgeon (s)/Floor Layer Apprentice (s) Surgeon NICHOLE LOZANO DO Floor Layer Apprentice: BILLY GuoII Pre-Operative Diagnosis rectal bleed Post-Operative Diagnosis Same plus Proctitis Int hemorrhoids Procedure & Operative Findings Date of Procedure 08/24/22 Procedure Performed/Findings Colonoscopy with cold biopsy PROCEDURE NOTE: After informed consent was obtained, the patient was brought to the endoscopy suite, placed in bed in left lateral decubitus position. She was administered IV sedation by the SILK EXAMINER who then monitored her vitals the entire time, heart rate, blood pressure and pulse ox and the scope was inserted, pushed all the way to about 90 cm and pushed into the cecum, took a picture of appendiceal orifice and noted the ileocecal valve. Then slowly withdrew the scope insufflating to look circum- ferentially at the callejas starting in the cecum, up the ascending colon to the hepatic flexure, then down the transverse colon, splenic flexure, into the descending colon and down into the sigmoid. Finally into the rectum which appeared very inflamed with mucous on the callejas. I elected to do 3 separate biopsies of the rectum and then retroflexed the scope. Took a picture of the internal hemorrhoids. The patient tolerated the procedure. She was recovered in endoscopy suite. Recommended for repeat colonoscopy in 1 year to reassess this inflammation. Anesthesia Type IV sedation by SILK EXAMINER Estimated Blood Loss Estimated blood loss (mL): scant Specimens/Packing Specimens Removed rectal bx NICHOLE LOZANO DO Aug 24, 2022 11:40
--- NOTE | 2022-08-24 11:41 | Endoscopy Discharge Instruct ---
Endo Procedure/Findings Findings 1.: Colitis 2.: Internal Hemorrhoids Discharge Instructions - Activity: You might feel a little sleepy until tomorrow. This is due to the medicine you received to relax you. Until tomorrow, you should: NOT drive a car, operate machinery or power tools. NOT drink any alcoholic beverages. NOT make any important decisions or sign importortant papers. Do not return to work until tomorrow, unless otherwise instructed. Resume previous activities tomorrow. Diet: Start by taking liquids. If you tolerate liquids, advance to solid food. 1.: Colonoscopy in 1 year Notify Physician - If you experience excessive bleeding, unusual abdominal pain, fever, or chest pain, contact your doctor immediately. NICHOLE LOZANO DO Aug 24, 2022 11:41
[2022-08-24 11:42] VITALS: BP 90/58
[2022-08-24 11:47] VITALS: BP 96/61
[2022-08-24 11:50] VITALS: BP 96/61
[2022-08-24 12:15] VITALS: BP 94/90
[2022-08-24 12:30] VITALS: BP 94/90
--- NOTE | 2022-08-24 12:51 | Anesthesia-General Post-Op ---
MAC Patient Condition Mental Status/LOC: Same as Preop Cardiovascular: Satisfactory Nausea/Vomiting: Absent Respiratory: Satisfactory Pain: Controlled Complications: Absent Post Op Complications Complications None Follow Up Care/Instructions Patient Instructions None needed. Anesthesiology Discharge Order Discharge Order Patient is doing well, no complaints, stable vital signs, no apparent adverse anesthesia problems. No complications reported per nursing. BROOKE CUMMINS CRNA Aug 24, 2022 12:51
== END 2022-08-24 12:30 | disposition home or self-care (01) ==
LOC: ENDO 10:22
PROVIDERS: ATTEND Surgery
DX: K62.89 Other specified diseases of anus and rectum (principal); K64.8 Other hemorrhoids; Z87.891 Personal history of nicotine dependence; Z28.310 Unvaccinated for COVID-19
CPT/HCPCS: 84703; 88305

== ENCOUNTER → 2022-11-26 | Outpatient (CLI) | payer MEDICAID | LOC: LAB 13:09 | PROVIDERS: ATTEND Internal Medicine Gastroenterology | DX: K62.89 Other specified diseases of anus and rectum (principal); K92.1 Melena; R15.2 Fecal urgency | CPT/HCPCS: 36415 ==

== ENCOUNTER 2023-03-08 10:05 | Emergency (ER) | payer SELFPAY ==
[~2023-03-08 10:05] MED LIST changes: -POTA10CA44 PO; +POTA10CA84 PO
[2023-03-08] MEDS ORDERED: NS IV 1000 ML 1,000 ML IV STA (10:59)
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
[2023-03-08 11:48] LABS: BASOPHILS # (AUTO) 0.1 10^3/uL (0.0-0.1); BASOPHILS % (AUTO) 1 % (0-10); EOSINOPHILS # (AUTO) 0.5 10^3/uL (0.0-0.3); EOSINOPHILS % (AUTO) 8 % (0-10); HEMATOCRIT 41 % (35-52); HEMOGLOBIN 13.5 g/dL (11.5-16.0); LYMPHOCYTES # (AUTO) 2.2 10^3/uL (1.0-4.0); LYMPHOCYTES % (AUTO) 36 % (12-44); MEAN CORPUSCULAR HEMOGLOBIN 31 pg (25-34); MEAN CORPUSCULAR HGB CONC 33 g/dL (32-36); MEAN CORPUSCULAR VOLUME 95 fL (80-99); MEAN PLATELET VOLUME 9.6 fL (9.0-12.2); MONOCYTES # (AUTO) 0.4 10^3/uL (0.0-1.0); MONOCYTES % (AUTO) 7 % (0-12); NEUTROPHILS # (AUTO) 2.9 10^3/uL (1.8-7.8); NEUTROPHILS % (AUTO) 48 % (42-75); PLATELET COUNT 345 10^3/uL (130-400)
[2023-03-08 12:00] LABS: ALBUMIN 4.7 GM/DL (3.2-4.5); CHLORIDE 104 MMOL/L (98-107); POTASSIUM 4.2 MMOL/L (3.6-5.0); SODIUM 136 MMOL/L (135-145)
[2023-03-08 12:01] LABS: CALCIUM 9.5 MG/DL (8.5-10.1)
[2023-03-08 12:02] LABS: CLARITY,URINE CLEAR; COLOR,URINE YELLOW; GLUCOSE 90 MG/DL (70-105); GLUCOSE, URINE (UA) NEGATIVE (NEGATIVE); PROTEIN,URINE NEGATIVE (NEGATIVE); TOTAL PROTEIN 8.3 GM/DL (6.4-8.2)
[2023-03-08 12:03] LABS: BACTERIA,URINE TRACE /HPF; BILIRUBIN,URINE NEGATIVE (NEGATIVE); CARBON DIOXIDE 21 MMOL/L (21-32); KETONES,URINE NEGATIVE (NEGATIVE); LEUKOCYTE ESTERASE ,URINE NEGATIVE (NEGATIVE); NITRITE,URINE NEGATIVE (NEGATIVE); RBC,URINE RARE /HPF; WBC,URINE 0-2 /HPF
[2023-03-08 12:04] LABS: BILIRUBIN,TOTAL 0.5 MG/DL (0.1-1.0)
[2023-03-08 12:06] LABS: ALKALINE PHOSPHATASE 69 U/L (40-136); CREATININE SERUM 0.73 MG/DL (0.60-1.30); GFR ESTIMATED 107
[2023-03-08 12:07] LABS: BUN/CREATININE RATIO 10
[2023-03-08 12:09] LABS: ALANINE AMINOTRANSFERASE 21 U/L (0-55); LIPASE 9 U/L (8-78)
[2023-03-08] MEDS ORDERED: IOHEXOL 350 MG/ML 100 ML (OMNIPAQUE 350) VIAL IV ONE (12:15)
[2023-03-08] MEDS ORDERED: NS 100 ML (IVPB) BAG IV ONE (12:15)
--- NOTE | 2023-03-08 12:48 | Diagnostic Imaging Report ---
PROCEDURE: CT abdomen and pelvis with contrast. TECHNIQUE: Multiple contiguous axial images were obtained through the abdomen and pelvis after administration of intravenous contrast. Auto Exposure Controls were utilized during the CT exam to meet ALARA standards for radiation dose reduction. All CT scans use one or more of the following dose optimizing techniques: automated exposure control, MA and/or KvP adjustment based on patient size and exam type or iterative reconstruction. DATE: March 08, 2023. INDICATION: 42-year-old female, severe diarrhea following antibiotics. Blood in stool. COMPARISON: CT abdomen and pelvis August 24, 2020. FINDINGS: The visualized portions of the lung bases are clear. The heart is not enlarged. There is no pericardial effusion. The liver is unremarkable in size and contour. There is no identified liver lesion. The main, right, and left portal veins are patent. The gallbladder is unremarkable. There is no biliary ductal dilation. The main pancreatic duct is not abnormally dilated. Unremarkable appearance of the pancreatic parenchyma. The spleen is normal in size. The adrenal glands are unremarkable. Unremarkable appearance of the renal parenchyma. There is some contrast in the collecting systems relating to timing of the contrast bolus. The urinary bladder is underdistended and not well evaluated. There are pelvic calcifications, compatible with phleboliths. There is a left ovarian follicle on axial image 130 measuring 1.8 cm in size. The intestinal tract is not distended. There is mild inflammatory stranding in the right lower quadrant. The appendix is not well seen. There is no free intraperitoneal air. There is no drainable fluid collection. There is a small amount of free pelvic fluid. There is mild wall thickening of the distal sigmoid colon. There is no identified abnormally enlarged lymph node in the abdomen or pelvis meeting CT size criteria for adenopathy. There is a circumaortic left renal vein. There is no identified acute bony abnormality. IMPRESSION: 1. The appendix is not well seen. There is inflammatory stranding in the right lower quadrant. 2. Mild wall thickening of the distal sigmoid colon which may relate to a nonspecific colitis. Infectious and inflammatory etiologies are favored. 3. Small amount of free pelvic fluid which is nonspecific although potentially physiologic. No drainable fluid collection. Dictated by: Dictated on workstation # [id number]
[2023-03-08] MEDS ORDERED: predniSONE 20 MG TABLET PO ONE (13:00)
[2023-03-08] MEDS ORDERED: PRD20T PO (13:08)
[2023-03-08 13:18] VITALS: BP 104/65
== END 2023-03-08 13:40 | disposition home or self-care (01) ==
LOC: EDUNIT# 10:05 → ER 10:07
DX: R19.7 Diarrhea, unspecified (principal); K92.1 Melena; R10.84 Generalized abdominal pain; R11.0 Nausea; K63.89 Other specified diseases of intestine; Z28.310 Unvaccinated for COVID-19; Z98.890 Other specified postprocedural states
CPT/HCPCS: 36415; 74177; 80053; 81000; 83690; 84703; 85025